=== PATIENT | female | born 2000 | race Caucasian/White ===

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

== ENCOUNTER 2020-01-04 12:55 | Emergency (ER) | payer MEDICAID, SELFPAY ==
[2020-01-04 13:29] VITALS: PULSE 127; RESP 18; TEMP 36.9; O2SAT 98; BMI 28.0
--- NOTE | 2020-01-04 14:54 | XR_ITS ---
WS: [id number] ABDOMEN KUB CLINICAL INFORMATION: Abdominal pain COMPARISON: December 23, 2019 FINDINGS: Moderate fecal retention throughout the colon. No evidence of high-grade obstruction. IUD projected o ankita the pelvis. Normal lumbar spine. XR/XR KUB portable [id number] Impression: Moderate pancolonic constipation
--- NOTE | 2020-01-04 15:06 | W.ED.ABDPA2 ---
HPI - Abdominal Pain General: Chief Complaint: General Medical Stated Complaint: constipation Time Seen by Provider: 01/04/20 13:38 History of Present Illness: HPI narrative: 19-year-old female comes in complaining of constipation for last few days tried various rewy-zwi-wcguoel remedies with no relief. They did try 1 enema at home. She also takes Colace and MiraLAX regularly she has chronic problems with constipation they have also tried Linzess. Associated Symptoms: Reports bloating, constipation and GI cramping; Denies chills, coffee ground emesis, diarrhea, dysuria, fever(s), hematochezia, hematemesis, melena, nausea and vomiting Related Data: Date of Last Menstrual Period: 12/23/19 Review of Systems Const: Denies: fever(s), chills, body aches, change in appetite, fatigue or malaise ENMT: Denies: throat pain, ear or mastoid pain, nasal discharge or nasal congestion Card: Denies: chest pain, edema, dyspnea on exertion or orthopnea Resp: Denies: dyspnea, productive cough or non-productive cough GI: Reports: constipation, bloating and GI cramping; Denies: abdominal pain, nausea, vomiting, hematemesis, coffee ground emesis, diarrhea, hematochezia or melena : Denies: flank pain, difficulty voiding, dysuria, urinary frequency or urinary urgency Skin/Breast: Denies: rash or pruritus [facility] ED PFSH: Medical History (Updated 01/04/20 @ 15:49 by Yuan Villatoro DO) Constipation, chronic Hyperlipidemia Seizures Surgical History (Updated 01/04/20 @ 15:49 by Yuan Villatoro DO) H/O eye surgery Social History Smoking and tobacco status: never smoked Female Reproductive History: Date of last menstrual period: 12/23/19 Physical Exam Const: COMMON NORMALS: no acute distress GENERAL APPEARANCE: cooperative and comfortable ORIENTATION/CONSCIOUSNESS: Yes awake, Yes oriented to person, Yes oriented to place and Yes oriented to time Eye: COMMON NORMALS: Equal, round and reactive pupils present, EOMs intact bilaterally, conjunctivae normal and no scleral icterus CONJUNCTIVA: Yes conjunctivae normal PUPIL: Yes Equal, round and reactive pupils present Neck/C-Spine: COMMON NORMALS: full ROM, no lymphadenopathy, supple and no JVD Lymph: LYMPHATIC: no lymphadenopathy noted and no lymphedema noted Resp: COMMON NORMALS: normal respiratory effort, No retractions, No use of accessory muscles and clear to auscultation bilaterally AUSCULTATION: clear to auscultation bilaterally Cardio: COMMON NORMALS: no JVD, regular rate, regular rhythm and No murmurs present (Cardio) RATE: regular rate RHYTHM: regular rhythm GI: COMMON NORMALS: Soft to palpation and No hepatosplenomegaly present AUSCULTATION: Yes normoactive bowel sounds PALPATION: Yes Soft to palpation, No Tenderness to palpation present (GI), No Guarding due to palpation present (GI) and Yes No hepatosplenomegaly present Extremity: COMMON NORMALS: normal to inspection, capillary refill normal, no clubbing, cyanosis or edema, no calf tenderness and no pedal edema Neuro: SENSORIUM/ORIENTATION: Yes oriented to person, Yes oriented to place and Yes oriented to time Skin: COMMON NORMALS: no rashes or lesions noted GENERAL SKIN EXAM: no rashes or lesions noted Course Vital Signs: Vital signs: Vital Signs Temperature 98.4 F 01/04/20 13:29 Pulse Rate 127 H 01/04/20 13:29 Respiratory Rate 18 01/04/20 13:29 Pulse Oximetry 98 01/04/20 13:29 MDM - Abdominal Pain MDM Narrative: Medical decision making narrative: Large amount of stool in the colon. The entire right colon is full of what appears to be solidified stool or even may be some fecalizartion of the terminal ileum. The results from the milk of molasses enema. He can use mag citrate as needed from this point Continue other strategies including increasing fiber in the diet activity Discharge Plan Discharge Patient Disposition: Home, Self-Care Clinical Impression: Constipation, chronic Condition: Stable Prescriptions: New magnesium citrate Solution 150 ml PO BID PRN (Reason: constipation) Qty: 296 RF: 0 No Action ibuprofen 200 mg capsule 400 mg PO TID PRN (Reason: fever or pain) RF: 0 acetaminophen [Tylenol] 325 mg capsule 650 mg PO QID PRN (Reason: fever or pain) RF: 0 lorazepam 2 mg tablet 2 mg PO DAILY PRN (Reason: seizures) RF: 0 calcium carbonate [Tums] 300 mg (750 mg) tablet,chewable 300 mg PO BID PRN (Reason: heartburn & nausea) RF: 0 Linzess 145 mcg capsule 145 mcg PO QAM PRN (Reason: Constipation) RF: 0 benztropine 1 mg tablet 1 mg PO BID Qty: 60 RF: 2 paliperidone 6 mg tablet extended release 24hr 6 mg PO DAILY Qty: 30 RF: 2 melatonin 3 mg tablet 3 mg PO DAILY Qty: 30 RF: 2 multivitamin [Tab-A-Diana] Tablet 1 tab PO DAILY RF: 0 hydroxyzine HCl 50 mg Tablet 50 mg PO BID PRN (Reason: Anxiety) RF: 0 zonisamide 100 mg Capsule 300 mg PO BID RF: 0 docusate sodium [Colace] 100 mg Capsule 100 mg PO BID RF: 0 omeprazole 20 mg Capsule,Delayed Release(Dr/Ec) 20 mg PO DAILY RF: 0 mineral oil [Tsdhc-Vt-Pst Enema (min oil)] Enema 118 ml [place] DAILY PRN (Reason: constipation) Qty: 135 RF: 1 fluticasone propionate 50 mcg/actuation [place],Suspension 1 spray INTRANASAL BID RF: 0 atorvastatin 40 mg Tablet 40 mg PO BEDTIME RF: 0 norgestimate-ethinyl estradiol 0.18/0.215/0.25 mg-35 mcg (28) Tablet 1 tab PO DAILY RF: 0 fluoride (sodium) [Sodium Fluoride 5000 Plus] 1.1 % Cream 1 applic DENTAL DAILY RF: 0 Briviact 50 mg Tablet 50 mg PO BID RF: 0 quetiapine 400 mg tablet 800 mg PO BID RF: 0 magnesium citrate Solution 45 ml PO BID PRN (Reason: constipation) Qty: 296 RF: 0 Miralax 17 gram/dose powder 17 gm PO DAILY Qty: 119 RF: 0 Discharge Orders: Discharge Order (Routine); Ordered 01/04/20 Ordered By: Yuan Villatoro Coding Level of Care Code ED Control Systems Specialist for Chg Fwd Exam Comprehensive
--- NOTE | 2020-01-04 15:53 | PC.NURSE ---
ENEMA ADMINISTERED, PATIENT TOLERATED WELL
[2020-01-04 16:48] VITALS: PULSE 100; RESP 20; O2SAT 99
== END 2020-01-04 16:49 | disposition home or self-care (01) ==
PROVIDERS: Emergency Provider Family Medicine
DX: K59.09 Other constipation (principal); E78.5 Hyperlipidemia, unspecified
CPT/HCPCS: 12345; 45915; 74018; 99282; 99283

== ENCOUNTER → 2020-01-25 11:18 | Outpatient (BNVA) | payer MEDICAID, SELFPAY | PROVIDERS: Visit Provider Psychiatry & Neurology Psychiatry | DX: F31.9 Bipolar disorder, unspecified (principal); F79 Unspecified intellectual disabilities; F33.41 Major depressive disorder, recurrent, in partial remission; F41.8 Other specified anxiety disorders | CPT/HCPCS: 99214 ==

== ENCOUNTER 2020-02-22 16:24 | Inpatient (IN) | payer OTHER, MEDICAID, SELFPAY ==
[2020-02-22 16:29] VITALS: BP 119/80; PULSE 110; RESP 16; TEMP 37.2; O2SAT 97; BMI 28.1
--- NOTE | 2020-02-22 16:39 | ECG_ITS ---
[facility] Test Date: 2020-02-22 Pat Name: Tyler Sinha Department: Room: Gender: Female Consumer Education Specialist: : 2000 Requested By: Padmini Jorge Order Number: [id number] Gale MD: Raghav Munoz M.D. Measurements Intervals [place] Rate: 101 P: 27 KS: 124 QRS: 16 QRSD: 84 T: 56 QT: 336 QTc: 436 Interpretive Statements SINUS TACHYCARDIA NONSPECIFIC T-WAVE ABNORMALITY ABNORMAL RHYTHM ECG No previous ECG available for comparison Electronically Signed On 02-23-2020 19:32:52 CDT by Raghav Munoz M.D. [id number]
--- NOTE | 2020-02-22 17:03 | ED_ITS ---
HPI - Psych General: Chief Complaint: Psychiatric Symptoms Stated Complaint: chapito, si Time Seen by Provider: 02/22/20 16:39 Source: patient Mode of arrival: ambulatory Limitations: no limitations History of Present Illness: HPI Narrative: Ms. Brewster is a 20-year-old female who comes in stating she is suicidal. She states that she feels like she wants to kill herself because of all the stress and problems in her life. She states she has multiple plans on how she is going to do this. She denies any ingestions or attempts up to this point. She does states she has had other a dmissions and attempts in the past. Review of Systems Const: Denies: fever(s), chills, body aches, fatigue, malaise or diaphoresis Eyes: Denies: change in vision, blurry vision, photophobia, eye discomfort, eye discharge or eye redness ENMT: Denies: throat pain, odynophagia, hoarseness, swelling of lips/tongue, ear or mastoid pain, ear discharge, change in hearing or nasal discharge Card: Denies: chest pain, palpitations, irregular heart rhythm, edema, lightheadedness, syncope, pre-syncope, dyspnea on exertion or orthopnea Resp: Denies: dyspnea, productive cough, non-productive cough, wheezing, hemoptysis or chest congestion GI: Denies: abdominal pain, nausea, vomiting, hematemesis, coffee ground emesis, heartburn, diarrhea, constipation, GI cramping, hematochezia or melena : Denies: flank pain, dysuria, urinary frequency, urinary urgency or hematuria Musc: Denies: neck pain, back pain, extremity pain, extremity swelling, joint pain, joint swelling, joint redness, joint warmth or joint stiffness Skin/Breast: Denies: rash, pruritus, erythema or skin tenderness Neuro: Denies: headache(s), numbness in extremities, weakness in extremities, sensory changes, lack of coordination, difficulty walking, dizziness, vertigo, confusion, Slurred speech present or seizure-like activity Priyank/Lymph: Denies: easy bruising, easy bleeding, petechiae, purpura or enlarged lymph nodes All/Imm: Denies: urticaria, throat swelling, tongue swelling, facial swelling or acute wheezing [facility] ED PFSH: Medical History (Updated 02/22/20 @ 17:53 by Padmini Gupta) Bipolar disorder Constipation, chronic Hyperlipidemia Intellectual disability Seizures Surgical History (Updated 01/04/20 @ 15:49 by Yuan Villatoro DO) H/O eye surgery Social History Smoking and tobacco status: never smoked Female Reproductive History: Date of last menstrual period: 12/23/19 Physical Exam Const: COMMON NORMALS: no acute distress, patient oriented x3, no limitations, healthy appearing and well nourished GENERAL APPEARANCE: cooperative, well kempt and well developed HENMT: COMMON NORMALS: normocephalic, atraumatic, external ears normal, EAC's normal and Normal external nose present HEAD & SCALP: normal to inspection, normocephalic and atraumatic FACE & SINUS: normal facial exam and face symmetric NOSE: Normal external nose present and Normal nares present EXTERNAL EAR: Yes external ears normal EXTERNAL AUDITORY CANAL: EAC's normal MOUTH: Normal oral and palatal mucosa present, lip normal and tongue normal Eye: COMMON NORMALS: Equal, round and reactive pupils present and conjunctivae normal GENERAL EYE: appearance normal, both eyes and all related structures ALIGNMENT: Yes alignment normal PERIORBITAL: periorbital findings normal EYELID: eyelids normal CONJUNCTIVA: Yes conjunctivae normal SCLERA: sclerae normal PUPIL: Yes Equal, round and reactive pupils present Neck/C-Spine: COMMON NORMALS: full ROM, no lymphadenopathy, supple, no meningeal signs and no JVD GENERAL: Yes normal visual inspection and Yes trachea midline Chest: COMMONS NORMALS: normal inspection of the chest and normal palpation of entire chest wall Resp: COMMON NORMALS: normal respiratory effort, No retractions, No use of accessory muscles and clear to auscultation bilaterally EFFORT & INSPECTION: Yes able to speak in complete sentences and Yes symmetric chest movement AUSCULTATION: clear to auscultation bilaterally, no crackles, no rales, no rhonchi and no wheezes Cardio: COMMON NORMALS: no JVD, regular rate, regular rhythm, S1 normal heart sound present and S2 normal heart sound present RATE: regular rate RHYTHM: regular rhythm HEART SOUNDS: S1 normal heart sound present, S2 normal heart sound present, no click, no gallops, no murmurs, no rubs and abnormal split S2 GI: COMMON NORMALS: Soft to palpation and No hepatosplenomegaly present PALPATION: Yes Soft to palpation, No Tenderness to palpation present (GI), No Guarding due to palpation present (GI), No Rigid due to palpation, Yes No hepatosplenomegaly present, No Hernia present, No Palpable mass present and No Pulsatile mass present : COMMON NORMALS: Yes no CVA tenderness BLADDER/KIDNEY EXAM: Yes no CVA tenderness EXTERNAL FEMALE EXAM: No Hernia present Back/Pelvis: COMMON NORMALS: no CVA tenderness, thoracic and lumbar spine normal to inspection, no thoracic nor lumbar tenderness and thoraco-lumbar ROM normal Extremity: COMMON NORMALS: normal to inspection, full ROM, capillary refill normal, no joint enlargement, no clubbing, cyanosis or edema and no calf tenderness Neuro: COMMON NORMALS: patient oriented x3, CN's II-XII intact bilaterally, moves all extremities, no focal motor deficits and no sensory deficits noted MENINGEAL SIGNS: Yes no meningeal signs SPEECH: speech normal Psych: COMMON NORMALS: mental status grossly normal, Normal thought process present, cooperative, normal affect, speech normal and activity/motor behavior normal APPEARANCE: Yes well kempt SPEECH: Yes normal speech THOUGHT PROCESS: Normal thought process present Skin: COMMON NORMALS: no rashes or lesions noted, turgor normal, no jaundice, no petechiae and no mottling GENERAL SKIN EXAM: no rashes or lesions noted and turgor normal MDM - Psych MDM Narrative: Medical decision making narrative: Case reviewed with Dr. Barrios, he agrees accept the patient to the neuropsychiatric unit. Lab Data: Labs: Lab Results 02/22/20 02/22/20 02/22/20 Range/Units 16:43 17:10 17:10 WBC 5.5 (4.5-13.0) 10^3/ uL RBC 4.36 (4.1-5.3) 10^6/u L Hgb 12.9 (11.5-15.3) g/dL Hct 38.9 (37.0-47.0) % MCV 89.2 (81-99) fL MCH 29.6 (28.0-34.0) pg MCHC 33.2 (30.0-36.0) g/dL RDW 12.0 L (12.1-15.1) % Plt Count 297 (130-400) 10^3/c mm MPV 10.4 (7.4-10.4) fL Neut % (Auto) 52.4 % Lymph % (Auto) 37.4 % [place] % (Auto) 8.0 % Eos % (Auto) 1.3 % Baso % (Auto) 0.5 % Neut # (Auto) 2.89 (1.8-8.0) 10^3/u L Lymph # (Auto) 2.1 (1.5-6.5) 10^3/u L [place] # (Auto) 0.4 (0.2-0.9) 10^3/u L Eos # (Auto) 0.1 (0.0-0.8) 10^3/u L Baso # (Auto) 0.0 (0.0-0.1) 10^3/u L Nucleated RBC % (a uto) 0 % Nucleated RBCs # 0.0 /100WBC Sodium 139 (136-145) mmol/L Potassium 3.8 (3.5-5.1) mmol/L Chloride 109 H (98-107) mmol/L Carbon Dioxide 20 L (22-29) mmol/L Anion Gap 13.8 (5-19) BUN 7 (6-20) mg/dL Creatinine 0.7 (0.5-0.9) mg/dL GFR Calculation 106.7 (90-130) mL/min Glucose 101 (65-115) mg/dL Calculated Osmolal ity 284 L (285-295) mOsm/k g Calcium 8.8 (8.5-10.5) mg/dL Total Bilirubin 0.2 (0.15-1.2) mg/dL AST 20 (0-32) U/L ALT 14 (0-33) U/L Alkaline Phosphata se 113 H (35-105) IU/L Total Protein 7.2 (6.6-8.7) g/dL Albumin 4.3 (3.5-5.2) g/dL Globulin 2.9 (1.3-4.6) g/dL TSH 1.85 (0.27-4.20) uIU/ mL HCG, Qual (Negative) Salicylates < 0.3 L (3-10) mg/dL Urine Opiates Scre en Negative (Negative) ng/mL Acetaminophen < 5.0 L (10-30) ug/mL Ur Barbiturates Sc reen Negative (Negative) ng/mL Ur Phencyclidine S crn Negative (Negative) ng/mL Ur Amphetamines Sc reen Negative (Negative) ng/mL U Benzodiazepines Scrn Positive H (Negative) ng/mL Urine Cocaine Scre en Negative (Negative) ng/mL U Marijuana (THC) Screen Negative (Negative) ng/mL Ethyl Alcohol < 10 (0-10) mg/dL 02/22/20 Range/Units 17:10 WBC (4.5-13.0) 10^3/ uL RBC (4.1-5.3) 10^6/u L Hgb (11.5-15.3) g/dL Hct (37.0-47.0) % MCV (81-99) fL MCH (28.0-34.0) pg MCHC (30.0-36.0) g/dL RDW (12.1-15.1) % Plt Count (130-400) 10^3/c mm MPV (7.4-10.4) fL Neut % (Auto) % Lymph % (Auto) % [place] % (Auto) % Eos % (Auto) % Baso % (Auto) % Neut # (Auto) (1.8-8.0) 10^3/u L Lymph # (Auto) (1.5-6.5) 10^3/u L [place] # (Auto) (0.2-0.9) 10^3/u L Eos # (Auto) (0.0-0.8) 10^3/u L Baso # (Auto) (0.0-0.1) 10^3/u L Nucleated RBC % (a uto) % Nucleated RBCs # /100WBC Sodium (136-145) mmol/L Potassium (3.5-5.1) mmol/L Chloride (98-107) mmol/L Carbon Dioxide (22-29) mmol/L Anion Gap (5-19) BUN (6-20) mg/dL Creatinine (0.5-0.9) mg/dL GFR Calculation (90-130) mL/min Glucose (65-115) mg/dL Calculated Osmolal ity (285-295) mOsm/k g Calcium (8.5-10.5) mg/dL Total Bilirubin (0.15-1.2) mg/dL AST (0-32) U/L ALT (0-33) U/L Alkaline Phosphata se (35-105) IU/L Total Protein (6.6-8.7) g/dL Albumin (3.5-5.2) g/dL Globulin (1.3-4.6) g/dL TSH (0.27-4.20) uIU/ mL HCG, Qual Negative (Negative) Salicylates (3-10) mg/dL Urine Opiates Scre en (Negative) ng/mL Acetaminophen (10-30) ug/mL Ur Barbiturates Sc reen (Negative) ng/mL Ur Phencyclidine S crn (Negative) ng/mL Ur Amphetamines Sc reen (Negative) ng/mL U Benzodiazepines Scrn (Negative) ng/mL Urine Cocaine Scre en (Negative) ng/mL U Marijuana (THC) Screen (Negative) ng/mL Ethyl Alcohol (0-10) mg/dL EKG Data^: EKG 1: Attestation: I personally reviewed and interpreted this EKG as follows: Interpretation: Sinus tachycardia 101 beats a minute, no QTC changes Discharge Plan Discharge Patient Disposition: Admitted As Inpatient Admit Provider: Gen Barrios Clinical Impression: Suicidal ideation Condition: Stable Discharge Date/Time: 02/22/20 18:17 Coding Level of Care Code ED Sharepoint Solutions Developer for Jacqueline Fwd Exam Comprehensive
[2020-02-22 17:17] LABS: Basophils % 0.5 %; Eosinophils # 0.1 10^3/uL (0.0-0.8); Eosinophils % 1.3 %; Hematocrit 38.9 % (37.0-47.0); Hemoglobin 12.9 g/dL (11.5-15.3); Lymphocytes # 2.1 10^3/uL (1.5-6.5); Lymphocytes % 37.4 %; Mean Corpuscular HGB Conc 33.2 g/dL (30.0-36.0); Mean Corpuscular Hemoglobin 29.6 pg (28.0-34.0); Mean Corpuscular Volume 89.2 fL (81-99); Mean Platelet Volume 10.4 fL (7.4-10.4); Monocytes # 0.4 10^3/uL (0.2-0.9); Neutrophils # 2.89 10^3/uL (1.8-8.0); Neutrophils % 52.4 %; Nucleated Red Blood Cells % 0 %; Platelet Count 297 10^3/cmm (130-400); Red Blood Count 4.36 10^6/uL (4.1-5.3); White Blood Count 5.5 10^3/uL (4.5-13.0)
[2020-02-22 17:24] LABS: Amphetamines Screen Urine Negative (Negative); Barbiturates Screen Urine Negative (Negative); Benzodiazepines Screen Urine Positive (Negative); Cocaine Screen Urine Negative (Negative); Opiate Screen Urine Negative (Negative); PCP Screen Urine Negative (Negative); THC Screen Urine Negative (Negative)
[2020-02-22 17:38] LABS: HCG, Serum Qual Negative (Negative)
--- NOTE | 2020-02-22 17:51 | PC.NURSE ---
spoke with pt's mother-and received permission to treat/admit pt. Pt's mother requests that she be contacted prior to any new medication administration or any medication changes.
[2020-02-22 17:54] LABS: Acetaminophen < 5.0 ug/mL (10-30); Alanine Aminotransferase 14 U/L (0-33); Albumin Level 4.3 g/dL (3.5-5.2); Alcohol Level < 10 mg/dL (0-10); Alkaline Phosphatase 113 IU/L (35-105); Anion Gap 13.8 (5-19); Aspartate Amino Transferase 20 U/L (0-32); Blood Urea Nitrogen 7 mg/dL (6-20); Calcium 8.8 mg/dL (8.5-10.5); Carbon Dioxide 20 mmol/L (22-29); Chloride 109 mmol/L (98-107); Globulin 2.9 g/dL (1.3-4.6); Glomerular Filtration Rate 106.7 mL/min (90-130); Glucose 101 mg/dL (65-115); Osmolality Calculated 284 mOsm/kg (285-295); Potassium 3.8 mmol/L (3.5-5.1); Salicylate < 0.3 mg/dL (3-10); Sodium 139 mmol/L (136-145); Thyroid Stimulating Hormone 1.85 uIU/mL (0.27-4.20); Total Bilirubin 0.2 mg/dL (0.15-1.2); Total Protein 7.2 g/dL (6.6-8.7)
[2020-02-22 18:09] VITALS: BP 117/82; PULSE 105; RESP 16; TEMP 36.8; O2SAT 98
[2020-02-22 18:24] VITALS: BP 112/78; PULSE 113; RESP 18; TEMP 36.7; O2SAT 98
[2020-02-22 21:58] VITALS: BP 122/76; PULSE 97; RESP 19; TEMP 36.9; O2SAT 98
[2020-02-22] MEDS: hyDROXYzine 25 mg Capsule 50 MG PO (22:32)
[2020-02-22] MEDS: acetaminophen 325 mg Tablet 650 MG PO (22:32)
--- NOTE | 2020-02-22 22:40 | PC.NURSE ---
PRN VISTARIL PT REQUESTING ANXIETY MED. ADMINISTERED VISTARIL 50MG PO. WILL MONITOR FOR MEDICATION EFFECTIVENESS.
[2020-02-23 06:00] VITALS: RESP 15
--- NOTE | 2020-02-23 10:01 | PM.NHP ---
Providers/Chief Complaint Admitting Physician: Gen Barrios MD Chief Complaint: mhe, si HPI NPU History of Present Illness Tyler Sinha is a 20 year old female who presented to the emergency room yesterday reporting that she was suicidal, feeling like she wanted to kill herself because of all the stress and problems in her life. She reported multiple plans. She denies doing anything prior to presentation to forward those thoughts and stating that she had previous admissions and attempts in the past. She was admitted to the neuropsychiatric unit for definitive treatment of those issues. She presented to the unit acclimating to the individual, group, and milieu therapies provided. It was noteworthy that earlier this year on October 02, 2019 she did have an outpatient psychiatric evaluation which she and I reviewed, as she reported that she had been seen at [facility] recently and that a lot of the questions that I was asking her would likely be answered there. We reviewed that and she denied any substantive changes. She endorsed a need to get something for her depression and to help her feel better. She endorsed a history of bipolar disorder and what she called CP-450, which she reported was to her knowledge meaning to her 450 system processes, medications much more quickly and causes her to need higher doses of medication sometimes. On her presentation to the unit, she was somewhat nonchalant as she talked about her issues being suicidal and really struggling, and reporting that last night she did not sleep. She reports that she had been blocked from social media and somehow, she got on the social media and was really upset because her boyfriend had moved to [place]. She reports it was probably bad that she got on the social media because she really struggles with it, and it was against the rules that she was on there, but she reports she was off her medication but then when pressed she meant that she just had not had them at that point in the day when she and I spoke. She reports she has had twelve plus hospitalizations and currently is living at a residential facility. She reports that she is supposed to have a vagal nerve stimulator put in in a week or so, so she is really anxious about making sure she can still get out of the hospital because she has been waiting for that for some time. She endorses having suicidal thoughts and feels like her medications do not help her depression. We discussed the risks, benefits, and alternatives of initiating Paxil and likely talking to her guardian about having that, but she endorsed understanding and agreed to proceed as is documented in this note. Per recent 10/02/2019 [facility] outpatient psychiatric eval: [facility] History and Physical Time In: 09:15 Time Out: 09:58 Chief Complaint: I need to establish care History of Present Illness: This was a tele-visit for safety precautions related to coronavirus recommendations. This is a 19-year-old female with a past psychiatric history of various diagnoses including oppositional defiant disorder, bipolar disorder, ADHD, and OCD. Today she describes a history of approximately 11 residential inpatient admissions for months or years at a time starting at a young age for behavioral issues. She describes a history of being very emotionally labile including hitting her head when frustrated, threatening suicide or self-harm when she is emotionally [id number], in addition to feeling like her moods are roller coaster saying that she happy 1 minute sad the next and angry the next minute. She says that her biological father when she was 11 years old and this caused a great disruption in her emotional life. In addition to hitting her self and threatening self-harm she also throws things at times. She says she has a seizure disorder and it may be due to a spot on my brain that they found but she says may be due to her hitting her head but that is unclear. She is been staying at a place called [facility] which is a 24-hour assisted care place since June 2019. I talked to a staff member in addition to the patient both the patient staff says the patient is doing very well and has not needed any as needed medication since June. Overall the patient is sleeping well at 8 hours a night, she says her mood is stable, much more stable than it has been in many years, and she feels like things are going very well. She does describe generalized anxiety symptoms including anxious racing thoughts and frequent catastrophic thinking but this under reasonable control at this time. From a diagnosis perspective I see no clear evidence of bipolar disorder but her symptoms and history fit more with oppositional defiance which may be resolved as the patient is getting older. She also has generalized anxiety disorder. At this point given her age the oppositional defiance and unspecified personality disorder would be the most consistent diagnoses that I would apply to her at this moment. She denies any suicidal thoughts denies any actual past suicide attempts but has threatened many times. She denies any side effects or medications at this time. History Past Psychiatric History: She has had at least 11 admissions to psychiatric inpatient units and residential facilities ranging from weeks to months to at sometimes years for residential places. She denies actual suicide attempts or actual self-harm but she is threatened both many times. Family History: Family history is unclear Past Medical History: She has seizure disorder and hyperlipidemia Substance Use History: She denies any current or past substance use including nicotine. Social History: She is never been and has no children. She currently lives in a residential facility. She grew up in [facility]. She did graduate high school says she was never diagnosed with any learning disabilities but is in and out of school special classes due to behavior issues. Review of Systems General: Reports: 10 or more systems reviewed and unremarkable except in HPI and below Mental Status Exam Mental Status Exam She is alert and oriented to person, place, time, and situation. Her hygiene is unobserved due to being a tele-visit. Sensorium is clear. Speech is of a regular rate, rhythm, volume, tone, and prosody. Eye contact was not observed during the examination due to it being a tele-visit. There are no psychomotor changes reported. Mood is fine . Affect is mood congruent and non-labile. Thought process is linear, logical, and goal directed. She denies auditory or visual hallucinations and does not endorse any delusional thinking. He denies suicidal or homicidal thoughts. There is no passive wish of . Memory is intact for recent and remote events. She is cooperative and relates well to me by phone. Insight and judgment were deemed to be good given the recognition of problems and desire for treatment. Assessment/Formulation Assessment and Plan (1) Unspecified personality disorder: Status: Acute Code(s): F60.9 - Personality disorder, unspecified (2) Oppositional defiant behavior: Status: Acute Code(s): F91.3 - Oppositional defiant disorder (3) Generalized anxiety disorder: Status: Acute Code(s): F41.1 - Generalized anxiety disorder Plan: Assessment: 19-year-old female with a history consistent with oppositional defiant disorder and generalized anxiety disorder who is currently staying in a residential facility with 24-hour assistance with the freedom to come and go as she pleases. There is no substance use history reported. I feel that her history and symptoms are most consistent with oppositional defiance and she has no trauma history reported. I did not see evidence of clear Manic episodes I would support a bipolar diagnosis today and I did not see any evidence of obsessive-compulsive disorder either. She does have generalized anxiety symptoms. Given her age I will continue the oppositional defiant disorder diagnosis which is likely transitioning into an unspecified personality disorder. However, will be interesting to see how she does over the next year or so given her current stability at this time. Her symptoms could be very well resolved at this point. We will continue current medication regimen but I question the need for the 2 antipsychotics especially given the high dose of Seroquel. Given her stability and the fact that we are doing phone sessions at this time due to a virus restrictions I will continue the medications but at some point it may be worth tapering her off the Invega. Overall she is very stable now no problems reported from the facility and no use of PRN medications since she arrived in June. I will renew the Invega, Seroquel, Cogentin, and melatonin today for 3 months. The lorazepam is on as a as needed medication and she has not used it so I will not renew that today. Plan: Continue Invega ER 6 mg daily Continue Seroquel 400 mg twice daily Continue melatonin 3 mg at night Continue Cogentin 1 mg twice daily Prescription written for 1 month with 2 refills and sent to [facility] in [facility] Return to clinic in 3 months, sooner if needed. Medications: New: benztropine 1 mg PO BID 60 tabs 2RF quetiapine 400 mg PO BID 60 tabs 2RF paliperidone ER 6 mg PO DAILY 30 tabs 2RF melatonin 3 mg PO DAILY 30 tabs 2RF Intake [facility] Intake Intake Allergies clozapine Allergy (Verified 09/15/19 21:01) Unknown divalproex sodium [From Depakote] Allergy (Verified 09/15/19 21:01) Unresponsive lamotrigine [From Lamictal] Allergy (Verified 09/15/19 21:01) Unknown lithium Allergy (Verified 09/15/19 21:01) Unknown Penicillins Allergy (Verified 09/15/19 21:01) Unknown topiramate [From Topamax] Allergy (Verified 09/15/19 21:01) Unknown Home Medications - Last Reconciled 10/01/19 by Aly Caicedo LPN acetaminophen (Tylenol) 650 mg PO QID PRN atorvastatin 40 mg PO DAILY benztropine 1 mg PO BID brivaracetam (Briviact) 50 mg PO BID calcium carbonate (Tums) 300 mg PO BID PRN docusate sodium (Colace) 100 mg PO BID fluoride (sodium) 1.1% (Sodium Fluoride 5000 Plus) 1 applic dental DAILY fluticasone propionate 50 mcg/actuation 1 spray intranasal BID hydroxyzine HCl 50 mg PO BID ibuprofen 400 mg PO TID PRN linaclotide (Linzess) 145 mcg PO QAM lorazepam 2 mg PO DAILY PRN magnesium citrate 120 mL PO BID PRN melatonin 3 mg PO DAILY mineral oil (Rhuek-Wp-Vir Enema (min oil)) 118 mL GA DAILY PRN multivitamin (Tab-A-Diana) 1 tab PO DAILY norgestimate-ethinyl estradiol 1 tab PO DAILY omeprazole 20 mg PO DAILY paliperidone ER 6 mg PO DAILY quetiapine 400 mg PO BID zonisamide 300 mg PO BID Meds NPU Home Medications Medication Instructions Recorded Confirmed Last Taken Type Briviact 100 mg PO BID 09/15/19 02/23/20 02/22/20 20:00 History 100 mg atorvastatin 40 mg PO BEDTIME 09/15/19 02/23/20 02/22/20 21:00 History docusate sodium [Colace] 100 mg PO BID 09/15/19 01/04/20 01/04/20 History fluoride (sodium) [Sodium Fluoride 1 applic DENTAL DAILY 09/15/19 01/04/20 01/04/20 History 5000 Plus] fluticasone propionate 1 spray INTRANASAL BID 09/15/19 02/23/20 02/22/20 20:00 History 1 spray mineral oil [Ktkmp-Uy-War Enema 118 ml GA DAILY PRN #135 ml 09/15/19 01/04/20 01/04/20 Rx (min oil)] multivitamin [Tab-A-Diana] 1 tab PO DAILY 09/15/19 02/23/20 02/22/20 08:00 History 1 tab norgestimate-ethinyl estradiol 1 tab PO DAILY 09/15/19 02/23/20 02/22/20 20:00 History omeprazole 20 mg PO DAILY 09/15/19 02/23/20 02/22/20 08:00 History 20 mg zonisamide 300 mg PO BID 09/15/19 02/23/20 02/22/20 20:00 History 300 mg acetaminophen 325 mg capsule 650 mg PO QID PRN cap 10/01/19 02/23/20 02/17/20 History 650 mg calcium carbonate 300 mg (750 mg) 300 mg PO BID PRN 10/01/19 01/04/20 01/04/20 History chewable tablet ibuprofen 200 mg capsule 400 mg PO TID PRN cap 10/01/19 02/23/20 02/10/20 08:00 History linaclotide 145 mcg capsule 290 mcg PO QAM PRN 10/01/19 01/04/20 01/04/20 History melatonin 3 mg tablet 3 mg PO DAILY #30 tab 10/02/19 01/04/20 01/03/20 Rx polyethylene glycol 3350 [Miralax] 17 gm PO DAILY #119 gm 12/24/19 02/23/20 02/22/20 20:00 Rx 17 gm benztropine 1 mg tablet 1 mg PO BID #60 tab 01/25/20 02/23/20 02/22/20 20:00 Rx quetiapine 400 mg tablet 800 mg PO BID 30 Days #120 tab 01/25/20 02/23/20 02/22/20 20:00 Rx 800 mg hydroxyzine HCl 25 mg tablet 50 mg PO BID PRN 30 Days #120 tab 01/28/20 01/28/20 Unknown Rx hydroxyzine HCl 50 mg tablet 50 mg PO BID 30 Days #60 tab 01/28/20 02/23/20 02/22/20 16:00 Rx 50 mg paliperidone 6 mg tablet,extended 12 mg PO DAILY 30 Days #60 tab 01/28/20 02/23/20 02/22/20 08:00 Rx release 24 hr 12 mg Linzess 290 mcg PO DAILY 02/23/20 02/23/20 02/22/20 08:00 History 290 mcg lorazepam 1 mg PO BEDTIME 02/23/20 02/23/20 02/21/20 20:00 History 1 mg Allergies Allergy/AdvReac Type Severity Reaction Status Date / Time clozapine Allergy Unknown Verified 02/22/20 16:32 divalproex sodium Allergy Unresponsiv Verified 02/22/20 16:32 [From Depakote] e lamotrigine [From Lamictal] Allergy Unknown Verified 02/22/20 16:32 lithium Allergy Unknown Verified 02/22/20 16:32 Penicillins Allergy Unknown Verified 02/22/20 16:32 topiramate [From Topamax] Allergy Unknown Verified 02/22/20 16:32 PFSH NPU PFSH: Medical History (Updated 02/22/20 @ 17:53 by Padmini Gupta) Bipolar disorder Constipation, chronic Hyperlipidemia Intellectual disability Seizures Surgical History (Updated 01/04/20 @ 15:49 by Yuan Villatoro DO) H/O eye surgery Social History Smoking and tobacco status: never smoked Mental Status Exam MSE Comments: This is an overweight, white female, with adequate dress, grooming, and eye contact. She is somewhat disheveled but cooperative with exam in no acute distress. Speech was slightly decreased prosody and rate and volume. Mood described as great initially; but then when I questioned that she said that she still needs something for her depression, but she is feeling really good right now. Thought process, organized. Thought content: patient denied any suicidal or homicidal ideation, there were no delusions reported or noted, patient denied any auditory or visual hallucinations. Attention, concentration, and memory appear intact but were not formally tested. She is alert and oriented times three. Insight and judgment are impaired. Impulse control is limited, and intellectual ability appears impaired. Vitals/I&O/Wt Last Vital Signs Temp 98.5 F 02/22/20 21:58 Pulse 97 02/22/20 21:58 Resp 15 02/23/20 06:00 BP 122/76 02/22/20 21:58 Pulse Ox 98 02/22/20 21:58 Weight last 48 hrs Weight 72.121 kg Data NPU : 02/22/20 17:10 02/22/20 17:10 A&P Assessment and plan (1) Suicidal ideation: Status: Acute (2) Intellectual disability: Status: Acute (3) Bipolar disorder: Status: Acute (4) Seizures: Status: Acute (5) Hyperlipidemia: Status: Acute (6) Constipation, chronic: Status: Acute (7) Unspecified personality disorder: Status: Acute (8) Oppositional defiant behavior: Status: Acute (9) Generalized anxiety disorder: Status: Acute Additional A&P Information This is a 20 year old, white female, with a history of personality disorder, obsessive compulsive disorder, generalized anxiety disorder, mood dysregulation which has been questioned about whether that is in the bipolar spectrum or in the Cluster B spectrum, and likely intellectual disability, mild, versus borderline intellectual functioning, who presents after some episode where she felt she needed to hurt herself after discovering that her boyfriend had moved, who presents open to continuing her medication with something to help her depression. Continue current medication except: Start Paxil 20 mg po qam. Encourage individual, group, and milieu therapy. Continue q-15 minute checks for safety. Involuntary Hold Information 96 Hour Hold: 96 Hour Involuntary Admission: No Attestations NPU Medical Necessity Statement*: Inpatient hospitalization is medically necessary, and the clinically appropriate intervention at this time. We will monitor medications and make adjustment, as indicated. She will be in the hospital for over two midnights; however, as she displays significant Cluster B pathology, we will work with guardian for a quick discharge given the limited efficacy of long inpatient stays for Cluster B patients. Likely length of stay two to four days. 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
[2020-02-23 13:41] VITALS: BP 93/68; PULSE 96; RESP 18; TEMP 36.8; O2SAT 100
[2020-02-23] MEDS: fluticasone nasal spray 16gm Btl 1 SPRAY INTRANASAL (17:20)
[2020-02-23] MEDS: benztropine 1 mg Tablet PO (17:21)
[2020-02-23] MEDS: quetiapine 300 mg Tablet 600 MG PO (17:21)
[2020-02-23] MEDS: hyDROXYzine 25 mg Capsule 50 MG PO (17:21)
[2020-02-23] MEDS: quetiapine 100 mg Tablet 200 MG PO (17:21)
[2020-02-23] MEDS: zonisamide 100 MG Capsule 300 MG PO (17:22)
--- NOTE | 2020-02-23 19:31 | PC.NURSE ---
BRIVIACT THIS NURSE CALLED SHAILESH QUEZADA [phone] [facility]. [facility] DOES NOT [facility] BRIVIACT AND SHAILESH IS GOING TO BRING IN THE MEDICATION.
--- NOTE | 2020-02-23 19:44 | PC.NURSE ---
Received phone call from a staff member at [facility]. The patient had called her mother to say she had been started on Paxil. The mother does not want the med started. The staff member said no meds can be started without consent of guardian.
--- NOTE | 2020-02-23 20:01 | PC.NURSE ---
Received a phone call from Leanna Acevedo, who identified herself as guardian. Also on the line was the the patient's mother, Misti Carranza, . We had a discussion about the patient's medications. Leanna said no new medications can be given without consent from guardian or the patient's mother. They was concern about the Paxil that was ordered. I told them the patient had not received a dose and the med had been placed on hold. They were concerned the patient had not received one of her seizure medications. I told them the patient's seizure medication is being delivered from the patient's care givers from [facility]. Initially Leanna said she wanted to be contacted by a member of Risk Management or Administration. I told Leanna I would document the call and her concerns. I notified Direct Selling Counselor, Malena. Malena said she would make notifications to the departments.
[2020-02-23] MEDS: LORazepam 1 mg Tablet PO (21:08)
[2020-02-23] MEDS: atorvastatin 40 mg Tablet PO (21:08)
[2020-02-23 22:00] VITALS: BP 120/85; PULSE 86; RESP 18; TEMP 36.9; O2SAT 99
[2020-02-24 06:00] VITALS: BP 133/76; PULSE 92; RESP 15; TEMP 36.4; O2SAT 97
--- NOTE | 2020-02-24 09:25 | P.PN_ITS ---
Subjective NPU Subjective: Interval history: Tyler presented today reporting that she is feeling better and feeling less irritable and denying any desire for self-harm, not having obsessive thoughts about the aden she was getting on social media with and trying to find, not expressing any sadness, fear or any other negative symptoms related to him being in [place]. I had an opportunity to speak to the head of her [facility] facility as well as her mother and essentially co- guardian about her medications and we were able to verify she is on the 800 mg bid of the Seroquel XR. This is in part due to the fact that she is noted to be a rapid metabolizer in the P-450 system and so this probably represents how she is able to deal with doses that high without significant weight gain or le thargy. Additionally, we noted that she appears to have MTHFR deficiency. It is unclear whether it is heterozygous or homozygous, but also creates a problem that she is unable to methylate substances in her system. Likely those things combined to why she has some difficulty. We had a long conversation about her intellectual functioning as well as how to manage this dating and romance against the backdrop of mild intellectual disability. We all agreed that with staffing in place tomorrow, that discharge will be appropriate. Mental Status Exam MSE Comments: This is an overweight, white female, with adequate dress, grooming, and eye contact. She is somewhat disheveled but cooperative with exam in no acute distress. Speech was slightly decreased prosody and normal rate and volume. Mood described as really good; affect congruent. Thought process, organized. Thought content: patient denied any suicidal or homicidal ideation, there were no delusions reported or noted, patient denied any auditory or visual hallucinations. Attention, concentration, and memory appear intact but were not formally tested. She is alert and oriented times three. Insight and judgment are limited. Impulse control is limited, and intellectual ability appears impaired. Vitals/I&O/Wt Last Vital Signs Temp 97.6 F 02/24/20 06:00 Pulse 92 02/24/20 06:00 Resp 15 02/24/20 06:00 BP 133/76 02/24/20 06:00 Pulse Ox 97 02/24/20 06:00 Weight last 48 hrs Weight 74.843 kg Weight 72.121 kg Data NPU : 02/22/20 17:10 02/22/20 17:10 A&P Additional A&P Information (1) Suicidal ideation: (2) Intellectual disability: (3) Bipolar disorder: (4) Seizures: (5) Hyperlipidemia: (6) Constipation, chronic: (7) Unspecified personality disorder: (8) Oppositional defiant behavior: (9) Generalized anxiety disorder: This is a 20 year old, white female, with a history of personality disorder, obsessive compulsive disorder, generalized anxiety disorder, mood dysregulation which has been questioned about whether that is in the bipolar spectrum or in the Cluster B spectrum, and likely intellectual disability, mild, versus borderline intellectual functioning, who presents after some episode where she felt she needed to hurt herself after discovering that her boyfriend had moved, who presents open to continuing her medication with something to help her depression. Continue current medication except: Did not start the Paxil after conversation with family/guardian. Encourage individual, group, and milieu therapy. Continue q-15 minute checks for safety. Involuntary Hold Information 96 Hour Hold: 96 Hour Involuntary Admission: No Attestations NPU Medical Necessity Statement*: Inpatient hospitalization is medically necessary, and the clinically appropriate intervention at this time. We will monitor medications and make adjustment, as indicated. Likely length of stay 1-3 days. Plan for discharge tomorrow. Coding Level of Care Code Acute Weight Yardage Checker for Jacqueline Meyer
[2020-02-24] MEDS: quetiapine XR (24HR) 300 mg Tablet 600 MG PO ×2 (10:21→17:08)
[2020-02-24] MEDS: pantoprazole DR 40 mg Tablet PO (10:22)
[2020-02-24] MEDS: zonisamide 100 MG Capsule 300 MG PO ×2 (10:22→17:08)
[2020-02-24] MEDS: quetiapine XR (24HR) 50 mg Tablet 200 MG PO ×2 (10:22→17:08)
[2020-02-24] MEDS: hyDROXYzine 25 mg Capsule 50 MG PO ×2 (10:23→17:08)
[2020-02-24] MEDS: paliperidone ER 6 mg Tablet 12 MG PO (10:23)
[2020-02-24] MEDS: benztropine 1 mg Tablet PO ×2 (10:23→17:08)
[2020-02-24] MEDS: fluticasone nasal spray 16gm Btl 1 SPRAY INTRANASAL ×2 (10:24→17:05)
[2020-02-24] MEDS: polyethylene glycol 3350 Pkt 17 gm PO ×2 (10:25→17:06)
[2020-02-24 14:00] VITALS: BP 101/5; PULSE 87; RESP 18; TEMP 36.9; O2SAT 99
[2020-02-24] MEDS: blistex lip oint 7 gm Tube 1 APPLIC TOPICAL (15:43)
[2020-02-24 20:13] VITALS: BP 107/83; PULSE 111; RESP 17; TEMP 36.3; O2SAT 98
[2020-02-24] MEDS: atorvastatin 40 mg Tablet PO (20:28)
[2020-02-24] MEDS: LORazepam 1 mg Tablet PO (20:28)
[2020-02-24] MEDS: sennosides-docusate Tablet 2 TAB PO (20:28)
--- NOTE | 2020-02-24 20:28 | PC.NURSE ---
pt given scheduled HS lipitor, ativan and dilan-s, pt refused scheduled metamucil. pt stated she has had a bowel movement this day and did not need the medication at this time.
[2020-02-25 06:00] VITALS: BP 92/64; PULSE 93; RESP 12; TEMP 36.4; O2SAT 96
[2020-02-25] MEDS: polyethylene glycol 3350 Pkt 17 gm PO (09:01)
[2020-02-25] MEDS: paliperidone ER 6 mg Tablet 12 MG PO (09:02)
[2020-02-25] MEDS: zonisamide 100 MG Capsule 300 MG PO (09:02)
[2020-02-25] MEDS: quetiapine XR (24HR) 300 mg Tablet 600 MG PO (09:02)
[2020-02-25] MEDS: hyDROXYzine 25 mg Capsule 50 MG PO (09:02)
[2020-02-25] MEDS: benztropine 1 mg Tablet PO (09:02)
[2020-02-25] MEDS: pantoprazole DR 40 mg Tablet PO (09:02)
[2020-02-25] MEDS: quetiapine XR (24HR) 50 mg Tablet 200 MG PO (09:02)
[2020-02-25] MEDS: fluticasone nasal spray 16gm Btl 1 SPRAY INTRANASAL (09:03)
--- NOTE | 2020-02-25 11:20 | PM.NDC ---
Diagnoses at Discharge Discharge Diagnosis (1) Suicidal ideation: Status: Acute (2) Intellectual disability: Status: Acute (3) Bipolar disorder: Status: Acute (4) Seizures: Status: Acute (5) Hyperlipidemia: Status: Acute (6) Constipation, chronic: Status: Acute (7) Unspecified personality disorder: Status: Acute (8) Oppositional defiant behavior: Status: Acute (9) Generalized anxiety disorder: Status: Acute Reason for Visit Reason for Visit: mhe, maria r Brief History: History of Present Illness Tyler Sinha is a 20 year old female who presented to the emergency room yesterday reporting that she was suicidal, feeling like she wanted to kill herself because of all the stress and problems in her life. She reported multiple plans. She denies doing anything prior to presentation to forward those thoughts and stating that she had previous admissions and attempts in the past. She was admitted to the neuropsychiatric unit for definitive treatment of those issues. She presented to the unit acclimating to the individual, group, and milieu therapies provided. It was noteworthy that earlier this year on October 02, 2019 she did have an outpatient psychiatric evaluation which she and I reviewed, as she reported that she had been seen at [facility] recently and that a lot of the questions that I was asking her would likely be answered there. We reviewed that and she denied any substantive changes. She endorsed a need to get something for her depression and to help her feel better. She endorsed a history of bipolar disorder and what she called CP-450, which she reported was to her knowledge meaning to her 450 system processes, medications much more quickly and causes her to need higher doses of medication sometimes. On her presentation to the unit, she was somewhat nonchalant as she talked about her issues being suicidal and really struggling, and reporting that last night she did not sleep. She reports that she had been blocked from social media and somehow, she got on the social media and was really upset because her boyfriend had moved to [place]. She reports it was probably bad that she got on the social media because she really struggles with it, and it was against the rules that she was on there, but she reports she was off her medication but then when pressed she meant that she just had not had them at that point in the day when she and I spoke. She reports she has had twelve plus hospitalizations and currently is living at a residential facility. She reports that she is supposed to have a vagal nerve stimulator put in in a week or so, so she is really anxious about making sure she can still get out of the hospital because she has been waiting for that for some time. She endorses having suicidal thoughts and feels like her medications do not help her depression. We discussed the risks, benefits, and alternatives of initiating Paxil and likely talking to her guardian about having that, but she endorsed understanding and agreed to proceed as is documented in this note. Per recent 10/02/2019 [facility] outpatient psychiatric eval: [facility] History and Physical Time In: 09:15 Time Out: 09:58 Chief Complaint: I need to establish care History of Present Illness: This was a tele-visit for safety precautions related to coronavirus recommendations. This is a 19-year-old female with a past psychiatric history of various diagnoses including oppositional defiant disorder, bipolar disorder, ADHD, and OCD. Today she describes a history of approximately 11 residential inpatient admissions for months or years at a time starting at a young age for behavioral issues. She describes a history of being very emotionally labile including hitting her head when frustrated, threatening suicide or self-harm when she is emotionally [id number], in addition to feeling like her moods are roller coaster saying that she happy 1 minute sad the next and angry the next minute. She says that her biological father when she was 11 years old and this caused a great disruption in her emotional life. In addition to hitting her self and threatening self-harm she also throws things at times. She says she has a seizure disorder and it may be due to a spot on my brain that they found but she says may be due to her hitting her head but that is unclear. She is been staying at a place called [facility] which is a 24-hour assisted care place since June 2019. I talked to a staff member in addition to the patient both the patient staff says the patient is doing very well and has not needed any as needed medication since June. Overall the patient is sleeping well at 8 hours a night, she says her mood is stable, much more stable than it has been in many years, and she feels like things are going very well. She does describe generalized anxiety symptoms including anxious racing thoughts and frequent catastrophic thinking but this under reasonable control at this time. From a diagnosis perspective I see no clear evidence of bipolar disorder but her symptoms and history fit more with oppositional defiance which may be resolved as the patient is getting older. She also has generalized anxiety disorder. At this point given her age the oppositional defiance and unspecified personality disorder would be the most consistent diagnoses that I would apply to her at this moment. She denies any suicidal thoughts denies any actual past suicide attempts but has threatened many times. She denies any side effects or medications at this time. History Past Psychiatric History: She has had at least 11 admissions to psychiatric inpatient units and residential facilities ranging from weeks to months to at sometimes years for residential places. She denies actual suicide attempts or actual self-harm but she is threatened both many times. Family History: Family history is unclear Past Medical History: She has seizure disorder and hyperlipidemia Substance Use History: She denies any current or past substance use including nicotine. Social History: She is never been and has no children. She currently lives in a residential facility. She grew up in [facility]. She did graduate high school says she was never diagnosed with any learning disabilities but is in and out of school special classes due to behavior issues. Review of Systems General: Reports: 10 or more systems reviewed and unremarkable except in HPI and below Mental Status Exam Mental Status Exam She is alert and oriented to person, place, time, and situation. Her hygiene is unobserved due to being a tele-visit. Sensorium is clear. Speech is of a regular rate, rhythm, volume, tone, and prosody. Eye contact was not observed during the examination due to it being a tele-visit. There are no psychomotor changes reported. Mood is fine . Affect is mood congruent and non-labile. Thought process is linear, logical, and goal directed. She denies auditory or visual hallucinations and does not endorse any delusional thinking. He denies suicidal or homicidal thoughts. There is no passive wish of . Memory is intact for recent and remote events. She is cooperative and relates well to me by phone. Insight and judgment were deemed to be good given the recognition of problems and desire for treatment. Assessment/Formulation Assessment and Plan (1) Unspecified personality disorder: Status: Acute Code(s): F60.9 - Personality disorder, unspecified (2) Oppositional defiant behavior: Status: Acute Code(s): F91.3 - Oppositional defiant disorder (3) Generalized anxiety disorder: Status: Acute Code(s): F41.1 - Generalized anxiety disorder Plan: Assessment: 19-year-old female with a history consistent with oppositional defiant disorder and generalized anxiety disorder who is currently staying in a residential facility with 24-hour assistance with the freedom to come and go as she pleases. There is no substance use history reported. I feel that her history and symptoms are most consistent with oppositional defiance and she has no trauma history reported. I did not see evidence of clear Manic episodes I would support a bipolar diagnosis today and I did not see any evidence of obsessive-compulsive disorder either. She does have generalized anxiety symptoms. Given her age I will continue the oppositional defiant disorder diagnosis which is likely transitioning into an unspecified personality disorder. However, will be interesting to see how she does over the next year or so given her current stability at this time. Her symptoms could be very well resolved at this point. We will continue current medication regimen but I question the need for the 2 antipsychotics especially given the high dose of Seroquel. Given her stability and the fact that we are doing phone sessions at this time due to a virus restrictions I will continue the medications but at some point it may be worth tapering her off the Invega. Overall she is very stable now no problems reported from the facility and no use of PRN medications since she arrived in June. I will renew the Invega, Seroquel, Cogentin, and melatonin today for 3 months. The lorazepam is on as a as needed medication and she has not used it so I will not renew that today. Plan: Continue Invega ER 6 mg daily Continue Seroquel 400 mg twice daily Continue melatonin 3 mg at night Continue Cogentin 1 mg twice daily Prescription written for 1 month with 2 refills and sent to [facility] pharmacy in [facility] Return to clinic in 3 months, sooner if needed. Medications: New: benztropine 1 mg PO BID 60 tabs 2RF quetiapine 400 mg PO BID 60 tabs 2RF paliperidone ER 6 mg PO DAILY 30 tabs 2RF melatonin 3 mg PO DAILY 30 tabs 2RF Intake [facility] Intake Intake Allergies clozapine Allergy (Verified 09/15/19 21:01) Unknown divalproex sodium [From Depakote] Allergy (Verified 09/15/19 21:01) Unresponsive lamotrigine [From Lamictal] Allergy (Verified 09/15/19 21:01) Unknown lithium Allergy (Verified 09/15/19 21:01) Unknown Penicillins Allergy (Verified 09/15/19 21:01) Unknown topiramate [From Topamax] Allergy (Verified 09/15/19 21:01) Unknown Home Medications - Last Reconciled 10/01/19 by Aly Caicedo LPN acetaminophen (Tylenol) 650 mg PO QID PRN atorvastatin 40 mg PO DAILY benztropine 1 mg PO BID brivaracetam (Briviact) 50 mg PO BID calcium carbonate (Tums) 300 mg PO BID PRN docusate sodium (Colace) 100 mg PO BID fluoride (sodium) 1.1% (Sodium Fluoride 5000 Plus) 1 applic dental DAILY fluticasone propionate 50 mcg/actuation 1 spray intranasal BID hydroxyzine HCl 50 mg PO BID ibuprofen 400 mg PO TID PRN linaclotide (Linzess) 145 mcg PO QAM lorazepam 2 mg PO DAILY PRN magnesium citrate 120 mL PO BID PRN melatonin 3 mg PO DAILY mineral oil (Fdthk-Lc-Xtz Enema (min oil)) 118 mL [place] DAILY PRN multivitamin (Tab-A-Diana) 1 tab PO DAILY norgestimate-ethinyl estradiol 1 tab PO DAILY omeprazole 20 mg PO DAILY paliperidone ER 6 mg PO DAILY quetiapine 400 mg PO BID zonisamide 300 mg PO BID Hospital Course Hospital Course The patient presented to the emergency room after endorsing suicidal thoughts after she found out a boy she has a crush on may have moved to [place]. She endorsed depression and a desire to be admitted for psychiatric treatment. She has a guardian and was living at [facility]. She was admitted for definitive treatment of those issues. On the unit she quickly acclimated to the individual, group and milieu therapy provided. Contact with her residence and guardian identified that she had been triggered but had not been doing that badly recently. It was agreed that her intellectual limitations and personality disorders were at play and no need for med changes existed and a rapid discharge would be most therapeutic. She had modest improvement. During the hospitalization, the patient had routine laboratory studies which were within normal limits, except for a few outliers. Additionally, the patient had a general medical evaluation which was within normal limits and revealed no new acute processes. Discharge Summary At the time of discharge the patient denied all lethality, was absent psychosis, and mood and anxiety were well managed. The patient endorsed a plan to follow-up with outpatient services, as recommended. The patient was evaluated and deemed to be absent credible lethality, and had achieved the maximum benefit from an inpatient hospitalization, and so she was discharged. Involuntary Hold Information 96 Hour Hold: 96 Hour Involuntary Admission: No Mental Status Exam MSE Comments: This is an overweight, white female, with adequate dress, grooming, and eye contact. She is somewhat disheveled but cooperative with exam in no acute distress. Speech was slightly decreased prosody and normal rate and volume. Mood described as happy; affect congruent. Thought process, organized. Thought content: patient denied any suicidal or homicidal ideation, there were no delusions reported or noted, patient denied any auditory or visual hallucinations. Attention, concentration, and memory appear intact but were not formally tested. She is alert and oriented times three. Insight and judgment are limited. Impulse control is limited, and intellectual ability appears impaired. Discharge Data Vitals: Last Vital Signs Temp 97.6 F 02/25/20 06:00 Pulse 93 02/25/20 06:00 Resp 12 02/25/20 06:00 BP 92/64 02/25/20 06:00 Pulse Ox 96 02/25/20 06:00 Discharge Plan Discharge Patient Disposition: Home Condition: Stable Prescriptions: Continued ibuprofen 200 mg capsule 400 mg PO TID PRN (Reason: fever or pain) RF: 0 acetaminophen [Tylenol] 325 mg capsule 650 mg PO QID PRN (Reason: fever or pain) RF: 0 calcium carbonate [Tums] 300 mg (750 mg) tablet,chewable 300 mg PO BID PRN (Reason: heartburn & nausea) RF: 0 Linzess 145 mcg capsule 290 mcg PO QAM PRN (Reason: Constipation) RF: 0 melatonin 3 mg tablet 3 mg PO DAILY Qty: 30 RF: 2 benztropine 1 mg tablet 1 mg PO BID Qty: 60 RF: 3 hydroxyzine HCl 50 mg tablet 50 mg PO BID 30 Days Qty: 60 RF: 3 hydroxyzine HCl 25 mg tablet 50 mg PO BID PRN (Reason: anxiety) 30 Days Qty: 120 RF: 4 paliperidone 6 mg tablet extended release 24hr 12 mg PO DAILY 30 Days Qty: 60 RF: 3 multivitamin [Tab-A-Diana] Tablet 1 tab PO DAILY RF: 0 zonisamide 100 mg Capsule 300 mg PO BID RF: 0 docusate sodium [Colace] 100 mg Capsule 100 mg PO BID RF: 0 omeprazole 20 mg Capsule,Delayed Release(Dr/Ec) 20 mg PO DAILY RF: 0 mineral oil [Bcmwu-Ub-Znk Enema (min oil)] Enema 118 ml [place] DAILY PRN (Reason: constipation) Qty: 135 RF: 1 fluticasone propionate 50 mcg/actuation [place],Suspension 1 spray INTRANASAL BID RF: 0 atorvastatin 40 mg Tablet 40 mg PO BEDTIME RF: 0 norgestimate-ethinyl estradiol 0.18/0.215/0.25 mg-35 mcg (28) Tablet 1 tab PO DAILY RF: 0 fluoride (sodium) [Sodium Fluoride 5000 Plus] 1.1 % Cream 1 applic DENTAL DAILY RF: 0 Briviact 50 mg Tablet 100 mg PO BID RF: 0 Linzess 290 mcg 290 mcg PO DAILY RF: 0 lorazepam 1 mg tablet 1 mg PO BEDTIME RF: 0 Seroquel XR 400 mg Tablet Extended Release 24 Hr 800 mg PO BID 30 Days Qty: 120 RF: 1 polyethylene glycol 3350 [Miralax] 17 gram/dose powder 17 gm PO DAILY Qty: 119 RF: 0 Discharge Orders: Discharge Order (Routine); Ordered 02/25/20 Ordered By: Gen Barrios Referrals: [facility] [Other] (Return to [facility] home at discharge.) Patricia Reynoso MD [[place]] - 03/06/20 2:15 pm (Medication management appointment) Discharge Diet: Regular Discharge Activity: Resume usual activity Discharge Date/Time: 02/25/20 11:59 Discharge Attestations NPU Time Spent in Discharge Care*: less than 30 min Specific Discharge Activities: Specific discharge activities: educating patient, discussing with pcp/other providers, documenting/other paperwork and evaluating patient/reviewing data Coding Level of Care Code Acute Entry Level Recruiter for g Fwd Diagnoses Suicidal ideation R45.851 Intellectual disability F79 Bipolar disorder F31.9 Seizures R56.9 Hyperlipidemia E78.5 Constipation, chronic K59.09 Unspecified personality disorder F60.9 Oppositional defiant behavior F91.3 Generalized anxiety disorder F41.1
[2020-02-25 11:27] VITALS: BP 92/64; PULSE 93; RESP 12; TEMP 36.4; O2SAT 96
== END 2020-02-25 11:59 | disposition home or self-care (01) | DRG 886 ==
LOC: ER 17:53 → NP 17:56
PROVIDERS: Emergency Medicine; Admitting Provider Psychiatry & Neurology Psychiatry; Visit Provider Psychiatry & Neurology Psychiatry
DX: F91.3 Oppositional defiant disorder (principal); R45.851 Suicidal ideations; R56.9 Unspecified convulsions; E78.5 Hyperlipidemia, unspecified; F60.9 Personality disorder, unspecified; F41.1 Generalized anxiety disorder; K59.09 Other constipation; F31.9 Bipolar disorder, unspecified; F79 Unspecified intellectual disabilities
CPT/HCPCS: 12345; 36415; 80053; 80306; 80307; 84443; 84703; 85025; 93005; 99284

== ENCOUNTER → 2020-03-06 14:27 | Outpatient (BNVA) | payer OTHER, MEDICAID, SELFPAY | PROVIDERS: Visit Provider Psychiatry & Neurology Psychiatry | DX: F31.9 Bipolar disorder, unspecified (principal); F79 Unspecified intellectual disabilities | CPT/HCPCS: 99214 ==

== ENCOUNTER 2020-05-10 17:36 | Emergency (ER) | payer MEDICARE, MEDICAID, SELFPAY ==
[2020-05-10 17:38] VITALS: BP 159/100; PULSE 129; RESP 18; TEMP 36.4; O2SAT 98; BMI 28.3
--- NOTE | 2020-05-10 18:16 | W.ED.GENADLT ---
HPI - General Adult General: Chief complaint: General Medical Stated complaint: vns in neck/ pain/ wires messed up Time Seen by Provider: 05/10/20 18:16 Source: patient Mode of arrival: ambulatory Limitations: no limitations History of Present Illness: HPI narrative: Tyler is a nice 20-year-old female who comes in with her community outreach specialist with a concern of her vagal nerve stimulator not working appropriately. She had this placed at the end of March at [facility] and has not had a problem until today. Today she feels like her wire is displaced and that occasionally she can feel the device shocked her. It does not cause syncope but gives her an unpleasant buzzing sensation and she feels as though her voice is affected at times. She denies any headache, fevers or chills, chest pain, shortness of breath, back pain or any other complaint. All of the symptoms began today. Associated symptoms: Deny chest pain, dyspnea, headache(s), nausea, rash, palpitations, syncope or vomiting Review of Systems Const: Denies: fever(s) Eyes: Denies: change in vision or blurry vision ENMT: Denies: throat pain, hoarseness or swelling of lips/tongue Card: Denies: chest pain, palpitations, syncope, pre-syncope or dyspnea on exertion Resp: Denies: dyspnea, productive cough, non-productive cough, wheezing, change in phlegm color or hemoptysis GI: Denies: abdominal pain, nausea, vomiting or diarrhea : Denies: flank pain, dysuria, urinary frequency or urinary urgency Musc: Denies: neck pain, back pain or extremity pain Skin/Breast: Denies: rash or pruritus Neuro: Denies: headache(s), numbness in extremities, weakness in extremities or dizziness Priyank/Lymph: Denies: easy bruising, easy bleeding, petechiae or purpura All/Imm: Denies: urticaria or throat swelling PFSH ED PFSH: Medical History Bipolar disorder Constipation, chronic Hyperlipidemia Intellectual disability Seizures Surgical History H/O eye surgery Social History Smoking and tobacco status: never smoked Quit status (tobacco): has quit using tobacco Second hand smoke exposure: Yes Female Reproductive History: Date of last menstrual period: 12/23/19 Physical Exam Const: COMMON NORMALS: no acute distress, patient oriented x3, no limitations and alert GENERAL APPEARANCE: cooperative HENMT: COMMON NORMALS: normocephalic, atraumatic, external ears normal, EAC's normal and Normal external nose present HEAD & SCALP: normal to inspection, normocephalic and atraumatic FACE & SINUS: normal facial exam and face symmetric NOSE: Normal external nose present and Normal nares present EXTERNAL EAR: Yes external ears normal EXTERNAL AUDITORY CANAL: EAC's normal MOUTH: Normal oral and palatal mucosa present, lip normal and tongue normal Eye: COMMON NORMALS: Equal, round and reactive pupils present and conjunctivae normal GENERAL EYE: appearance normal, both eyes and all related structures ALIGNMENT: Yes alignment normal PERIORBITAL: periorbital findings normal EYELID: eyelids normal CONJUNCTIVA: Yes conjunctivae normal SCLERA: sclerae normal PUPIL: Yes Equal, round and reactive pupils present Neck/C-Spine: COMMON NORMALS: full ROM, no lymphadenopathy, supple, no meningeal signs and no JVD GENERAL: Yes normal visual inspection and Yes trachea midline OTHER: Incision sites of vagal nerve stimulator appear normal. No signs of infection. Areas are slightly tender to the touch but not significantly so. Chest: COMMONS NORMALS: normal inspection of the chest and normal palpation of entire chest wall Resp: COMMON NORMALS: normal respiratory effort, No retractions, No use of accessory muscles and clear to auscultation bilaterally EFFORT & INSPECTION: Yes able to speak in complete sentences and Yes symmetric chest movement AUSCULTATION: clear to auscultation bilaterally, no crackles, no rales, no rhonchi and no wheezes Cardio: COMMON NORMALS: no JVD, regular rate, regular rhythm, S1 normal heart sound present and S2 normal heart sound present RATE: regular rate RHYTHM: regular rhythm HEART SOUNDS: S1 normal heart sound present, S2 normal heart sound present, no click, no gallops, no murmurs and no rubs GI: COMMON NORMALS: Soft to palpation and No hepatosplenomegaly present PALPATION: Yes Soft to palpation, No Tenderness to palpation present (GI), No Guarding due to palpation present (GI), No Rigid due to palpation, Yes No hepatosplenomegaly present, No Hernia present, No Palpable mass present and No Pulsatile mass present : COMMON NORMALS: Yes no CVA tenderness BLADDER/KIDNEY EXAM: Yes no CVA tenderness EXTERNAL FEMALE EXAM: No Hernia present Back/Pelvis: COMMON NORMALS: no CVA tenderness, thoracic and lumbar spine normal to inspection, no thoracic nor lumbar tenderness and thoraco-lumbar ROM normal Extremity: COMMON NORMALS: normal to inspection, full ROM, capillary refill normal, no joint enlargement, no clubbing, cyanosis or edema and no calf tenderness Neuro: COMMON NORMALS: patient oriented x3, CN's II-XII intact bilaterally, moves all extremities, no focal motor deficits and no sensory deficits noted SENSORIUM/ORIENTATION: Yes alert MENINGEAL SIGNS: Yes no meningeal signs SPEECH: speech normal Psych: COMMON NORMALS: mental status grossly normal, Normal thought process present, cooperative, normal affect, speech normal and activity/motor behavior normal SPEECH: Yes normal speech THOUGHT PROCESS: Normal thought process present Skin: COMMON NORMALS: no rashes or lesions noted, turgor normal, no jaundice, no petechiae and no mottling GENERAL SKIN EXAM: no rashes or lesions noted and turgor normal Course Vital Signs: Vital signs: Vital Signs Temperature 97.5 F L 05/10/20 17:38 Pulse Rate 105 H 05/10/20 20:15 Respiratory Rate 18 05/10/20 20:15 Blood Pressure 117/77 05/10/20 20:15 Pulse Oximetry 95 05/10/20 20:15 MDM - General Adult MDM Narrative: Medical decision making narrative: Rick is a nice 20-year-old female who comes in complaining of discomfort around her vagal nerve stimulator and occasional electrical type sensation locally at the site. She also states that her voice sounds funny. Lab work-up and x-ray evaluation here are unremarkable to me. I reviewed the case in full with Dr. 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 She states voice changes are normal with vagal nerve stimulators. She also states that the patient is in no danger any on Tuesday her stimulator can be adjusted or evaluated by her primary neurologist. I asked her specifically if there was any harm that could come through the weekend from this and she states no. I discussed all this with the patient and she understands and agrees to that follow-up plan. I asked her if she felt like she was having enough discomfort that she needed something for pain and she says no. She not had any discomfort since she is been here. Pains are only sporadic and short-lived. I did review the signs and symptoms for which to return here and she stated she understood as did her community outreach specialist. Lab Data: Attestation: I reviewed the patient's lab results. Labs: Lab Results 05/10/20 05/10/20 05/10/20 Range/Units 18:47 18:47 18:47 WBC 6.9 (4.5-13.0) 10^3/ uL RBC 4.08 L (4.1-5.3) 10^6/u L Hgb 11.7 (11.5-15.3) g/dL Hct 35.8 L (37.0-47.0) % MCV 87.7 (81-99) fL MCH 28.7 (28.0-34.0) pg MCHC 32.7 (30.0-36.0) g/dL RDW 12.4 (12.1-15.1) % Plt Count 283 (130-400) 10^3/c mm MPV 11.2 H (7.4-10.4) fL Neut % (Auto) 49.3 % Lymph % (Auto) 36.3 % Harrison % (Auto) 11.2 % Eos % (Auto) 2.2 % Baso % (Auto) 0.7 % Neut # (Auto) 3.42 (1.8-8.0) 10^3/u L Lymph # (Auto) 2.5 (1.5-6.5) 10^3/u L Harrison # (Auto) 0.8 (0.2-0.9) 10^3/u L Eos # (Auto) 0.2 (0.0-0.8) 10^3/u L Baso # (Auto) 0.1 (0.0-0.1) 10^3/u L Nucleated RBC % (a uto) 0 % Nucleated RBCs # 0.0 /100WBC Sodium 141 (136-145) mmol/L Potassium 3.5 (3.5-5.1) mmol/L Chloride 109 H (98-107) mmol/L Carbon Dioxide 22 (22-29) mmol/L Anion Gap 13.5 (5-19) BUN 6 (6-20) mg/dL Creatinine 0.7 (0.5-0.9) mg/dL GFR Calculation 106.7 (90-130) mL/min Glucose 87 (65-115) mg/dL Calculated Osmolal ity 289 (285-295) mOsm/k g Calcium 9.0 (8.5-10.5) mg/dL Magnesium 1.7 (1.7-2.3) mg/dL Total Bilirubin 0.2 (0.15-1.2) mg/dL AST 18 (0-32) U/L ALT 13 (0-33) U/L Alkaline Phosphata se 116 H (35-105) IU/L Total Protein 6.1 L (6.6-8.7) g/dL Albumin 3.7 (3.5-5.2) g/dL Globulin 2.4 (1.3-4.6) g/dL HCG, Qual Negative (Negative) Urine Color (Yellow) Urine Appearance (CLEAR) Urine pH (5-7) Ur Specific Gravit y (1.005-1.030) Urine Protein (Negative) Urine Glucose (UA) (Normal) Urine Ketones (Negative) Urine Blood (Negative) Urine Nitrate (Negative) Urine Bilirubin (Negative) Urine Urobilinogen (Negative) mg/dL Ur Leukocyte Teresa ase (Negative) Urine RBC (0-2) /hpf Urine WBC (0-5) /hpf Ur Squamous Epith Cells (0-5) /hpf Amorphous Sediment Urine Bacteria (NONE) /hpf 05/10/20 Range/Units 19:40 WBC (4.5-13.0) 10^3/ uL RBC (4.1-5.3) 10^6/u L Hgb (11.5-15.3) g/dL Hct (37.0-47.0) % MCV (81-99) fL MCH (28.0-34.0) pg MCHC (30.0-36.0) g/dL RDW (12.1-15.1) % Plt Count (130-400) 10^3/c mm MPV (7.4-10.4) fL Neut % (Auto) % Lymph % (Auto) % Harrison % (Auto) % Eos % (Auto) % Baso % (Auto) % Neut # (Auto) (1.8-8.0) 10^3/u L Lymph # (Auto) (1.5-6.5) 10^3/u L Harrison # (Auto) (0.2-0.9) 10^3/u L Eos # (Auto) (0.0-0.8) 10^3/u L Baso # (Auto) (0.0-0.1) 10^3/u L Nucleated RBC % (a uto) % Nucleated RBCs # /100WBC Sodium (136-145) mmol/L Potassium (3.5-5.1) mmol/L Chloride (98-107) mmol/L Carbon Dioxide (22-29) mmol/L Anion Gap (5-19) BUN (6-20) mg/dL Creatinine (0.5-0.9) mg/dL GFR Calculation (90-130) mL/min Glucose (65-115) mg/dL Calculated Osmolal ity (285-295) mOsm/k g Calcium (8.5-10.5) mg/dL Magnesium (1.7-2.3) mg/dL Total Bilirubin (0.15-1.2) mg/dL AST (0-32) U/L ALT (0-33) U/L Alkaline Phosphata se (35-105) IU/L Total Protein (6.6-8.7) g/dL Albumin (3.5-5.2) g/dL Globulin (1.3-4.6) g/dL HCG, Qual (Negative) Urine Color Yellow (Yellow) Urine Appearance Clear (CLEAR) Urine pH 7 (5-7) Ur Specific Gravit y 1.005 (1.005-1.030) Urine Protein Neg (Negative) Urine Glucose (UA) Norm (Normal) Urine Ketones Negative (Negative) Urine Blood 3+ H (Negative) Urine Nitrate Negative (Negative) Urine Bilirubin Neg (Negative) Urine Urobilinogen Norm (Negative) mg/dL Ur Leukocyte Teresa ase Negative (Negative) Urine RBC 0-4 H (0-2) /hpf Urine WBC 0-4 H (0-5) /hpf Ur Squamous Epith Cells 25-40 H (0-5) /hpf Amorphous Sediment Not Reportable Urine Bacteria Trace (NONE) /hpf Imaging Data^: CXR: Attestation: I personally reviewed and interpreted this imaging study as follows: My impression: No acute cardiopulmonary findings. Soft Tissue Neck: Attestation: I personally reviewed and interpreted this imaging study as follows: My impression: No obvious displacement of the ulnar stimulator or wires. Soft tissues appear unremarkable. Discharge Plan Discharge Patient Disposition: Home Clinical Impression: Status post VNS (vagus nerve stimulator) placement Condition: Stable Prescriptions: No Action ibuprofen 200 mg capsule 400 mg PO TID PRN (Reason: fever or pain) RF: 0 acetaminophen [Tylenol] 325 mg capsule 650 mg PO QID PRN (Reason: fever or pain) RF: 0 calcium carbonate [Tums] 300 mg (750 mg) tablet,chewable 300 mg PO BID PRN (Reason: heartburn & nausea) RF: 0 melatonin 3 mg tablet 3 mg PO DAILY Qty: 30 RF: 2 Metamucil [facility] Fiber 3.4 gram/5.8 gram powder 1.65 gm PO DAILY RF: 0 bisacodyl [Dulcolax (bisacodyl)] 10 mg suppository 10 mg TN DAILY PRNRF: 0 benztropine 1 mg tablet 1 mg PO BID Qty: 60 RF: 3 hydroxyzine HCl 50 mg tablet 50 mg PO BID 30 Days Qty: 60 RF: 3 hydroxyzine HCl 25 mg tablet 50 mg PO BID PRN (Reason: anxiety) 30 Days Qty: 120 RF: 4 paliperidone 6 mg tablet extended release 24hr 12 mg PO DAILY 30 Days Qty: 60 RF: 3 lorazepam 1 mg tablet 1 mg PO BEDTIME 30 Days Qty: 30 RF: 3 multivitamin [Tab-A-Diana] Tablet 1 tab PO DAILY RF: 0 zonisamide 100 mg Capsule 300 mg PO BID RF: 0 docusate sodium [Colace] 100 mg Capsule 100 mg PO BID RF: 0 omeprazole 20 mg Capsule,Delayed Release(Dr/Ec) 20 mg PO DAILY RF: 0 mineral oil [Dyrav-Nh-Qtc Enema (min oil)] Enema 118 ml TN DAILY PRN (Reason: constipation) Qty: 135 RF: 1 fluticasone propionate 50 mcg/actuation Reeders,Suspension 1 spray INTRANASAL BID RF: 0 atorvastatin 40 mg Tablet 40 mg PO BEDTIME RF: 0 norgestimate-ethinyl estradiol 0.18/0.215/0.25 mg-35 mcg (28) Tablet 1 tab PO DAILY RF: 0 Briviact 50 mg Tablet 100 mg PO BID RF: 0 fluoride (sodium) [Sodium Fluoride 5000 Plus] 1.1 % cream 1 applic DENTAL BID RF: 0 Linzess 290 mcg 290 mcg PO DAILY RF: 0 Seroquel XR 400 mg Tablet Extended Release 24 Hr 800 mg PO BID 30 Days Qty: 120 RF: 1 polyethylene glycol 3350 [Miralax] 17 gram/dose powder 17 gm PO DAILY Qty: 119 RF: 0 Discharge Orders: Discharge Order (Routine); Ordered 05/10/20 Ordered By: Padmini Gupta Referrals: Nevin Huizar MD [Physician] - 1-3 days Discharge Diet: Usual diet Discharge Activity: Limit activity as instructed Activity Restrictions/Additional Instructions: Please return to the ER immediately for any of the signs or symptoms listed on your discharge instruction sheets, worsening/changing of your symptoms, you are not getting better as quickly as expected, or for ANY other cause or concerns. Rest and stay comfortable for the rest of this weekend and be certain to call your neurologist or Dr. Carrington for an appointment to be seen as soon as possible to evaluate your vagal nerve stimulator. Return to the ER for worsening of your symptoms, pain, fever, swelling at the site, or for any other cause for concern. Discharge Date/Time: 05/10/20 20:15 Coding Level of Care Code ED Wireless Sales Representative for Jacqueline Fwd Exam Comprehensive
[2020-05-10 18:17] VITALS: BP 118/100; PULSE 124; RESP 20; O2SAT 99
--- NOTE | 2020-05-10 18:34 | XRR_ITS ---
PROCEDURE INFORMATION: Exam: XR Chest, 1 View Exam date and time: 05/10/2020 7:01 PM Age: 20 years old Clinical indication: Chest pain TECHNIQUE: Imaging protocol: XR of the chest Views: 1 view. COMPARISON: No relevant prior studies available. FINDINGS: Tubes, catheters and devices: Stimulator device overlying the left upper thorax. Lungs: No consolidation. Pleural space: No pleural effusion. No pneumothorax. Heart/Mediastinum: No cardiomegaly. Bones/joints: Unremarkable. Gastrointestinal tract: Stomach is distended with gas. There is gas seen in the transverse colon. XR/XR chest 1V portable [id number] IMPRESSION: No acute cardiopulmonary disease demonstrated.
--- NOTE | 2020-05-10 18:34 | XRR_ITS ---
PROCEDURE INFORMATION: Exam: XR Soft Tissue Neck Exam date and time: 05/10/2020 7:05 PM Age: 20 years old Clinical indication: Neck pain; Prior surgery; Surgery date: 6+ months TECHNIQUE: Imaging protocol: XR of the soft tissues of the neck. COMPARISON: No relevant prior studies available. FINDINGS: Tubes, catheters and devices: Stimulator device overlying the upper left thorax. Airway: Normal. No abnormal narrowing. Soft tissues: The soft tissues appear unremarkable. No radiopaque foreign body demonstrated in the soft tissues. Bones/joints: No fracture or other acute osseous abnormality. XR/XR soft tissue neck [id number] IMPRESSION: No acute abnormality demonstrated.
[2020-05-10] MEDS: ondansetron 2 mg/ML SDV 2 mL 4 MG IVP (18:56)
[2020-05-10] MEDS: LORazepam 2 mg/mL INJ 1 mL 1 MG IVP (18:57)
[2020-05-10] MEDS: sodium chloride 0.9% 1,000 ML 100 ML IV (18:57)
[2020-05-10 19:05] LABS: Basophils # 0.1 10^3/uL (0.0-0.1); Basophils % 0.7 %; Eosinophils # 0.2 10^3/uL (0.0-0.8); Eosinophils % 2.2 %; Hematocrit 35.8 % (37.0-47.0); Hemoglobin 11.7 g/dL (11.5-15.3); Lymphocytes # 2.5 10^3/uL (1.5-6.5); Lymphocytes % 36.3 %; Mean Corpuscular HGB Conc 32.7 g/dL (30.0-36.0); Mean Corpuscular Hemoglobin 28.7 pg (28.0-34.0); Mean Corpuscular Volume 87.7 fL (81-99); Mean Platelet Volume 11.2 fL (7.4-10.4); Monocytes # 0.8 10^3/uL (0.2-0.9); Monocytes % 11.2 %; Neutrophils # 3.42 10^3/uL (1.8-8.0); Neutrophils % 49.3 %; Nucleated Red Blood Cells % 0 %; Platelet Count 283 10^3/cmm (130-400); Red Blood Count 4.08 10^6/uL (4.1-5.3); Red Cell Distribution Width 12.4 % (12.1-15.1); White Blood Count 6.9 10^3/uL (4.5-13.0)
[2020-05-10 19:23] LABS: HCG, Serum Qual Negative (Negative)
[2020-05-10 19:28] LABS: Alanine Aminotransferase 13 U/L (0-33); Albumin Level 3.7 g/dL (3.5-5.2); Alkaline Phosphatase 116 IU/L (35-105); Anion Gap 13.5 (5-19); Aspartate Amino Transferase 18 U/L (0-32); Blood Urea Nitrogen 6 mg/dL (6-20); Carbon Dioxide 22 mmol/L (22-29); Chloride 109 mmol/L (98-107); Globulin 2.4 g/dL (1.3-4.6); Glomerular Filtration Rate 106.7 mL/min (90-130); Glucose 87 mg/dL (65-115); Magnesium 1.7 mg/dL (1.7-2.3); Osmolality Calculated 289 mOsm/kg (285-295); Potassium 3.5 mmol/L (3.5-5.1); Sodium 141 mmol/L (136-145); Total Bilirubin 0.2 mg/dL (0.15-1.2); Total Protein 6.1 g/dL (6.6-8.7)
[2020-05-10 19:50] LABS: Add Urine Microscopic? YES; Bilirubin Urine Neg (Negative); Blood Urine 3+ (Negative); Glucose Urine UA Norm (Normal); Ketones Urine Negative (Negative); Leukocyte Esterase Urine Negative (Negative); Nitrate Urine Negative (Negative); Protein Urine Neg (Negative); Specific Gravity, Urine 1.005 (1.005-1.030); Urine Appearance Clear (CLEAR); Urine Color Yellow (Yellow); Urobilinogen Urine Norm (Negative); pH Urine 7 (5-7)
[2020-05-10 20:15] VITALS: BP 117/77; PULSE 105; RESP 18; O2SAT 95
[2020-05-10 20:15] LABS: Add Urine Culture? No; Bacteria Urine TRACE /hpf; RBC Urine 0-4 /hpf (0-2); Squamous Epithelial Cell Urine 25-40 /hpf (0-5); WBC Urine 0-4 /hpf (0-5)
== END 2020-05-10 20:15 | disposition home or self-care (01) ==
PROVIDERS: Emergency Provider Emergency Medicine
DX: Z96.82 Presence of neurostimulator (principal)
CPT/HCPCS: 12345; 70360; 71045; 80053; 81001; 83735; 84703; 85025; 96361; 96374; 96375; 99283; J2060; J2405; J7030

== ENCOUNTER 2020-05-15 09:52 | Outpatient (CLI) | payer MEDICARE, OTHER, MEDICAID, SELFPAY ==
--- NOTE | 2020-05-15 11:11 | ECG_ITS ---
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 Measurements Intervals [place] Rate: 114 P: 38 NE: 132 QRS: 20 QRSD: 80 T: 72 QT: 316 QTc: 435 Interpretive Statements SINUS TACHYCARDIA NONSPECIFIC T-WAVE ABNORMALITY ABNORMAL RHYTHM ECG Compared to ECG 02/22/2020 17:34:32 No significant changes Electronically Signed On 05-16-2020 20:06:03 CRAB BUTCHER by Raghav Munoz M.D. [email or web address] – the [email or web address] [id number] f
== END 2020-05-15 09:53 | disposition home or self-care (01) ==
PROVIDERS: PCP Nurse Practitioner Family; Visit Provider Psychiatry & Neurology Psychiatry
DX: Z03.89 Encounter for observation for other suspected diseases and conditions ruled out (principal)
CPT/HCPCS: 93005

== ENCOUNTER → 2020-05-19 14:18 | Outpatient (BNVA) | payer MEDICARE, OTHER, MEDICAID, SELFPAY | PROVIDERS: PCP Nurse Practitioner Family; Visit Provider Psychiatry & Neurology Psychiatry | DX: F31.9 Bipolar disorder, unspecified (principal); F79 Unspecified intellectual disabilities; R00.0 Tachycardia, unspecified; F41.1 Generalized anxiety disorder | CPT/HCPCS: 99213 ==

== ENCOUNTER 2020-07-02 15:27 | Outpatient (CLI) | payer MEDICARE, OTHER, MEDICAID, SELFPAY ==
--- NOTE | 2020-07-02 15:45 | USCV_ITS ---
Tyler Sinha Age: 20 Gender: F : 2000 Exam Date: 07/02/2020 15:49 Ordering Phys: oLra Xie MD ([email or web address]) Technologist: Kenzie Thompson [place] [facility] [place]: TACHYCARDIA BP: 117 / 86 HR: 107 Rhythm: Sinus Technical Quality: Adequate MEASUREMENTS (Male / Female) Normal Values 2D ECHO LV Diastolic Diameter PLAX 3.9 cm 4.2 - 5.9 / 3.9 - 5.3 cm LV Systolic Diameter PLAX 2.5 cm LV Chamber Size 3.0 cm IVS Diastolic Thickness 1.1 cm 0.6 - 1.0 / 0.6 - 0.9 cm IVS Systolic Thickness 1.4 cm LVPW Diastolic Thickness 1.1 cm 0.6 - 1.0 / 0.6 - 0.9 cm LVPW Systolic Thickness 1.1 cm RV Chamber Size 2.5 cm LVOT Diameter 2.0 cm LV Ejection Fraction 2D Teich 67.4 % LV Ejection Fraction MOD 2C 74.1 % LV Ejection Fraction 2C AL 74.4 % LA Diameter 2.3 cm LA Width 2.5 cm LA Height 3.6 cm RA Width 2.7 cm RA Height 3.1 cm Aorta at Sinotubular Diameter 2.6 cm M-MODE LV Diastolic Diameter MM 4.2 cm 4.2 - 5.9 / 3.9 - 5.3 cm LV Systolic Diameter MM 2.6 cm LV Ejection Fraction MM Teich 69.0 % IVS Diastolic Thickness MM 0.8 cm 0.6 - 1.0 / 0.6 - 0.9 cm IVS Systolic Thickness MM 1.3 cm LVPW Diastolic Thickness MM 0.8 cm 0.6 - 1.0 / 0.6 - 0.9 cm LVPW Systolic Thickness MM 1.4 cm RV Diastolic Diameter MM 1.0 cm Aortic Annulus Diameter 2.7 cm LA Ao Ratio MM 1.0 MV E Point Septal Separation 0.6 cm DOPPLER AV Peak Velocity 120.0 cm/s LVOT Peak Velocity 111.0 cm/s AV Area Cont Eq vti 2.8 cm squared AV Area Cont Eq pk 3.0 cm squared MV Area PHT 5.9 cm squared Mitral E to A Ratio 1.1 MV E' Velocity 56.0 cm/s Mitral E to MV E' Ratio 9.6 Mitral E to LV E' Lateral Ratio 9.5 Mitral E to LV E' Septal Ratio 9.7 TR Peak Velocity 170.4 cm/s TR Peak Gradient 11.6 mmHg TR Mean Velocity 112.1 cm/s TR Mean Gradient 5.9 mmHg TR Velocity Time Integral 36.4 cm TV Peak E Velocity 92.0 cm/s Right Atrial Pressure 3.0 mmHg Pulmonary Artery Systolic Pressu 14.6 mmHg PV Peak Velocity 89.7 cm/s RV Acceleration Time 0.1 s RV Ejection Time 0.3 s RV AcT/ET 0.3 FINDINGS Left Ventricle Normal left ventricular size, systolic function and wall thickness, with no regional wall motion abnormalities. Left ventricular ejection fraction is estimated at 70 %. Normal diastolic function. Right Ventricle Normal right ventricular size and systolic function. Right ventricular systolic pressure 14.6 mmHg. Right Atrium Normal right atrial size. Right atrial pressure estimated at 3 mm Hg. Left Atrium Normal left atrial size. Mitral Valve Structurally normal mitral valve. No mitral valve stenosis. Trace mitral valve regurgitation. Aortic Valve Structurally normal trileaflet aortic valve. No aortic valve stenosis. No aortic valve regurgitation. Tricuspid Valve Structurally normal tricuspid valve. No tricuspid valve stenosis. Trace tricuspid valve regurgitation. Pulmonic Valve Structurally normal pulmonic valve. No pulmonary valve stenosis. Trace pulmonary valve regurgitation. Pericardium No pericardial effusion. Aorta Normal sized aortic root. Normal sized inferior vena cava. CONCLUSIONS 1. Normal left ventricular size, systolic function and wall thickness, with no regional wall motion abnormalities. Left ventricular ejection fraction is estimated at 70 %. Normal diastolic function. 2. Normal pulmonary artery pressure. 3. No significant valvular abnormality. 4. No pericardial effusion. 5. No prior similar studies to compare. Lora Xie MD (Electronically Signed) Final Date: 05 July 2020 16:53 S
== END 2020-07-02 15:28 | disposition home or self-care (01) ==
LOC: RAD 15:36
PROVIDERS: PCP Nurse Practitioner Family; Visit Provider Internal Medicine Cardiovascular Disease
DX: R00.0 Tachycardia, unspecified (principal)
CPT/HCPCS: 93306

== ENCOUNTER → 2020-07-22 14:12 | Outpatient (BNVA) | payer MEDICARE, OTHER, MEDICAID, SELFPAY | PROVIDERS: PCP Nurse Practitioner Family; Visit Provider Psychiatry & Neurology Psychiatry | DX: F31.9 Bipolar disorder, unspecified (principal); F79 Unspecified intellectual disabilities | CPT/HCPCS: 99214 ==

== ENCOUNTER 2020-10-12 19:17 | Emergency (ER) | payer MEDICARE, OTHER, MEDICAID, SELFPAY ==
[2020-10-12 19:34] VITALS: BP 128/76; PULSE 113; RESP 16; TEMP 36.2; O2SAT 99; BMI 31.1
[2020-10-12 22:36] VITALS: BP 117/74; PULSE 107; RESP 18; O2SAT 100
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
[2020-10-13 00:41] VITALS: BP 117/75; PULSE 101; RESP 15; TEMP 36.6; O2SAT 100
== END 2020-10-13 00:42 | disposition home or self-care (01) ==
PROVIDERS: Emergency Provider Physician Assistant; PCP Nurse Practitioner Family
DX: Z71.1 Person with feared health complaint in whom no diagnosis is made (principal); Z96.82 Presence of neurostimulator; E78.5 Hyperlipidemia, unspecified; Z87.891 Personal history of nicotine dependence
CPT/HCPCS: 71045; 99282

== ENCOUNTER → 2020-10-14 13:49 | Outpatient (BNVA) | payer MEDICARE, MEDICAID, SELFPAY | PROVIDERS: PCP Nurse Practitioner Family; Visit Provider Psychiatry & Neurology Psychiatry | DX: F31.9 Bipolar disorder, unspecified (principal); F79 Unspecified intellectual disabilities | CPT/HCPCS: 99214 ==

== ENCOUNTER → 2021-03-04 13:21 | Outpatient (BNVA) | payer MEDICARE, MEDICAID, SELFPAY | PROVIDERS: PCP Nurse Practitioner Family; Referring Provider Nurse Practitioner Family; Visit Provider Specialist | DX: G40.209 Localization-related (focal) (partial) symptomatic epilepsy and epileptic syndromes with complex partial seizures, not intractable, without status epilepticus (principal); G40.309 Generalized idiopathic epilepsy and epileptic syndromes, not intractable, without status epilepticus; F31.9 Bipolar disorder, unspecified; F79 Unspecified intellectual disabilities | CPT/HCPCS: 95972; 99205 ==

== ENCOUNTER 2021-03-07 17:16 | Emergency (ER) | payer MEDICARE, MEDICAID, SELFPAY ==
[2021-03-07 17:27] VITALS: BP 111/74; PULSE 110; RESP 16; TEMP 36.2; O2SAT 97; BMI 28.3
--- NOTE | 2021-03-07 17:38 | ED_ITS ---
Documented by User: Yuan Villatoro DO 03/13/21 15:08 HPI - Dizziness General: Chief Complaint: Dizziness Stated Complaint: N/V; Dizzy; change of meds Time Seen by Provider: 03/07/21 17:38 History of Present Illness: HPI Narrative: 21-year-old female presents emergency room with complaints of double vision. Patient has a history of seizures she just recently seen Dr. Huizar earlier this week. Now is to establish. She has a vagal nerve stimulator.Vagal nerve stimulator was placed approximately 1 [address] [place]. Huizar adjusted a couple of days ago in her clinic according to her note with the patient's son. Stent the vision changes began the following day. Patient also has some dizziness with it as well. Patient recent ports she will have many seizures at times where they are not even noticeable. She has had tonic clonic seizures in the past according to Dr. Huizar's notes. Its been over a year since she has had one of those. Complaining some dizziness as well as he double vision. MD elicited complaint: dizziness Onset (ago): day(s) Timing: sudden onset Severity: moderate Description: lightheadedness Context: other (VNS stimulator adjustment) Exacerbating factors: nothing Relieving factors: nothing Associated symptoms: Denies change in hearing, chest pain, chills, cough, diaphoresis, ear discharge, ear pressure, fevers/chills, headache(s), malaise, nausea, nasal congestion, palpitations, rash, short of breath, syncope, tinnitus, vomiting or weakness Associated neuro symptoms: Reports diplopia and visual changes; Deny confusion, difficulty speaking, dysphagia, extremity weakness, facial numbness, facial weakness, gait changes or numbness in extremities Review of Systems Const: Denies: chills, malaise or diaphoresis ENMT: Denies: ear discharge, change in hearing, tinnitus or nasal congestion Card: Denies: chest pain, palpitations or syncope Resp: Denies: dyspnea, productive cough or non-productive cough GI: Denies: nausea, vomiting or dysphagia : Denies: flank pain, difficulty voiding, dysuria, urinary frequency or urinary urgency Skin/Breast: Denies: rash or pruritus Neuro: Denies: headache(s), numbness in extremities or confusion PFS ED PFSH: Medical History Bipolar disorder Constipation, chronic Hyperlipidemia Intellectual disability Seizures Tachycardia Surgical History H/O eye surgery Social History Smoking and tobacco status: never smoked Quit status (tobacco): has quit using tobacco Second hand smoke exposure: Yes Female Reproductive History: Date of last menstrual period: 10/04/20 Physical Exam Const: COMMON NORMALS: no acute distress GENERAL APPEARANCE: cooperative and comfortable ORIENTATION/CONSCIOUSNESS: Yes awake, Yes oriented to person, Yes oriented to place and Yes oriented to time HENMT: COMMON NORMALS: normocephalic, atraumatic and hearing grossly normal bilaterally HEAD & SCALP: normocephalic and atraumatic Neck/C-Spine: COMMON NORMALS: no JVD Resp: COMMON NORMALS: normal respiratory effort, No retractions, No use of accessory muscles and clear to auscultation bilaterally AUSCULTATION: clear to auscultation bilaterally Cardio: COMMON NORMALS: no JVD, regular rate, regular rhythm and No murmurs present (Cardio) RATE: regular rate RHYTHM: regular rhythm GI: COMMON NORMALS: Soft to palpation and No hepatosplenomegaly present AUSCULTATION: Yes normoactive bowel sounds PALPATION: Yes Soft to palpation, No Tenderness to palpation present (GI), No Guarding due to palpation present (GI) and Yes No hepatosplenomegaly present Extremity: COMMON NORMALS: normal to inspection, capillary refill normal, no clubbing, cyanosis or edema, no calf tenderness and no pedal edema Neuro: SENSORIUM/ORIENTATION: Yes oriented to person, Yes oriented to place and Yes oriented to time Skin: COMMON NORMALS: no rashes or lesions noted GENERAL SKIN EXAM: no rashes or lesions noted Course Vital Signs: Vital signs: Vital Signs Temperature 9830 F H 03/07/21 20:37 Pulse Rate 85 03/07/21 20:37 Respiratory Rate 18 03/07/21 21:10 Blood Pressure 111/74 03/07/21 17:27 Pulse Oximetry 98 03/07/21 21:10 MDM - Dizziness MDM Narrative: Medical decision making narrative: Care turned over to Dr. Gomez at change of shift see his note for final diagnosis and disposition. Lab Data: Labs: Lab Results 03/07/21 03/07/21 03/07/21 Range/Units 18:28 18:28 18:28 WBC 5.1 (4.0-10.0) 10^3/ uL RBC 3.95 L (4.1-5.3) 10^6/u L Hgb 10.9 L (11.5-15.3) g/dL Hct 35.6 L (37.0-47.0) % MCV 90.1 (81-99) fl MCH 27.6 L (28.0-34.0) pg MCHC 30.6 (30.0-36.0) g/dL RDW 14.6 (12.1-15.1) % Plt Count 255 (130-400) 10^3/c mm MPV 11.4 H (7.4-10.4) fL Neut % (Auto) 45.1 % Lymph % (Auto) 41.0 % [place] % (Auto) 10.9 % Eos % (Auto) 2.0 % Baso % (Auto) 0.8 % Neut # (Auto) 2.31 (1.8-7.7) 10^3/u L Lymph # (Auto) 2.1 (0.8-4.8) 10^3/u L [place] # (Auto) 0.6 (0.2-0.9) 10^3/u L Eos # (Auto) 0.1 (0.0-0.8) 10^3/u L Baso # (Auto) 0.0 (0.0-0.1) 10^3/u L Nucleated RBC % (a uto) 0 % Nucleated RBCs # 0.0 /100WBC Sodium 140 (136-145) mmol/L Potassium 3.8 (3.5-5.1) mmol/L Chloride 110 H (98-107) mmol/L Carbon Dioxide 19 L (22-29) mmol/L Anion Gap 14.8 (5-19) BUN 6 (6-20) mg/dL Creatinine 0.7 (0.5-0.9) mg/dL GFR Calculation 105.6 (90-130) mL/min Glucose 92 (65-115) mg/dL Calculated Osmolal ity 287 (285-295) mOsm/k g Calcium 8.3 L (8.5-10.5) mg/dL Total Bilirubin 0.2 (0.15-1.2) mg/dL AST 25 (0-32) U/L ALT 15 (0-33) U/L Alkaline Phosphata se 85 (35-105) IU/L Total Protein 6.1 L (6.6-8.7) g/dL Albumin 3.7 (3.5-5.2) g/dL Globulin 2.4 (1.3-4.6) g/dL HCG, Qual (Negative) Urine Color Yellow (Yellow) Urine Appearance Clear (CLEAR) Urine pH 6.5 (5-7) Ur Specific Gravit y 1.005 (1.005-1.030) Urine Protein Neg (Negative) Urine Glucose (UA) Norm (Normal) Urine Ketones Negative (Negative) Urine Blood Neg (Negative) Urine Nitrate Negative (Negative) Urine Bilirubin Neg (Negative) Urine Urobilinogen Norm (Negative) mg/dL Ur Leukocyte Teresa ase Negative (Negative) 03/07/21 Range/Units 18:28 WBC (4.0-10.0) 10^3/ uL RBC (4.1-5.3) 10^6/u L Hgb (11.5-15.3) g/dL Hct (37.0-47.0) % MCV (81-99) fl MCH (28.0-34.0) pg MCHC (30.0-36.0) g/dL RDW (12.1-15.1) % Plt Count (130-400) 10^3/c mm MPV (7.4-10.4) fL Neut % (Auto) % Lymph % (Auto) % [place] % (Auto) % Eos % (Auto) % Baso % (Auto) % Neut # (Auto) (1.8-7.7) 10^3/u L Lymph # (Auto) (0.8-4.8) 10^3/u L [place] # (Auto) (0.2-0.9) 10^3/u L Eos # (Auto) (0.0-0.8) 10^3/u L Baso # (Auto) (0.0-0.1) 10^3/u L Nucleated RBC % (a uto) % Nucleated RBCs # /100WBC Sodium (136-145) mmol/L Potassium (3.5-5.1) mmol/L Chloride (98-107) mmol/L Carbon Dioxide (22-29) mmol/L Anion Gap (5-19) BUN (6-20) mg/dL Creatinine (0.5-0.9) mg/dL GFR Calculation (90-130) mL/min Glucose (65-115) mg/dL Calculated Osmolal ity (285-295) mOsm/k g Calcium (8.5-10.5) mg/dL Total Bilirubin (0.15-1.2) mg/dL AST (0-32) U/L ALT (0-33) U/L Alkaline Phosphata se (35-105) IU/L Total Protein (6.6-8.7) g/dL Albumin (3.5-5.2) g/dL Globulin (1.3-4.6) g/dL HCG, Qual Negative (Negative) Urine Color (Yellow) Urine Appearance (CLEAR) Urine pH (5-7) Ur Specific Gravit y (1.005-1.030) Urine Protein (Negative) Urine Glucose (UA) (Normal) Urine Ketones (Negative) Urine Blood (Negative) Urine Nitrate (Negative) Urine Bilirubin (Negative) Urine Urobilinogen (Negative) mg/dL Ur Leukocyte Teresa ase (Negative) Discharge Plan Discharge Patient Disposition: Home Clinical Impression: Dizziness, Acute dehydration Condition: Stable Prescriptions: No Action ibuprofen 200 mg capsule 400 mg PO TID PRN (Reason: fever or pain) RF: 0 acetaminophen [Tylenol] 325 mg capsule 650 mg PO QID PRN (Reason: fever or pain) RF: 0 calcium carbonate [Tums] 300 mg (750 mg) tablet,chewable 300 mg PO BID PRN (Reason: heartburn & nausea) RF: 0 Metamucil [facility] Fiber 3.4 gram/5.8 gram powder 1.65 gm PO DAILY RF: 0 bisacodyl [Dulcolax (bisacodyl)] 10 mg suppository 10 mg [place] DAILY PRN (Reason: Constipation) RF: 0 benztropine 1 mg tablet 1 mg PO BID Qty: 60 RF: 3 hydroxyzine HCl 50 mg tablet 50 mg PO BID 30 Days Qty: 60 RF: 3 hydroxyzine HCl 25 mg tablet 50 mg PO BID PRN (Reason: anxiety) 30 Days Qty: 120 RF: 4 lorazepam 1 mg tablet 1.5 mg PO .COMPLEX 30 Days Qty: 45 RF: 3 lorazepam 2 mg/mL concentrate See Rx Instructions .ROUTE .COMPLEX Qty: 30 RF: 3 paliperidone 6 mg tablet extended release 24hr 12 mg PO DAILY 30 Days Qty: 60 RF: 3 quetiapine [Seroquel XR] 400 mg tablet extended release 24 hr 800 mg PO BID 30 Days Qty: 120 RF: 3 pantoprazole [Protonix] [address] for susp in packet 40 mg PO BID RF: 0 bismuth subsalicylate [Pepto-Bismol] 262 mg tablet,chewable 1 tab PO DAILY RF: 0 diphenhydramine HCl [Benadryl] 25 mg capsule 25 mg PO ONCE PRNRF: 0 metoprolol succinate 25 mg tablet extended release 24 hr 25 mg PO DAILY Qty: 90 RF: 2 multivitamin [Tab-A-Diana] Tablet 1 tab PO DAILY RF: 0 zonisamide 100 mg Capsule 300 mg PO BID RF: 0 docusate sodium [Colace] 100 mg Capsule 100 mg PO BID RF: 0 fluticasone propionate 50 mcg/actuation [place],Suspension 1 spray INTRANASAL BID RF: 0 atorvastatin 40 mg Tablet 40 mg PO BEDTIME RF: 0 norgestimate-ethinyl estradiol 0.18/0.215/0.25 mg-35 mcg (28) Tablet 1 tab PO DAILY RF: 0 Briviact 50 mg Tablet 100 mg PO BID RF: 0 fluoride (sodium) [Sodium Fluoride 5000 Plus] 1.1 % cream 1 applic DENTAL BID RF: 0 polyethylene glycol 3350 [Miralax] 17 gram/dose powder 17 gm PO DAILY Qty: 119 RF: 0 melatonin 3 mg tablet 3 mg PO DAILY PRN (Reason: Sleep) RF: 0 Discharge Orders: Discharge ED (Routine); Ordered 03/07/21 Ordered By: Irvin Gomez Referrals: Judith Bermudez FNP [Primary Care Provider] - 1-3 days Discharge Diet: Advance as tolerated Discharge Activity: Increase activity as tolerated Patient Instructions: Dehydration (ED), Dizziness (ED) Activity Restrictions/Additional Instructions: Drink plenty of fluids for the next 48 hours. Stay in a cool environment. Return for any concerning symptoms. Coding Level of Care Code ED Printing Sales Representative for Chg Fwd Exam Comprehensive Documented by User: Irvin Gomez DO 03/08/21 01:07 HPI - Dizziness General: Chief Complaint: Dizziness Stated Complaint: N/V; Dizzy; change of meds Time Seen by Provider: 03/07/21 17:38 PFSH ED PFSH: Medical History Bipolar disorder Constipation, chronic Hyperlipidemia Intellectual disability Seizures Tachycardia Surgical History H/O eye surgery Social History Smoking and tobacco status: never smoked Quit status (tobacco): has quit using tobacco Second hand smoke exposure: Yes Course Vital Signs: Vital signs: Vital Signs Temperature 9830 F H 03/07/21 20:37 Pulse Rate 85 03/07/21 20:37 Respiratory Rate 18 03/07/21 21:10 Blood Pressure 111/74 03/07/21 17:27 Pulse Oximetry 98 03/07/21 21:10 MDM - Dizziness MDM Narrative: Medical decision making narrative: 21-year-old female checked out to me by Dr. Villatoro at shift change. This young lady has been dizzy, with some nausea. White blood cell count is 5. Hemoglobin is 11. Her bicarbonate level is 19. This is likely the result of dehydration. She has been given a liter here. other labs are benign. She will be allowed home. Lab Data: Labs: Lab Results 03/07/21 03/07/21 03/07/21 Range/Units 18:28 18:28 18:28 WBC 5.1 (4.0-10.0) 10^3/ uL RBC 3.95 L (4.1-5.3) 10^6/u L Hgb 10.9 L (11.5-15.3) g/dL Hct 35.6 L (37.0-47.0) % MCV 90.1 (81-99) fl MCH 27.6 L (28.0-34.0) pg MCHC 30.6 (30.0-36.0) g/dL RDW 14.6 (12.1-15.1) % Plt Count 255 (130-400) 10^3/c mm MPV 11.4 H (7.4-10.4) fL Neut % (Auto) 45.1 % Lymph % (Auto) 41.0 % [place] % (Auto) 10.9 % Eos % (Auto) 2.0 % Baso % (Auto) 0.8 % Neut # (Auto) 2.31 (1.8-7.7) 10^3/u L Lymph # (Auto) 2.1 (0.8-4.8) 10^3/u L [place] # (Auto) 0.6 (0.2-0.9) 10^3/u L Eos # (Auto) 0.1 (0.0-0.8) 10^3/u L Baso # (Auto) 0.0 (0.0-0.1) 10^3/u L Nucleated RBC % (a uto) 0 % Nucleated RBCs # 0.0 /100WBC Sodium 140 (136-145) mmol/L Potassium 3.8 (3.5-5.1) mmol/L Chloride 110 H (98-107) mmol/L Carbon Dioxide 19 L (22-29) mmol/L Anion Gap 14.8 (5-19) BUN 6 (6-20) mg/dL Creatinine 0.7 (0.5-0.9) mg/dL GFR Calculation 105.6 (90-130) mL/min Glucose 92 (65-115) mg/dL Calculated Osmolal ity 287 (285-295) mOsm/k g Calcium 8.3 L (8.5-10.5) mg/dL Total Bilirubin 0.2 (0.15-1.2) mg/dL AST 25 (0-32) U/L ALT 15 (0-33) U/L Alkaline Phosphata se 85 (35-105) IU/L Total Protein 6.1 L (6.6-8.7) g/dL Albumin 3.7 (3.5-5.2) g/dL Globulin 2.4 (1.3-4.6) g/dL HCG, Qual (Negative) Urine Color Yellow (Yellow) Urine Appearance Clear (CLEAR) Urine pH 6.5 (5-7) Ur Specific Gravit y 1.005 (1.005-1.030) Urine Protein Neg (Negative) Urine Glucose (UA) Norm (Normal) Urine Ketones Negative (Negative) Urine Blood Neg (Negative) Urine Nitrate Negative (Negative) Urine Bilirubin Neg (Negative) Urine Urobilinogen Norm (Negative) mg/dL Ur Leukocyte Teresa ase Negative (Negative) 03/07/21 Range/Units 18:28 WBC (4.0-10.0) 10^3/ uL RBC (4.1-5.3) 10^6/u L Hgb (11.5-15.3) g/dL Hct (37.0-47.0) % MCV (81-99) fl MCH (28.0-34.0) pg MCHC (30.0-36.0) g/dL RDW (12.1-15.1) % Plt Count (130-400) 10^3/c mm MPV (7.4-10.4) fL Neut % (Auto) % Lymph % (Auto) % Bea[place] % (Auto) % Eos % (Auto) % Baso % (Auto) % Neut # (Auto) (1.8-7.7) 10^3/u L Lymph # (Auto) (0.8-4.8) 10^3/u L [place]gard # (Auto) (0.2-0.9) 10^3/u L Eos # (Auto) (0.0-0.8) 10^3/u L Baso # (Auto) (0.0-0.1) 10^3/u L Nucleated RBC % (a uto) % Nucleated RBCs # /100WBC Sodium (136-145) mmol/L Potassium (3.5-5.1) mmol/L Chloride (98-107) mmol/L Carbon Dioxide (22-29) mmol/L Anion Gap (5-19) BUN (6-20) mg/dL Creatinine (0.5-0.9) mg/dL GFR Calculation (90-130) mL/min Glucose (65-115) mg/dL Calculated Osmolal ity (285-295) mOsm/k g Calcium (8.5-10.5) mg/dL Total Bilirubin (0.15-1.2) mg/dL AST (0-32) U/L ALT (0-33) U/L Alkaline Phosphata se (35-105) IU/L Total Protein (6.6-8.7) g/dL Albumin (3.5-5.2) g/dL Globulin (1.3-4.6) g/dL HCG, Qual Negative (Negative) Urine Color (Yellow) Urine Appearance (CLEAR) Urine pH (5-7) Ur Specific Gravit y (1.005-1.030) Urine Protein (Negative) Urine Glucose (UA) (Normal) Urine Ketones (Negative) Urine Blood (Negative) Urine Nitrate (Negative) Urine Bilirubin (Negative) Urine Urobilinogen (Negative) mg/dL Ur Leukocyte Teresa ase (Negative) Discharge Plan Discharge Patient Disposition: Home Clinical Impression: Dizziness, Acute dehydration Condition: Stable Prescriptions: No Action ibuprofen 200 mg capsule 400 mg PO TID PRN (Reason: fever or pain) RF: 0 acetaminophen [Tylenol] 325 mg capsule 650 mg PO QID PRN (Reason: fever or pain) RF: 0 calcium carbonate [Tums] 300 mg (750 mg) tablet,chewable 300 mg PO BID PRN (Reason: heartburn & nausea) RF: 0 Metamucil [facility] Fiber 3.4 gram/5.8 gram powder 1.65 gm PO DAILY RF: 0 bisacodyl [Dulcolax (bisacodyl)] 10 mg suppository 10 mg PA DAILY PRN (Reason: Constipation) RF: 0 benztropine 1 mg tablet 1 mg PO BID Qty: 60 RF: 3 hydroxyzine HCl 50 mg tablet 50 mg PO BID 30 Days Qty: 60 RF: 3 hydroxyzine HCl 25 mg tablet 50 mg PO BID PRN (Reason: anxiety) 30 Days Qty: 120 RF: 4 lorazepam 1 mg tablet 1.5 mg PO .COMPLEX 30 Days Qty: 45 RF: 3 lorazepam 2 mg/mL concentrate See Rx Instructions .ROUTE .COMPLEX Qty: 30 RF: 3 paliperidone 6 mg tablet extended release 24hr 12 mg PO DAILY 30 Days Qty: 60 RF: 3 quetiapine [Seroquel XR] 400 mg tablet extended release 24 hr 800 mg PO BID 30 Days Qty: 120 RF: 3 pantoprazole [Protonix] [address] for susp in packet 40 mg PO BID RF: 0 bismuth subsalicylate [Pepto-Bismol] 262 mg tablet,chewable 1 tab PO DAILY RF: 0 diphenhydramine HCl [Benadryl] 25 mg capsule 25 mg PO ONCE PRNRF: 0 metoprolol succinate 25 mg tablet extended release 24 hr 25 mg PO DAILY Qty: 90 RF: 2 multivitamin [Tab-A-Diana] Tablet 1 tab PO DAILY RF: 0 zonisamide 100 mg Capsule 300 mg PO BID RF: 0 docusate sodium [Colace] 100 mg Capsule 100 mg PO BID RF: 0 fluticasone propionate 50 mcg/actuation [place],Suspension 1 spray INTRANASAL BID RF: 0 atorvastatin 40 mg Tablet 40 mg PO BEDTIME RF: 0 norgestimate-ethinyl estradiol 0.18/0.215/0.25 mg-35 mcg (28) Tablet 1 tab PO DAILY RF: 0 Briviact 50 mg Tablet 100 mg PO BID RF: 0 fluoride (sodium) [Sodium Fluoride 5000 Plus] 1.1 % cream 1 applic DENTAL BID RF: 0 polyethylene glycol 3350 [Miralax] 17 gram/dose powder 17 gm PO DAILY Qty: 119 RF: 0 melatonin 3 mg tablet 3 mg PO DAILY PRN (Reason: Sleep) RF: 0 Discharge Orders: Discharge ED (Routine); Ordered 03/07/21 Ordered By: Irvin Gomez Referrals: Judith Bermudez FNP [Primary Care Provider] - 1-3 days Discharge Diet: Advance as tolerated Discharge Activity: Increase activity as tolerated Patient Instructions: Dehydration (ED), Dizziness (ED) Activity Restrictions/Additional Instructions: Drink plenty of fluids for the next 48 hours. Stay in a cool environment. Return for any concerning symptoms. Coding Level of Care Code ED Printing Sales Representative for Premag Fwd Exam Comprehensive
--- NOTE | 2021-03-07 17:47 | CTR_ITS ---
PROCEDURE INFORMATION: Exam: CT Head Without Contrast Exam date and time: 03/07/2021 5:47 PM Age: 21 years old Clinical indication: Visual disturbance; Prior surgery; Surgery date: 6+ months; Surgery type: Vns; Patient HX: C/O visual hallucinations; Additional info: Vision changes TECHNIQUE: Imaging protocol: Computed tomography of the head without contrast. Radiation optimization: All CT scans at this facility use at least one of these dose optimization techniques: automated exposure control; mA and/or kV adjustment per patient size (includes targeted exams where dose is matched to clinical indication); or iterative reconstruction. COMPARISON: CR XR soft tissue neck [id number] 05/10/2020 7:01 PM RADIATION DOSE METRICS: Total DLP (mGy-cm): 787.34 FINDINGS: Brain: Normal. No hemorrhage. Unremarkable white matter. No mass effect. Cerebral ventricles: No ventriculomegaly. Paranasal sinuses: Visualized sinuses are unremarkable. No fluid levels. Mastoid air cells: Visualized mastoid air cells are well aerated. Bones/joints: Unremarkable. No acute fracture. Soft tissues: Unremarkable. CT/CT head wo con* [id number] IMPRESSION: Negative for intracranial hemorrhage or mass effect Radiation Dose CTDIVOL = (mGy): DLP = 787.34 (mGy-cm)
[2021-03-07 18:40] LABS: Basophils % 0.8 %; Eosinophils # 0.1 10^3/uL (0.0-0.8); Hematocrit 35.6 % (37.0-47.0); Hemoglobin 10.9 g/dL (11.5-15.3); Lymphocytes # 2.1 10^3/uL (0.8-4.8); Mean Corpuscular HGB Conc 30.6 g/dL (30.0-36.0); Mean Corpuscular Hemoglobin 27.6 pg (28.0-34.0); Mean Corpuscular Volume 90.1 fl (81-99); Mean Platelet Volume 11.4 fL (7.4-10.4); Monocytes # 0.6 10^3/uL (0.2-0.9); Monocytes % 10.9 %; Neutrophils # 2.31 10^3/uL (1.8-7.7); Neutrophils % 45.1 %; Nucleated Red Blood Cells % 0 %; Platelet Count 255 10^3/cmm (130-400); Red Blood Count 3.95 10^6/uL (4.1-5.3); Red Cell Distribution Width 14.6 % (12.1-15.1); White Blood Count 5.1 10^3/uL (4.0-10.0)
[2021-03-07 18:58] LABS: Alanine Aminotransferase 15 U/L (0-33); Albumin Level 3.7 g/dL (3.5-5.2); Alkaline Phosphatase 85 IU/L (35-105); Aspartate Amino Transferase 25 U/L (0-32); Blood Urea Nitrogen 6 mg/dL (6-20); Calcium 8.3 mg/dL (8.5-10.5); Carbon Dioxide 19 mmol/L (22-29); Chloride 110 mmol/L (98-107); Creatinine Clr Calc Pharmacy 121.3599; Globulin 2.4 g/dL (1.3-4.6); Glomerular Filtration Rate 105.6 mL/min (90-130); Glucose 92 mg/dL (65-115); Osmolality Calculated 287 mOsm/kg (285-295); Sodium 140 mmol/L (136-145); Total Bilirubin 0.2 mg/dL (0.15-1.2); Total Protein 6.1 g/dL (6.6-8.7)
[2021-03-07] MEDS: ondansetron 2 mg/ML SDV 2 mL 4 MG IVP (19:03)
[2021-03-07] MEDS: sodium chloride 0.9% 1,000 ML 999 ML IV (19:03)
[2021-03-07 19:12] LABS: Anion Gap 14.8 (5-19); Potassium 3.8 mmol/L (3.5-5.1)
[2021-03-07 19:52] LABS: Add Urine Microscopic? NO; Charge for UA Resulting for Rev
[2021-03-07 19:58] LABS: Bilirubin Urine Neg (Negative); Blood Urine Neg (Negative); Glucose Urine UA Norm (Normal); Ketones Urine Negative (Negative); Leukocyte Esterase Urine Negative (Negative); Nitrate Urine Negative (Negative); Protein Urine Neg (Negative); Specific Gravity, Urine 1.005 (1.005-1.030); Urine Appearance Clear (CLEAR); Urine Color Yellow (Yellow); Urobilinogen Urine Norm (Negative); pH Urine 6.5 (5-7)
[2021-03-07 20:04] LABS: HCG Qualitative Urine. Negative (Negative)
[2021-03-07 20:37] VITALS: PULSE 85; RESP 16; TEMP 5443.3; TEMP 9830; O2SAT 98
[2021-03-07 21:10] VITALS: RESP 18; O2SAT 98
== END 2021-03-07 21:11 | disposition home or self-care (01) ==
PROVIDERS: Family Medicine; Emergency Provider Emergency Medicine; PCP Nurse Practitioner Family
DX: R42 Dizziness and giddiness (principal); E86.0 Dehydration; E78.5 Hyperlipidemia, unspecified
CPT/HCPCS: 70450; 80053; 81003; 81025; 85025; 96361; 96374; 99284; J2405; J7030

== ENCOUNTER → 2021-03-27 08:54 | Outpatient (BNVA) | payer MEDICARE, MEDICAID, SELFPAY | PROVIDERS: PCP Nurse Practitioner Family; Visit Provider Psychiatry & Neurology Psychiatry | DX: F31.9 Bipolar disorder, unspecified (principal); F79 Unspecified intellectual disabilities | CPT/HCPCS: 99214 ==

== ENCOUNTER 2021-04-05 11:14 | Emergency (ER) | payer MEDICARE, MEDICAID, SELFPAY ==
[2021-04-05 11:33] VITALS: BP 110/78; PULSE 105; RESP 19; TEMP 36.8; O2SAT 98; BMI 26.5
[2021-04-05 13:09] VITALS: BP 101/73; PULSE 107; RESP 18; O2SAT 99
[2021-04-05 14:06] LABS: HCG Qualitative Urine. Negative (Negative)
--- NOTE | 2021-04-05 14:21 | XRR_ITS ---
PROCEDURE INFORMATION: Exam: XR Chest Exam date and time: 04/05/2021 2:21 PM Age: 21 years old Clinical indication: Radiating and right-sided; Patient HX: C/O chest pain right side and radiating to left. Nausea, vomiting some TECHNIQUE: Imaging protocol: XR of the chest. Views: 1 view. Total images: 1 COMPARISON: CR XR chest 1V portable [id number] 10/12/2020 11:31 PM FINDINGS: Tubes, catheters and devices: Vagal nerve stimulator noted unchanged. Lungs: Unremarkable. No consolidation. Pleural spaces: Unremarkable. No pleural effusion. No pneumothorax. Heart/Mediastinum: Unremarkable. No cardiomegaly. Bones/joints: Osseous structures are unchanged from the prior exam. Gastrointestinal tract: Mildly distended colonic loops are seen projecting in the right upper quadrant. This finding is typically incidental but can be seen with Chilaiditi's syndrome. XR/XR chest 1V portable [id number] IMPRESSION: 1. No acute cardiopulmonary process. 2. Mildly distended colonic loops are seen projecting in the right upper quadrant. This finding is typically incidental but can be seen with Chilaiditi's syndrome. Radiation Dose CTDIVOL = (mGy): DLP = (mGy-cm)
--- NOTE | 2021-04-05 14:21 | ECG_ITS ---
[facility] Test Date: 2021-04-05 Pat Name: Tyler Sinha Department: Room: Gender: Female Photographer Assistant: : 2000 Requested By: Triston Porter Order Number: [id number] Reading MD: TRICIA CALDERON Measurements Intervals [place] Rate: 99 P: 52 IA: 130 QRS: 79 QRSD: 70 T: 73 QT: 339 QTc: 436 Interpretive Statements SINUS RHYTHM INTERPRETATION BASED ON A DEFAULT AGE OF 40 YEARS Compared to ECG 05/15/2020 10:35:39 Sinus tachycardia no longer present T-wave abnormality no longer present Electronically Signed On 04-06-2021 20:23:58 CDT by TRICIA CALDERON [id number]
[2021-04-05 15:00] VITALS: BP 112/76; PULSE 112; RESP 18; O2SAT 99
[2021-04-05 15:41] LABS: Basophils % 0.7 %; Eosinophils % 0.5 %; Hematocrit 38.2 % (37.0-47.0); Hemoglobin 11.8 g/dL (11.5-15.3); Lymphocytes # 1.6 10^3/uL (0.8-4.8); Lymphocytes % 26.4 %; Mean Corpuscular HGB Conc 30.9 g/dL (30.0-36.0); Mean Corpuscular Hemoglobin 27.4 pg (28.0-34.0); Mean Corpuscular Volume 88.6 fl (81-99); Mean Platelet Volume 11.5 fL (7.4-10.4); Monocytes # 0.5 10^3/uL (0.2-0.9); Monocytes % 7.8 %; Neutrophils # 3.95 10^3/uL (1.8-7.7); Neutrophils % 64.4 %; Nucleated Red Blood Cells % 0 %; Platelet Count 307 10^3/cmm (130-400); Red Blood Count 4.31 10^6/uL (4.1-5.3); Red Cell Distribution Width 13.9 % (12.1-15.1); White Blood Count 6.1 10^3/uL (4.0-10.0)
--- NOTE | 2021-04-05 15:41 | W.ED.CHESTPA ---
HPI - Chest Pain General: Chief Complaint: Chest Pain Stated Complaint: CHEST PAIN/TROUBLE BREATHING/ABD PAIN Time Seen by Provider: 04/05/21 14:54 PFSH ED PFSH: Medical History Bipolar disorder Constipation, chronic Hyperlipidemia Intellectual disability Seizures Tachycardia Surgical History H/O eye surgery Social History Smoking and tobacco status: never smoked Quit status (tobacco): has quit using tobacco Second hand smoke exposure: Yes Female Reproductive History: Date of last menstrual period: 03/30/21 Course Vital Signs: Vital signs: Vital Signs Temperature 98.2 F 04/05/21 11:33 Pulse Rate 112 H 04/05/21 15:00 Respiratory Rate 18 04/05/21 15:00 Blood Pressure 112/76 04/05/21 15:00 Pulse Oximetry 99 04/05/21 15:00 MDM - Chest Pain Lab Data: Labs: Lab Results 04/05/21 13:35 HCG, Qual Negative (Negative) Discharge Plan Discharge Prescriptions: No Action ibuprofen 200 mg capsule 400 mg PO TID PRN (Reason: fever or pain) RF: 0 acetaminophen [Tylenol] 325 mg capsule 650 mg PO QID PRN (Reason: fever or pain) RF: 0 calcium carbonate [Tums] 300 mg (750 mg) tablet,chewable 300 mg PO BID PRN (Reason: heartburn & nausea) RF: 0 Metamucil [facility] Fiber 3.4 gram/5.8 gram powder 1.65 gm PO DAILY RF: 0 bisacodyl [Dulcolax (bisacodyl)] 10 mg suppository 10 mg [place] DAILY PRN (Reason: Constipation) RF: 0 pantoprazole [Protonix] [address] for susp in packet 40 mg PO BID RF: 0 bismuth subsalicylate [Pepto-Bismol] 262 mg tablet,chewable 1 tab PO DAILY RF: 0 diphenhydramine HCl [Benadryl] 25 mg capsule 25 mg PO ONCE PRNRF: 0 metoprolol succinate 25 mg tablet extended release 24 hr 25 mg PO DAILY Qty: 90 RF: 2 benztropine 1 mg tablet 1 mg PO BID Qty: 60 RF: 3 hydroxyzine HCl 50 mg tablet 50 mg PO BID 30 Days Qty: 60 RF: 3 hydroxyzine HCl 25 mg tablet 50 mg PO BID PRN (Reason: anxiety) 30 Days Qty: 120 RF: 4 lorazepam 2 mg/mL concentrate See Rx Instructions .ROUTE .COMPLEX Qty: 30 RF: 3 paliperidone 6 mg tablet extended release 24hr 12 mg PO DAILY 30 Days Qty: 60 RF: 3 quetiapine [Seroquel XR] 400 mg tablet extended release 24 hr 800 mg PO BID 30 Days Qty: 120 RF: 3 lorazepam 1 mg tablet See Rx Instructions PO .COMPLEX 30 Days Qty: 45 RF: 3 multivitamin [Tab-A-Diana] Tablet 1 tab PO DAILY RF: 0 zonisamide 100 mg Capsule 300 mg PO BID RF: 0 docusate sodium [Colace] 100 mg Capsule 100 mg PO BID RF: 0 fluticasone propionate 50 mcg/actuation [place],Suspension 1 spray INTRANASAL BID RF: 0 atorvastatin 40 mg Tablet 40 mg PO BEDTIME RF: 0 norgestimate-ethinyl estradiol 0.18/0.215/0.25 mg-35 mcg (28) Tablet 1 tab PO DAILY RF: 0 Briviact 50 mg Tablet 100 mg PO BID RF: 0 fluoride (sodium) [Sodium Fluoride 5000 Plus] 1.1 % cream 1 applic DENTAL BID RF: 0 polyethylene glycol 3350 [Miralax] 17 gram/dose powder 17 gm PO DAILY Qty: 119 RF: 0 melatonin 3 mg tablet 3 mg PO DAILY PRN (Reason: Sleep) RF: 0 Coding Level of Care Code ED Vp [employer] Development for Chg Fwd
[2021-04-05] MEDS: acetaminophen 500 mg Tablet 1000 MG PO (15:50)
[2021-04-05] MEDS: lidocaine 2% viscous 15 ML, aluminum-mag hydrox-simethicon 30 ML, sucralfate oral liq 1 GM PO (15:51)
[2021-04-05] MEDS: sodium chloride 0.9% 1,000 ML 999 ML IV (15:52)
[2021-04-05 15:57] VITALS: BP 116/82; PULSE 102; RESP 18; O2SAT 99
[2021-04-05 16:06] LABS: Troponin T (5th) Once 6 ng/L (0-10)
[2021-04-05 16:09] LABS: Alanine Aminotransferase 21 U/L (0-33); Albumin Level 3.9 g/dL (3.5-5.2); Alkaline Phosphatase 98 IU/L (35-105); Anion Gap 18.7 (5-19); Aspartate Amino Transferase 20 U/L (0-32); Blood Urea Nitrogen 10 mg/dL (6-20); Carbon Dioxide 19 mmol/L (22-29); Chloride 104 mmol/L (98-107); Creatinine Clr Calc Pharmacy 103.0037; Globulin 2.4 g/dL (1.3-4.6); Glomerular Filtration Rate 90.5 mL/min (90-130); Glucose 91 mg/dL (65-115); Osmolality Calculated 285 mOsm/kg (285-295); Potassium 3.7 mmol/L (3.5-5.1); Sodium 138 mmol/L (136-145); Total Bilirubin 0.2 mg/dL (0.15-1.2); Total Protein 6.3 g/dL (6.6-8.7)
[2021-04-05] MEDS: ketorolac 30 mg/mL INJ IVP (16:28)
--- NOTE | 2021-04-05 16:28 | W.ED.GENADLT ---
HPI - General Adult General: Chief complaint: Chest Pain Stated complaint: CHEST PAIN/TROUBLE BREATHING/ABD PAIN Time Seen by Provider: 04/05/21 14:54 History of Present Illness: HPI narrative: CC: Chest Pain HPI: This is a [21]yo patient presenting to the ED complaining of acute sudden onset intermittent sharp chest pain x 2 days radiating from right side of her chest to the left . No associated with shortness of breath, chest pain or dyspnea on exertion. Pain is not tearing in nature and does not radiate to the back. In addition, patient reports abdominal pain with PO intake with nausea and some emesis. No dirreah. Denies any recent sympathomimetic drug use. Patient denies any cough. Denies palpitations, dysphagia, diaphoresis, radiation of pain to bilateral arms, jaw. Patient denies any recent immobility, surgery, unilateral leg swelling, or prior PE. Patient denies any orthopnea. Onset: 2 days ago Duration: ongoing for the last 2 days Location: home Severity: mild/moderate Review of Systems Narrative: Constitutional: No fever, no chills. HEENT: No vision changes, no sore throat. CV: +chest pain, no palpitations. PULM: No cough, No dyspnea. GI: +abdominal pain, +N/+V/-D. : No dysuria, no frequency, no hematuria. MSKEL: No arthralgias, no edema. SKIN: No new rashes, no lesions. NEURO: No headache, no focal weakness. HEME: No easy bleeding or bruising. PSYCH: No change in mood or affect. [facility] ED PFSH: Medical History (Updated 04/06/21 @ 16:42 by Miriam Montana) Bipolar disorder Constipation, chronic Hyperlipidemia Intellectual disability Psychiatric care Seizures Tachycardia Surgical History H/O eye surgery Social History Smoking and tobacco status: never smoked Quit status (tobacco): has quit using tobacco Second hand smoke exposure: Yes Female Reproductive History: Date of last menstrual period: 03/30/21 Physical Exam Narrative: EXAM NARRATIVE: Head: Atraumatic, normocephalic Eyes: PERRL, EOMI, conjunctiva without injection ENT: Throat without erythema, lesions or exudate, MMM NECK: Supple, trachea midline, no JVD LUNGS: LCTA CV: RRR, S1,S2, no murmurs, rubs, gallops. 2+ peripheral pulses in UEs ABDOMEN: Soft, nontender, nondistended, BS x4, no rigidity, no guarding, no rebound EXTREMITY: Normal ROM, no pitting edema, no calf tenderness to palpation SKIN: No rash or erythema NEURO: Awake and alert. No focal motor deficits. PSYCH: Normal mood and affect. Course Vital Signs: Vital signs: Vital Signs Temperature 98.2 F 04/05/21 11:33 Pulse Rate 99 04/05/21 16:50 Respiratory Rate 18 04/05/21 16:50 Blood Pressure 132/74 04/05/21 16:50 Pulse Oximetry 98 04/05/21 16:50 MDM - General Adult MDM Narrative: Medical decision making narrative: [21]yo patient w/ no PMH presenting to the ED with evaluation of new onset sharp chest pain lasting 2 days with diffuse abdominal pain, N/V. HDS, pulse 2+ radially bilaterally, no signs of fluid overload, AAOx3, neuro exam intact. Given History and Exam today I have no suspicion for ACS, Pneumothorax, Pneumonia, Pulmonary Embolus, Tamponade, Aortic Dissection or other emergent problems as a cause for this presentation. Workup: ECG, CXR, CBC, BMP, Troponin Interventions: Tylenol Findings: ECG: No overt evidence of STEMI, hyperacute T waves, localizable STD or T wave inversions. No evidence of Brugada?s sign, delta wave, epsilon wave, significantly prolonged QTc, or malignant arrhythmia. No Q waves. Other Labs unremarkable for emergent problems. CXR: Without PTX, PNA, or widened mediastinum Last Stress Test: never Last Heart Catheterization: never HEART Score: 0 PERC: Negative [4:30] On reassessment, the patient is HDS, no complaints of persistent chest pain in the ED after evaluation. EKG is nonischemic, troponin x 1 negative, CMP negative for any lab abnormality. Not . Doubt ACS/PE or other emergent causes of chest pain. No suspicion for aortic dissection given no widened mediastinum, 2+ upper extremity pulses, or tearing pain. No suspicion for PE given no pleuritic chest pain, recent immobilization or surgery hemoptysis, or other VTE risk factors. EKG is non-ischemic. XR normal. No suspicion for any acute intraabdominal pathologies. Rx: zofran, pepcid, and tylenol PRN pain. Disposition: Discharge. Strict return precautions discussed with the patient with full understanding. Advised patient to follow up promptly with a primary care provider in 24-48 hrs if the patient has persistent symptoms. Given return instructions for any crushing/tearing chest pain, focal weakness, syncope or any new or concerning issues. Lab Data: Labs: Lab Results 04/05/21 04/05/21 04/05/21 13:35 15:26 15:26 WBC 6.1 10^3/uL 10^3/ uL (4.0-10.0) RBC 4.31 10^6/uL 10^6 /uL (4.1-5.3) Hgb 11.8 g/dL g/dL (11.5-15.3) Hct 38.2 % % (37.0-47.0) MCV 88.6 fl fl (81-99) MCH 27.4 pg L pg (28.0-34.0) MCHC 30.9 g/dL g/dL (30.0-36.0) RDW 13.9 % % (12.1-15.1) Plt Count 307 10^3/cmm 10^3 /cmm (130-400) MPV 11.5 fL H fL (7.4-10.4) Neut % (Auto) 64.4 % % Lymph % (Auto) 26.4 % % Stephenson % (Auto) 7.8 % % Eos % (Auto) 0.5 % % Baso % (Auto) 0.7 % % Neut # (Auto) 3.95 10^3/uL 10^3 /uL (1.8-7.7) Lymph # (Auto) 1.6 10^3/uL 10^3/ uL (0.8-4.8) Stephenson # (Auto) 0.5 10^3/uL 10^3/ uL (0.2-0.9) Eos # (Auto) 0.0 10^3/uL 10^3/ uL (0.0-0.8) Baso # (Auto) 0.0 10^3/uL 10^3/ uL (0.0-0.1) Nucleated RBC % (a uto) 0 % % Nucleated RBCs # 0.0 /100WBC /100W BC Sodium 138 mmol/L mmol/L (136-145) Potassium 3.7 mmol/L mmol/L (3.5-5.1) Chloride 104 mmol/L mmol/L (98-107) Carbon Dioxide 19 mmol/L L mmol/ L (22-29) Anion Gap 18.7 (5-19) BUN 10 mg/dL mg/dL (6-20) Creatinine 0.8 mg/dL mg/dL (0.5-0.9) GFR Calculation 90.5 mL/min mL/mi n (90-130) Glucose 91 mg/dL mg/dL (65-115) Calculated Osmolal ity 285 mOsm/kg mOsm/ kg (285-295) Calcium 9.0 mg/dL mg/dL (8.5-10.5) Total Bilirubin 0.2 mg/dL mg/dL (0.15-1.2) AST 20 U/L U/L (0-32) ALT 21 U/L U/L (0-33) Alkaline Phosphata se 98 IU/L IU/L (35-105) Troponin T Gen 5 n g/L Total Protein 6.3 g/dL L g/dL (6.6-8.7) Albumin 3.9 g/dL g/dL (3.5-5.2) Globulin 2.4 g/dL g/dL (1.3-4.6) HCG, Qual Negative (Negative) Ser , Shea i-Qnt 04/05/21 04/05/21 15:26 15:26 WBC RBC Hgb Hct MCV MCH MCHC RDW Plt Count MPV Neut % (Auto) Lymph % (Auto) Stephenson % (Auto) Eos % (Auto) Baso % (Auto) Neut # (Auto) Lymph # (Auto) Stephenson # (Auto) Eos # (Auto) Baso # (Auto) Nucleated RBC % (a uto) Nucleated RBCs # Sodium Potassium Chloride Carbon Dioxide Anion Gap BUN Creatinine GFR Calculation Glucose Calculated Osmolal ity Calcium Total Bilirubin AST ALT Alkaline Phosphata se Troponin T Gen 5 n g/L 6 ng/L ng/L (0-10) Total Protein Albumin Globulin HCG, Qual Ser , Shea i-Qnt Cancelled Discharge Plan Discharge Patient Disposition: Home Clinical Impression: Chest pain, Abdominal pain Condition: Stable Prescriptions: New Zofran 4 mg tablet 4 mg PO TID PRN (Reason: nausea and vomiting) 4 Days Qty: 12 RF: 0 acetaminophen 500 mg tablet 500 mg PO Q6H PRN (Reason: pain) 5 Days Qty: 20 RF: 0 Pepcid 20 mg tablet 20 mg PO BID PRN (Reason: abdominal discomfort) 20 Days Qty: 40 RF: 0 No Action ibuprofen 200 mg capsule 400 mg PO TID PRN (Reason: fever or pain) RF: 0 acetaminophen [Tylenol] 325 mg capsule 650 mg PO QID PRN (Reason: fever or pain) RF: 0 calcium carbonate [Tums] 300 mg (750 mg) tablet,chewable 300 mg PO BID PRN (Reason: heartburn & nausea) RF: 0 Metamucil [facility] Fiber 3.4 gram/5.8 gram powder 1.65 gm PO DAILY RF: 0 bisacodyl [Dulcolax (bisacodyl)] 10 mg suppository 10 mg [place] DAILY PRN (Reason: Constipation) RF: 0 pantoprazole [Protonix] [address] for susp in packet 40 mg PO BID RF: 0 bismuth subsalicylate [Pepto-Bismol] 262 mg tablet,chewable 1 tab PO DAILY RF: 0 diphenhydramine HCl [Benadryl] 25 mg capsule 25 mg PO ONCE PRNRF: 0 metoprolol succinate 25 mg tablet extended release 24 hr 25 mg PO DAILY Qty: 90 RF: 2 benztropine 1 mg tablet 1 mg PO BID Qty: 60 RF: 3 hydroxyzine HCl 50 mg tablet 50 mg PO BID 30 Days Qty: 60 RF: 3 hydroxyzine HCl 25 mg tablet 50 mg PO BID PRN (Reason: anxiety) 30 Days Qty: 120 RF: 4 lorazepam 2 mg/mL concentrate See Rx Instructions .ROUTE .COMPLEX Qty: 30 RF: 3 paliperidone 6 mg tablet extended release 24hr 12 mg PO DAILY 30 Days Qty: 60 RF: 3 quetiapine [Seroquel XR] 400 mg tablet extended release 24 hr 800 mg PO BID 30 Days Qty: 120 RF: 3 lorazepam 1 mg tablet See Rx Instructions PO .COMPLEX 30 Days Qty: 45 RF: 3 multivitamin [Tab-A-Diana] Tablet 1 tab PO DAILY RF: 0 zonisamide 100 mg Capsule 300 mg PO BID RF: 0 docusate sodium [Colace] 100 mg Capsule 100 mg PO BID RF: 0 fluticasone propionate 50 mcg/actuation [place],Suspension 1 spray INTRANASAL BID RF: 0 atorvastatin 40 mg Tablet 40 mg PO BEDTIME RF: 0 norgestimate-ethinyl estradiol 0.18/0.215/0.25 mg-35 mcg (28) Tablet 1 tab PO DAILY RF: 0 Briviact 50 mg Tablet 100 mg PO BID RF: 0 fluoride (sodium) [Sodium Fluoride 5000 Plus] 1.1 % cream 1 applic DENTAL BID RF: 0 polyethylene glycol 3350 [Miralax] 17 gram/dose powder 17 gm PO DAILY Qty: 119 RF: 0 melatonin 3 mg tablet 3 mg PO DAILY PRN (Reason: Sleep) RF: 0 Discharge Orders: Discharge ED (Routine); Ordered 04/05/21 Ordered By: Triston Porter Referrals: Judith Bermudez FNP [Primary Care Provider] - Discharge Diet: Advance as tolerated Discharge Activity: Resume usual activity Patient Instructions: Abdominal Pain (ED) Coding Level of Care Code ED [employer] Professional for Jacqueline Meyer
[2021-04-05 16:50] VITALS: BP 132/74; PULSE 99; RESP 18; O2SAT 98
== END 2021-04-05 16:46 | disposition home or self-care (01) ==
PROVIDERS: Emergency Medicine; Emergency Provider Emergency Medicine; PCP Nurse Practitioner Family
DX: R07.9 Chest pain, unspecified (principal); R10.9 Unspecified abdominal pain; E78.5 Hyperlipidemia, unspecified; Z87.891 Personal history of nicotine dependence
CPT/HCPCS: 71045; 80053; 81025; 84484; 85025; 93005; 96361; 96374; 99284; J1885; J7030

== ENCOUNTER 2021-05-22 13:26 | Outpatient (CLI) | payer MEDICARE, MEDICAID, SELFPAY ==
--- NOTE | 2021-05-22 13:45 | MR_ITS ---
WS: [id number] MRI BRAIN WITHOUT CONTRAST HISTORY: G40.909 - Epilepsy, unspecified, not intractable COMPARISON: CT head 03/07/2021 TECHNIQUE: Diffusion imaging, multiplanar T1, T2 and FLAIR imaging obtained. No evidence for acute infarct or hemorrhage. Starks-white matter differentiation is normal. Symmetric a ppearance of the hippocampal formations. No mesial sclerosis. No remote or acute infarcts are volume loss. Ventricles and extra-axial spaces are normal. No inferior displacement of cerebellar tonsils. The sella turcica and pituitary gland are unremarkabl e. Dural venous sinuses and [place] of [place] demonstrate no abnormality on this unenhanced studies. Paranasal sinuses: Clear. Mastoid air cells: Normal. Calvarium and scalp: Intact. MR/MR head wo con* [id number] IMPRESSION: 1. Unremarkable noncontrast MRI brain. 2. No atrophy or signal abnormalities.
== END 2021-05-22 13:27 | disposition home or self-care (01) ==
PROVIDERS: PCP Nurse Practitioner Family; Visit Provider Specialist
DX: G40.909 Epilepsy, unspecified, not intractable, without status epilepticus (principal); G40.309 Generalized idiopathic epilepsy and epileptic syndromes, not intractable, without status epilepticus; Z96.82 Presence of neurostimulator
CPT/HCPCS: 70551; 95971

== ENCOUNTER 2021-06-01 07:49 | Outpatient (CLI) | payer MEDICARE, MEDICAID, SELFPAY ==
--- NOTE | 2021-06-01 07:55 | NM_ITS ---
WS: [id number] NUCLEAR MEDICINE HIDA SCAN CLINICAL INFORMATION: RUQ PAIN TECHNIQUE: Following intravenous administration of 8.4 mCi of technetium 99m mebrofenin, images of th e abdomen were obtained over the course of 60 minutes.Preprandial and one-hour postprandial images of the gallbladder COMPARISON: Ultrasound April 22, 2021 FINDINGS: Normal hepatic uptake at 5 minutes. Normal hepatic excretion. Normal common bile duct and small bowel activity. Gallbladder is not visualized at 60 minutes. Faint visualization of the gallbladder at 120 minutes. Gallbladder ejection fraction not calculated due to only faint filling of the gallbladder a nd small gallbladder size. Right hepatic lesion with decreased radiotracer activity is nonspecific. Recommend further evaluation with contrast-enhanced CT abdomen pelvis with liver protocol. NM/NM hepatobiliary w phar* [id number] IMPRESSION: 1. Delayed only faint filling of the gallbladder compatible with gallbladder d ysfunction. Findings suspicious for chronic cholecystitis. 2. Right hepatic lesion with decreased radiotracer activity is nonspecific. Re commend further evaluation with contrast-enhanced CT abdomen pelvis with liver protocol.
== END 2021-06-01 07:50 | disposition home or self-care (01) ==
LOC: RAD 07:52
PROVIDERS: PCP Nurse Practitioner Family; Visit Provider Physician Assistant
DX: R10.11 Right upper quadrant pain (principal); K76.9 Liver disease, unspecified
CPT/HCPCS: 78227; A9537

== ENCOUNTER → 2021-06-16 14:47 | Outpatient (BNVA) | payer MEDICARE, MEDICAID, SELFPAY | PROVIDERS: PCP Nurse Practitioner Family; Visit Provider Specialist | DX: G40.209 Localization-related (focal) (partial) symptomatic epilepsy and epileptic syndromes with complex partial seizures, not intractable, without status epilepticus (principal); F79 Unspecified intellectual disabilities; Z96.82 Presence of neurostimulator | CPT/HCPCS: 95970; 99214 ==

== ENCOUNTER 2021-07-06 10:01 | Outpatient (CLI) | payer MEDICARE, MEDICAID, SELFPAY ==
--- NOTE | 2021-07-06 | CT_ITS ---
WS: [id number] CT ABDOMEN PELVIS TECHNIQUE: Contrast-enhanced CT of the abdomen and pelvis with coronal and sagittal reformatted image s. CLINICAL INFORMATION: LESION OF LIVER COMPARISON: Ultrasound April 22, 2021 DLP: 1154.[address] scans at [facility] use at least one of these dose optimization techniques: automated e xposure control; mA and/or kV adjustment per patient size (includes targeted exams where dose is matc hed to clinical indication); or iterative reconstruction. FINDINGS: Mild hepatomegaly. Diffuse fatty infiltration of the liver. Normal portal vein and splenic vein. Norm al gallbladder. Lung bases are well aerated. No visualized hepatic lesions. IUD in good position. Urine distended bladder. Diffuse pancolonic constipation with fecal retention. Adrenal glands are normal. Normal renal parenchymal enhancement. No hydronephrosis. Lung bases are we ll aerated. No free fluid in the abdomen or pelvis. CT/CT abdomen pelvis w con* [id number] IMPRESSION: 1. Intrauterine IUD appears in good position. 2. Urine distended bladder. 3. Diffuse pancolonic constipation with fecal retention. 4. Mild hepatomegaly with diffuse fatty infiltration of the liver. No visualiz ed hepatic lesions. 5. No hydronephrosis in either kidney. 6. No other significant findings.
== END 2021-07-06 10:02 | disposition home or self-care (01) ==
PROVIDERS: PCP Nurse Practitioner Family; Visit Provider Physician Assistant
DX: K76.9 Liver disease, unspecified (principal); Z97.5 Presence of (intrauterine) contraceptive device; R16.0 Hepatomegaly, not elsewhere classified; K76.0 Fatty (change of) liver, not elsewhere classified; K59.00 Constipation, unspecified
CPT/HCPCS: 74177; Q9967

== ENCOUNTER → 2021-07-12 19:44 | Outpatient (BNVA) | payer MEDICARE, MEDICAID, SELFPAY | PROVIDERS: PCP Nurse Practitioner Family; Visit Provider Family Medicine | DX: R05.9 Cough, unspecified (principal); J01.90 Acute sinusitis, unspecified | CPT/HCPCS: 87400; 87635 ==

== ENCOUNTER 2021-07-21 18:29 | Emergency (ER) | payer MEDICARE, MEDICAID, SELFPAY ==
--- NOTE | 2021-07-21 19:59 | XRR_ITS ---
PROCEDURE INFORMATION: Exam: XR Chest Exam date and time: 07/21/2021 7:59 PM Age: 21 years old Clinical indication: Sternal or substernal pain; Prior surgery; Surgery type: Vns; Additional info: Chest pain TECHNIQUE: Imaging protocol: XR of the chest. Views: 1 view. COMPARISON: CR XR chest 1V portable [id number] 04/05/2021 3:26 PM FINDINGS: Lungs: Unremarkable. No consolidation. Pleural spaces: Unremarkable. No pleural effusion. No pneumothorax. Heart/Mediastinum: Unremarkable. No cardiomegaly. Bones/joints: Unremarkable. XR/XR chest 1V portable [id number] IMPRESSION: No acute findings.
--- NOTE | 2021-07-21 19:59 | ECG_ITS ---
[facility] Test Date: 2021-07-21 Pat Name: Tyler Sinha Department: Room: Gender: Female [employer]: : 2000 Requested By: Lynda Perez Order Number: [id number] Gale MD: Lora Xie M.D. Measurements Intervals [place] Rate: 103 P: 21 OR: 141 QRS: 4 QRSD: 84 T: 64 QT: 311 QTc: 408 Interpretive Statements SINUS TACHYCARDIA NONSPECIFIC T-WAVE ABNORMALITY ABNORMAL RHYTHM ECG Compared to ECG 04/05/2021 13:37:46 T-wave abnormality now present Sinus rhythm no longer present Electronically Signed On 07-23-2021 19:27:33 [employer] WORKER by Lora Xie M.D. [id number]
--- NOTE | 2021-07-21 20:06 | W.ED.CHESTPA ---
HPI - Chest Pain General: Chief Complaint: Chest Pain Stated Complaint: CHEST PAIN X20 MINS Time Seen by Provider: 07/21/21 19:50 Source: patient and other (caregiver) Mode of arrival: ambulatory Limitations: no limitations History of Present Illness: HPI narrative: Patient is a 21-year-old female presents to ED today along with one of her caregivers for complaints of chest pain and tachycardia. Patient states symptoms began a few hours ago while at rest. Patient states she does have a history of tachycardia and normally takes metoprolol 25 mg at bedtime. She has not taken this medication this evening as it was not time. Patient states she checked her heart rate at home and it was anywhere from 120s-150s. She states she feels mildly short of breath. Denies lightheadedness, dizziness, syncopal episodes. Patient denies any recent URI symptoms. No recent changes in medications. Patient has seen Dr. Xie for her tachycardia and diagnosed with inappropriate sinus tachycardia. Results of most recent cardiac testing below: 07/05/20 ECHO CONCLUSIONS 1. Normal left ventricular size, systolic function and wall thickness, with no regional wall motion abnormalities. Left ventricular ejection fraction is estimated at 70 %. Normal diastolic function. 2. Normal pulmonary artery pressure. 3. No significant valvular abnormality. 4. No pericardial effusion. 5. No prior similar studies to compare. 06/21/20 HOLTER CONCLUSION: 1. The predominant rhythm was sinus rhythm to sinus tachycardia. Average heart rate of 109 bpm. Rate ranged from 81 to 153 bpm. 2. No significant pauses or bradycardias noted. 3. No significant tachyarrhythmia. 4. No symptoms noted. 5. Normal Holter monitor. MD complaint: chest pain and other (tachycardia) Pertinent past history: other (tachycardia) Onset (ago): hour(s) Timing of current episode: episodic Prior episodes: Yes Onset: during rest Pain radiation: none Associated symptoms: Reports dyspnea; Deny abdominal pain, fever(s), nausea, palpitations, syncope or vomiting Treatment prior to arrival: none Review of Systems Const: Denies: fever(s), chills, body aches, change in appetite, change in weight, fatigue, malaise or night sweats Eyes: Denies: change in vision Card: Reports: chest pain; Denies: palpitations, irregular heart rhythm, edema, swelling of feet/ankles, lightheadedness, syncope, pre-syncope, dyspnea on exertion, orthopnea, leg pain with exertion or acrocyanosis Resp: Reports: dyspnea; Denies: productive cough, non-productive cough, wheezing, stridor, hemoptysis or chest congestion GI: Denies: abdominal pain, nausea or vomiting Musc: Denies: neck pain or back pain Skin/Breast: Denies: rash Neuro: Denies: dizziness PFSH ED PFSH: Medical History (Updated 07/21/21 @ 21:33 by RITESH Pike) Bipolar disorder Constipation, chronic Hyperlipidemia Intellectual disability Seizures Tachycardia Surgical History (Updated 07/14/21 @ 16:07 by Jd Mendez MD) H/O eye surgery History of colonoscopy Status post placement of VNS (vagus nerve stimulation) device Social History Smoking and tobacco status: current every day smoker (vape) Quit status (tobacco): has quit using tobacco Second hand smoke exposure: Yes Female Reproductive History: Date of last menstrual period: 10/04/20 Physical Exam Const: COMMON NORMALS: no acute distress, average body habitus, patient oriented x3, no limitations, healthy appearing, alert and well nourished GENERAL APPEARANCE: cooperative ORIENTATION/CONSCIOUSNESS: Yes awake, Yes oriented to person, Yes oriented to place and Yes oriented to time HENMT: COMMON NORMALS: normocephalic and atraumatic HEAD & SCALP: normocephalic and atraumatic Resp: COMMON NORMALS: normal respiratory effort and clear to auscultation bilaterally AUSCULTATION: clear to auscultation bilaterally Cardio: COMMON NORMALS: regular rhythm RATE: tachycardic RHYTHM: regular rhythm GI: COMMON NORMALS: Soft to palpation, non-tender and no masses INSPECTION: Yes normal to inspection PALPATION: Yes Soft to palpation Extremity: COMMON NORMALS: capillary refill normal, no clubbing, cyanosis or edema, no calf tenderness and no pedal edema Neuro: COMMON NORMALS: patient oriented x3 SENSORIUM/ORIENTATION: Yes alert, Yes oriented to person, Yes oriented to place and Yes oriented to time Skin: COMMON NORMALS: no rashes or lesions noted GENERAL SKIN EXAM: no rashes or lesions noted Course Vital Signs: Vital signs: Vital Signs Temperature 98.5 F 07/21/21 20:31 Pulse Rate 108 H 07/21/21 20:31 Respiratory Rate 16 07/21/21 20:31 Blood Pressure 100/69 07/21/21 20:31 Pulse Oximetry 98 07/21/21 20:31 MDM - Chest Pain MDM Narrative: Medical decision making narrative: EKG showing sinus tachycardia 103. Her CXR is normal. Patient has a history of identical symptoms. She has seen Dr. Crane previously. She has recent Holter monitor and echocardiogram findings (attached to [facility]). Her Holter monitor showed varying HRs from 80s-150s. She takes metoprolol daily. She was given this here as she had not taken it this evening. At this time I do not think there is any further indication for emergent work-up. Recommend she follow-up with her hammer fitter if symptoms persist. Imaging Data^: CXR: Radiologist's impression: [place] [address] [address]BTow ReportSigned Patient: Tyler Sinha #: [id number]: 2000Acct#:[id number]/Sex: 21 / FADM Date: 07/21/21Loc: ERRoom/Bed:Attending Dr: Ordering Provider/Ordering MD: Lynda Perez Date of Service: 07/21/21 Procedure(s): XR chest 1V portable [id number] Accession Number(s): [id number] Report Number: [id number] PROCEDURE INFORMATION: Exam: XR Chest Exam date and time: 07/21/2021 7:59 PM Age: 21 years old Clinical indication: Sternal or substernal pain; Prior surgery; Surgery type: Vns; Additional info: Chest pain TECHNIQUE: Imaging protocol: XR of the chest. Views: 1 view. COMPARISON: CR XR chest 1V portable [id number] 04/05/2021 3:26 PM FINDINGS: Lungs: Unremarkable. No consolidation. Pleural spaces: Unremarkable. No pleural effusion. No pneumothorax. Heart/Mediastinum: Unremarkable. No cardiomegaly. Bones/joints: Unremarkable. XR/XR chest 1V portable [id number] IMPRESSION: No acute findings. Dictated By:Darren Shahid MDSigned By:Darren Shahid MDSigned Date/Time:07/21/212024DD/ 58 EKG Data^: EKG 1: EKG interpretation date: 07/21/21 EKG interpretation time: 21:26 Interpretation: Sinus tachycardia Rate [address] elevation or depression changes noted Discharge Plan Discharge Patient Disposition: Home Clinical Impression: Tachycardia Condition: Stable Prescriptions: No Action ibuprofen 200 mg capsule 400 mg PO TID PRN (Reason: fever or pain) RF: 0 acetaminophen [Tylenol] 325 mg capsule 650 mg PO QID PRN (Reason: fever or pain) RF: 0 calcium carbonate [Tums] 300 mg (750 mg) tablet,chewable 300 mg PO BID PRN (Reason: heartburn & nausea) RF: 0 Metamucil [facility] Fiber 3.4 gram/5.8 gram powder 1.65 gm PO DAILY RF: 0 bisacodyl [Dulcolax (bisacodyl)] 10 mg suppository 10 mg [place] DAILY PRN (Reason: Constipation) RF: 0 pantoprazole [Protonix] [address] for susp in packet 40 mg PO BID RF: 0 bismuth subsalicylate [Pepto-Bismol] 262 mg tablet,chewable 1 tab PO DAILY RF: 0 diphenhydramine HCl [Benadryl] 25 mg capsule 25 mg PO ONCE PRNRF: 0 prednisone 20 mg tablet 20 mg PO DAILY 5 Days Qty: 5 RF: 0 doxycycline hyclate 100 mg tablet 100 mg PO BID 5 Days Qty: 10 RF: 0 benztropine 1 mg tablet 1 mg PO BID Qty: 60 RF: 3 hydroxyzine HCl 50 mg tablet 50 mg PO BID 30 Days Qty: 60 RF: 3 hydroxyzine HCl 25 mg tablet 50 mg PO BID PRN (Reason: anxiety) 30 Days Qty: 120 RF: 4 lorazepam 2 mg/mL concentrate See Rx Instructions .ROUTE .COMPLEX Qty: 30 RF: 3 paliperidone 6 mg tablet extended release 24hr 12 mg PO DAILY 30 Days Qty: 60 RF: 3 quetiapine [Seroquel XR] 400 mg tablet extended release 24 hr 800 mg PO BID 30 Days Qty: 120 RF: 3 lorazepam 1 mg tablet See Rx Instructions PO .COMPLEX 30 Days Qty: 45 RF: 3 metoprolol succinate 25 mg tablet extended release 24 hr 25 mg PO DAILY Qty: 90 RF: 2 multivitamin [Tab-A-Diana] Tablet 1 tab PO DAILY RF: 0 zonisamide 100 mg Capsule 300 mg PO BID RF: 0 docusate sodium [Colace] 100 mg Capsule 100 mg PO BID RF: 0 fluticasone propionate 50 mcg/actuation [place],Suspension 1 spray INTRANASAL BID RF: 0 atorvastatin 40 mg Tablet 40 mg PO BEDTIME RF: 0 Briviact 50 mg Tablet 100 mg PO BID RF: 0 fluoride (sodium) [Sodium Fluoride 5000 Plus] 1.1 % cream 1 applic DENTAL BID RF: 0 polyethylene glycol 3350 [Miralax] 17 gram/dose powder 17 gm PO DAILY Qty: 119 RF: 0 melatonin 3 mg tablet 3 mg PO DAILY PRN (Reason: Sleep) RF: 0 Discharge Orders: Discharge ED (Routine); Ordered 07/21/21 Ordered By: Lynda Perez Referrals: Judith Bermudez FNP [Primary Care Provider] - Coding Level of Care Code ED Nursing Care Attendant for Chg Fwd Exam Detailed
[2021-07-21 20:31] VITALS: BP 100/69; PULSE 108; RESP 16; TEMP 36.9; O2SAT 98
[2021-07-21] MEDS: metoprolol succinate ER (24 HR) 25 mg Tablet PO (21:22)
== END 2021-07-21 21:46 | disposition home or self-care (01) ==
PROVIDERS: Emergency Provider Physician Assistant; PCP Nurse Practitioner Family
DX: R00.0 Tachycardia, unspecified (principal); E78.5 Hyperlipidemia, unspecified; F17.290 Nicotine dependence, other tobacco product, uncomplicated
CPT/HCPCS: 71045; 93005; 99283

== ENCOUNTER → 2021-07-22 13:29 | Outpatient (BNVA) | payer MEDICARE, MEDICAID, SELFPAY | PROVIDERS: PCP Nurse Practitioner Family; Visit Provider Specialist | DX: G40.309 Generalized idiopathic epilepsy and epileptic syndromes, not intractable, without status epilepticus (principal); F41.9 Anxiety disorder, unspecified; R00.0 Tachycardia, unspecified | CPT/HCPCS: 95971; 99214 ==

== ENCOUNTER → 2021-07-24 13:17 | Outpatient (BNVA) | payer MEDICARE, MEDICAID, SELFPAY | PROVIDERS: PCP Nurse Practitioner Family; Visit Provider Surgery | DX: Z11.52 Encounter for screening for COVID-19 (principal) | CPT/HCPCS: 87635 ==

== ENCOUNTER 2021-08-02 12:41 | Emergency (ER) | payer MEDICARE, MEDICAID, SELFPAY ==
[2021-08-02 12:51] VITALS: BP 109/76; PULSE 104; RESP 16; TEMP 36.4; O2SAT 99; BMI 27.1
--- NOTE | 2021-08-02 13:03 | W.ED.GENADLT ---
HPI - General Adult General: Chief complaint: General Medical Stated complaint: Negative tests but showing signs however Time Seen by Provider: 08/02/21 12:51 History of Present Illness: Patient needs and whether she is or not. She is in a halfway and she takes several psychiatric medicines. Has been sexually active a while ago. Patient said she had had a period possibly for couple months. She said she is gaining more weight in her abdomen. At times her breasts will leak. She denies any vaginal discharge, dysuria, abdominal pain, nausea or vomiting or diarrhea. Onset (ago): week(s) Associated symptoms: Reports nausea and vomiting; Deny chest pain, dyspnea, headache(s) or rash Review of Systems Narrative: Patient states at times her breasts will leak, she feels like her stomach is possibly getting bigger. She said that she is done a bunch urine test were negative for and had one that came back positive and this was about 3 weeks ago. Const: Denies: fever(s), chills or body aches Eyes: Denies: eye discomfort ENMT: Denies: throat pain Card: Reports: dyspnea on exertion; Denies: chest pain Resp: Denies: dyspnea GI: Reports: nausea and vomiting; Denies: abdominal pain Skin/Breast: Denies: rash Neuro: Denies: headache(s) Psych: Denies: depression or suicidal ideation [facility] ED PFSH: Medical History Bipolar disorder Constipation, chronic Hyperlipidemia Intellectual disability Seizures Tachycardia Surgical History H/O eye surgery History of colonoscopy Status post placement of VNS (vagus nerve stimulation) device Social History Quit status (tobacco): has quit using tobacco Second hand smoke exposure: Yes Female Reproductive History: Date of last menstrual period: 10/04/20 Physical Exam Const: COMMON NORMALS: no acute distress, patient oriented x3 and alert HENMT: COMMON NORMALS: normocephalic HEAD & SCALP: normocephalic Eye: COMMON NORMALS: EOMs intact bilaterally Neck/C-Spine: COMMON NORMALS: no JVD Resp: COMMON NORMALS: normal respiratory effort and No use of accessory muscles Cardio: COMMON NORMALS: no JVD GI: INSPECTION: Yes normal to inspection Extremity: COMMON NORMALS: normal to inspection and full ROM Neuro: COMMON NORMALS: patient oriented x3 SENSORIUM/ORIENTATION: Yes alert Psych: COMMON NORMALS: mental status grossly normal Skin: COMMON NORMALS: no rashes or lesions noted GENERAL SKIN EXAM: no rashes or lesions noted Course Vital Signs: Vital signs: Vital Signs Temperature 97.5 F L 08/02/21 12:51 Pulse Rate 104 H 08/02/21 12:51 Respiratory Rate 16 08/02/21 12:51 Blood Pressure 109/76 08/02/21 12:51 Pulse Oximetry 99 08/02/21 12:51 [facility] - General Adult Medical Decision Making test was negative. I encouraged caregiver to have follow-up primary care provider symptoms continue. Lab Data Laboratory Results HCG, Qual Negative (Negative) 08/02/21 13:10 Discharge Plan Discharge Patient Disposition: Home Clinical Impression: Amenorrhea Condition: Stable Prescriptions: Discontinued prednisone 20 mg tablet 20 mg PO DAILY 5 Days Qty: 5 0RF doxycycline hyclate 100 mg tablet 100 mg PO BID 5 Days Qty: 10 0RF hydroxyzine HCl 25 mg tablet 50 mg PO BID PRN (Reason: anxiety) 30 Days Qty: 120 4RF No Action ibuprofen 200 mg capsule 400 mg PO TID PRN (Reason: fever or pain) 0RF acetaminophen [Tylenol] 325 mg capsule 650 mg PO QID PRN (Reason: fever or pain) 0RF calcium carbonate [Tums] 300 mg (750 mg) tablet,chewable 300 mg PO BID PRN (Reason: heartburn & nausea) 0RF Metamucil [facility] Fiber 3.4 gram/5.8 gram powder 1.65 gm PO DAILY 0RF bisacodyl [Dulcolax (bisacodyl)] 10 mg suppository 10 mg [place] DAILY PRN (Reason: Constipation) 0RF pantoprazole [Protonix] [address] for susp in packet 40 mg PO BID 0RF bismuth subsalicylate [Pepto-Bismol] 262 mg tablet,chewable 1 tab PO DAILY 0RF Rx Instructions: do not exceed 16 tabs per 24 hrs diphenhydramine HCl [Benadryl] 25 mg capsule 25 mg PO ONCE PRN0RF propranolol 10 mg tablet 10 mg PO BID Qty: 60 3RF zonisamide 100 mg capsule See Rx Instructions PO .COMPLEX Qty: 150 3RF Rx Instructions: PO; 200mg in the AM and 300mg in the PM hydroxyzine HCl 50 mg tablet 50 mg PO BID 30 Days Qty: 60 3RF paliperidone 6 mg tablet extended release 24hr 12 mg PO DAILY 30 Days Qty: 60 3RF Rx Instructions: rx rewritten with correct instructions thanks quetiapine [Seroquel XR] 400 mg tablet extended release 24 hr 800 mg PO BID 30 Days Qty: 120 3RF metoprolol succinate 25 mg tablet extended release 24 hr 25 mg PO DAILY Qty: 90 2RF benztropine 1 mg tablet 1 mg PO BID Qty: 60 3RF lorazepam 2 mg/mL concentrate See Rx Instructions .ROUTE .COMPLEX Qty: 30 3RF Rx Instructions: 0.5 ML PO PRN daily for seizure activity lorazepam 1 mg tablet See Rx Instructions PO .COMPLEX 30 Days Qty: 45 3RF Rx Instructions: Take one tablet po HS, may take an additional half-tab po q afternoon prn agitation multivitamin [Tab-A-Diana] Tablet 1 tab PO DAILY 0RF docusate sodium [Colace] 100 mg Capsule 100 mg PO BID 0RF fluticasone propionate 50 mcg/actuation [place],Suspension 1 spray INTRANASAL BID 0RF Rx Instructions: INTSILL 1 SPRAY INTO EACH NOSTRIL BID atorvastatin 40 mg Tablet 40 mg PO BEDTIME 0RF Briviact 50 mg Tablet 100 mg PO BID 0RF fluoride (sodium) [Sodium Fluoride 5000 Plus] 1.1 % cream 1 applic DENTAL BID 0RF polyethylene glycol 3350 [Miralax] 17 gram/dose powder 17 gm PO DAILY Qty: 119 0RF melatonin 3 mg tablet 3 mg PO DAILY PRN (Reason: Sleep) 0RF Discharge Orders: Discharge ED (Routine); Ordered 08/02/21 Ordered By: Wilber Chance Referrals: Judith Bermudez FNP [Primary Care Provider] - Discharge Diet: Usual diet Discharge Activity: Resume usual activity Activity Restrictions/Additional Instructions: Follow-up with your primary care as needed. Coding Level of Care Code ED Burglary Investigator for Chg Fwd Exam Comprehensive
[2021-08-02 13:57] LABS: HCG Qualitative Urine. Negative (Negative)
[2021-08-02 14:28] VITALS: PULSE 105; RESP 16; O2SAT 99
== END 2021-08-02 14:29 | disposition home or self-care (01) ==
PROVIDERS: Emergency Provider Nurse Practitioner Family; PCP Nurse Practitioner Family
DX: N91.2 Amenorrhea, unspecified (principal); E78.5 Hyperlipidemia, unspecified; Z87.891 Personal history of nicotine dependence
CPT/HCPCS: 81025; 99282

== ENCOUNTER 2021-08-09 16:32 | Emergency (ER) | payer MEDICARE, MEDICAID, SELFPAY ==
[2021-08-09 16:55] VITALS: BP 102/73; PULSE 101; RESP 18; TEMP 36.6; O2SAT 98; BMI 27.1
--- NOTE | 2021-08-09 17:02 | W.ED.HEATRA ---
Documented by User: MANUEL Veloz 08/09/21 18:16 HPI - Head Injury General: Chief complaint: Head Injury Stated complaint: head pain, n/v, dizzy Time Seen by Provider: 08/09/21 17:02 History of Present Illness: 21-year-old female comes in today for complaints of headache and nausea. Patient was bent over and was raising up and hit the back of her head against a doorknob. Since then patient has had persistent headache with nausea. Patient does have a history of epilepsy with a nerve stimulator in place. No loss of consciousness was reported. Complaint: head injury Onset (ago): hour(s) Mechanism of Injury: other (Blow of head against a door) Place: home Loss of Consciousness: no Location of injury: occipital Severity: mild Other Injuries: none Associated symptoms: Reports nausea Review of Systems General: Reports: 10 or more systems reviewed and unremarkable except in HPI and below GI: Reports: nausea Musc: Reports: other (Left side occipital scalp tenderness) Neuro: Reports: headache(s) PFSH ED PFSH: Medical History Bipolar disorder Constipation, chronic Hyperlipidemia Intellectual disability Seizures Tachycardia Surgical History H/O eye surgery History of colonoscopy Status post placement of VNS (vagus nerve stimulation) device Social History Quit status (tobacco): has quit using tobacco Second hand smoke exposure: Yes Female Reproductive History: Date of last menstrual period: 10/04/20 Physical Exam Const: COMMON NORMALS: alert HENMT: COMMON NORMALS: atraumatic, TM's normal bilaterally and Normal external nose present HEAD & SCALP: atraumatic and scalp tenderness NOSE: Normal external nose present TYMPANIC MEMBRANE: TM's normal bilaterally MOUTH: Normal oral and palatal mucosa present Eye: COMMON NORMALS: Equal, round and reactive pupils present and EOMs intact bilaterally PUPIL: Yes Equal, round and reactive pupils present Neck/C-Spine: COMMON NORMALS: full ROM and no meningeal signs Resp: COMMON NORMALS: normal respiratory effort and clear to auscultation bilaterally AUSCULTATION: clear to auscultation bilaterally Cardio: COMMON NORMALS: regular rate and regular rhythm RATE: regular rate RHYTHM: regular rhythm GI: COMMON NORMALS: Soft to palpation PALPATION: Yes Soft to palpation Extremity: COMMON NORMALS: normal to inspection Neuro: SENSORIUM/ORIENTATION: Yes alert MENINGEAL SIGNS: Yes no meningeal signs GAIT: Yes Normal gait present Psych: COMMON NORMALS: cooperative Skin: COMMON NORMALS: no rashes or lesions noted GENERAL SKIN EXAM: no rashes or lesions noted Course Vital Signs: Vital signs: Vital Signs Temperature 97.9 F 08/09/21 16:55 Pulse Rate 101 H 08/09/21 17:11 Respiratory Rate 18 08/09/21 17:11 Blood Pressure 121/87 08/09/21 17:11 Pulse Oximetry 98 08/09/21 17:11 MDM - Head Injury Medcial Decision Making Patient comes in today for complaints of headache and nausea after hitting her head against a doorknob about 4 hours ago. On exam she has some scalp tenderness to the left occipital region of the scalp. No obvious injury is noted. No crepitus of the scalp is noted. Pupils are equal and reactive. Patient moves all extremities well. Gait is normal. Differential diagnosis includes but not limited to intracranial bleeding, concussion, malingering. CT of the head was negative. Patient was given some acetaminophen and Zofran to help with her headache and nausea. Reviewed exam with patient and caregiver with recommendations for follow-up or return to the ER. Lab Data Radiology Impressions Head CT 08/09/21 17:22 IMPRESSION: No acute intracranial abnormality. Laboratory Results HCG, Qual Negative (Negative) 08/09/21 17:35 Urine Color Yellow (Yellow) 08/09/21 17:35 Urine Appearance Clear (CLEAR) 08/09/21 17:35 Urine pH 7 (5-7) 08/09/21 17:35 Ur Specific [place] 1.015 (1.005-1.030) 08/09/21 17:35 Urine Protein Neg (Negative) 08/09/21 17:35 Urine Glucose (UA) Norm (Normal) 08/09/21 17:35 Urine Ketones Negative (Negative) 08/09/21 17:35 Urine Blood Neg (Negative) 08/09/21 17:35 Urine Nitrate Negative (Negative) 08/09/21 17:35 Urine Bilirubin Neg (Negative) 08/09/21 17:35 Urine Urobilinogen Norm mg/dL (Negative) 08/09/21 17:35 Ur Leukocyte Esterase Negative (Negative) 08/09/21 17:35 Discharge Plan Discharge Patient Disposition: Home Clinical Impression: Closed head injury Qualifiers: Encounter type: initial encounter Qualified Code(s): S09.90XA - Unspecified injury of head, initial encounter Condition: Stable Prescriptions: No Action ibuprofen 200 mg capsule 400 mg PO TID PRN (Reason: fever or pain) 0RF acetaminophen [Tylenol] 325 mg capsule 650 mg PO QID PRN (Reason: fever or pain) 0RF calcium carbonate [Tums] 300 mg (750 mg) tablet,chewable 300 mg PO BID PRN (Reason: heartburn & nausea) 0RF Metamucil [facility] Fiber 3.4 gram/5.8 gram powder 1.65 gm PO DAILY 0RF bisacodyl [Dulcolax (bisacodyl)] 10 mg suppository 10 mg [place] DAILY PRN (Reason: Constipation) 0RF pantoprazole [Protonix] [address] for susp in packet 40 mg PO BID 0RF bismuth subsalicylate [Pepto-Bismol] 262 mg tablet,chewable 1 tab PO DAILY 0RF Rx Instructions: do not exceed 16 tabs per 24 hrs diphenhydramine HCl [Benadryl] 25 mg capsule 25 mg PO ONCE PRN0RF propranolol 10 mg tablet 10 mg PO BID Qty: 60 3RF zonisamide 100 mg capsule See Rx Instructions PO .COMPLEX Qty: 150 3RF Rx Instructions: PO; 200mg in the AM and 300mg in the PM paliperidone 6 mg tablet extended release 24hr 12 mg PO DAILY 30 Days Qty: 60 3RF Rx Instructions: rx rewritten with correct instructions thanks quetiapine [Seroquel XR] 400 mg tablet extended release 24 hr 800 mg PO BID 30 Days Qty: 120 3RF metoprolol succinate 25 mg tablet extended release 24 hr 25 mg PO DAILY Qty: 90 2RF benztropine 1 mg tablet 1 mg PO BID Qty: 60 3RF lorazepam 2 mg/mL concentrate See Rx Instructions .ROUTE .COMPLEX Qty: 30 3RF Rx Instructions: 0.5 ML PO PRN daily for seizure activity lorazepam 1 mg tablet See Rx Instructions PO .COMPLEX 30 Days Qty: 45 3RF Rx Instructions: Take one tablet po HS, may take an additional half-tab po q afternoon prn agitation hydroxyzine HCl 50 mg tablet 50 mg PO BID 30 Days Qty: 60 3RF multivitamin [Tab-A-Diana] Tablet 1 tab PO DAILY 0RF docusate sodium [Colace] 100 mg Capsule 100 mg PO BID 0RF fluticasone propionate 50 mcg/actuation [place],Suspension 1 spray INTRANASAL BID 0RF Rx Instructions: INTSILL 1 SPRAY INTO EACH NOSTRIL BID atorvastatin 40 mg Tablet 40 mg PO BEDTIME 0RF Briviact 50 mg Tablet 100 mg PO BID 0RF fluoride (sodium) [Sodium Fluoride 5000 Plus] 1.1 % cream 1 applic DENTAL BID 0RF polyethylene glycol 3350 [Miralax] 17 gram/dose powder 17 gm PO DAILY Qty: 119 0RF melatonin 3 mg tablet 3 mg PO DAILY PRN (Reason: Sleep) 0RF Discharge Orders: Discharge ED (Routine); Ordered 08/09/21 Ordered By: Sky Maier Referrals: Judith Bermudez FNP [Primary Care Provider] - Discharge Diet: Usual diet Discharge Activity: Increase activity as tolerated Patient Instructions: Concussion (ED) Activity Restrictions/Additional Instructions: Home and rest. Activity as tolerated. At this time is recommended to limit screen time for 48 hours. Slowly increase activity over the next 5 days. You can return to full contact sporting activities in 5 to 7 days as long as headache and symptoms resolved. Use acetaminophen or ibuprofen for pain. Use Zofran as needed for nausea. Return to the ER for worsening symptoms such as persistent nausea and vomiting, unresponsiveness, or uncontrolled headache. Coding Level of Care Code ED College Sports Assistant for Chg Fwd Exam Comprehensive Medical Decision Making Low Complexity Time Spent (min) 30 Documented by User: Irvin Gomez DO 08/09/21 20:17 HPI - Head Injury General: Chief complaint: Head Injury Stated complaint: head pain, n/v, dizzy Time Seen by Provider: 08/09/21 17:02 PFS ED PFSH: Medical History Bipolar disorder Constipation, chronic Hyperlipidemia Intellectual disability Seizures Tachycardia Surgical History H/O eye surgery History of colonoscopy Status post placement of VNS (vagus nerve stimulation) device Social History Quit status (tobacco): has quit using tobacco Second hand smoke exposure: Yes Course Vital Signs: Vital signs: Vital Signs Temperature 97.9 F 08/09/21 16:55 Pulse Rate 101 H 08/09/21 17:11 Respiratory Rate 18 08/09/21 17:11 Blood Pressure 121/87 08/09/21 17:11 Pulse Oximetry 98 08/09/21 17:11 MDM - Head Injury Medcial Decision Making Patient comes in today for complaints of headache and nausea after hitting her head against a doorknob about 4 hours ago. On exam she has some scalp tenderness to the left occipital region of the scalp. No obvious injury is noted. No crepitus of the scalp is noted. Pupils are equal and reactive. Patient moves all extremities well. Gait is normal. Differential diagnosis includes but not limited to intracranial bleeding, concussion, malingering. CT of the head was negative. Patient was given some acetaminophen and Zofran to help with her headache and nausea. Reviewed exam with patient and caregiver with recommendations for follow-up or return to the ER. This patient was originally seen by MANUEL Boudreaux.? I agree with his history, evaluation, and treatment. Lab Data Radiology Impressions Head CT 08/09/21 17:22 IMPRESSION: No acute intracranial abnormality. Laboratory Results HCG, Qual Negative (Negative) 08/09/21 17:35 Urine Color Yellow (Yellow) 08/09/21 17:35 Urine Appearance Clear (CLEAR) 08/09/21 17:35 Urine pH 7 (5-7) 08/09/21 17:35 Ur Specific [place] 1.015 (1.005-1.030) 08/09/21 17:35 Urine Protein Neg (Negative) 08/09/21 17:35 Urine Glucose (UA) Norm (Normal) 08/09/21 17:35 Urine Ketones Negative (Negative) 08/09/21 17:35 Urine Blood Neg (Negative) 08/09/21 17:35 Urine Nitrate Negative (Negative) 08/09/21 17:35 Urine Bilirubin Neg (Negative) 08/09/21 17:35 Urine Urobilinogen Norm mg/dL (Negative) 08/09/21 17:35 Ur Leukocyte Esterase Negative (Negative) 08/09/21 17:35 Discharge Plan Discharge Patient Disposition: Home Clinical Impression: Closed head injury Qualifiers: Encounter type: initial encounter Qualified Code(s): S09.90XA - Unspecified injury of head, initial encounter Condition: Stable Prescriptions: No Action ibuprofen 200 mg capsule 400 mg PO TID PRN (Reason: fever or pain) 0RF acetaminophen [Tylenol] 325 mg capsule 650 mg PO QID PRN (Reason: fever or pain) 0RF calcium carbonate [Tums] 300 mg (750 mg) tablet,chewable 300 mg PO BID PRN (Reason: heartburn & nausea) 0RF Metamucil [facility] Fiber 3.4 gram/5.8 gram powder 1.65 gm PO DAILY 0RF bisacodyl [Dulcolax (bisacodyl)] 10 mg suppository 10 mg [place] DAILY PRN (Reason: Constipation) 0RF pantoprazole [Protonix] [address] for susp in packet 40 mg PO BID 0RF bismuth subsalicylate [Pepto-Bismol] 262 mg tablet,chewable 1 tab PO DAILY 0RF Rx Instructions: do not exceed 16 tabs per 24 hrs diphenhydramine HCl [Benadryl] 25 mg capsule 25 mg PO ONCE PRN0RF propranolol 10 mg tablet 10 mg PO BID Qty: 60 3RF zonisamide 100 mg capsule See Rx Instructions PO .COMPLEX Qty: 150 3RF Rx Instructions: PO; 200mg in the AM and 300mg in the PM paliperidone 6 mg tablet extended release 24hr 12 mg PO DAILY 30 Days Qty: 60 3RF Rx Instructions: rx rewritten with correct instructions thanks quetiapine [Seroquel XR] 400 mg tablet extended release 24 hr 800 mg PO BID 30 Days Qty: 120 3RF metoprolol succinate 25 mg tablet extended release 24 hr 25 mg PO DAILY Qty: 90 2RF benztropine 1 mg tablet 1 mg PO BID Qty: 60 3RF lorazepam 2 mg/mL concentrate See Rx Instructions .ROUTE .COMPLEX Qty: 30 3RF Rx Instructions: 0.5 ML PO PRN daily for seizure activity lorazepam 1 mg tablet See Rx Instructions PO .COMPLEX 30 Days Qty: 45 3RF Rx Instructions: Take one tablet po HS, may take an additional half-tab po q afternoon prn agitation hydroxyzine HCl 50 mg tablet 50 mg PO BID 30 Days Qty: 60 3RF multivitamin [Tab-A-Diana] Tablet 1 tab PO DAILY 0RF docusate sodium [Colace] 100 mg Capsule 100 mg PO BID 0RF fluticasone propionate 50 mcg/actuation [place],Suspension 1 spray INTRANASAL BID 0RF Rx Instructions: INTSILL 1 SPRAY INTO EACH NOSTRIL BID atorvastatin 40 mg Tablet 40 mg PO BEDTIME 0RF Briviact 50 mg Tablet 100 mg PO BID 0RF fluoride (sodium) [Sodium Fluoride 5000 Plus] 1.1 % cream 1 applic DENTAL BID 0RF polyethylene glycol 3350 [Miralax] 17 gram/dose powder 17 gm PO DAILY Qty: 119 0RF melatonin 3 mg tablet 3 mg PO DAILY PRN (Reason: Sleep) 0RF Discharge Orders: Discharge ED (Routine); Ordered 08/09/21 Ordered By: Sky Maier Referrals: Judith Bermudez FNP [Primary Care Provider] - Discharge Diet: Usual diet Discharge Activity: Increase activity as tolerated Patient Instructions: Concussion (ED) Activity Restrictions/Additional Instructions: Home and rest. Activity as tolerated. At this time is recommended to limit screen time for 48 hours. Slowly increase activity over the next 5 days. You can return to full contact sporting activities in 5 to 7 days as long as headache and symptoms resolved. Use acetaminophen or ibuprofen for pain. Use Zofran as needed for nausea. Return to the ER for worsening symptoms such as persistent nausea and vomiting, unresponsiveness, or uncontrolled headache. Coding Level of Care Code ED College Sports Assistant for Jacqueline Fwobdulio Exam Comprehensive Medical Decision Making Low Complexity Time Spent (min) 30
[2021-08-09 17:11] VITALS: BP 121/87; PULSE 101; RESP 18; O2SAT 98
[2021-08-09] MEDS: ondansetron 4 MG Tablet PO (17:20)
[2021-08-09] MEDS: acetaminophen 500 mg Tablet 1000 MG PO (17:21)
--- NOTE | 2021-08-09 17:22 | CTR_ITS ---
PROCEDURE INFORMATION: Exam: CT Head Without Contrast Exam date and time: 08/09/2021 5:22 PM Age: 21 years old Clinical indication: Pain; Headache not specified; Patient HX: C/O L sided TAYLOR and dizziness after bumping head on doorknob; Additional info: Head injury TECHNIQUE: Imaging protocol: Computed tomography of the head without contrast. Radiation optimization: All CT scans at this facility use at least one of these dose optimization techniques: automated exposure control; mA and/or kV adjustment per patient size (includes targeted exams where dose is matched to clinical indication); or iterative reconstruction. COMPARISON: MR head wo con* [id number] 05/22/2021 2:17 PM RADIATION DOSE METRICS: Total DLP (mGy-cm): 819.26 FINDINGS: Brain: Normal. No hemorrhage. Unremarkable white matter. No mass effect. Cerebral ventricles: No ventriculomegaly. Paranasal sinuses: Visualized sinuses are unremarkable. No fluid levels. Mastoid air cells: Visualized mastoid air cells are well aerated. Bones/joints: Unremarkable. No acute fracture. Soft tissues: Unremarkable. CT/CT head wo con* [id number] IMPRESSION: No acute intracranial abnormality.
[2021-08-09 17:41] LABS: Add Urine Microscopic? NO; Charge for UA Resulting for Rev
[2021-08-09 17:46] LABS: HCG Qualitative Urine. Negative (Negative)
[2021-08-09 17:47] LABS: Bilirubin Urine Neg (Negative); Blood Urine Neg (Negative); Glucose Urine UA Norm (Normal); Ketones Urine Negative (Negative); Leukocyte Esterase Urine Negative (Negative); Nitrate Urine Negative (Negative); Protein Urine Neg (Negative); Specific Gravity, Urine 1.015 (1.005-1.030); Urine Appearance Clear (CLEAR); Urine Color Yellow (Yellow); Urobilinogen Urine Norm (Negative); pH Urine 7 (5-7)
== END 2021-08-09 18:19 | disposition home or self-care (01) ==
PROVIDERS: Emergency Medicine; Emergency Provider Nurse Practitioner Family; PCP Nurse Practitioner Family
DX: S09.8XXA Other specified injuries of head, initial encounter (principal); E78.5 Hyperlipidemia, unspecified; Z87.891 Personal history of nicotine dependence; W22.8XXA Striking against or struck by other objects, initial encounter
CPT/HCPCS: 70450; 81003; 81025; 99283; Q0162

== ENCOUNTER 2021-08-13 08:47 | Day surgery (SDC) | payer MEDICARE, MEDICAID, SELFPAY ==
[2021-08-12 09:23] VITALS: BMI 27.4
[2021-08-13] VITALS (8 sets, daily range): BP systolic 104–122; BP diastolic 68–87; PULSE 72–117; RESP 16–18; TEMP 36.1–36.9; O2SAT 97–99
--- NOTE | 2021-08-13 09:02 | P.HP_ITS ---
Same Day Surgery H&P Indication for Procedure/HPI DATE OF PROCEDURE: August 13, 2021 CHIEF COMPLAINT/INDICATIONFOR SURGICAL PROCEDURE: lap suman PREOP DIAGNOSIS: Chronic cholecystitis PLANNED PROCEDURE: Operation Date: 08/13/21 10:20 Proposed Procedures p Laparoscopic Cholecystectomy 14197 K81.1(Not Applicable) - Jd Mendez MD Medications/Allergies* Home Medications Medication Instructions Recorded Confirmed Type atorvastatin 40 mg tablet 40 mg PO BEDTIME 09/15/19 08/12/21 History brivaracetam 50 mg tablet 100 mg PO BID 09/15/19 08/12/21 History (Briviact) docusate sodium 100 mg capsule 100 mg PO BID 09/15/19 08/12/21 History (Colace) fluticasone propionate 50 1 spray INTRANASAL BID 09/15/19 08/12/21 History mcg/actuation nasal spray,suspension multivitamin (Tab-A-Diana) 1 tab PO DAILY 09/15/19 08/12/21 History acetaminophen 325 mg capsule 650 mg PO QID PRN cap 10/01/19 08/12/21 History (Tylenol) ibuprofen 200 mg capsule 400 mg PO TID PRN cap 10/01/19 08/12/21 History bisacodyl 10 mg rectal suppository 10 mg [place] DAILY PRN 03/06/20 08/12/21 History (Dulcolax (bisacodyl)) fluoride (sodium) 1.1 % dental 1 applic DENTAL BID gm 03/06/20 08/12/21 History cream (Sodium Fluoride 5000 Plus) psyllium husk (aspartame) 3.4 1.65 gm PO DAILY 03/06/20 08/12/21 History gram/5.8 gram oral powder (Metamucil [facility] Fiber) melatonin 3 mg tablet 3 mg PO DAILY PRN 05/13/20 07/22/21 History bismuth subsalicylate 262 mg 1 tab PO DAILY tab 07/21/20 08/12/21 History chewable tablet (Pepto-Bismol) diphenhydramine HCl 25 mg capsule 25 mg PO ONCE PRN cap 11/18/20 08/12/21 History (Benadryl) pantoprazole 40 mg granules 40 mg PO BID ea 03/04/21 08/12/21 History delayed-release for susp in packet (Protonix) ferrous sulfate 325 mg (65 mg 325 mg PO DAILY 08/12/21 08/12/21 History iron) tablet (Iron (ferrous sulfate)) Allergies/Adverse Reactions Allergy/AdvReac Type Severity Reaction Status Date / Time clozapine Allergy Unknown Verified 08/12/21 09:26 divalproex sodium Allergy Unresponsiv Verified 08/12/21 09:26 [From Depakote] e escitalopram [From Lexapro] Allergy ALGY-Swell Verified 08/12/21 09:26 Lip/Tongue/Throat lamotrigine [From Lamictal] Allergy Unknown Verified 08/12/21 09:26 lithium Allergy Unknown Verified 08/12/21 09:26 Penicillins Allergy Unknown Verified 08/12/21 09:26 topiramate [From Topamax] Allergy Unknown Verified 08/12/21 09:26 Pertinent History/Comorbid Conditions* Medical History (Updated 08/10/21 @ 00:00 by ) Bipolar disorder Constipation, chronic Hyperlipidemia Intellectual disability Seizures Tachycardia Surgical History (Updated 07/14/21 @ 16:07 by Jd Mendez MD) H/O eye surgery History of colonoscopy Status post placement of VNS (vagus nerve stimulation) device Social History Quit status (tobacco): has quit using tobacco Second hand smoke exposure: Yes Pertinent Exam Findings alert, oriented x 3 and regular rate & rhythm Recommendations Surgery/Procedure today Coding Level of Care Code Acute Associate Relations Specialist for Jacqueline Meyer
--- NOTE | 2021-08-13 09:14 | P.ANESASSM_ITS ---
Pre-Anesthetic Assessment Height/Weight: Height 1.6 m Weight 70.307 kg Temp Pulse Resp BP Pulse Ox 97.6 F 117 H 17 121/87 98 08/13/21 09:01 08/13/21 09:01 08/13/21 09:01 08/13/21 09:01 08/13/21 09:01 Preop Diagnosis: Chronic cholecystitis Operation Date: 08/13/21 10:20 Proposed Procedures p Laparoscopic Cholecystectomy 73432 K81.1(Not Applicable) - Jd Mendez MD CV/HEM Arrythmia Echo CONCLUSIONS ?1. Normal left ventricular size, systolic function and wall ?thickness, with no regional wall motion abnormalities. Left ?ventricular ejection fraction is estimated at 70 %. Normal ?diastolic function. ?2. Normal pulmonary artery pressure. ?3. No significant valvular abnormality. ?4. No pericardial effusion. ?5.? No prior similar studies to compare. Holter monitor 2019 CONCLUSION: 1.? The predominant rhythm was sinus rhythm to sinus tachycardia. 2.? No significant pauses or bradycardias noted. 3.? No significant tachyarrhythmia. 4.? No symptoms noted. 5.? Normal Holter monitor. GI Gastroesophageal Reflux Disease Metabolic Hyperlipidemia Neuropsych Anxiety, Bipolar and Seizure (epilepsy) Hx head injury Medications/Allergies Home Medications Medication Instructions Recorded Confirmed Last Taken Type atorvastatin 40 mg tablet 40 mg PO BEDTIME 09/15/19 08/12/21 02/22/20 21:00 History brivaracetam 50 mg tablet 100 mg PO BID 09/15/19 08/12/21 02/22/20 20:00 History (Briviact) 100 mg docusate sodium 100 mg capsule 100 mg PO BID 09/15/19 08/12/21 01/04/20 History (Colace) fluticasone propionate 50 1 spray INTRANASAL BID 09/15/19 08/12/21 02/22/20 20:00 History mcg/actuation nasal 1 spray spray,suspension multivitamin (Tab-A-Diana) 1 tab PO DAILY 09/15/19 08/12/21 02/22/20 08:00 Hist ory 1 tab acetaminophen 325 mg capsule 650 mg PO QID PRN cap 10/01/19 08/12/21 02/17/20 History (Tylenol) 650 mg ibuprofen 200 mg capsule 400 mg PO TID PRN cap 10/01/19 08/12/21 02/10/20 08:00 History polyethylene glycol 3350 17 17 gm PO DAILY #119 gm 12/24/19 08/12/21 02/22/20 20:00 Rx gram/dose oral powder (Miralax) 17 gm bisacodyl 10 mg rectal suppository 10 mg [place] DAILY PRN 03/06/20 08/12/21 Unknown History (Dulcolax (bisacodyl)) fluoride (sodium) 1.1 % dental 1 applic DENTAL BID gm 03/06/20 08/12/21 Unknown History cream (Sodium Fluoride 5000 Plus) psyllium husk (aspartame) 3.4 1.65 gm PO DAILY 03/06/20 08/12/21 Unknown History gram/5.8 gram oral powder (Metamucil [facility] Fiber) melatonin 3 mg tablet 3 mg PO DAILY PRN 05/13/20 07/22/21 Unknown History bismuth subsalicylate 262 mg 1 tab PO DAILY tab 07/21/20 08/12/21 Unknown History chewable tablet (Pepto-Bismol) diphenhydramine HCl 25 mg capsule 25 mg PO ONCE PRN cap 11/18/20 08/12/21 Unknown History (Benadryl) pantoprazole 40 mg granules 40 mg PO BID ea 03/04/21 08/12/21 Unknown History delayed-release for susp in packet (Protonix) paliperidone 6 mg tablet,extended 12 mg PO DAILY 30 Days #60 tab 03/23/21 08/12/21 Unknown Rx release 24 hr quetiapine 400 mg tablet,extended 800 mg PO BID 30 Days #120 tab 03/23/21 08/12/21 Unknown Rx release 24 hr (Seroquel XR) metoprolol succinate 25 mg 25 mg PO DAILY #90 tab 04/07/21 08/12/21 Unknown Rx tablet,extended release 24 hr benztropine 1 mg tablet 1 mg PO BID #60 tab 07/22/21 08/12/21 Unknown Rx lorazepam 2 mg/mL oral concentrate See Rx Instructions .ROUTE 07/23/21 08/12/21 Unknown Rx .COMPLEX #30 ml propranolol 10 mg tablet 10 mg PO BID #60 tab 07/23/21 08/12/21 Unknown Rx zonisamide 100 mg capsule See Rx Instructions PO .COMPLEX 07/23/21 08/12/21 Unknown Rx #150 cap lorazepam 1 mg tablet See Rx Instructions PO .COMPLEX 30 07/28/21 08/12/21 Unknown Rx Days #45 tab hydroxyzine HCl 50 mg tablet 50 mg PO BID 30 Days #60 tab 08/03/21 08/12/21 Unknown Rx ferrous sulfate 325 mg (65 mg 325 mg PO DAILY 08/12/21 08/12/21 Unknown History iron) tablet (Iron (ferrous sulfate)) Allergies Allergy/AdvReac Type Severity Reaction Status Date / Time clozapine Allergy Unknown Verified 08/13/21 09:03 divalproex sodium Allergy Unresponsiv Verified 08/13/21 09:03 [From Depakote] e escitalopram [From Lexapro] Allergy ALGY-Swell Verified 08/13/21 09:03 Lip/Tongue/Throat lamotrigine [From Lamictal] Allergy Unknown Verified 08/13/21 09:03 lithium Allergy Unknown Verified 08/13/21 09:03 Penicillins Allergy Unknown Verified 08/13/21 09:03 topiramate [From Topamax] Allergy Unknown Verified 08/13/21 09:03 [facility] Anesthesia Medical History Bipolar disorder Constipation, chronic Hyperlipidemia Intellectual disability Seizures Tachycardia Surgical History H/O eye surgery History of colonoscopy Status post placement of VNS (vagus nerve stimulation) device Social History Quit status (tobacco): has quit using tobacco Second hand smoke exposure: Yes Female Reproductive History Date of last menstrual period: 10/04/20 Data Anesthesia Cardiac Studies: Echocardiogram Ultrasound 07/02/20 Holter Monitor 06/16/20
[2021-08-13] MEDS: sodium chloride 0.9% 1,000 ML 30 ML IV (09:15)
--- NOTE | 2021-08-13 09:27 | ANES.PREANE2 ---
Pre-Anesthetic Assessment Height/Weight: Height 1.6 m Weight 70.307 kg Temp Pulse Resp BP Pulse Ox 97.6 F 117 H 17 121/87 98 08/13/21 09:01 08/13/21 09:01 08/13/21 09:01 08/13/21 09:01 08/13/21 09:01 Preop Diagnosis: Chronic cholecystitis Operation Date: 08/13/21 10:20 Proposed Procedures p Laparoscopic Cholecystectomy 88269 K81.1(Not Applicable) - Jd Mendez MD Familial anesthetic complications: None Was Beta Amarjit taken within 24 hours: Yes Was Clonidine taken within 24 hours: N/A Last intake: Intake Last Liquid Date 08/12/21 Last Liquid Time 22:00 Last Solid Date 08/12/21 Last Solid Time 22:00 Social No alcohol and No tobacco Exam alert, oriented x 3, clear to auscultation bilaterally and regular rate & rhythm Airway Submandibular: within normal limits Cervical ROM: within normal limits Mallampati: Class II Dentition: chipped and caps Comments: Comments: Missing several Metabolic Hyperlipidemia Neuropsych Anxiety, Bipolar, Depression and Seizure H/O head injury Anesthetic Plan ASA status: 3 Anesthesia: General Risk of > 500 ml blood loss (7ml/kg in children): No Medications/Allergies Home Medications Medication Instructions Recorded Confirmed Last Taken Type atorvastatin 40 mg tablet 40 mg PO BEDTIME 09/15/19 08/13/21 08/12/21 History brivaracetam 50 mg tablet 100 mg PO BID 09/15/19 08/12/21 02/22/20 20:00 History (Briviact) 100 mg docusate sodium 100 mg capsule 100 mg PO BID 09/15/19 08/12/21 01/04/20 History (Colace) fluticasone propionate 50 1 spray INTRANASAL BID 09/15/19 08/13/21 08/12/21 History mcg/actuation nasal spray,suspension multivitamin (Tab-A-Diana) 1 tab PO DAILY 09/15/19 08/12/21 02/22/20 08:00 History 1 tab acetaminophen 325 mg capsule 650 mg PO QID PRN cap 10/01/19 08/13/21 08/07/21 History (Tylenol) ibuprofen 200 mg capsule 400 mg PO TID PRN cap 10/01/19 08/12/21 02/10/20 08:00 History polyethylene glycol 3350 17 17 gm PO DAILY #119 gm 12/24/19 08/13/21 08/12/21 Rx gram/dose oral powder (Miralax) bisacodyl 10 mg rectal suppository 10 mg [place] DAILY PRN 03/06/20 08/12/21 Unknown History (Dulcolax (bisacodyl)) fluoride (sodium) 1.1 % dental 1 applic DENTAL BID gm 03/06/20 08/12/21 Unknown History cream (Sodium Fluoride 5000 Plus) psyllium husk (aspartame) 3.4 1.65 gm PO DAILY 03/06/20 08/12/21 Unknown History gram/5.8 gram oral powder (Metamucil [facility] Fiber) melatonin 3 mg tablet 3 mg PO DAILY PRN 05/13/20 07/22/21 Unknown History bismuth subsalicylate 262 mg 1 tab PO DAILY tab 07/21/20 08/12/21 Unknown History chewable tablet (Pepto-Bismol) diphenhydramine HCl 25 mg capsule 25 mg PO ONCE PRN cap 11/18/20 08/12/21 Unknown History (Benadryl) pantoprazole 40 mg granules 40 mg PO BID ea 03/04/21 08/13/21 08/13/21 History delayed-release for susp in packet (Protonix) paliperidone 6 mg tablet,extended 12 mg PO DAILY 30 Days #60 tab 03/23/21 08/12/21 Unknown Rx release 24 hr quetiapine 400 mg tablet,extended 800 mg PO BID 30 Days #120 tab 03/23/21 08/13/21 08/13/21 Rx release 24 hr (Seroquel XR) metoprolol succinate 25 mg 25 mg PO DAILY #90 tab 04/07/21 08/12/21 Unknown Rx tablet,extended release 24 hr benztropine 1 mg tablet 1 mg PO BID #60 tab 07/22/21 08/13/21 08/12/21 Rx lorazepam 2 mg/mL oral concentrate See Rx Instructions .ROUTE 07/23/21 08/12/21 Unknown Rx .COMPLEX #30 ml propranolol 10 mg tablet 10 mg PO BID #60 tab 07/23/21 08/12/21 Unknown Rx zonisamide 100 mg capsule See Rx Instructions PO .COMPLEX 07/23/21 08/12/21 Unknown Rx #150 cap lorazepam 1 mg tablet See Rx Instructions PO .COMPLEX 30 07/28/21 08/12/21 Unknown Rx Days #45 tab hydroxyzine HCl 50 mg tablet 50 mg PO BID 30 Days #60 tab 08/03/21 08/12/21 Unknown Rx ferrous sulfate 325 mg (65 mg 325 mg PO DAILY 08/12/21 08/12/21 Unknown History iron) tablet (Iron (ferrous sulfate)) Allergies Allergy/AdvReac Type Severity Reaction Status Date / Time clozapine Allergy Unknown Verified 08/13/21 09:03 divalproex sodium Allergy Unresponsiv Verified 08/13/21 09:03 [From Depakote] e escitalopram [From Lexapro] Allergy ALGY-Swell Verified 08/13/21 09:03 Lip/Tongue/Throat lamotrigine [From Lamictal] Allergy Unknown Verified 08/13/21 09:03 lithium Allergy Unknown Verified 08/13/21 09:03 Penicillins Allergy Unknown Verified 08/13/21 09:03 topiramate [From Topamax] Allergy Unknown Verified 08/13/21 09:03 [facility] Anesthesia Medical History Bipolar disorder Constipation, chronic Hyperlipidemia Intellectual disability Seizures Tachycardia Surgical History H/O eye surgery History of colonoscopy Status post placement of VNS (vagus nerve stimulation) device Social History Quit status (tobacco): has quit using tobacco Second hand smoke exposure: Yes Female Reproductive History Date of last menstrual period: 10/04/20 Data Anesthesia Cardiac Studies: Echocardiogram Ultrasound 07/02/20 Holter Monitor 06/16/20
[2021-08-13 09:32] LABS: OR HCG Qualitative Urine Negative (Negative)
[2021-08-13] MEDS: ciprofloxacin 400 MG/200 ML PREMIX 200 MG IV (09:32)
--- NOTE | 2021-08-13 11:19 | P.OP_ITS ---
Operative Report Date of procedure: August 13, 2021 Pre-op diagnosis: Chronic cholecystitis Post-op diagnosis: same Procedure done: Laparoscopic cholecystectomy Specimens removed/disposition: Gallbladder Surgeon: Jd Mendez Anesthesia: General Condition: stable Disposition: PACU Procedure: The patient was taken to the operating room and was intubated under general anesthesia. After the antibiotic had been administered, the abdomen was prepped and draped in a sterile manner. Using a #15 blade, a 1 centimeter infraumbilical curvilinear incision was made and using an open Everett technique the peritoneal cavity was entered. A 10 millimeter port was placed and 15 millimeters of pneumoperitoneum was created. A 10 millimeter, 30 degrees scope was then introduced. Three 5 millimeter ports were placed in the epigastric, midclavicular and the anterior axillary line two fingerbreadths below the costal margin on the right side under the direct visualization. Ratcheted forceps were introduced into the lateral most port and was used to retract the fundus of the gallbladder cephalad and using forceps the infundibulum of the gallbladder was retracted laterally. Using L-hook cautery the peritoneum overlying the Calot's triangle was opened medially and laterally until the cystic duct and the cystic artery were skeletonized. Dissection was carried along the body of the ga llbladder and after ensuring critical view of safety, 4 clips applied on the cystic duct and cut leaving 3 clips on the remaining portion of the duct. The cystic artery was small and was divided with electrocautery. The rest of the gallbladder was dissected off the liver using L-hook cautery. There was no bleeding or bile leaking noted from the gallbladder fossa and the clips appeared to be in place. An EndoCatch bag was introduced to remove the gallbladder. All the ports were removed under direct visualization and there was no bleeding noted from the port sites. The fascia of the umbilicus was closed using [id number] 0 Vicryl sutures and the subcutaneous tissue was approximated using 3-0 Vicryl sutures. The skin at all four ports were closed using 4-0 Monocryl and Dermabond. A total of 10 millimeters of 0.5% Marcaine was infiltrated around the port sites. The patient was stable throughout the procedure.
[2021-08-13] MEDS: HYDROcodone-acetaminophen 5-325 mg Tablet 1 TAB PO (11:40)
--- NOTE | 2021-08-13 14:20 | ANE.PACU2 ---
Inpatient post-anesthesia follow up: Airway intact: Yes Vital signs: Temperature 97.0 F Pulse Rate 72 Respiratory Rate 18 Blood Pressure 113/78 Pulse Oximetry 99 Oxygen Delivery Me thod Room Air Oxygen Flow Rate Fraction of Inspir ed Oxygen Hydration adequate: Yes Nausea and vomiting: Yes Pain level: 2 Mental status: Baseline
== END 2021-08-13 12:14 | disposition home or self-care (01) ==
PROVIDERS: Anesthesiology; PCP Nurse Practitioner Family; Visit Provider Surgery
PROC: 0FT44ZZ Resection of Gallbladder, Percutaneous Endoscopic Approach (ICD-10-PCS; CPT 47562; principal; 2021-08-13 10:15)
DX: K81.1 Chronic cholecystitis (principal); E78.5 Hyperlipidemia, unspecified; K21.9 Gastro-esophageal reflux disease without esophagitis; Z87.891 Personal history of nicotine dependence
CPT/HCPCS: 47562; 81025; 84703; 88304; J0744; J1100; J1200; J1885; J2250; J2405; J2704; J2710; J3010; J3490; J7030

== ENCOUNTER → 2021-09-17 13:56 | Outpatient (BNVA) | payer MEDICARE, MEDICAID, SELFPAY | PROVIDERS: PCP Nurse Practitioner Family; Visit Provider Psychiatry & Neurology Psychiatry | DX: F41.1 Generalized anxiety disorder (principal); F31.9 Bipolar disorder, unspecified; F79 Unspecified intellectual disabilities | CPT/HCPCS: 99214 ==

== ENCOUNTER → 2021-12-09 09:25 | Outpatient (BNVA) | payer MEDICARE, MEDICAID, SELFPAY | PROVIDERS: PCP Nurse Practitioner Family; Referring Provider Family Medicine; Visit Provider Orthopaedic Surgery | DX: M25.562 Pain in left knee (principal) | CPT/HCPCS: 99203 ==

== ENCOUNTER → 2021-12-15 13:22 | Outpatient (BNVA) | payer MEDICARE, MEDICAID, SELFPAY | PROVIDERS: Family Provider Orthopaedic Surgery; PCP Nurse Practitioner Family; Visit Provider Psychiatry & Neurology Psychiatry | DX: F41.1 Generalized anxiety disorder (principal); F31.9 Bipolar disorder, unspecified; F79 Unspecified intellectual disabilities | CPT/HCPCS: 99214 ==

== ENCOUNTER 2022-01-06 08:33 | Outpatient (RCR) | payer MEDICARE, MEDICAID, SELFPAY | END 2022-01-31 23:59 | disposition home or self-care (01) | LOC: SPT 08:33 | PROVIDERS: PCP Nurse Practitioner Family; Referring Provider Orthopaedic Surgery; Visit Provider Orthopaedic Surgery | DX: M23.52 Chronic instability of knee, left knee (principal) | CPT/HCPCS: 97110; 97161 ==

== ENCOUNTER 2022-02-01 06:00 | Outpatient (RCR) | payer MEDICARE, MEDICAID, SELFPAY | END 2022-03-03 23:59 | disposition home or self-care (01) | LOC: SPT 06:00 | PROVIDERS: PCP Nurse Practitioner Family; Visit Provider Orthopaedic Surgery | DX: M23.52 Chronic instability of knee, left knee (principal) | CPT/HCPCS: 97110 ==

== ENCOUNTER → 2022-03-03 12:43 | Outpatient (BNVA) | payer MEDICARE, MEDICAID, SELFPAY | PROVIDERS: PCP Nurse Practitioner Family; Visit Provider Specialist | DX: G40.309 Generalized idiopathic epilepsy and epileptic syndromes, not intractable, without status epilepticus (principal); G40.209 Localization-related (focal) (partial) symptomatic epilepsy and epileptic syndromes with complex partial seizures, not intractable, without status epilepticus; R00.0 Tachycardia, unspecified; R51.9 Headache, unspecified; Z45.42 Encounter for adjustment and management of neurostimulator; Z96.82 Presence of neurostimulator | CPT/HCPCS: 95971; 99214 ==

== ENCOUNTER 2022-03-27 14:48 | Emergency (ER) | payer MEDICARE, MEDICAID, SELFPAY ==
[2022-03-27 14:52] VITALS: BP 122/86; PULSE 112; RESP 16; TEMP 36.8; O2SAT 98; BMI 29.0
--- NOTE | 2022-03-27 15:23 | CTR_ITS ---
PROCEDURE INFORMATION: Exam: CT Head Without Contrast Exam date and time: 03/27/2022 3:40 PM Age: 22 years old Clinical indication: Injury or trauma; Fall; Blunt trauma (contusions or hematomas); With loss of consciousness; Loss of consciousness for 30 minutes or less; Additional info: Fall from tree and hit head. +loc TECHNIQUE: Imaging protocol: Computed tomography of the head without contrast. Radiation optimization: All CT scans at this facility use at least one of these dose optimization techniques: automated exposure control; mA and/or kV adjustment per patient size (includes targeted exams where dose is matched to clinical indication); or iterative reconstruction. COMPARISON: CT head wo con* [id number] 08/09/2021 5:38 PM RADIATION DOSE METRICS: Total DLP (mGy-cm): 1219.04 FINDINGS: Brain: Normal. No hemorrhage. Unremarkable white matter. No mass effect. Cerebral ventricles: No ventriculomegaly. Paranasal sinuses: Visualized sinuses are unremarkable. No fluid levels. Mastoid air cells: Visualized mastoid air cells are well aerated. Bones/joints: Unremarkable. No acute fracture. Soft tissues: Unremarkable. CT/CT head wo con* [id number] IMPRESSION: No acute intracranial abnormality.
--- NOTE | 2022-03-27 15:23 | CTR_ITS ---
PROCEDURE INFORMATION: Exam: CT Cervical Spine Without Contrast Exam date and time: 03/27/2022 3:40 PM Age: 22 years old Clinical indication: Injury or trauma; Fall; Blunt trauma; Additional info: Fall from tree and hit head-cervical tenderness TECHNIQUE: Imaging protocol: Computed tomography of the cervical spine without contrast. Radiation optimization: All CT scans at this facility use at least one of these dose optimization techniques: automated exposure control; mA and/or kV adjustment per patient size (includes targeted exams where dose is matched to clinical indication); or iterative reconstruction. COMPARISON: CR XR soft tissue neck [id number] 05/10/2020 7:01 PM RADIATION DOSE METRICS: Total DLP (mGy-cm): 195.8 FINDINGS: Bones/joints: No acute fracture. Normal alignment. No significant disc protrusion. No severe spinal canal stenosis. Lungs: Lung apices are normal. Soft tissues: Unremarkable. CT/CT cervical spin wo con* [id number] IMPRESSION: No acute findings.
--- NOTE | 2022-03-27 15:25 | W.ED.HEATRA ---
HPI - Head Injury General: Chief complaint: Headache Stated complaint: Fell and right side of head is numbness Time Seen by Provider: 03/27/22 15:22 History of Present Illness: Patient is a 22-year-old female comes to the ED after falling out of a tree. Past medical history of epilepsy, bipolar disease, personality disorder and intellectual disability. Patient says she was trying to climb a tree earlier today and fell out of tree approximately 3 feet in the air. She hit the back of her head and endorse having a brief moment of loss of consciousness. Since fall she is complaining of feeling a little dazed and out of it. She has a headache that she rates a 5 out of 10 and is located in the back of her head. She endorses feeling a little bit of left arm muscle cramping since fall as well. Denies any emesis or seizure-like activity after fall. She also endorses some mild neck pain. Denies any vision changes, numbness or tingling to 1 side of her body or weakness to 1 side of her body or face. Associated symptoms: Deny nausea or vomiting Review of Systems Const: Denies: fever(s), chills or fatigue Eyes: Denies: change in vision or eye discomfort ENMT: Denies: throat pain, odynophagia, nasal discharge or nasal congestion Card: Denies: chest pain, palpitations, edema, swelling of feet/ankles, dyspnea on exertion or orthopnea Resp: Denies: dyspnea, productive cough or non-productive cough GI: Denies: abdominal pain, nausea, vomiting, diarrhea, constipation or hematochezia : Denies: flank pain, dysuria or hematuria Musc: Reports: muscle cramps (Left arm); Denies: back pain or extremity swelling Skin/Breast: Denies: rash or new lesions Neuro: Reports: headache(s); Denies: numbness in extremities or weakness in extremities PFSH ED PFSH: Medical History Bipolar disorder Constipation, chronic Hyperlipidemia Intellectual disability Seizures Tachycardia Surgical History H/O eye surgery History of colonoscopy Status post laparoscopic cholecystectomy (08/13/21) Status post placement of VNS (vagus nerve stimulation) device Social History Smoking and tobacco status: never smoked Quit status (tobacco): has quit using tobacco Second hand smoke exposure: Yes Female Reproductive History: Date of last menstrual period: 03/15/22 Physical Exam Const: COMMON NORMALS: no acute distress, patient oriented x3 and alert GENERAL APPEARANCE: cooperative HENMT: COMMON NORMALS: normocephalic HEAD & SCALP: normocephalic MOUTH: Normal oral and palatal mucosa present THROAT: posterior oropharynx normal and uvula midline Eye: COMMON NORMALS: Equal, round and reactive pupils present and EOMs intact bilaterally GENERAL EYE: appearance normal, both eyes and all related structures PUPIL: Yes Equal, round and reactive pupils present Neck/C-Spine: COMMON NORMALS: supple GENERAL: Yes normal visual inspection CERVICAL SPINE: Yes cervical ROM normal, Yes Cervical spine tenderness C5, C6 and C7 and Yes Paracervical muscle tenderness bilateral Lymph: LYMPHATIC: no lymphadenopathy noted Resp: COMMON NORMALS: normal respiratory effort, No retractions, No use of accessory muscles and clear to auscultation bilaterally AUSCULTATION: clear to auscultation bilaterally Cardio: COMMON NORMALS: regular rate, regular rhythm, S1 normal heart sound present, S2 normal heart sound present, No gallops present (Cardio), No clicks present (Cardio), No murmurs present (Cardio) and Peripheral pulses 2+ throughout RATE: regular rate RHYTHM: regular rhythm HEART SOUNDS: S1 normal heart sound present and S2 normal heart sound present PERIPHERAL PULSES: Peripheral pulses 2+ throughout GI: COMMON NORMALS: Normal to inspection, nondistended, normoactive bowel sounds present, Soft to palpation, non-tender and no masses PALPATION: Yes Soft to palpation : COMMON NORMALS: Yes no CVA tenderness BLADDER/KIDNEY EXAM: Yes no CVA tenderness Back/Pelvis: COMMON NORMALS: no CVA tenderness Extremity: GENERAL: Yes normal exam except as noted Neuro: COMMON NORMALS: patient oriented x3, CN's II-XII intact bilaterally, moves all extremities, no focal motor deficits and no sensory deficits noted SENSORIUM/ORIENTATION: Yes alert SPEECH: speech normal GAIT: Yes Normal gait present SENSORY EXAM: Yes extremities (intact) MOTOR EXAM: 5/5 motor strength present throughout Skin: COMMON NORMALS: no rashes or lesions noted GENERAL SKIN EXAM: no rashes or lesions noted and dry skin Course Vital Signs: Vital signs: Vital Signs Temperature 98.3 F 03/27/22 14:52 Pulse Rate 112 H 03/27/22 14:52 Respiratory Rate 16 03/27/22 14:52 Blood Pressure 122/86 03/27/22 14:52 Pulse Oximetry 98 03/27/22 14:52 Oxygen Delivery Me thod 03/27/22 14:52 MDM - Head Injury Medcial Decision Making Patient is a 22-year-old female comes to the ED after falling out of a tree. Past medical history of epilepsy, bipolar disease, personality disorder and intellectual disability. Patient says she was trying to climb a tree earlier today and fell out of tree approximately 3 feet in the air. She hit the back of her head and endorse having a brief moment of loss of consciousness. Denies any neuro symptoms. Vitals are stable. Patient appears nontoxic in no acute distress or pain. Neuro exam showed no deficits. She does have some cervical spinal tenderness to palpation. CT of head and cervical spine showed no acute findings. Patient was given dose of Toradol here in the ED help with headache and was stable for discharge home. She is diagnosed with minor head injury with loss of consciousness and told to follow-up with her PCP in the next week for reevaluation. Return to ED precautions given. Patient understood and agreed with plan. Lab Data Radiology Impressions Cervical Spine CT 03/27/22 15:23 IMPRESSION: No acute findings. Head CT 03/27/22 15:23 IMPRESSION: No acute intracranial abnormality. Discharge Plan Discharge Patient Disposition: Home Clinical Impression: Minor head injury with loss of consciousness Qualifiers: Encounter type: initial encounter Qualified Code(s): S06.9X9A - Unspecified intracranial injury with loss of consciousness of unspecified duration, initial encounter Condition: Stable Prescriptions: No Action acetaminophen [Tylenol] 325 mg capsule 650 mg PO QID PRN (Reason: fever or pain) bisacodyl [Dulcolax (bisacodyl)] 10 mg suppository 10 mg [place] DAILY PRN (Reason: Constipation) pantoprazole [Protonix] [address] for susp in packet 40 mg PO BID calcium carbonate [Tums] 300 mg (750 mg) tablet,chewable 300 mg PO .q 4 hrs PRN ibuprofen 600 mg tablet 600 mg PO Q6H PRN (Reason: pain) lorazepam 1 mg tablet See Rx Instructions .ROUTE .COMPLEX Qty: 45 3RF Rx Instructions: take a-half tab po daily prn and a whole tab po q HS benztropine 1 mg tablet 1 mg PO BID Qty: 60 3RF hydroxyzine HCl 50 mg tablet 50 mg PO BID 30 Days Qty: 60 3RF lorazepam 2 mg/mL concentrate See Rx Instructions .ROUTE .COMPLEX Qty: 30 3RF Rx Instructions: 0.5 ML PO PRN daily for seizure activity paliperidone 6 mg tablet extended release 24hr 12 mg PO DAILY 30 Days Qty: 60 3RF quetiapine [Seroquel XR] 400 mg tablet extended release 24 hr 800 mg PO BID 30 Days Qty: 120 3RF bismuth subsalicylate [Pepto-Bismol] 262 mg tablet,chewable 1 tab PO DAILY Rx Instructions: do not exceed 16 tabs per 24 hrs diphenhydramine HCl [Benadryl] 25 mg capsule 25 mg PO ONCE PRN (Reason: allergies) metoprolol succinate 25 mg tablet extended release 24 hr 25 mg PO DAILY Qty: 90 2RF zonisamide 100 mg capsule See Rx Instructions PO .COMPLEX Qty: 150 3RF Rx Instructions: PO; 200mg in the AM and 300mg in the PM Briviact 50 mg tablet 100 mg PO BID Qty: 60 5RF propranolol 10 mg tablet See Rx Instructions .ROUTE .COMPLEX Qty: 60 0RF Dose Instruction: TAKE ONE TABLET BY MOUTH TWICE DAILY Rx Instructions: TAKE ONE TABLET BY MOUTH TWICE DAILY multivitamin [Tab-A-Diana] Tablet 1 tab PO DAILY docusate sodium [Colace] 100 mg Capsule 100 mg PO BID fluticasone propionate 50 mcg/actuation [place],Suspension 1 spray INTRANASAL BID Rx Instructions: INTSILL 1 SPRAY INTO EACH NOSTRIL BID atorvastatin 40 mg Tablet 40 mg PO BEDTIME Iron (ferrous sulfate) 325 mg (65 mg iron) Tablet 325 mg PO DAILY Zofran 4 mg tablet 4 mg PO Q6H PRN (Reason: nausea and vomiting) Qty: 20 0RF Discharge Orders: Discharge ED (Routine); Ordered 03/27/22 Ordered By: Brian Flood Referrals: Judith Bermudez FNP [Primary Care Provider] - Discharge Diet: Regular Discharge Activity: Increase activity as tolerated Patient Instructions: Concussion/Head Injury - Adult Activity Restrictions/Additional Instructions: Here in the ED CT of head and cervical spine was performed and reports normal with no acute findings noted. Patient was given a shot of Toradol here in the ED to help with headache. Follow-up with medical provider as directed in the next 5 to 7 days for reevaluation. Patient can have [id number] Tylenol or ibuprofen per bottle instruction for any headaches. Take medications as prescribed. Return to the ER or your medical provider if condition worsens. Please read and understand discharge instructions. Thank you for choosing [facility] for your healthcare needs today. Please realize this is an emergency room and that we are providing you with a medical screening exam and this may not be complete and all inclusive of all the testing and or work up that you may need to determine your ailment or severity of your illness. It is very important that you follow up as instructed or that you return to the Emergency Department should you have concerns or if your condition changes or worsens in any way. Coding Level of Care Code ED Store Stock Associate for Jacqueline Meyer Exam Comprehensive
[2022-03-27] MEDS: ketorolac 60 mg/2 mL INJ IM (16:06)
== END 2022-03-27 16:47 | disposition home or self-care (01) ==
PROVIDERS: Emergency Provider Physician Assistant; PCP Nurse Practitioner Family
DX: S06.9X9A Unspecified intracranial injury with loss of consciousness of unspecified duration, initial encounter (principal); G40.909 Epilepsy, unspecified, not intractable, without status epilepticus; E78.5 Hyperlipidemia, unspecified; W14.XXXA Fall from tree, initial encounter
CPT/HCPCS: 70450; 72125; 96372; 99285; J1885

== ENCOUNTER → 2022-06-01 15:32 | Outpatient (BNVA) | payer MEDICARE, MEDICAID, OTHER, SELFPAY | PROVIDERS: PCP Nurse Practitioner Family; Visit Provider Psychiatry & Neurology Psychiatry | DX: Z79.899 Other long term (current) drug therapy (principal) | CPT/HCPCS: 80053; 80061; 83036; 84443 ==

== ENCOUNTER 2022-08-06 18:06 | Emergency (ER) | payer MEDICARE, MEDICAID, SELFPAY ==
[2022-08-06 18:09] VITALS: BP 112/69; PULSE 100; RESP 16; TEMP 36.5; O2SAT 100; BMI 29.5
--- NOTE | 2022-08-06 18:24 | ED_ITS ---
HPI - Seizure General: Chief Complaint: Seizure Stated Complaint: SEIZURE Time Seen by Provider: 08/06/22 18:16 History of Present Illness: HPI Narrative: Patient is a 22-year-old female who comes to the ED via EMS with seizure. Patient has a history of seizures and takes brivaracetam and Ativan for seizures. Patient usually has tonic-clonic seizures but today she was up playing a card game the jail. She then started zoning out and was not responding to their questions. She started having a little bit of right arm shaking. She was then assisted down to the ground and in a laying position. She did not fall or hit her head or have any head injury during seizure. It lasted for 5 to 10 minutes and they were able to give patient a dose of her Ativan. Denies any bladder or bowel incontinence. She has not had any recurrent seizures while in route or here in the ED. She feels a little tired and is in her typical postictal state. She is scheduled to see Dr. Huizar this coming August 30. Associated symptoms: Deny chest pain, chills or fever(s) Review of Systems Const: Denies: fever(s), chills or fatigue Eyes: Denies: change in vision or eye discomfort ENMT: Denies: throat pain, odynophagia, nasal discharge or nasal congestion Card: Denies: chest pain, palpitations, edema, swelling of feet/ankles, dyspnea on exertion or orthopnea Resp: Denies: dyspnea, productive cough or non-productive cough GI: Denies: abdominal pain, nausea, vomiting, diarrhea, constipation or hematochezia : Denies: flank pain, dysuria or hematuria Musc: Denies: neck pain, back pain or extremity swelling Skin/Breast: Denies: rash or new lesions Neuro: Reports: seizure-like activity; Denies: headache(s), numbness in extremities or weakness in extremities PFSH ED PFSH: Medical History Bipolar disorder Constipation, chronic Hyperlipidemia Intellectual disability Seizures Tachycardia Surgical History H/O eye surgery History of colonoscopy Status post laparoscopic cholecystectomy (08/13/21) Status post placement of VNS (vagus nerve stimulation) device Social History Smoking and tobacco status: never smoked Quit status (tobacco): has quit using tobacco Second hand smoke exposure: Yes Female Reproductive History: Date of last menstrual period: 03/15/22 Physical Exam Const: COMMON NORMALS: patient oriented x3 and alert GENERAL APPEARANCE: cooperative HENMT: COMMON NORMALS: normocephalic HEAD & SCALP: normocephalic MOUTH: Normal oral and palatal mucosa present THROAT: posterior oropharynx normal and uvula midline Eye: COMMON NORMALS: Equal, round and reactive pupils present and EOMs intact bilaterally GENERAL EYE: appearance normal, both eyes and all related structures PUPIL: Yes Equal, round and reactive pupils present Neck/C-Spine: COMMON NORMALS: supple GENERAL: Yes normal visual inspection Lymph: LYMPHATIC: no lymphadenopathy noted Resp: COMMON NORMALS: normal respiratory effort, No retractions, No use of accessory muscles and clear to auscultation bilaterally AUSCULTATION: clear to auscultation bilaterally Cardio: COMMON NORMALS: regular rate, regular rhythm, S1 normal heart sound present, S2 normal heart sound present, No gallops present (Cardio), No clicks present (Cardio), No murmurs present (Cardio) and Peripheral pulses 2+ throughout RATE: regular rate RHYTHM: regular rhythm HEART SOUNDS: S1 normal heart sound present and S2 normal heart sound present PERIPHERAL PULSES: Peripheral pulses 2+ throughout GI: COMMON NORMALS: Normal to inspection, nondistended, normoactive bowel sounds present, Soft to palpation, non-tender and no masses PALPATION: Yes Soft to palpation : COMMON NORMALS: Yes no CVA tenderness BLADDER/KIDNEY EXAM: Yes no CVA tenderness Back/Pelvis: COMMON NORMALS: no CVA tenderness Extremity: GENERAL: Yes normal exam except as noted Neuro: COMMON NORMALS: patient oriented x3, CN's II-XII intact bilaterally, moves all extremities, no focal motor deficits and no sensory deficits noted SENSORIUM/ORIENTATION: Yes alert SENSORY EXAM: Yes extremities (intact) MOTOR EXAM: 5/5 motor strength present throughout Skin: COMMON NORMALS: no rashes or lesions noted GENERAL SKIN EXAM: no rashes or lesions noted and dry skin Course Vital Signs: Vital signs: Vital Signs Temperature 97.7 F 08/06/22 18:09 Pulse Rate 89 08/06/22 19:23 Respiratory Rate 16 08/06/22 19:23 Blood Pressure 109/63 08/06/22 19:23 Pulse Oximetry 100 08/06/22 19:23 Oxygen Delivery Me thod 08/06/22 18:09 MDM - Seizure MDM Narrative Medical decision making narrative: Patient is a 22-year-old female who comes to the ED via EMS with seizure. Patient has a history of seizures and takes brivaracetam and Ativan for seizu res. Patient usually has tonic-clonic seizures but today she was up playing a card game the jail. She then started zoning out and was not responding to their questions. She started having a little bit of right arm shaking. She was then assisted down to the ground and in a laying position. She did not fall or hit her head or have any head injury during seizure. It lasted for 5 to 10 min utes and they were able to give patient a dose of her Ativan. Denies any bladder or bowel incontinence. She has not had any recurrent seizures while in route or here in the ED. She feels a little tired and is in her typical postictal state. Vitals are stable. Neuro exam shows no deficits. She appears a little sleepy and postictal state but is alert and oriented. Patient has follow-up with Dr. Huizar in a couple weeks. She did not have any reoccurring seizures here in the ED and she was stable for discharge home. Told to continue taking her seizure medications as prescribed. Return ED precautions given. Patient and patient's critical care paramedic understood and agreed with plan. Discharge Plan Discharge Patient Disposition: Home Clinical Impression: Seizure Condition: Stable Prescriptions: No Action acetaminophen [Tylenol] 325 mg capsule 650 mg PO QID PRN (Reason: fever or pain) bisacodyl [Dulcolax (bisacodyl)] 10 mg suppository 10 mg [place] DAILY PRN (Reason: Constipation) pantoprazole [Protonix] [address] for susp in packet 40 mg PO BID calcium carbonate [Tums] 300 mg (750 mg) tablet,chewable 300 mg PO .q 4 hrs PRN ibuprofen 600 mg tablet 600 mg PO Q6H PRN (Reason: pain) lorazepam 2 mg/mL concentrate See Rx Instructions .ROUTE .COMPLEX Qty: 30 3RF Rx Instructions: 0.5 ML PO PRN daily for seizure activity bismuth subsalicylate [Pepto-Bismol] 262 mg tablet,chewable 1 tab PO DAILY Rx Instructions: do not exceed 16 tabs per 24 hrs diphenhydramine HCl [Benadryl] 25 mg capsule 25 mg PO ONCE PRN (Reason: allergies) prenat.vits,maxime,[id number] Tablet 1 tab PO DAILY metoprolol succinate 25 mg tablet extended release 24 hr 25 mg PO DAILY Qty: 90 2RF lorazepam 1 mg tablet See Rx Instructions .ROUTE .COMPLEX Qty: 45 3RF Rx Instructions: take a-half tab po daily prn and a whole tab po q HS hydroxyzine HCl 50 mg tablet 50 mg PO BID 30 Days Qty: 60 3RF quetiapine [Seroquel XR] 400 mg tablet extended release 24 hr 800 mg PO BID 30 Days Qty: 120 3RF Briviact 50 mg tablet 100 mg PO BID Qty: 60 5RF benztropine 1 mg tablet See Rx Instructions .ROUTE .COMPLEX Qty: 60 1RF Dose Instruction: TAKE ONE TABLET BY MOUTH TWICE DAILY Rx Instructions: TAKE ONE TABLET BY MOUTH TWICE DAILY zonisamide 100 mg capsule See Rx Instructions .ROUTE .COMPLEX Qty: 150 3RF Dose Instruction: TAKE 2 CAPSULES BY MOUTH EVERY MORNING and THREE EVERY EVENING Rx Instructions: TAKE 2 CAPSULES BY MOUTH EVERY MORNING and THREE EVERY EVENING propranolol 10 mg tablet See Rx Instructions .ROUTE .COMPLEX Qty: 60 3RF Dose Instruction: TAKE ONE TABLET BY MOUTH TWICE DAILY Rx Instructions: TAKE ONE TABLET BY MOUTH TWICE DAILY paliperidone 6 mg tablet extended release 24 hr 12 mg PO DAILY 30 Days Qty: 60 1RF docusate sodium [Colace] 100 mg Capsule 100 mg PO BID fluticasone propionate 50 mcg/actuation [place],Suspension 1 spray INTRANASAL BID Rx Instructions: INTSILL 1 SPRAY INTO EACH NOSTRIL BID atorvastatin 40 mg Tablet 40 mg PO BEDTIME Iron (ferrous sulfate) 325 mg (65 mg iron) Tablet 325 mg PO DAILY Discharge Orders: Discharge ED (Routine); Ordered 08/06/22 Ordered By: Brian Flood Referrals: Judith Bermudez FNP [Primary Care Provider] - Discharge Diet: Regular Discharge Activity: Increase activity as tolerated Patient Instructions: Seizures Activity Restrictions/Additional Instructions: Follow-up with Dr. Huizar at your next scheduled appointment in the next couple weeks. Continue taking all home medications as previously prescribed. It appears that Dr. Huizar turned VNS off of auto mode back on July 22, 2021. return to the ER or your medical provider if condition worsens. Please read and understand discharge instructions. Thank you for choosing [facility] for your healthcare needs today. Please realize this is an emergency room and that we are providing you with a medical screening exam and this may not be complete and all inclusive of all the testing and or work up that you may need to determine your ailment or severity of your illness. It is very important that you follow up as instructed or that you return to the Emergency Department should you have concerns or if your condition changes or worsens in any way. Coding Level of Care Code ED Exceptional Children Teacher Assistant for Jacqueline Meyer Exam Comprehensive
[2022-08-06 19:23] VITALS: BP 109/63; PULSE 89; RESP 16; O2SAT 100
--- NOTE | 2022-08-06 19:25 | PC.NURSE ---
PT stable, alert and oriented, and ambulatory at time of d/c. updated vitals charted. PT d/c with caregivers.
== END 2022-08-06 19:29 | disposition home or self-care (01) ==
PROVIDERS: Emergency Provider Physician Assistant; PCP Nurse Practitioner Family
DX: R56.9 Unspecified convulsions (principal); E78.5 Hyperlipidemia, unspecified; Z87.891 Personal history of nicotine dependence
CPT/HCPCS: 99282

== ENCOUNTER → 2022-08-30 09:45 | Outpatient (BNVA) | payer MEDICARE, MEDICAID, SELFPAY | PROVIDERS: PCP Nurse Practitioner Family; Visit Provider Specialist | DX: G40.209 Localization-related (focal) (partial) symptomatic epilepsy and epileptic syndromes with complex partial seizures, not intractable, without status epilepticus (principal); G40.309 Generalized idiopathic epilepsy and epileptic syndromes, not intractable, without status epilepticus; F31.9 Bipolar disorder, unspecified; F79 Unspecified intellectual disabilities; R00.0 Tachycardia, unspecified; Z96.82 Presence of neurostimulator; Z45.42 Encounter for adjustment and management of neurostimulator | CPT/HCPCS: 95972; 99214 ==

== ENCOUNTER 2022-10-28 16:41 | Emergency (ER) | payer MEDICARE, MEDICAID, SELFPAY ==
[2022-10-28 16:55] VITALS: BP 132/87; PULSE 97; RESP 16; TEMP 36.1; O2SAT 100; BMI 30.2
--- NOTE | 2022-10-28 17:57 | XRR_ITS ---
PROCEDURE INFORMATION: Exam: XR Abdomen Exam date and time: 10/28/2022 6:07 PM Age: 22 years old Clinical indication: Prior surgery; Surgery date: 6+ months; Surgery type: Gb; Patient HX: C/O constipation and has not had bowel movement in 3 days; Nausea TECHNIQUE: Imaging protocol: Radiologic exam of the abdomen. Views: Frontal supine view of the abdomen. 1 View. COMPARISON: CT abdomen pelvis w con* [id number] 07/06/2021 10:56 AM FINDINGS: Gastrointestinal tract: Severe colonic stool burden. No bowel dilation. Organs: IUD noted in the pelvis. Bones/joints: Unremarkable. XR/XR KUB [id number] IMPRESSION: Severe colonic stool burden.
[2022-10-28 20:32] LABS: HCG Qualitative Urine. Negative (Negative)
--- NOTE | 2022-10-28 21:59 | CTR_ITS ---
PROCEDURE INFORMATION: Exam: CT Abdomen And Pelvis Without Contrast Exam date and time: 10/28/2022 10:03 PM Age: 22 years old Clinical indication: Abdominal pain; Generalized; Prior surgery; Surgery type: Gb. Iud; Patient HX: Diffuse abd pain with constipation. No bm x 3 days. History of chronic recurrent constipation. TECHNIQUE: Imaging protocol: Computed tomography of the abdomen and pelvis without contrast. Radiation optimization: All CT scans at this facility use at least one of these dose optimization techniques: automated exposure control; mA and/or kV adjustment per patient size (includes targeted exams where dose is matched to clinical indication); or iterative reconstruction. REPORTING DATA: Count of CT and Cardiac NM exams in prior 12 months: This patient has received 2 known CTs and 0 known cardiac nuclear medicine studies in the 12 months prior to the current study. COMPARISON: CT abdomen pelvis w con* [id number] 07/06/2021 10:56 AM RADIATION DOSE METRICS: Total DLP (mGy-cm): 597.09 FINDINGS: Liver: Normal. No mass. Gallbladder and bile ducts: Cholecystectomy. No ductal dilation. Pancreas: Normal. No ductal dilation. Spleen: Normal. No splenomegaly. Adrenal glands: Normal. No mass. Kidneys and ureters: Normal. No hydronephrosis. Stomach and bowel: Severe colonic stool burden. No obstruction. No mucosal thickening. Appendix: No evidence of appendicitis. Intraperitoneal space: Unremarkable. No free air. No significant fluid collection. Vasculature: Unremarkable. No abdominal aortic aneurysm. Lymph nodes: Unremarkable. No enlarged lymph nodes. Urinary bladder: Unremarkable as visualized. Reproductive: IUD noted in expected positioning. Bones/joints: No acute fracture. Soft tissues: Unremarkable. CT/CT abdomen pelvis wo con [id number] IMPRESSION: No acute findings. Severe colonic stool burden.
--- NOTE | 2022-10-28 22:03 | ED_ITS ---
HPI - Abdominal Pain General: Chief Complaint: Abdominal Pain Stated Complaint: BC sent for bowel impaction Time Seen by Provider: 10/28/22 17:57 Source: patient Mode of arrival: ambulatory Limitations: no limitations History of Present Illness: 22-year-old female has had a history of chronic constipation over the last 10 years states she has tried multiple laxatives and seen GI has had colonoscopies with no improvement states she Jess increased today who did x-ray told her to come here due to her severe constipation she is concerned about cancer she had a brother of colon cancer in his 20s she denies any fever Associated Symptoms: Reports constipation; Denies chills, diarrhea, dysuria, fever(s), nausea and vomiting Review of Systems Const: Denies: fever(s), chills, body aches or change in appetite ENMT: Denies: throat pain or dental pain Card: Denies: chest pain Resp: Denies: dyspnea GI: Reports: abdominal pain and constipation; Denies: nausea, vomiting or diarrhea : Denies: dysuria Musc: Denies: neck pain or back pain Skin/Breast: Denies: rash Neuro: Denies: headache(s) PFSH ED PFSH: Medical History Bipolar disorder Constipation, chronic Hyperlipidemia Intellectual disability Seizures Tachycardia Surgical History H/O eye surgery History of colonoscopy Status post laparoscopic cholecystectomy (08/13/21) Status post placement of VNS (vagus nerve stimulation) device Social History Smoking and tobacco status: never smoked Quit status (tobacco): has quit using tobacco Second hand smoke exposure: Yes Physical Exam Const: COMMON NORMALS: no acute distress, patient oriented x3 and healthy appearing HENMT: COMMON NORMALS: normocephalic and atraumatic HEAD & SCALP: normocephalic and atraumatic Eye: COMMON NORMALS: conjunctivae normal CONJUNCTIVA: Yes conjunctivae normal Neck/C-Spine: COMMON NORMALS: full ROM and supple Chest: COMMONS NORMALS: normal inspection of the chest and normal palpation of entire chest wall Resp: COMMON NORMALS: normal respiratory effort Cardio: COMMON NORMALS: regular rate, regular rhythm and No murmurs present (Cardio) RATE: regular rate RHYTHM: regular rhythm GI: COMMON NORMALS: Normal to inspection, nondistended, normoactive bowel sounds present, Soft to palpation, non-tender and no masses PALPATION: Yes Soft to palpation Extremity: COMMON NORMALS: normal to inspection and full ROM Neuro: COMMON NORMALS: patient oriented x3, moves all extremities and no focal motor deficits Psych: COMMON NORMALS: mental status grossly normal, Normal thought process present and cooperative THOUGHT PROCESS: Normal thought process present Skin: COMMON NORMALS: no rashes or lesions noted and no wounds GENERAL SKIN EXAM: no rashes or lesions noted Course Vital Signs: Vital signs: Vital Signs Temperature 96.9 F L 10/28/22 16:55 Pulse Rate 97 10/28/22 16:55 Respiratory Rate 16 10/28/22 16:55 Blood Pressure 132/87 10/28/22 16:55 Pulse Oximetry 100 10/28/22 16:55 Oxygen Delivery Me thod Room Air 10/28/22 16:55 MDM - Abdominal Pain Medical Decision Making Patient presents with constipation that is chronic in nature CT scan shows no other findings did give her lactulose here we will prescribe her MiraLAX and her follow-up with Dr. Soto she is return if worsening. Lab Data Labs/Radiology: Radiology Impressions KUB X-Ray 10/28/22 17:57 IMPRESSION: Severe colonic stool burden. Abdomen/Pelvis CT 10/28/22 21:59 IMPRESSION: No acute findings. Severe colonic stool burden. Laboratory Results HCG, Qual Negative (Negative) 10/28/22 20:09 Discharge Plan Discharge Patient Disposition: Home Clinical Impression: Constipation Condition: Stable Prescriptions: New Miralax 17 gram powder in packet 17 g PO DAILY PRN (Reason: constipation) Qty: 14 0RF No Action acetaminophen [Tylenol] 325 mg capsule 650 mg PO QID PRN (Reason: fever or pain) bisacodyl [Dulcolax (bisacodyl)] 10 mg suppository 10 mg [place] DAILY PRN (Reason: Constipation) pantoprazole [Protonix] [address] for susp in packet 40 mg PO DAILY calcium carbonate [Tums] 300 mg (750 mg) tablet,chewable 300 mg PO .q 4 hrs PRN ibuprofen 600 mg tablet 600 mg PO Q6H PRN (Reason: pain) lorazepam 2 mg/mL concentrate See Rx Instructions .ROUTE .COMPLEX Qty: 30 3RF Rx Instructions: 0.5 ML PO PRN daily for seizure activity bismuth subsalicylate [Pepto-Bismol] 262 mg tablet,chewable 1 tab PO DAILY Rx Instructions: do not exceed 16 tabs per 24 hrs diphenhydramine HCl [Benadryl] 25 mg capsule 25 mg PO ONCE PRN (Reason: allergies) zonisamide 100 mg capsule See Rx Instructions .ROUTE .COMPLEX Qty: 150 3RF Dose Instruction: TAKE 2 CAPSULES BY MOUTH EVERY MORNING and THREE EVERY EVENING Rx Instructions: TAKE 2 CAPSULES BY MOUTH EVERY MORNING and THREE EVERY EVENING Briviact 50 mg tablet 100 mg PO BID Qty: 60 5RF prenat.vits,maxime,[id number] Tablet 1 tab PO DAILY sennosides-docusate sodium [Senna with Docusate Sodium] 8.6-50 mg tablet 1 tab-cap PO DAILY PRN naproxen 250 mg tablet 250 mg PO BID PRN acetaminophen-pyrilamine mal 325-12.5 mg tablet PO PRN lubiprostone 24 mcg capsule 24 mcg PO BID melatonin 3 mg capsule 3 mg PO DAILY mecobalamin (vitamin B12) 1,000 mcg tablet,chewable 1,000 mcg PO DAILY metoprolol succinate 25 mg tablet extended release 24 hr 25 mg PO DAILY Qty: 90 2RF benztropine 1 mg tablet See Rx Instructions .ROUTE .COMPLEX Qty: 60 1RF Dose Instruction: TAKE ONE TABLET BY MOUTH TWICE DAILY Rx Instructions: TAKE ONE TABLET BY MOUTH TWICE DAILY propranolol 10 mg tablet See Rx Instructions .ROUTE .COMPLEX Qty: 60 3RF Dose Instruction: TAKE ONE TABLET BY MOUTH TWICE DAILY Rx Instructions: TAKE ONE TABLET BY MOUTH TWICE DAILY hydroxyzine HCl 50 mg tablet 50 mg PO BID 30 Days Qty: 60 3RF quetiapine [Seroquel XR] 400 mg tablet extended release 24 hr 800 mg PO BID 30 Days Qty: 120 1RF paliperidone 6 mg tablet extended release 24 hr 12 mg PO DAILY 30 Days Qty: 60 1RF lorazepam 1 mg tablet See Rx Instructions .ROUTE .COMPLEX Qty: 45 3RF Rx Instructions: take a-half tab po daily prn and a whole tab po q HS docusate sodium [Colace] 100 mg Capsule 100 mg PO BID fluticasone propionate 50 mcg/actuation [place],Suspension 1 spray INTRANASAL BID Rx Instructions: INTSILL 1 SPRAY INTO EACH NOSTRIL BID atorvastatin 40 mg Tablet 40 mg PO BEDTIME Iron (ferrous sulfate) 325 mg (65 mg iron) Tablet 325 mg PO DAILY Discharge Orders: Discharge ED (Routine); Ordered 10/28/22 Ordered By: Duglas Lazaro Referrals: Anthony Soto DO [Physician] - 1-3 days Judith Bermudez FNP [Primary Care Provider] - Discharge Diet: Advance as tolerated Discharge Activity: Resume usual activity Patient Instructions: Constipation (ED) Coding Level of Care Code ED Order Processor for Jacqueline Meyer
[2022-10-28] MEDS: lactulose oral liq 20 gm/30 mL UDC 30 GM PO (22:12)
[2022-10-28] MEDS: peg /e-lyte soln 4,000 mL Btl 1500 ML PO (22:42)
--- NOTE | 2022-10-29 09:04 | DCPLANNER ---
Addendum entered by Xiomara Avila 11/29/22 11:07: Patient had a follow up appointment at general surgery - patient did attend appointment. Addendum entered by Xiomara Avila 11/03/22 09:38: Patient has a follow up appointment scheduled for Tuesday, November 24, 2022 at 1:[address] Soto at general surgery. Original Note: airfield manager had message to schedule a follow up appointment for patient with general surgery. airfield manager sent patients information to the front office staff at general surgery. Patients information will be printed and reviewed. Clinic will call patient with appointment information.
== END 2022-10-28 22:40 | disposition home or self-care (01) ==
PROVIDERS: Nurse Practitioner Family; Emergency Provider Emergency Medicine; PCP Nurse Practitioner Family
DX: K59.00 Constipation, unspecified (principal)
CPT/HCPCS: 74018; 74176; 81025; 99285

== ENCOUNTER 2022-11-05 14:17 | Emergency (ER) | payer MEDICARE, MEDICAID, SELFPAY ==
[2022-11-05 14:26] VITALS: BP 134/87; PULSE 108; RESP 20; TEMP 36.7; O2SAT 98; BMI 30.9
[2022-11-05 18:11] LABS: Add Urine Microscopic? NO; Charge for UA Resulting for Rev
[2022-11-05 18:22] VITALS: BP 138/92; PULSE 107; RESP 16; O2SAT 99
--- NOTE | 2022-11-05 18:28 | ED_ITS ---
HPI - Abdominal Pain General: Chief Complaint: Abdominal Pain Stated Complaint: constipation Time Seen by Provider: 11/05/22 18:14 Source: patient and family Mode of arrival: ambulatory Limitations: no limitations History of Present Illness: Patient presents to the emergency department today accompanied by family for evaluation treatment of acute on chronic constipation. Patient's chart review shows that she was here on 10/28 for similar complaints. Patient had both an x- ray and CT examination which revealed no acute findings except severe colonic constipation. Patient has had chronic constipation due to IBS for the last 10 years. She has seen GI. Patient reports that after being seen in the emergency department and treated, she only had 2 bowel movements. Last bowel movement was 5 days ago. Patient states she was treated with GoLytely and a syrup . Since then she has used suppositories, fleets enema, and MiraLAX without any further passing of stool. Patient is currently on a mechanically soft diet as recommended by her GI doctor during these acute worsening of her constipation symptoms. Patient reports vomiting today. Patient has bilateral lower abdominal discomfort without specific tenderness. Review of Systems General: Reports: 10 or more systems reviewed and unremarkable except in HPI and below PFSH ED PFSH: Medical History Bipolar disorder Constipation, chronic Hyperlipidemia Intellectual disability Seizures Tachycardia Surgical History H/O eye surgery History of colonoscopy Status post laparoscopic cholecystectomy (08/13/21) Status post placement of VNS (vagus nerve stimulation) device Social History Smoking and tobacco status: never smoked Quit status (tobacco): has quit using tobacco Second hand smoke exposure: Yes Physical Exam Const: COMMON NORMALS: no acute distress, patient oriented x3 and alert HENMT: COMMON NORMALS: normocephalic, atraumatic, hearing grossly normal bilaterally and moist oral mucous membranes HEAD & SCALP: normocephalic and atraumatic Eye: COMMON NORMALS: Equal, round and reactive pupils present, EOMs intact bilaterally and conjunctivae normal CONJUNCTIVA: Yes conjunctivae normal PUPIL: Yes Equal, round and reactive pupils present Neck/C-Spine: COMMON NORMALS: full ROM and no JVD Lymph: LYMPHATIC: no lymphadenopathy noted Resp: COMMON NORMALS: normal respiratory effort, No retractions, No use of accessory muscles and clear to auscultation bilaterally AUSCULTATION: clear to auscultation bilaterally Cardio: COMMON NORMALS: no JVD, regular rate and regular rhythm RATE: regular rate RHYTHM: regular rhythm GI: OTHER: Absent bowel sounds throughout. Abdomen is soft but, patient has generalized tenderness on deep palpation in the lower abdomen. : COMMON NORMALS: Yes no CVA tenderness BLADDER/KIDNEY EXAM: Yes no CVA tenderness Back/Pelvis: COMMON NORMALS: no CVA tenderness, no thoracic nor lumbar tenderness and thoraco-lumbar ROM normal Extremity: COMMON NORMALS: normal to inspection, full ROM and capillary refill normal Neuro: COMMON NORMALS: patient oriented x3 SENSORIUM/ORIENTATION: Yes alert Psych: COMMON NORMALS: mental status grossly normal, Normal thought process present, cooperative, normal affect and activity/motor behavior normal THOUGHT PROCESS: Normal thought process present Skin: COMMON NORMALS: no rashes or lesions noted and no wounds GENERAL SKIN EXAM: no rashes or lesions noted Course Vital Signs: Vital signs: Vital Signs Temperature 98.0 F 11/05/22 14:26 Pulse Rate 98 11/05/22 19:59 Respiratory Rate 16 11/05/22 19:59 Blood Pressure 138/92 11/05/22 19:59 Pulse Oximetry 98 11/05/22 19:59 Oxygen Delivery Me thod Room Air 11/05/22 19:59 MDM - Abdominal Pain Medical Decision Making Patient presents emergency department today for acute on chronic constipation. Patient sees Dr. Loredo at [facility]. Patient has multiple bowel regimens to be used to prevent and treat her chronic constipation. She states that for the last few days she has been going through her regimens as well as only eating soft or liquid diet the last 48 hours. I repeated the KUB to cel[place] re today from her evaluation on the which radiology reads as a worsening fecal burden seen on KUB today. Patient was given IV fluids here in the emergency department. I originally reached out to GI here, at [facility], but GI was bounced out to general surgery for consult. GEN robertson recommended calling [facility] as he was not able to provide any recommendations tonight. Spoke with Dr. Saint Antunez with [facility] regarding the patient's presentation here in the ER today. He recommended continuing the recommended bowel regimen and diet changes as previously discussed with her GI specialist but, would recommend she begin taking a dose of MiraLAX hourly to produce bowel movements. He then recommended she call the GI office on Tuesday to speak with her normal doctor regarding any changes which need to be made in her bowel regimen. Patient was given return precautions and they verbalized understanding and agreement to treatment plan. Differential Diagnosis Likely abdominal pain, constipation, gastroenteritis and small bowel obstruction Lab Data Labs/Radiology: Radiology Impressions KUB X-Ray 11/05/22 18:43 IMPRESSION: 1. Nonobstructed bowel gas pattern. 2. Increased fecal content in the colon. 3. Incidental/nonacute findings are listed in the report. Laboratory Results HCG, Qual Negative (Negative) 11/05/22 18:00 Urine Color Yellow (Yellow) 11/05/22 18:00 Urine Appearance Sl hazy (CLEAR) A 11/05/22 18:00 Urine pH 5 (5-7) 11/05/22 18:00 Ur Specific [place] 1.010 (1.005-1.030) 11/05/22 18:00 Urine Protein Neg (Negative) 11/05/22 18:00 Urine Glucose (UA) Norm (Normal) 11/05/22 18:00 Urine Ketones Negative (Negative) 11/05/22 18:00 Urine Blood Neg (Negative) 11/05/22 18:00 Urine Nitrate Negative (Negative) 11/05/22 18:00 Urine Bilirubin Neg (Negative) 11/05/22 18:00 Urine Urobilinogen Norm mg/dL (Negative) 11/05/22 18:00 Ur Leukocyte Esterase Negative (Negative) 11/05/22 18:00 Discharge Plan Discharge Patient Disposition: Home Clinical Impression: Constipation, chronic Condition: Stable Prescriptions: No Action acetaminophen [Tylenol] 325 mg capsule 650 mg PO QID PRN (Reason: fever or pain) bisacodyl [Dulcolax (bisacodyl)] 10 mg suppository 10 mg [place] DAILY PRN (Reason: Constipation) pantoprazole [Protonix] [address] for susp in packet 40 mg PO DAILY calcium carbonate [Tums] 300 mg (750 mg) tablet,chewable 300 mg PO .q 4 hrs PRN ibuprofen 600 mg tablet 600 mg PO Q6H PRN (Reason: pain) lorazepam 2 mg/mL concentrate See Rx Instructions .ROUTE .COMPLEX Qty: 30 3RF Rx Instructions: 0.5 ML PO PRN daily for seizure activity bismuth subsalicylate [Pepto-Bismol] 262 mg tablet,chewable 1 tab PO DAILY Rx Instructions: do not exceed 16 tabs per 24 hrs diphenhydramine HCl [Benadryl] 25 mg capsule 25 mg PO ONCE PRN (Reason: allergies) zonisamide 100 mg capsule See Rx Instructions .ROUTE .COMPLEX Qty: 150 3RF Dose Instruction: TAKE 2 CAPSULES BY MOUTH EVERY MORNING and THREE EVERY EVENING Rx Instructions: TAKE 2 CAPSULES BY MOUTH EVERY MORNING and THREE EVERY EVENING Briviact 50 mg tablet 100 mg PO BID Qty: 60 5RF prenat.vits,maxime,[id number] Tablet 1 tab PO DAILY sennosides-docusate sodium [Senna with Docusate Sodium] 8.6-50 mg tablet 1 tab-cap PO DAILY PRN naproxen 250 mg tablet 250 mg PO BID PRN acetaminophen-pyrilamine mal 325-12.5 mg tablet PO PRN lubiprostone 24 mcg capsule 24 mcg PO BID melatonin 3 mg capsule 3 mg PO DAILY mecobalamin (vitamin B12) 1,000 mcg tablet,chewable 1,000 mcg PO DAILY metoprolol succinate 25 mg tablet extended release 24 hr 25 mg PO DAILY Qty: 90 2RF benztropine 1 mg tablet See Rx Instructions .ROUTE .COMPLEX Qty: 60 1RF Dose Instruction: TAKE ONE TABLET BY MOUTH TWICE DAILY Rx Instructions: TAKE ONE TABLET BY MOUTH TWICE DAILY propranolol 10 mg tablet See Rx Instructions .ROUTE .COMPLEX Qty: 60 3RF Dose Instruction: TAKE ONE TABLET BY MOUTH TWICE DAILY Rx Instructions: TAKE ONE TABLET BY MOUTH TWICE DAILY hydroxyzine HCl 50 mg tablet 50 mg PO BID 30 Days Qty: 60 3RF quetiapine [Seroquel XR] 400 mg tablet extended release 24 hr 800 mg PO BID 30 Days Qty: 120 1RF paliperidone 6 mg tablet extended release 24 hr 12 mg PO DAILY 30 Days Qty: 60 1RF lorazepam 1 mg tablet See Rx Instructions .ROUTE .COMPLEX Qty: 45 3RF Rx Instructions: take a-half tab po daily prn and a whole tab po q HS docusate sodium [Colace] 100 mg Capsule 100 mg PO BID fluticasone propionate 50 mcg/actuation [place],Suspension 1 spray INTRANASAL BID Rx Instructions: INTSILL 1 SPRAY INTO EACH NOSTRIL BID atorvastatin 40 mg Tablet 40 mg PO BEDTIME Iron (ferrous sulfate) 325 mg (65 mg iron) Tablet 325 mg PO DAILY Miralax 17 gram powder in packet 17 g PO DAILY PRN (Reason: constipation) Qty: 14 0RF Discharge Orders: Discharge ED (Routine); Ordered 11/05/22 Ordered By: Tanja Kramer Referrals: uJdith Bermudez FNP [Primary Care Provider] - Discharge Diet: As Directed Discharge Activity: Increase activity as tolerated Patient Instructions: Irritable Bowel Syndrome (ED), Constipation (ED) Activity Restrictions/Additional Instructions: X-ray today still shows significant constipation-similar to that found on your previous evaluation on 10/28. I reached out to the on-call general lithographic worker with [facility]- Dr Krishnamurthy, regarding your evaluation today. He is recommending a bowel regimen to be performed through the weekend-or until you start producing bowel movements. He requests a full dose of MiraLAX to be taken every hour in order to produce bowel movement. You may wish to start this regimen in the morning to avoid waking every hour during the night. He request that you reach out to your GI specialty office on Tuesday to discuss these frequent recurrence of severe constipation. He also encourages you to continue following the plan previously discussed with your GI specialist for when acute worsening of constipation occurs. Coding Level of Care Code ED Clinical Informatics Strategist for Jacqueline Meyer
[2022-11-05 18:30] LABS: Bilirubin Urine Neg (Negative); Blood Urine Neg (Negative); Glucose Urine UA Norm (Normal); Ketones Urine Negative (Negative); Leukocyte Esterase Urine Negative (Negative); Nitrate Urine Negative (Negative); Protein Urine Neg (Negative); Urine Appearance SL Hazy (CLEAR); Urine Color Yellow (Yellow); Urobilinogen Urine Norm (Negative); pH Urine 5 (5-7)
--- NOTE | 2022-11-05 18:43 | XRR_ITS ---
PROCEDURE INFORMATION: Exam: XR Abdomen Exam date and time: 11/05/2022 7:33 PM Age: 22 years old Clinical indication: Condition or disease; Other: Chronic constipation; Prior surgery; Surgery type: Iud; Additional info: Constipation, chronic TECHNIQUE: Imaging protocol: Radiologic exam of the abdomen. Views: Frontal supine view of the abdomen. 1 View. COMPARISON: CT abdomen pelvis wo con [id number] 10/28/2022 10:03 PM FINDINGS: Tubes, catheters and devices: There is an intrauterine device in the pelvis. Gastrointestinal tract: Increased fecal content in the colon. Nonobstructive bowel gas pattern. Intraperitoneal space: No free intraperitoneal air. Organs: Stable findings consistent with a previous cholecystectomy with surgical clips in the right upper quadrant. No organomegaly. Bones/joints: Unremarkable. XR/XR KUB [id number] IMPRESSION: 1. Nonobstructed bowel gas pattern. 2. Increased fecal content in the colon. 3. Incidental/nonacute findings are listed in the report.
[2022-11-05 19:59] VITALS: BP 138/92; PULSE 98; RESP 16; O2SAT 98
[2022-11-05 20:26] LABS: HCG Qualitative Urine. Negative (Negative)
[2022-11-05] MEDS: sodium chloride 0.9% 1,000 ML 999 ML IV (21:55)
== END 2022-11-05 22:14 | disposition home or self-care (01) ==
PROVIDERS: Emergency Provider Physician Assistant; PCP Nurse Practitioner Family
DX: K59.09 Other constipation (principal); E78.5 Hyperlipidemia, unspecified; Z87.891 Personal history of nicotine dependence
CPT/HCPCS: 74018; 81003; 81025; 99284; J7030

== ENCOUNTER → 2022-11-24 12:43 | Outpatient (BNVA) | payer MEDICARE, MEDICAID, SELFPAY | PROVIDERS: PCP Nurse Practitioner Family; Visit Provider Surgery | DX: K59.09 Other constipation (principal); Z80.0 Family history of malignant neoplasm of digestive organs; K21.9 Gastro-esophageal reflux disease without esophagitis | CPT/HCPCS: 99203 ==

== ENCOUNTER 2022-12-14 18:39 | Emergency (ER) | payer MEDICARE, MEDICAID, SELFPAY ==
[2022-12-14 18:47] VITALS: BP 109/72; PULSE 117; RESP 16; TEMP 36.8; O2SAT 98; BMI 28.7
--- NOTE | 2022-12-14 21:30 | ED_ITS ---
HPI - Fall General: Chief Complaint: Fall Stated Complaint: Head Injury Possible Concustion Time Seen by Provider: 12/14/22 20:37 Source: patient Mode of arrival: ambulatory Limitations: no limitations History of Present Illness: 22-year-old female states that she did hit her head on a cabinet today at 1 PM states she had a headache since then states it was 7 out of 10 earlier it is currently 410 she had some dizziness and nausea she denies any severe headache she denies any loss of consciousness she denies any neck pain denies any worsening providers. Associated symptoms-after fall: Reports headache(s); Denies abdominal pain, chest pain or neck pain Review of Systems Const: Denies: fever(s) or chills Eyes: Denies: eye discomfort ENMT: Denies: throat pain or dental pain Card: Denies: chest pain Resp: Denies: dyspnea GI: Denies: abdominal pain, nausea, vomiting or diarrhea Musc: Denies: neck pain or back pain Skin/Breast: Denies: rash Neuro: Reports: headache(s) PFSH ED PFSH: Medical History Bipolar disorder Constipation, chronic Hyperlipidemia Intellectual disability Seizures Tachycardia Surgical History H/O eye surgery History of colonoscopy Status post laparoscopic cholecystectomy (08/13/21) Status post placement of VNS (vagus nerve stimulation) device Social History Smoking and tobacco status: current every day smoker cigarettes and e- cigarettes E-Cigarette Details: e-cigarette and with nicotine Quit status (tobacco): has quit using tobacco Second hand smoke exposure: Yes Physical Exam Const: COMMON NORMALS: no acute distress, patient oriented x3 and healthy appearing HENMT: COMMON NORMALS: normocephalic and atraumatic HEAD & SCALP: normocephalic and atraumatic Eye: COMMON NORMALS: Equal, round and reactive pupils present and EOMs intact bilaterally PUPIL: Yes Equal, round and reactive pupils present Neck/C-Spine: COMMON NORMALS: full ROM Chest: COMMONS NORMALS: normal inspection of the chest Resp: COMMON NORMALS: normal respiratory effort Cardio: COMMON NORMALS: regular rate, regular rhythm and No murmurs present (Cardio) RATE: regular rate RHYTHM: regular rhythm GI: INSPECTION: Yes normal to inspection Extremity: COMMON NORMALS: normal to inspection and full ROM Neuro: COMMON NORMALS: patient oriented x3, moves all extremities and no focal motor deficits Psych: COMMON NORMALS: mental status grossly normal, Normal thought process present and cooperative THOUGHT PROCESS: Normal thought process present Skin: COMMON NORMALS: no rashes or lesions noted and no wounds GENERAL SKIN EXAM: no rashes or lesions noted Course Vital Signs: Vital signs: Vital Signs Temperature 98.3 F 12/14/22 18:47 Pulse Rate 103 H 12/14/22 21:57 Respiratory Rate 16 12/14/22 21:57 Blood Pressure 101/76 12/14/22 21:57 Pulse Oximetry 98 12/14/22 21:57 Oxygen Delivery Me thod Room Air 12/14/22 21:57 MDM - Fall Medical Decision Making Patient presents here with a closed head injury she is well-appearing here no signs of any major injury does not require head CT she is stable for discharge she is to follow-up with PCP and return if worsening she understands agrees to plan. Medical Records I reviewed the patient's medical records. Lab Data I reviewed the patient's lab results. Discharge Plan Discharge Patient Disposition: Home Clinical Impression: Head injury Condition: Stable Prescriptions: No Action acetaminophen [Tylenol] 325 mg capsule 650 mg PO QID PRN (Reason: fever or pain) bisacodyl [Dulcolax (bisacodyl)] 10 mg suppository 10 mg [place] DAILY PRN (Reason: Constipation) pantoprazole [Protonix] [address] for susp in packet 40 mg PO DAILY calcium carbonate [Tums] 300 mg (750 mg) tablet,chewable 300 mg PO .q 4 hrs PRN ibuprofen 600 mg tablet 600 mg PO Q6H PRN (Reason: pain) bismuth subsalicylate [Pepto-Bismol] 262 mg tablet,chewable 1 tab PO DAILY Rx Instructions: do not exceed 16 tabs per 24 hrs diphenhydramine HCl [Benadryl] 25 mg capsule 25 mg PO ONCE PRN (Reason: allergies) prenat.vits,maxime,[id number]-hjqqq Tablet 1 tab PO DAILY sennosides-docusate sodium [Senna with Docusate Sodium] 8.6-50 mg tablet 1 tab-cap PO DAILY PRN naproxen 250 mg tablet 250 mg PO BID PRN acetaminophen-pyrilamine mal 325-12.5 mg tablet PO PRN lubiprostone 24 mcg capsule 24 mcg PO BID melatonin 3 mg capsule 3 mg PO DAILY mecobalamin (vitamin B12) 1,000 mcg tablet,chewable 1,000 mcg PO DAILY Neosporin (vju-eyl-uyxvf) 3.5mg-400 unit- 5,000 unit/gram ointment 1 applic topical DAILY famotidine 20 mg tablet 20 mg PO DAILY hydrocortisone [Anti-Itch (HC)] 1 % cream 1 applic topical TID PRN Midol 500-25 mg tablet 1 tab PO Q6H PRN Blisovi 24 Fe 1 mg-20 mcg (24)/75 mg (4) tablet 1 tab PO DAILY ondansetron HCl 4 mg tablet 4 mg PO Q6H norethindrone-e.estradiol-iron [Blisovi Fe 1/20 (28)] 1 mg-20 mcg (21)/75 mg (7) tablet 1 tab PO DAILY polyethylene glycol 3350 [Miralax] 17 gram/dose powder 4 g PO DAILY Qty: 238 0RF Rx Instructions: Follow colonoscopy directions Linzess 145 mcg capsule 145 mcg PO DAILY Qty: 30 0RF pantoprazole [Protonix] 40 mg tablet,delayed release (DR/EC) 40 mg PO BID 42 Days Qty: 84 0RF metoprolol succinate 25 mg tablet extended release 24 hr 25 mg PO DAILY Qty: 90 2RF quetiapine 25 mg tablet 12.5 mg PO .q day 12:30-1PM Qty: 15 3RF Briviact 50 mg tablet 100 mg PO BID Qty: 60 5RF benztropine 1 mg tablet See Rx Instructions .ROUTE .COMPLEX Qty: 60 3RF Dose Instruction: TAKE ONE TABLET BY MOUTH TWICE DAILY Rx Instructions: TAKE ONE TABLET BY MOUTH TWICE DAILY hydroxyzine HCl 50 mg tablet 50 mg PO BID 30 Days Qty: 60 3RF lorazepam 1 mg tablet See Rx Instructions .ROUTE .COMPLEX Qty: 45 3RF Rx Instructions: take a-half tab po daily prn and a whole tab po q HS paliperidone 6 mg tablet extended release 24 hr 12 mg PO DAILY 30 Days Qty: 60 3RF quetiapine [Seroquel XR] 400 mg tablet extended release 24 hr 800 mg PO BID 30 Days Qty: 120 3RF propranolol 10 mg tablet See Rx Instructions .ROUTE .COMPLEX Qty: 60 2RF Dose Instruction: TAKE ONE TABLET BY MOUTH TWICE DAILY Rx Instructions: TAKE ONE TABLET BY MOUTH TWICE DAILY zonisamide 100 mg capsule See Rx Instructions .ROUTE .COMPLEX Qty: 150 3RF Dose Instruction: TAKE 2 CAPSULES BY MOUTH EVERY MORNING and THREE EVERY EVENING Rx Instructions: TAKE 2 CAPSULES BY MOUTH EVERY MORNING and THREE EVERY EVENING lorazepam 2 mg/mL concentrate See Rx Instructions .ROUTE .COMPLEX Qty: 30 3RF Rx Instructions: 0.5 ML PO PRN daily for seizure activity fluticasone propionate 50 mcg/actuation [place],Suspension 1 spray INTRANASAL BID Rx Instructions: INTSILL 1 SPRAY INTO EACH NOSTRIL BID atorvastatin 40 mg Tablet 40 mg PO BEDTIME Iron (ferrous sulfate) 325 mg (65 mg iron) Tablet 325 mg PO DAILY Miralax 17 gram powder in packet 17 g PO DAILY PRN (Reason: constipation) Qty: 14 0RF Discharge Orders: Discharge ED (Routine); Ordered 12/14/22 Ordered By: Duglas Lazaro Referrals: Judith Bermudez FNP [Primary Care Provider] - 1-3 days Discharge Diet: Advance as tolerated Discharge Activity: Resume usual activity Patient Instructions: Head Injury (ED) Coding Level of Care Code ED Tr[employer]ark Affixer for Jacqueline Meyer
[2022-12-14] MEDS: ketorolac 30 mg/mL INJ IM (21:38)
[2022-12-14] MEDS: metoclopramide 5 mg/mL SDV 2 mL 10 MG IM (21:38)
[2022-12-14] MEDS: diphenhydrAMINE 50 mg/mL SDV 1mL IM (21:38)
[2022-12-14 21:57] VITALS: BP 101/76; PULSE 103; RESP 16; O2SAT 98
== END 2022-12-14 22:13 | disposition home or self-care (01) ==
PROVIDERS: Emergency Provider Emergency Medicine; PCP Nurse Practitioner Family
DX: S09.90XA Unspecified injury of head, initial encounter (principal); W22.8XXA Striking against or struck by other objects, initial encounter
CPT/HCPCS: 96372; 99284; J1200; J1885; J2765

== ENCOUNTER 2022-12-22 07:31 | Day surgery (SDC) | payer MEDICARE, MEDICAID, SELFPAY ==
[2022-12-21 08:55] VITALS: BMI 28.7
[2022-12-22 07:53] VITALS: BP 125/87; PULSE 121; RESP 18; TEMP 36.6; O2SAT 96
[2022-12-22] MEDS: sodium chloride 0.9% 1,000 ML 30 ML IV (07:58)
--- NOTE | 2022-12-22 09:13 | P.ANESASSM_ITS ---
Pre-Anesthetic Assessment Height/Weight: Height 1.6 m Weight 73.482 kg Temp Pulse Resp BP Pulse Ox O2 Del Method 97.8 F 121 H 18 125/87 96 Room Air 12/22/22 07:53 12/22/22 07:53 12/22/22 07:53 12/22/22 07:53 12/22/22 07:53 12/22/22 07:53 Preop Diagnosis: Constipation, GERD Operation Date: 12/22/22 09:00 Proposed Procedures p 67003 egd [id number] colon K59.09, Z80.0,K21.9(Not Applicable) - Anthony Soto DO s Colonoscopy(Not Applicable) - Anthony Soto DO Was Beta Amarjit taken within 24 hours: N/A Was Clonidine taken within 24 hours: N/A Last intake: Intake Last Liquid Date 12/21/22 Last Liquid Time 22:30 Last Solid Date 12/19/22 Last Solid Time 19:30 Social Tobacco and No alcohol Exam alert, oriented x 3, clear to auscultation bilaterally and regular rate & rhythm Intellectual disability Airway Submandibular: within normal limits Cervical ROM: within normal limits Mallampati: Class II Comments: Comments: Missing teeth History/ROS No significant history except as noted and No significant complaints Pulmonary None reported CV/HEM Arrythmia None reported Hepatic None reported GI Gastroesophageal Reflux Disease Metabolic None reported Musc/skel None reported Neuropsych Bipolar and Seizure Anesthetic Plan ASA status: 3 Anesthesia: Anesthesia Evaluation and MAC Risk of > 500 ml blood loss (7ml/kg in children): No Medications/Allergies Home Medications Medication Instructions Recorded Confirmed Last Taken Type atorvastatin 40 mg tablet 40 mg PO BEDTIME 09/15/19 12/21/22 12/22/22 07:00 History fluticasone propionate 50 1 spray intranasal BID 09/15/19 12/21/22 12/22/22 07:00 History mcg/actuation nasal spray,suspension acetaminophen 325 mg capsule 650 mg PO QID PRN fever or pain 10/01/19 12/21/22 12/19/22 History (Tylenol) bismuth subsalicylate 262 mg 1 tab PO DAILY PRN adominal upset 07/21/20 12/21/22 Unknown History chewable tablet (Pepto-Bismol) diphenhydramine HCl 25 mg capsule 25 mg PO ONCE PRN allergies 11/18/20 12/21/22 12/19/22 History (Benadryl) metoprolol succinate 25 mg 25 mg PO DAILY #90 tabs 04/07/21 12/21/22 12/22/22 07:00 Rx tablet,extended release 24 hr ferrous sulfate 325 mg (65 mg 325 mg PO DAILY 08/12/21 12/21/22 12/22/22 07:00 History iron) tablet (Iron (ferrous sulfate)) calcium carbonate 300 mg (750 mg) 300 mg PO .q 4 hrs PRN abdominal 09/17/21 12/21/22 Unknown History chewable tablet (Tums) upset ibuprofen 600 mg tablet 600 mg PO Q6H PRN pain 09/17/21 12/21/22 Unknown History prenat.vits,maxime,[id number]-zktwr 1 tab PO DAILY 06/01/22 12/21/22 12/22/22 07:00 History acetaminophen 325 mg-pyrilamine 1 tab PO DAILY PRN Pain 08/17/22 12/21/22 Unknown History maleate 12.5 mg tablet lubiprostone 24 mcg capsule 24 mcg PO BID 08/17/22 12/21/22 12/22/22 07:00 History mecobalamin (vitamin B12) 1,000 1,000 mcg PO DAILY 08/17/22 12/21/22 12/22/22 07:00 History mcg chewable tablet melatonin 3 mg capsule 3 mg PO DAILY 08/17/22 12/21/22 12/22/22 07:00 History naproxen 250 mg tablet 250 mg PO BID PRN Pain 08/17/22 12/21/22 Unknown History pantoprazole 40 mg granules 40 mg PO BID 08/17/22 12/21/22 12/22/22 07:00 History delayed-release for susp in packet (Protonix) polyethylene glycol 3350 17 gram 17 g PO DAILY PRN constipation #14 10/28/22 12/21/22 12/19/22 Rx oral powder packet (Miralax) ea acetaminophen-pamabrom 500 mg-25 1 tab PO Q6H PRN Cramps 11/16/22 12/21/22 12/19/22 History mg tablet (Midol) hydrocortisone 1 % topical cream 1 applic topical TID PRN 11/16/22 12/21/22 Unknown History (Anti-Itch (hydrocortisone)) Hemorrhoids neomycin-bacitracn Zn-polymyx 3.5 1 applic topical DAILY PRN Rash 11/16/22 12/21/22 Unknown History mg-400 unit-5,000 unit/gram top oint (Neosporin (rpo-zjk-hbkxq)) norethindrone 1 mg-ethinyl 1 tab PO DAILY 11/16/22 12/21/22 12/20/22 History estradiol 20 mcg (24)-iron 75 mg (4) tablet (Blisovi 24 Fe) quetiapine 25 mg tablet 12.5 mg PO .q day 12:30-1PM #15 11/17/22 12/21/22 12/20/22 Rx tabs brivaracetam 50 mg tablet 100 mg PO BID #60 tabs 11/22/22 12/21/22 12/22/22 07:00 Rx (Briviact) lorazepam 1 mg tablet See Rx Instructions .Route 11/23/22 12/21/22 12/22/22 07:00 Rx .COMPLEX anxiety #45 tabs quetiapine 400 mg tablet,extended 800 mg PO BID 30 days #120 tabs 11/23/22 12/21/22 12/22/22 07:00 Rx release 24 hr (Seroquel XR) linaclotide 145 mcg capsule 145 mcg PO DAILY #30 caps 11/24/22 12/21/22 12/22/22 07:00 Rx (Linzess) ondansetron HCl 4 mg tablet 4 mg PO Q6H PRN nausea 11/24/22 12/21/22 Unknown History zonisamide 100 mg capsule See Rx Instructions .Route 12/07/22 12/21/22 12/22/22 07:00 Rx .COMPLEX #150 caps lorazepam 2 mg/mL oral concentrate See Rx Instructions .Route 12/14/22 12/21/22 Unknown Rx .COMPLEX #30 mL benztropine 1 mg tablet 1 mg PO BID 12/21/22 12/21/22 12/21/22 History paliperidone 6 mg tablet,extended 12 mg PO DAILY psychosis, agitation 12/21/22 12/21/22 12/22/22 07:00 History release 24 hr (Invega) propranolol 10 mg tablet 10 mg PO DAILY 06/12/21/22 12/22/22 07:00 History Allergies Allergy/AdvReac Type Severity Reaction Status Date / Time clozapine Allergy Unknown Verified 12/22/22 07:48 divalproex sodium Allergy Unresponsiv Verified 12/22/22 07:48 [From Depakote] e escitalopram [From Lexapro] Allergy ALGY-Swell Verified 12/22/22 07:48 Lip/Tongue/Throat lamotrigine [From Lamictal] Allergy Unknown Verified 12/22/22 07:48 lithium Allergy Unknown Verified 12/22/22 07:48 Penicillins Allergy Unknown Verified 12/22/22 07:48 topiramate [From Topamax] Allergy Unknown Verified 12/22/22 07:48 peanuts AdvReac Mild ADR-Abdominal Uncoded 12/22/22 07:48 Pain Current Medications Generic Name Dose Route Start Last Admin Trade Name Freq PRN Reason Stop Dose Admin Sodium Chloride 1,000 mls @ 30 mls/hr 12/22/22 07:45 12/22/22 07:58 Sodium Chloride 0.9% IV 12/23/22 07:44 30 mls/hr .Q24H SARAH Administration PFSH Anesthesia Medical History Bipolar disorder Constipation, chronic Hyperlipidemia Intellectual disability Seizures Tachycardia Surgical History H/O eye surgery History of colonoscopy Status post laparoscopic cholecystectomy (08/13/21) Status post placement of VNS (vagus nerve stimulation) device Social History Smoking and tobacco status: current every day smoker cigarettes and e- cigarettes E-Cigarette Details: e-cigarette and with nicotine Quit status (tobacco): has quit using tobacco Second hand smoke exposure: Yes Data Anesthesia Cardiac Studies: Echocardiogram Ultrasound 07/02/20 Holter Monitor 06/16/20
[2022-12-22 09:29] LABS: OR HCG Qualitative Urine Negative (Negative)
--- NOTE | 2022-12-22 09:30 | W.PM.OPSUD ---
Surgery/Procedure H&P Update DATE OF PROCEDURE: December 22, 2022 DATE H&P PERFORMED: 11/24/22 H&P UPDATE INFORMATION: I have reviewed H&P completed within last 30 days, I have examined patient prior to procedure and No changes to prior documentation PREOP DIAGNOSIS: Constipation, GERD PLANNED PROCEDURE: Operation Date: 12/22/22 09:00 Proposed Procedures p [id number] egd [id number] colon K59.09, Z80.0,K21.9(Not Applicable) - DO cali Knapp Colonoscopy(Not Applicable) - Anthony Soto DO
[2022-12-22 10:36] VITALS: BP 110/85; PULSE 82; RESP 16; TEMP 36.2; O2SAT 96
[2022-12-22 11:00] VITALS: BP 130/97; PULSE 95; RESP 18; O2SAT 96
--- NOTE | 2022-12-22 14:00 | ANE.PACU2 ---
Inpatient post-anesthesia follow up: Airway intact: Yes Vital signs: Temperature 97.1 F Pulse Rate 95 Respiratory Rate 18 Blood Pressure 130/97 Pulse Oximetry 96 Oxygen Delivery Me thod Room Air Oxygen Flow Rate 4 Fraction of Inspir ed Oxygen Hydration adequate: Yes Nausea and vomiting: No Pain level: 2 Mental status: Baseline
== END 2022-12-22 11:38 | disposition home or self-care (01) ==
PROVIDERS: Anesthesiology; PCP Nurse Practitioner Family; Visit Provider Surgery
PROC: 0DJ08ZZ Inspection of Upper Intestinal Tract, Via Natural or Artificial Opening Endoscopic (ICD-10-PCS; CPT 43235; principal; 2022-12-22 09:00)
PROC: 0DJD8ZZ Inspection of Lower Intestinal Tract, Via Natural or Artificial Opening Endoscopic (ICD-10-PCS; CPT 45378; 2022-12-22 09:00)
DX: K59.09 Other constipation (principal); K29.70 Gastritis, unspecified, without bleeding; K31.819 Angiodysplasia of stomach and duodenum without bleeding; K21.9 Gastro-esophageal reflux disease without esophagitis; E78.5 Hyperlipidemia, unspecified; R56.9 Unspecified convulsions; Z87.891 Personal history of nicotine dependence; Z88.0 Allergy status to penicillin; Z80.0 Family history of malignant neoplasm of digestive organs
CPT/HCPCS: 43239; 45378; 81025; 84703; 88305; J2704; J7030

== ENCOUNTER 2023-01-15 20:38 | Inpatient (IN) | payer MEDICARE, MEDICAID, SELFPAY ==
[2023-01-15 20:57] VITALS: BP 117/80; PULSE 111; RESP 16; TEMP 36.7; O2SAT 97; BMI 29.4
[2023-01-15 21:46] LABS: Basophils % 0.6 %; Eosinophils # 0.1 10^3/uL (0.0-0.8); Eosinophils % 1.3 %; Hemoglobin 12.4 g/dL (11.5-15.3); Lymphocytes # 2.8 10^3/uL (0.8-4.8); Lymphocytes % 40.5 %; Mean Corpuscular HGB Conc 32.6 g/dL (30.0-36.0); Mean Corpuscular Hemoglobin 30.2 pg (28.0-34.0); Mean Corpuscular Volume 92.5 fl (81-99); Mean Platelet Volume 11.5 fL (7.4-10.4); Monocytes # 0.6 10^3/uL (0.2-0.9); Monocytes % 8.8 %; Neutrophils # 3.29 10^3/uL (1.8-7.7); Neutrophils % 48.4 %; Nucleated Red Blood Cells % 0 %; Platelet Count 223 10^3/cmm (130-400); Red Blood Count 4.11 10^6/uL (4.1-5.3); Red Cell Distribution Width 12.7 % (12.1-15.1); White Blood Count 6.8 10^3/uL (4.0-10.0)
[2023-01-15 22:05] LABS: Bilirubin Urine Neg (Negative); Blood Urine 3+ (Negative); Glucose Urine UA Norm (Normal); Ketones Urine Negative (Negative); Leukocyte Esterase Urine Trace (Negative); Nitrate Urine Negative (Negative); Protein Urine Trace (Negative); Urine Appearance Hazy (CLEAR); Urine Color Yellow (Yellow); Urobilinogen Urine Norm (Negative); pH Urine 5 (5-7)
[2023-01-15 22:06] LABS: Add Urine Microscopic? YES; Amphetamines Screen Urine Negative (Negative); Barbiturates Screen Urine Negative (Negative); Benzodiazepines Screen Urine Positive (Negative); Cocaine Screen Urine Negative (Negative); Opiate Screen Urine Negative (Negative); PCP Screen Urine Negative (Negative); THC Screen Urine Negative (Negative)
[2023-01-15 22:07] LABS: Bacteria Urine 1+ /hpf; RBC Urine 0-4 /hpf (0-2); WBC Urine 0-4 /hpf (0-5)
[2023-01-15 22:13] LABS: Alanine Aminotransferase 20 U/L (0-33); Alkaline Phosphatase 104 U/L (35-105); Anion Gap 13.9 (5-19); Aspartate Amino Transferase 20 U/L (0-32); Blood Urea Nitrogen 7 mg/dL (6-20); Calcium 9.3 mg/dL (8.5-10.5); Carbon Dioxide 23 mmol/L (22-29); Chloride 108 mmol/L (98-107); Globulin 2.5 g/dL (1.3-4.6); Glomerular Filtration Rate 89.7 mL/min (90-130); Glucose 91 mg/dL (65-115); Osmolality Calculated 290 mOsm/kg (285-295); Potassium 3.9 mmol/L (3.5-5.1); Sodium 141 mmol/L (136-145); Total Bilirubin 0.2 mg/dL (0.15-1.2); Total Protein 6.5 g/dL (6.6-8.7)
[2023-01-15 22:17] LABS: Acetaminophen < 5.0 ug/mL (10-30); Alcohol Level < 10 mg/dL (0-10); Salicylate < 0.3 mg/dL (3-10)
--- NOTE | 2023-01-15 22:34 | W.ED.PSYCHS ---
HPI - Psych General: Chief Complaint: Psychiatric Symptoms Stated Complaint: MHE Time Seen by Provider: 01/15/23 21:07 Source: patient History of Present Illness: 22 22-year-old female resident of an [facility]. She has a history of seizure disorder as well as bipolar disorder and depression. She presents with worsening depression over the last several days, complicated by domestic problems this afternoon when speaking with her mother. She is felt more down since that time, and told a staff member that she wanted to lay in the road and . She is seeking psychiatric treatment. She had an increase in her Seroquel dosage recently. This is the only other medication change. No recent illnesses. MD complaint: suicidal ideation and feels depressed Onset (ago): day(s) Duration: constant and getting worse History of same: Yes Exacerbating factors: other Context: significant life stressor Associated psychiatric symptoms: depression and suicidal ideation Associated symptoms: Deny auditory hallucinations, visual hallucinations, delusions or homicidal ideation Treatments prior to arrival: none If self harm: admits thoughts of self harm Review of Systems Const: Denies: fever(s), chills or body aches Eyes: Denies: change in vision Card: Denies: chest pain or palpitations Resp: Denies: dyspnea, productive cough, non-productive cough or wheezing GI: Denies: abdominal pain, nausea, vomiting, diarrhea or hematochezia : Denies: difficulty voiding Skin/Breast: Denies: rash Neuro: Denies: headache(s), weakness in extremities, dizziness or confusion Psych: Denies: visual hallucinations, auditory hallucinations or homicidal ideation PFS ED PFSH: Medical History Bipolar disorder Constipation, chronic Hyperlipidemia Intellectual disability Seizures Tachycardia Surgical History H/O eye surgery History of colonoscopy Status post laparoscopic cholecystectomy (08/13/21) Status post placement of VNS (vagus nerve stimulation) device Social History Smoking and tobacco status: current every day smoker cigarettes and e-cigarettes E-Cigarette Details: e-cigarette and with nicotine Quit status (tobacco): has quit using tobacco Second hand smoke exposure: Yes Female Reproductive History: Date of last menstrual period: 01/13/23 Physical Exam Const: COMMON NORMALS: no acute distress GENERAL APPEARANCE: cooperative; not ill appearing and not frail appearing HENMT: COMMON NORMALS: normocephalic, atraumatic and Normal external nose present HEAD & SCALP: normocephalic and atraumatic FACE & SINUS: normal facial exam and face symmetric NOSE: Normal external nose present Eye: COMMON NORMALS: Equal, round and reactive pupils present and EOMs intact bilaterally PUPIL: Yes Equal, round and reactive pupils present Neck/C-Spine: GENERAL: Yes trachea midline Chest: CHEST: Yes Symmetrical chest wall rise Resp: COMMON NORMALS: normal respiratory effort, No retractions, No use of accessory muscles and clear to auscultation bilaterally AUSCULTATION: clear to auscultation bilaterally Cardio: COMMON NORMALS: regular rate and regular rhythm RATE: regular rate RHYTHM: regular rhythm GI: COMMON NORMALS: Normal to inspection, nondistended, normoactive bowel sounds present Extremity: COMMON NORMALS: no pedal edema Neuro: MARIE COMA SCALE: document GCS findings Sieper coma scale eye opening: Spontaneous Sieper coma scale verbal response: Orientated Marie coma scale motor response: Obey commands Sieper coma scale total score: 15 SENSORY EXAM: Yes extremities (intact) Psych: COMMON NORMALS: speech normal SPEECH: Yes normal speech THOUGHT CONTENT: No delusions Skin: COMMON NORMALS: no rashes or lesions noted GENERAL SKIN EXAM: no rashes or lesions noted Course Vital Signs: Vital signs: Vital Signs Temperature 98.4 F 01/16/23 00:43 Pulse Rate 114 H 01/16/23 00:43 Respiratory Rate 18 01/16/23 00:43 Blood Pressure 117/78 01/16/23 00:43 Pulse Oximetry 93 01/16/23 00:43 Oxygen Delivery Me thod Room Air 01/16/23 00:43 MDM - Psych Medical Decision Making Have been trying to contact psychiatry for admission we have not received word back yet. Patient remains medically stable. She does wish to be admitted for evaluation and management. I agree given the severity of her symptoms. Laboratory is essentially normal. Lab Data 01/15/23 21:38 01/15/23 21:38 Laboratory Results WBC 6.8 10^3/uL (4.0-10.0) 01/15/23 21:38 RBC 4.11 10^6/uL (4.1-5.3) 01/15/23 21:38 Hgb 12.4 g/dL (11.5-15.3) 01/15/23 21:38 Hct 38.0 % (37.0-47.0) 01/15/23 21:38 MCV 92.5 fl (81-99) 01/15/23 21:38 MCH 30.2 pg (28.0-34.0) 01/15/23 21:38 MCHC 32.6 g/dL (30.0-36.0) 01/15/23 21:38 RDW 12.7 % (12.1-15.1) 01/15/23 21:38 Plt Count 223 10^3/cmm (130-400) 01/15/23 21:38 MPV 11.5 fL (7.4-10.4) H 01/15/23 21:38 Neut % (Auto) 48.4 % 01/15/23 21:38 Lymph % (Auto) 40.5 % 01/15/23 21:38 [place] % (Auto) 8.8 % 01/15/23 21:38 Eos % (Auto) 1.3 % 01/15/23 21:38 Baso % (Auto) 0.6 % 01/15/23 21:38 Neut # (Auto) 3.29 10^3/uL (1.8-7.7) 01/15/23 21:38 Lymph # (Auto) 2.8 10^3/uL (0.8-4.8) 01/15/23 21:38 [place] # (Auto) 0.6 10^3/uL (0.2-0.9) 01/15/23 21:38 Eos # (Auto) 0.1 10^3/uL (0.0-0.8) 01/15/23 21:38 Baso # (Auto) 0.0 10^3/uL (0.0-0.1) 01/15/23 21: Nucleated RBC % (auto) 0 % 01/15/23 21: Nucleated RBCs # 0.0 /100WBC 01/15/23 21:38 Sodium 141 mmol/L (136-145) 01/15/23 21:38 Potassium 3.9 mmol/L (3.5-5.1) 01/15/23 21:38 Chloride 108 mmol/L (98-107) H 01/15/23 21:38 Carbon Dioxide 23 mmol/L (22-29) 01/15/23 21:38 Anion Gap 13.9 (5-19) 01/15/23 21:38 BUN 7 mg/dL (6-20) 01/15/23 21:38 Creatinine 0.8 mg/dL (0.5-0.9) 01/15/23 21:38 GFR Calculation 89.7 mL/min (90-130) L 01/15/23 21:38 Glucose 91 mg/dL (65-115) 01/15/23 21:38 Calculated Osmolality 290 mOsm/kg (285-295) 01/15/23 21:38 Calcium 9.3 mg/dL (8.5-10.5) 01/15/23 21:38 Total Bilirubin 0.2 mg/dL (0.15-1.2) 01/15/23 21:38 AST 20 U/L (0-32) 01/15/23 21:38 ALT 20 U/L (0-33) 01/15/23 21:38 Alkaline Phosphatase 104 U/L (35-105) 01/15/23 21:38 Total Protein 6.5 g/dL (6.6-8.7) L 01/15/23 21:38 Albumin 4.0 g/dL (3.5-5.2) 01/15/23 21:38 Globulin 2.5 g/dL (1.3-4.6) 01/15/23 21:38 Urine Color Yellow (Yellow) 01/15/23 19:25 Urine Appearance Hazy (CLEAR) A 01/15/23 19:25 Urine pH 5 (5-7) 01/15/23 19:25 Ur Specific [place] 1.010 (1.005-1.030) 01/15/23 19:25 Urine Protein Trace (Negative) 01/15/23 19:25 Urine Glucose (UA) Norm (Normal) 01/15/23 19:25 Urine Ketones Negative (Negative) 01/15/23 19:25 Urine Blood 3+ (Negative) H 01/15/23 19:25 Urine Nitrate Negative (Negative) 01/15/23 19: Urine Bilirubin Neg (Negative) 01/15/23 19:25 Urine Urobilinogen Norm mg/dL (Negative) 01/15/23 19:25 Ur Leukocyte Esterase Trace (Negative) H 01/15/23 19:25 Urine RBC 0-4 /hpf (0-2) H 01/15/23 19:25 Urine WBC 0-4 /hpf (0-5) H 01/15/23 19:25 Ur Squamous Epith Cells 5-10 /hpf (0-5) H 01/15/23 19:25 Amorphous Sediment Not Reportable 01/15/23 19:25 Urine Bacteria 1+ /hpf (NONE) H 01/15/23 19:25 Salicylates < 0.3 mg/dL (3-10) L 01/15/23 21:38 Urine Opiates Screen Negative ng/mL (Negative) 01/15/23 19:25 Acetaminophen < 5.0 ug/mL (10-30) L 01/15/23 21:38 Ur Barbiturates Screen Negative ng/mL (Negative) 01/15/23 19:25 Ur Phencyclidine Scrn Negative ng/mL (Negative) 01/15/23 19:25 Ur Amphetamines Screen Negative ng/mL (Negative) 01/15/23 19:25 U Benzodiazepines Scrn Positive ng/mL (Negative) H 01/15/23 19:25 Urine Cocaine Screen Negative ng/mL (Negative) 01/15/23 19:25 U Marijuana (THC) Screen Negative ng/mL (Negative) 01/15/23 19:25 Ethyl Alcohol < 10 mg/dL (0-10) 01/15/23 21:38 Discharge Plan Discharge Patient Disposition: Admitted As Inpatient Admit Provider: Gen Barrios Clinical Impression: Suicidal ideation Condition: Stable Coding Level of Care Code ED Ward[employer] Specialist for Jacqueline Meyer
[2023-01-16 00:43] VITALS: BP 117/78; PULSE 114; RESP 18; TEMP 36.9; O2SAT 93
[2023-01-16 06:00] VITALS: BP 112/78; PULSE 103; RESP 16; TEMP 36.6; O2SAT 99
[2023-01-16] MEDS: acetaminophen 325 mg Tablet 650 MG PO (06:56)
[2023-01-16] MEDS: prenatal vitamin Capsule 1 CAP PO (09:02)
[2023-01-16] MEDS: metoprolol succinate ER (24 HR) 25 mg Tablet PO (09:02)
[2023-01-16] MEDS: ferrous sulfate EC 325 mg Tablet PO (09:02)
[2023-01-16] MEDS: cyanocobalamin 1,000 mcg Tablet 1000 MCG PO (09:02)
[2023-01-16] MEDS: benztropine 1 mg Tablet PO ×2 (09:02→18:14)
[2023-01-16] MEDS: paliperidone ER 6 mg Tablet 12 MG PO (09:02)
[2023-01-16] MEDS: zonisamide 100 MG Capsule 200 MG PO (09:02)
[2023-01-16] MEDS: quetiapine XR (24HR) 50 mg Tablet 200 MG PO ×2 (09:03→18:14)
[2023-01-16] MEDS: quetiapine XR (24HR) 300 mg Tablet 600 MG PO ×2 (09:03→18:14)
[2023-01-16] MEDS: fluticasone nasal spray 16gm Btl 1 SPRAY INTRANASAL ×2 (09:05→18:13)
[2023-01-16] MEDS: nicotine 2 mg Gum BUCCAL ×4 (09:18→20:10)
[2023-01-16] MEDS: NON-FORMULARY MEDICATION (Linaclotide [Linzess] 145 MCG) 145 EACH PO (11:06)
[2023-01-16] MEDS: quetiapine 25 mg Tablet PO (12:55)
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
[2023-01-16 14:00] VITALS: BP 75/52; PULSE 91; RESP 16; TEMP 36.6; O2SAT 98
[2023-01-16 14:44] VITALS: BP 82/51; PULSE 79; O2SAT 98
[2023-01-16 14:55] VITALS: BP 108/62
--- NOTE | 2023-01-16 14:55 | PC.NURSE ---
PT BLOOD PRESSURE TAKEN WITH MACHINE WAS LOW. TAKEN MANUALLY IT WAS 108/62. PT STATES THAT SHE IS FEELING OKAY. WILL CONTINUE TO MONITOR.
[2023-01-16] MEDS: hyDROXYzine 25 mg Capsule 50 MG PO (16:44)
[2023-01-16] MEDS: zonisamide 100 MG Capsule 300 MG PO (18:15)
[2023-01-16] MEDS: LORazepam 1 mg Tablet PO (20:10)
[2023-01-16] MEDS: atorvastatin 40 mg Tablet PO (20:10)
[2023-01-16] MEDS: trazodone 50 mg Tablet PO (20:14)
[2023-01-16 20:24] VITALS: BP 100/66; PULSE 101; RESP 17; TEMP 37; O2SAT 95
[2023-01-17 06:00] VITALS: BP 102/69; PULSE 80; RESP 16; O2SAT 94
[2023-01-17] MEDS: fluticasone nasal spray 16gm Btl 1 SPRAY INTRANASAL ×2 (08:39→18:23)
[2023-01-17] MEDS: ferrous sulfate EC 325 mg Tablet PO (08:40)
[2023-01-17] MEDS: quetiapine XR (24HR) 300 mg Tablet 600 MG PO ×2 (08:40→18:24)
[2023-01-17] MEDS: prenatal vitamin Capsule 1 CAP PO (08:40)
[2023-01-17] MEDS: metoprolol succinate ER (24 HR) 25 mg Tablet PO (08:40)
[2023-01-17] MEDS: quetiapine XR (24HR) 50 mg Tablet 200 MG PO ×2 (08:41→18:24)
[2023-01-17] MEDS: zonisamide 100 MG Capsule 200 MG PO (08:41)
[2023-01-17] MEDS: benztropine 1 mg Tablet PO ×2 (08:41→18:24)
[2023-01-17] MEDS: paliperidone ER 6 mg Tablet 12 MG PO (08:41)
[2023-01-17] MEDS: cyanocobalamin 1,000 mcg Tablet 1000 MCG PO (08:41)
[2023-01-17] MEDS: NON-FORMULARY MEDICATION (Linaclotide [Linzess] 145 MCG) 145 EACH PO (08:42)
[2023-01-17] MEDS: hyDROXYzine 25 mg Capsule 50 MG PO ×2 (08:45→18:36)
--- NOTE | 2023-01-17 08:46 | PC.NURSE ---
PRN VISTARIL 50 MG GIVEN PO PER PT C/O STATED ANXIETY
[2023-01-17] MEDS: nicotine 2 mg Gum BUCCAL (11:02)
[2023-01-17] MEDS: quetiapine 25 mg Tablet PO (12:17)
[2023-01-17 14:00] VITALS: BP 90/63; PULSE 105; RESP 16; TEMP 36.6; O2SAT 98
--- NOTE | 2023-01-17 17:39 | P.NPUPN_ITS ---
Subjective NPU Subjective: Patient presented today reporting that she is feeling a bit better. She reports that she has been taking the Vistaril as needed and that that has helped quite a bit. We discussed that Vistaril is in the treatment for psychosis and she acknowledges that maybe she is dealing with anxiety and stress at the [facility] in the anxiolytic properties of the Vistaril are really helping. She began asking about when she might be able to be discharged and we discussed that we would want to have identification of significant lessening of her voices and hallucinations. And we will work with her guardian about discharge. Mental Status Exam MSE Comments: This is an overweight, white female, lives with limited grooming, and eye contact. Her hair is somewhat disheveled but cooperative with exam in mild distress. Speech was slightly decreased prosody and rate and volume. Mood described as a little better, affect much less irritable. Thought process, organized. Thought content: patient denied any suicidal or homicidal ideation, there were no delusions reported or noted, patient endorsed auditory and visual hallucinations. Attention and concentration appear intact, and memory appears unreliable but likely intentionally so but none were formally tested. She is alert and oriented times three. Insight and judgment are impaired. Impulse control is limited, and intellectual ability appears limited versus impaired. Vitals/I&O/Wt Last Vital Signs Temp 98.2 F 01/17/23 19:48 Pulse 86 01/17/23 19:48 Resp 17 01/17/23 19:48 BP 104/74 01/17/23 19:48 Pulse Ox 98 01/17/23 19:48 O2 Del Method Room Air 01/17/23 19:48 Weight last 48 hrs Weight 75.296 kg Data NPU 01/15/23 21:38 01/15/23 21:38 A&P Assessment and plan (1) Suicidal ideation: (2) GERD (gastroesophageal reflux disease): (3) Family history of colon cancer: (4) Status post VNS (vagus nerve stimulator) placement: (5) Pain of right thumb: (6) Left knee pain: (7) Status post laparoscopic cholecystectomy: (8) Chronic cholecystitis: (9) Acute sinusitis: (10) Generalized epilepsy: (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: (12) Intellectual disability: (13) Bipolar disorder: (14) Generalized anxiety disorder: (15) Oppositional defiant behavior: (16) Unspecified personality disorder: Plan This is a 22 year old, white female, with a history of personality disorder, obsessive compulsive disorder, generalized anxiety disorder, mood dysregulation which has been questioned about whether that is in the bipolar spectrum or in the Cluster B spectrum, and intellectual disability, mild, versus borderline intellectual functioning, who presents after having some conflicts at her [facility] and wanting to not live there anymore reporting auditory and visual cristy lucinations seeing a person called Dick and wondering if this is not a sign of her schizophrenia. 1. Continue current medication. 2. Continue every 15 minute checks for safety. 3. Encourage individual, group and milieu therapies. 4. Patient with likely personality disorder mixed with her intellectual disability with limited thoughts at this Dick represents adin auditory visual hallucinations but represents her best attempt at dealing with the stress of not wanting to be at her [facility]. 5. We will monitor and consider medication changes likely discharge as quickly as is safely possible. Likely discharge in the next 48 hours. Involuntary Hold Information 96 Hour Hold: 96 Hour Involuntary Admission: No Attestations NPU Medical Necessity Statement*: Inpatient hospitalization is medically necessary, and the clinically appropriate intervention at this time. We will monitor medications and make adjustments as indicated. She displays significant Cluster B pathology, we will work with guardian for a quick discharge given the limited efficacy of long inpatient stays for Cluster B patients. Likely length of stay 1-3 days. 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
[2023-01-17] MEDS: zonisamide 100 MG Capsule 300 MG PO (18:24)
--- NOTE | 2023-01-17 18:37 | PC.NURSE ---
PRN VISTARIL 50 MG GIVEN PO PER PT C/O STATED ANXIETY
[2023-01-17] MEDS: atorvastatin 40 mg Tablet PO (19:31)
[2023-01-17] MEDS: LORazepam 1 mg Tablet PO (19:31)
[2023-01-17 19:48] VITALS: BP 104/74; PULSE 86; RESP 17; TEMP 36.8; O2SAT 98
[2023-01-18 06:00] VITALS: BP 92/61; PULSE 81; RESP 16; O2SAT 97
[2023-01-18] MEDS: metoprolol succinate ER (24 HR) 25 mg Tablet PO (08:41)
[2023-01-18] MEDS: prenatal vitamin Capsule 1 CAP PO (08:42)
[2023-01-18] MEDS: cyanocobalamin 1,000 mcg Tablet 1000 MCG PO (08:42)
[2023-01-18] MEDS: quetiapine XR (24HR) 300 mg Tablet 600 MG PO (08:42)
[2023-01-18] MEDS: paliperidone ER 6 mg Tablet 12 MG PO (08:42)
[2023-01-18] MEDS: quetiapine XR (24HR) 50 mg Tablet 200 MG PO (08:42)
[2023-01-18] MEDS: zonisamide 100 MG Capsule 200 MG PO (08:42)
[2023-01-18] MEDS: benztropine 1 mg Tablet PO (08:42)
[2023-01-18] MEDS: ferrous sulfate EC 325 mg Tablet PO (08:42)
[2023-01-18] MEDS: NON-FORMULARY MEDICATION (Linaclotide [Linzess] 145 MCG) 145 EACH PO (08:43)
[2023-01-18] MEDS: fluticasone nasal spray 16gm Btl 1 SPRAY INTRANASAL (08:44)
--- NOTE | 2023-01-18 12:40 | P.NPUDS_ITS ---
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 manager/social workers/dc planners, documenting/other paperwork and evaluating patient/reviewing data Coding Level of Care Code Acute Chg FW DC note Diagnoses Suicidal ideation R45.463 GERD (gastroesophageal reflux disease) K21.9 Family history of colon cancer Z80.0 Status post VNS (vagus nerve stimulator) placement Z96.89 Pain of right thumb M79.644 Left knee pain M25.562 Status post laparoscopic cholecystectomy Z90.49 Chronic cholecystitis K81.1 Acute sinusitis J01.90 Generalized epilepsy G40.309 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
[2023-01-18] MEDS: quetiapine 25 mg Tablet PO (12:41)
[2023-01-18 12:47] VITALS: BP 92/61; PULSE 81; RESP 16; O2SAT 97
--- NOTE | 2023-01-18 14:00 | PC.SOCIAL ---
IMM completed with [facility] staff and was given a copy of rights.
== END 2023-01-18 14:01 | disposition home or self-care (01) | DRG 885 ==
LOC: ER 22:34 → NP 01-16 00:25
PROVIDERS: Admitting Provider Psychiatry & Neurology Psychiatry; Emergency Provider Emergency Medicine; PCP Electrodiagnostic Medicine; Visit Provider Psychiatry & Neurology Psychiatry
DX: F31.9 Bipolar disorder, unspecified (principal); R45.851 Suicidal ideations; F60.9 Personality disorder, unspecified; F42.9 Obsessive-compulsive disorder, unspecified; F41.1 Generalized anxiety disorder; F79 Unspecified intellectual disabilities; F17.210 Nicotine dependence, cigarettes, uncomplicated
CPT/HCPCS: 36415; 80053; 80306; 80307; 81001; 85025; 97150; 97165; 99238; 99285

== ENCOUNTER → 2023-02-08 10:00 | Outpatient (BNVA) | payer MEDICARE, MEDICAID, SELFPAY | PROVIDERS: PCP Nurse Practitioner Family; Visit Provider Specialist | DX: G40.309 Generalized idiopathic epilepsy and epileptic syndromes, not intractable, without status epilepticus (principal); G40.209 Localization-related (focal) (partial) symptomatic epilepsy and epileptic syndromes with complex partial seizures, not intractable, without status epilepticus; F91.3 Oppositional defiant disorder; F79 Unspecified intellectual disabilities; Z96.82 Presence of neurostimulator | CPT/HCPCS: 95970; 99214 ==

== ENCOUNTER → 2023-02-09 15:33 | Outpatient (BNVA) | payer MEDICARE, MEDICAID, SELFPAY | PROVIDERS: PCP Nurse Practitioner Family; Visit Provider Surgery | DX: Z09 Encounter for follow-up examination after completed treatment for conditions other than malignant neoplasm (principal) | CPT/HCPCS: 99213 ==

== ENCOUNTER 2023-02-27 14:02 | Emergency (ER) | payer MEDICARE, MEDICAID, SELFPAY ==
[2023-02-27 14:20] VITALS: BP 117/79; PULSE 121; RESP 18; TEMP 36.7; O2SAT 98; BMI 29.5
--- NOTE | 2023-02-27 15:28 | XRR_ITS ---
PROCEDURE INFORMATION: Exam: XR Chest Exam date and time: 02/27/2023 4:05 PM Age: 23 years old Clinical indication: Shortness of breath TECHNIQUE: Imaging protocol: Radiologic exam of the chest. Views: 1 view. COMPARISON: CR XR chest 1V portable [id number] 07/21/2021 8:05 PM FINDINGS: Tubes, catheters and devices: Vagal nerve stimulator device again noted. Lungs: Unremarkable. No consolidation. Pleural spaces: Unremarkable. No pleural effusion. No pneumothorax. Heart/Mediastinum: Unremarkable. No cardiomegaly. Bones/joints: Unremarkable. XR/XR chest 1V portable [id number] IMPRESSION: No acute findings.
[2023-02-27 15:42] LABS: Basophils % 0.5 %; Eosinophils # 0.1 10^3/uL (0.0-0.8); Eosinophils % 1.2 %; Lymphocytes # 2.3 10^3/uL (0.8-4.8); Lymphocytes % 30.5 %; Mean Corpuscular HGB Conc 33.3 g/dL (30-55); Mean Corpuscular Hemoglobin 30.6 pg (27-33); Mean Corpuscular Volume 91.8 fl (85-98); Mean Platelet Volume 11.5 fL (7.4-10.4); Monocytes # 0.7 10^3/uL (0.2-0.9); Monocytes % 8.9 %; Neutrophils # 4.42 10^3/uL (1.8-7.7); Neutrophils % 58.5 %; Nucleated Red Blood Cells % 0 %; Platelet Count 274 10^3/cmm (157-399); Red Blood Count 4.25 10^6/uL (3.85-5.65); White Blood Count 7.55 10^3/uL (3.29-11.43)
--- NOTE | 2023-02-27 15:55 | ED_ITS ---
HPI - Skin/Abscess/Foreign Bdy General: Chief complaint: Skin/Abscess/Foreign Body Stated complaint: rash on chest, blister in mouth Time Seen by Provider: 02/27/23 15:11 History of Present Illness: Patient presents to the ER with complaints of a rash on her foot, blister in her mouth, and a rash on her feet. 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 Patient's been very alarmed if she has any type of rash. Patient came to the ER to have it checked out. Patient also states for the last couple days she been getting very short of breath with any type of exertion. Review of Systems General: Reports: 10 or more systems reviewed and unremarkable except in HPI and below PFSH ED PFSH: Medical History Bipolar disorder Constipation, chronic Hyperlipidemia Intellectual disability Seizures Tachycardia Surgical History H/O eye surgery History of colonoscopy Status post laparoscopic cholecystectomy (08/13/21) Status post placement of VNS (vagus nerve stimulation) device Social History Smoking and tobacco status: current every day smoker cigarettes and e- cigarettes E-Cigarette Details: e-cigarette and with nicotine Quit status (tobacco): has quit using tobacco Second hand smoke exposure: Yes Female Reproductive History: Date of last menstrual period: 02/09/23 Physical Exam Const: COMMON NORMALS: no acute distress, average body habitus, patient oriented x3, no limitations, healthy appearing, alert and well nourished HENMT: COMMON NORMALS: normocephalic, atraumatic, hearing grossly normal bilaterally, external ears normal, Normal external nose present and moist oral mucous membranes HEAD & SCALP: normocephalic and atraumatic NOSE: Normal external nose present EXTERNAL EAR: Yes external ears normal Eye: COMMON NORMALS: Equal, round and reactive pupils present, EOMs intact bilaterally, conjunctivae normal and no scleral icterus CONJUNCTIVA: Yes conjunctivae normal PUPIL: Yes Equal, round and reactive pupils present Neck/C-Spine: COMMON NORMALS: full ROM, no lymphadenopathy, supple, no meningeal signs, no JVD and Thyroid normal THYROID: Thyroid normal Lymph: LYMPHATIC: no lymphadenopathy noted and no lymphedema noted Chest: COMMONS NORMALS: normal inspection of the chest and normal palpation of entire chest wall Resp: COMMON NORMALS: normal respiratory effort, No retractions, No use of accessory muscles and clear to auscultation bilaterally AUSCULTATION: clear to auscultation bilaterally Cardio: COMMON NORMALS: no JVD, regular rate, regular rhythm, S1 normal heart sound present, S2 normal heart sound present, No gallops present (Cardio), No clicks present (Cardio), No murmurs present (Cardio) and No rub (Cardio) RATE: regular rate RHYTHM: regular rhythm HEART SOUNDS: S1 normal heart sound present and S2 normal heart sound present GI: COMMON NORMALS: Normal to inspection, nondistended, normoactive bowel sounds present, Soft to palpation, non-tender, No hepatosplenomegaly present and no masses PALPATION: Yes Soft to palpation and Yes No hepatosplenomegaly present : COMMON NORMALS: Yes no CVA tenderness BLADDER/KIDNEY EXAM: Yes no CVA tenderness Back/Pelvis: COMMON NORMALS: no CVA tenderness Neuro: COMMON NORMALS: patient oriented x3 SENSORIUM/ORIENTATION: Yes alert MENINGEAL SIGNS: Yes no meningeal signs Skin: NARRATIVE SKIN EXAM: Normal amount of dry scaly skin with minimal redness on left breast and in between breast. Minimal irritation noted to lateral soles of feet. Minimal redness noted to left base of tongue. All of these are very minimal Course Vital Signs: Vital signs: Vital Signs Temperature 98.1 F 02/27/23 14:20 Pulse Rate 121 H 02/27/23 14:20 Respiratory Rate 18 02/27/23 14:20 Blood Pressure 117/79 02/27/23 14:20 Pulse Oximetry 98 02/27/23 14:20 Oxygen Delivery Me thod Room Air 02/27/23 14:20 MDM - Skin/Abscess/Foreign Bdy Medicial Decision Making Presents to the ER with a rash in between her breasts on her soles of her feet and a spot on left side of her tongue. Patient has had Lew-Arturo's in the past when she was exposed to a certain type of seizure medicine. This does not look like Lew-Arturo's at all this just looks like a regular nonspecific rash. She also complained of being short of breath. Lab work was obtained as well as chest x-ray all of which were benign. Patient be discharged home to follow-up with her PCP on an as-needed basis Differential Diagnosis Unlikely abscess of skin or subcutaneous tissue, viral exanthem, dermatophytosis, urticaria, herpes zoster, allergic reaction to drug, cellulitis, eczema, insect bites, impetigo or contact dermatitis Medical Records I reviewed the patient's medical records. Lab Data I reviewed the patient's lab results. 02/27/23 15:35 02/27/23 15:35 Radiology Impressions Chest X-Ray 02/27/23 15:28 IMPRESSION: No acute findings. Laboratory Results WBC 7.55 10^3/uL (3.29-11.43) 02/27/23 15:35 RBC 4.25 10^6/uL (3.85-5.65) 02/27/23 15:35 Hgb 13.00 g/dL (11.27-16.99) 02/27/23 15:35 Hct 39.0 % (36-47) 02/27/23 15:35 MCV 91.8 fl (85-98) 02/27/23 15:35 MCH 30.6 pg (27-33) 02/27/23 15:35 MCHC 33.3 g/dL (30-55) 02/27/23 15:35 RDW 12.0 % (12.1-15.1) L 02/27/23 15:35 Plt Count 274 10^3/cmm (157-399) 02/27/23 15:35 MPV 11.5 fL (7.4-10.4) H 02/27/23 15:35 Neut % (Auto) 58.5 % 02/27/23 15:35 Lymph % (Auto) 30.5 % 02/27/23 15:35 [place] % (Auto) 8.9 % 02/27/23 15:35 Eos % (Auto) 1.2 % 02/27/23 15:35 Baso % (Auto) 0.5 % 02/27/23 15:35 Neut # (Auto) 4.42 10^3/uL (1.8-7.7) 02/27/23 15:35 Lymph # (Auto) 2.3 10^3/uL (0.8-4.8) 02/27/23 15:35 [place] # (Auto) 0.7 10^3/uL (0.2-0.9) 02/27/23 15:35 Eos # (Auto) 0.1 10^3/uL (0.0-0.8) 02/27/23 15:35 Baso # (Auto) 0.0 10^3/uL (0.0-0.1) 02/27/23 15:35 Nucleated RBC % (auto) 0 % 02/27/23 15:35 Nucleated RBCs # 0.0 /100WBC 02/27/23 15:35 Sodium 141 mmol/L (136-145) 02/27/23 15:35 Potassium 3.5 mmol/L (3.5-5.1) 02/27/23 15:35 Chloride 110 mmol/L (98-107) H 02/27/23 15:35 Carbon Dioxide 20 mmol/L (22-29) L 02/27/23 15:35 Anion Gap 14.5 (5-19) 02/27/23 15:35 BUN 7 mg/dL (6-20) 02/27/23 15:35 Creatinine 0.7 mg/dL (0.5-0.9) 02/27/23 15:35 GFR Calculation 103.7 mL/min (90-130) 02/27/23 15:35 Glucose 87 mg/dL (65-115) 02/27/23 15:35 Calculated Osmolality 289 mOsm/kg (285-295) 02/27/23 15:35 Calcium 9.1 mg/dL (8.5-10.5) 02/27/23 15:35 Total Bilirubin 0.2 mg/dL (0.15-1.2) 02/27/23 15:35 AST 17 U/L (0-32) 02/27/23 15:35 ALT 16 U/L (0-33) 02/27/23 15:35 Alkaline Phosphatase 88 U/L (35-105) 02/27/23 15:35 C-Reactive Protein 3.0 mg/L (0.0-4.9) 02/27/23 15:35 Total Protein 6.6 g/dL (6.6-8.7) 02/27/23 15:35 Albumin 4.1 g/dL (3.5-5.2) 02/27/23 15:35 Globulin 2.5 g/dL (1.3-4.6) 02/27/23 15:35 Urine Color Yellow (Yellow) 02/27/23 15:47 Urine Appearance Hazy (CLEAR) A 02/27/23 15:47 Urine pH 6 (5-7) 02/27/23 15:47 Ur Specific [place] 1.010 (1.005-1.030) 02/27/23 15:47 Urine Protein Neg (Negative) 02/27/23 15:47 Urine Glucose (UA) Norm (Normal) 02/27/23 15:47 Urine Ketones Negative (Negative) 02/27/23 15:47 Urine Blood Neg (Negative) 02/27/23 15:47 Urine Nitrate Negative (Negative) 02/27/23 15:47 Urine Bilirubin Neg (Negative) 02/27/23 15:47 Urine Urobilinogen Norm mg/dL (Negative) 02/27/23 15:47 Ur Leukocyte Esterase Trace (Negative) H 02/27/23 15:47 Urine RBC None /hpf (0-2) 02/27/23 15:47 Urine WBC 5-10 /hpf (0-5) H 02/27/23 15:47 Ur Squamous Epith Cells 5-10 /hpf (0-5) H 02/27/23 15:47 Amorphous Sediment Not Reportable 02/27/23 15:47 Urine Bacteria 2+ /hpf (NONE) H 02/27/23 15:47 Discharge Plan Discharge Patient Disposition: Home Clinical Impression: Rash and nonspecific skin eruption, Exertional shortness of breath Condition: Stable Prescriptions: No Action acetaminophen [Tylenol] 325 mg capsule 650 mg PO QID PRN (Reason: fever or pain) calcium carbonate [Tums] 300 mg (750 mg) tablet,chewable 1,500 mg PO TID PRN (Reason: abdominal upset) bismuth subsalicylate [Pepto-Bismol] 262 mg tablet,chewable 1 tab PO DAILY PRN (Reason: adominal upset) Rx Instructions: do not exceed 16 tabs per 24 hrs diphenhydramine HCl [Benadryl] 25 mg capsule 25 mg PO Q6H PRN (Reason: allergies) pantoprazole [Protonix] 40 mg tablet,delayed release (DR/EC) 40 mg PO BID 42 Days Qty: 84 1RF prenat.vits,maxime,qit-jbcw-wtutt Tablet 1 tab PO DAILY naproxen 250 mg tablet 250 mg PO BID PRN (Reason: Pain) Hold Instructions: Resume on 12/24/22. lubiprostone 24 mcg capsule 24 mcg PO BID melatonin 3 mg capsule 3 mg PO BEDTIME mecobalamin (vitamin B12) 1,000 mcg tablet,chewable 1,000 mcg PO DAILY Midol 500-25 mg tablet 1 tab PO Q6H PRN (Reason: Cramps) Blisovi 24 Fe 1 mg-20 mcg (24)/75 mg (4) tablet 1 tab PO DAILY ondansetron HCl 4 mg tablet 4 mg PO Q6H PRN (Reason: nausea) propranolol 10 mg tablet 10 mg PO BID metoprolol succinate 25 mg tablet extended release 24 hr 25 mg PO DAILY Qty: 90 2RF Briviact 50 mg tablet 100 mg PO BID Qty: 60 5RF quetiapine [Seroquel XR] 400 mg tablet extended release 24 hr 800 mg PO BID 30 Days Qty: 120 3RF zonisamide 100 mg capsule See Rx Instructions .ROUTE .COMPLEX Qty: 150 3RF Dose Instruction: TAKE 2 CAPSULES BY MOUTH EVERY MORNING and THREE EVERY EVENING Rx Instructions: TAKE 2 CAPSULES BY MOUTH EVERY MORNING and THREE EVERY EVENING Linzess 145 mcg capsule 145 mcg PO DAILY Qty: 30 11RF quetiapine 25 mg tablet 25 mg PO .q day 12:30-1PM Qty: 30 3RF fluticasone propionate 50 mcg/actuation [place],Suspension 1 spray INTRANASAL BID Rx Instructions: INTSILL 1 SPRAY INTO EACH NOSTRIL BID atorvastatin 40 mg Tablet 40 mg PO BEDTIME ferrous sulfate [Iron (ferrous sulfate)] 325 mg (65 mg iron) Tablet 325 mg PO DAILY polyethylene glycol 3350 [Miralax] 17 gram powder in packet 17 g PO DAILY PRN (Reason: constipation) Qty: 14 0RF benztropine 1 mg tablet 1 mg PO BID Rx Instructions: TAKE ONE TABLET BY MOUTH TWICE DAILY paliperidone [Invega] 6 mg tablet extended release 24 hr 12 mg PO DAILY hydroxyzine pamoate 25 mg Capsule 50 mg PO Q6H PRN (Reason: Anxiety) 30 Days Qty: 120 1RF ibuprofen 200 mg Tablet 600 mg PO Q6H PRN (Reason: Pain) lorazepam 1 mg tablet See Rx Instructions .ROUTE .COMPLEX PRN (Reason: Agitation) Rx Instructions: take a-half tab po daily as needed and 1 whole tablet at bedtime lorazepam 2 mg/mL concentrate See Rx Instructions .ROUTE .COMPLEX PRN (Reason: Anxiety) Rx Instructions: 0.5 ML PO PRN daily Neosporin (ldt-lwu-tezvq) 3.5mg-400 unit- 5,000 unit/gram Ointment 1 applic TOPICAL BID PRN (Reason: Rash) hydrocortisone 1 % Ointment 1 applic TOPICAL TID PRN (Reason: Rash) Senokot-S 8.6-50 mg Tablet 2 tab-cap PO DAILY bisacodyl 10 mg Suppository 10 mg TN DAILY PRN (Reason: Constipation) Fleet Enema 19-7 gram/118 mL Enema See Rx Instructions .ROUTE .COMPLEX PRN (Reason: Constipation) Rx Instructions: 118 mL rectally as needed if no bowel movement in 3 days Icy Hot No Mess 16 % Liquid 1 ea TOPICAL BID PRN (Reason: Pain) [place] Cough Drops 7.5 mg Lozenge 7.5 mg MUCOUS MEMBRANE Q2H PRN (Reason: Cough) Discharge Orders: Discharge ED (Routine); Ordered 02/27/23 Ordered By: Nicolas Coffman Referrals: Judith Bermudez FNP [Primary Care Provider] - Patient Instructions: Opioid Safety, Pain Management Activity Restrictions/Additional Instructions: Please keep an eye on the rash. If it worsens please follow-up with your family practice doctor. Coding Level of Care Code ED Photographer Apprentice for Jacqueline Meyer
[2023-02-27 15:59] LABS: Alanine Aminotransferase 16 U/L (0-33); Albumin Level 4.1 g/dL (3.5-5.2); Alkaline Phosphatase 88 U/L (35-105); Anion Gap 14.5 (5-19); Aspartate Amino Transferase 17 U/L (0-32); Blood Urea Nitrogen 7 mg/dL (6-20); Calcium 9.1 mg/dL (8.5-10.5); Carbon Dioxide 20 mmol/L (22-29); Chloride 110 mmol/L (98-107); Globulin 2.5 g/dL (1.3-4.6); Glomerular Filtration Rate 103.7 mL/min (90-130); Glucose 87 mg/dL (65-115); Osmolality Calculated 289 mOsm/kg (285-295); Potassium 3.5 mmol/L (3.5-5.1); Sodium 141 mmol/L (136-145); Total Bilirubin 0.2 mg/dL (0.15-1.2); Total Protein 6.6 g/dL (6.6-8.7)
[2023-02-27 16:00] LABS: Blood Urine Neg (Negative); Glucose Urine UA Norm (Normal); Ketones Urine Negative (Negative); Nitrate Urine Negative (Negative); Protein Urine Neg (Negative); Urine Appearance Hazy (CLEAR); Urine Color Yellow (Yellow); pH Urine 6 (5-7)
[2023-02-27 16:01] LABS: Add Urine Culture? No; Add Urine Microscopic? YES; Bacteria Urine 2+ /hpf; Bilirubin Urine Neg (Negative); Leukocyte Esterase Urine Trace (Negative); Urobilinogen Urine Norm (Negative)
== END 2023-02-27 17:25 | disposition home or self-care (01) ==
PROVIDERS: Emergency Provider Emergency Medicine; PCP Nurse Practitioner Family
DX: R21 Rash and other nonspecific skin eruption (principal); R06.02 Shortness of breath; E78.5 Hyperlipidemia, unspecified; F17.290 Nicotine dependence, other tobacco product, uncomplicated
CPT/HCPCS: 36415; 71045; 80053; 81001; 85025; 86140; 99284

== ENCOUNTER 2023-05-05 18:57 | Emergency (ER) | payer MEDICARE, MEDICAID, SELFPAY ==
[2023-05-05 18:59] VITALS: BP 132/86; PULSE 108; RESP 14; TEMP 36.6; O2SAT 99; BMI 31.8
--- NOTE | 2023-05-05 19:22 | XRR_ITS ---
PROCEDURE INFORMATION: Exam: XR Chest Exam date and time: 05/05/2023 7:52 PM Age: 23 years old Clinical indication: Other: Eval placement; Additional info: Vns issues, hit vns - eval placement TECHNIQUE: Imaging protocol: Radiologic exam of the chest. Views: 1 view. COMPARISON: CR XR chest 1V portable [id number] 02/27/2023 4:05 PM FINDINGS: Tubes, catheters and devices: Left-sided vagus nerve stimulator again seen with leads in the region of the left lower neck, similar to prior exam. Lungs: Unremarkable. No consolidation. Pleural spaces: Unremarkable. No pleural effusion. No pneumothorax. Heart/Mediastinum: Unremarkable. No cardiomegaly. Bones/joints: Unremarkable. XR/XR chest 1V [id number] IMPRESSION: Left-sided vagus nerve stimulator again seen with leads in the region of the left lower neck, similar to prior exam.
[2023-05-05 22:11] VITALS: BP 128/84; PULSE 110; RESP 16; O2SAT 99
--- NOTE | 2023-05-05 22:22 | W.ED.GENADLT ---
HPI - General Adult General: Chief complaint: General Medical Stated complaint: Check VNS Time Seen by Provider: 05/05/23 19:13 Source: patient Mode of arrival: ambulatory Limitations: no limitations History of Present Illness: Patient presents emergency department today accompanied by a guardian for evaluation treatment of concerns for malfunction of her vagus nerve stimulator. Patient currently resides at a facility and brings a guardian/facility staff member with her today. Patient reports that she was trying to feed some horses today and accidentally ran into a metal fence on the left side of her chest. Patient has a vagus nerve stimulator in the left side of her chest with 2 electrodes placed at the base of the left side of the neck. Chart review shows patient had the stimulator placed in March 2020 with neurology at [facility]. It appears patient has been followed by Dr. Carrington up until the last couple of years. Patient has not had evaluation since then. Patient has had 2 other episodes where she impacted her nerve stimulator which caused small shocks and buzzing sensation requiring neuro evaluation and resetting of her stimulator. Patient states that today after impacting her stimulator she has been having buzzing and shocks every 15 seconds or so felt primarily in her upper extremities bilaterally. Review of Systems General: Reports: 10 or more systems reviewed and unremarkable except in HPI and below PFSH ED PFSH: Medical History Bipolar disorder Constipation, chronic Hyperlipidemia Intellectual disability Seizures Tachycardia Surgical History H/O eye surgery History of colonoscopy Status post laparoscopic cholecystectomy (08/13/21) Status post placement of VNS (vagus nerve stimulation) device Social History Smoking and tobacco/nicotine status: current every day tobacco/nicotine user cigarettes and e-cigarettes E-Cigarette Details: e-cigarette and with nicotine Quit status (tobacco/nicotine): has quit using Second hand smoke exposure: Yes Physical Exam Const: COMMON NORMALS: no acute distress, patient oriented x3, healthy appearing and alert HENMT: COMMON NORMALS: normocephalic, atraumatic, hearing grossly normal bilaterally, Normal external nose present and moist oral mucous membranes HEAD & SCALP: normocephalic and atraumatic NOSE: Normal external nose present Eye: COMMON NORMALS: Equal, round and reactive pupils present, EOMs intact bilaterally and conjunctivae normal CONJUNCTIVA: Yes conjunctivae normal PUPIL: Yes Equal, round and reactive pupils present Neck/C-Spine: COMMON NORMALS: full ROM, no meningeal signs and no JVD Lymph: LYMPHATIC: no lymphadenopathy noted Chest: OTHER: Patient has a small lump in the left upper part of her chest correlating with her implanted device. Patient has a well-healed surgical scar at the base of the left side of her neck. Patient has some mild erythema over the left upper chest where she indicates the impact occurred. Patient is tender on palpation to this region. Resp: COMMON NORMALS: normal respiratory effort, No retractions and No use of accessory muscles Cardio: COMMON NORMALS: no JVD, regular rate and Peripheral pulses 2+ throughout RATE: regular rate PERIPHERAL PULSES: Peripheral pulses 2+ throughout : COMMON NORMALS: Yes no CVA tenderness BLADDER/KIDNEY EXAM: Yes no CVA tenderness Back/Pelvis: COMMON NORMALS: no CVA tenderness, thoraco-lumbar ROM normal and straight leg raise negative bilaterally Extremity: COMMON NORMALS: normal to inspection, full ROM, no joint enlargement and no calf tenderness GENERAL: Yes normal exam except as noted Neuro: COMMON NORMALS: patient oriented x3, CN's II-XII intact bilaterally, moves all extremities, no focal motor deficits and no sensory deficits noted SENSORIUM/ORIENTATION: Yes alert MENINGEAL SIGNS: Yes no meningeal signs OTHER: No active muscle twitching appreciated on examination. Course Vital Signs: Vital signs: Vital Signs Temperature 97.9 F 05/05/23 18:59 Pulse Rate 110 H 05/05/23 22:11 Respiratory Rate 16 05/05/23 22:11 Blood Pressure 128/84 05/05/23 22:11 Pulse Oximetry 99 05/05/23 22:11 [facility] - General Adult Medical Decision Making Chart review indicated that [facility] neurology was contacted each of the previous times patient had similar findings. It indicated she had follow-up with neurology the next day to interrogate and reset/readjust her stimulator. However, when I reached out to neurology [facility] and spoke with Dr. Stallworth, there was concern as patient has not been seen or evaluated for interrogation of her device in a couple of years. He states that even though the x-ray appears to show no fragmented pieces or wires malaligned, he would like her to come tonight and have the device interrogated for potential adjustments. He does not want the patient to drive herself but would be willing to allow her to drive POV if she had a industrial tractor driver. 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 The patient's mother wants to meet her there but is not able to drive her tonight. As [facility] neurology is requesting an ER to ER transfer, we will send her by EMS. Discussed all of this with the patient including the neurologist recommendation for the ER to ER transfer tonight. She is in agreement. She is very concerned however that she has not had her nighttime medications and she has several psych and seizure medications she is due to have. I spoke with Dr. Lazaro regarding ordering these medications and he indicated we should attempt to give the patient the medications she takes chronically that are available here through the hospital. I did put in several orders for the patient to have administered prior to her discharge. I was able to speak with the patient's mother on the phone regarding the transfer and she was in agreement and indicated to the patient that she would be up there in the morning should patient require a longer evaluation paperwork for EMS transfer was initiated and completed. We will defer care to [facility] neurology at this time for more definitive treatment and management of the patient's device. Differential Diagnosis DDx: Chest contusion, rib fracture, broken device, wire displacement Lab Data Radiology Impressions Chest X-Ray 05/05/23 19:22 IMPRESSION: Left-sided vagus nerve stimulator again seen with leads in the region of the left lower neck, similar to prior exam. All radiology interpretation(s) finalized by discharge Discharge Plan Discharge Patient Disposition: Transfer to ED Clinical Impression: Status post VNS (vagus nerve stimulator) placement, Complication associated with vagal nerve stimulator Condition: Stable Prescriptions: No Action acetaminophen [Tylenol] 325 mg capsule 650 mg PO QID PRN (Reason: fever or pain) calcium carbonate [Tums] 300 mg (750 mg) tablet,chewable 1,500 mg PO TID PRN (Reason: abdominal upset) bismuth subsalicylate [Pepto-Bismol] 262 mg tablet,chewable 1 tab PO DAILY PRN (Reason: adominal upset) Rx Instructions: do not exceed 16 tabs per 24 hrs diphenhydramine HCl [Benadryl] 25 mg capsule 25 mg PO Q6H PRN (Reason: allergies) pantoprazole [Protonix] 40 mg tablet,delayed release (DR/EC) 40 mg PO BID 42 Days Qty: 84 1RF prenat.vits,maxime,kpz-gyzd-bciaq Tablet 1 tab PO DAILY lubiprostone 24 mcg capsule 24 mcg PO BID melatonin 3 mg capsule 3 mg PO BEDTIME mecobalamin (vitamin B12) 1,000 mcg tablet,chewable 1,000 mcg PO DAILY Midol 500-25 mg tablet 1 tab PO Q6H PRN (Reason: Cramps) Blisovi 24 Fe 1 mg-20 mcg (24)/75 mg (4) tablet 1 tab PO DAILY ondansetron HCl 4 mg tablet 4 mg PO Q6H PRN (Reason: nausea) metoprolol succinate 25 mg tablet extended release 24 hr 25 mg PO DAILY Qty: 90 2RF Linzess 145 mcg capsule 145 mcg PO DAILY Qty: 30 11RF Briviact 50 mg tablet 100 mg PO BID Qty: 60 5RF propranolol 10 mg tablet 10 mg PO BID 90 Days Qty: 180 1RF hydroxyzine pamoate 25 mg capsule 50 mg PO Q6H PRN (Reason: Anxiety) 30 Days Qty: 120 1RF quetiapine [Seroquel XR] 400 mg tablet extended release 24 hr 800 mg PO BID 30 Days Qty: 120 3RF zonisamide 100 mg capsule See Rx Instructions .ROUTE .COMPLEX Qty: 150 3RF Dose Instruction: TAKE 2 CAPSULES BY MOUTH EVERY MORNING and THREE EVERY EVENING Rx Instructions: TAKE 2 CAPSULES BY MOUTH EVERY MORNING and THREE EVERY EVENING paliperidone [Invega] 6 mg tablet extended release 24 hr 12 mg PO DAILY 30 Days Qty: 60 3RF quetiapine 50 mg tablet 50 mg PO .q day at 4pm 30 Days Qty: 30 3RF fluticasone propionate 50 mcg/actuation [place],Suspension 1 spray INTRANASAL BID Rx Instructions: INTSILL 1 SPRAY INTO EACH NOSTRIL BID atorvastatin 40 mg Tablet 40 mg PO BEDTIME ferrous sulfate [Iron (ferrous sulfate)] 325 mg (65 mg iron) Tablet 325 mg PO DAILY polyethylene glycol 3350 [Miralax] 17 gram powder in packet 17 g PO DAILY PRN (Reason: constipation) Qty: 14 0RF benztropine 1 mg tablet 1 mg PO BID Rx Instructions: TAKE ONE TABLET BY MOUTH TWICE DAILY lorazepam 1 mg tablet See Rx Instructions .ROUTE .COMPLEX PRN (Reason: Agitation) Rx Instructions: take a-half tab po daily as needed and 1 whole tablet at bedtime lorazepam 2 mg/mL concentrate See Rx Instructions .ROUTE .COMPLEX PRN (Reason: Anxiety) Rx Instructions: 0.5 ML PO PRN daily Neosporin (qzx-okt-pfsxx) 3.5mg-400 unit- 5,000 unit/gram Ointment 1 applic TOPICAL BID PRN (Reason: Rash) hydrocortisone 1 % Ointment 1 applic TOPICAL TID PRN (Reason: Rash) Senokot-S 8.6-50 mg Tablet 2 tab-cap PO DAILY bisacodyl 10 mg Suppository 10 mg IN DAILY PRN (Reason: Constipation) Fleet Enema 19-7 gram/118 mL Enema See Rx Instructions .ROUTE .COMPLEX PRN (Reason: Constipation) Rx Instructions: 118 mL rectally as needed if no bowel movement in 3 days Icy Hot No Mess 16 % Liquid 1 ea TOPICAL BID PRN (Reason: Pain) [place] Cough Drops 7.5 mg Lozenge 7.5 mg MUCOUS MEMBRANE Q2H PRN (Reason: Cough) Referrals: Judith Bermudez FNP [Primary Care Provider] - Coding Level of Care Code ED Lather Apprentice for Jacqueline Meyer
[2023-05-05] MEDS: zonisamide 100 MG Capsule 300 MG PO (22:38)
[2023-05-05] MEDS: pantoprazole DR 40 mg Tablet PO (22:39)
[2023-05-05] MEDS: LORazepam 1 mg Tablet PO (22:39)
[2023-05-05] MEDS: propranolol 20 mg Tablet 10 MG PO (22:39)
[2023-05-05] MEDS: benztropine 1 mg Tablet PO (22:39)
[2023-05-05] MEDS: quetiapine XR (24HR) 50 mg Tablet 200 MG PO (22:46)
[2023-05-05] MEDS: paliperidone ER 9 mg Tablet PO (22:46)
[2023-05-05] MEDS: quetiapine XR (24HR) 300 mg Tablet 600 MG PO (22:46)
== END 2023-05-06 00:28 ==
PROVIDERS: Emergency Provider Physician Assistant; PCP Nurse Practitioner Family
DX: T85.9XXA Unspecified complication of internal prosthetic device, implant and graft, initial encounter (principal); Y75.1 Therapeutic (nonsurgical) and rehabilitative neurological devices associated with adverse incidents; E78.5 Hyperlipidemia, unspecified; F17.290 Nicotine dependence, other tobacco product, uncomplicated
CPT/HCPCS: 71045; 99283

== ENCOUNTER → 2023-06-13 07:58 | Outpatient (BNVA) | payer MEDICARE, MEDICAID, SELFPAY | PROVIDERS: PCP Nurse Practitioner Family; Visit Provider Specialist | DX: G40.209 Localization-related (focal) (partial) symptomatic epilepsy and epileptic syndromes with complex partial seizures, not intractable, without status epilepticus (principal); Z96.89 Presence of other specified functional implants; F41.0 Panic disorder [episodic paroxysmal anxiety]; G43.909 Migraine, unspecified, not intractable, without status migrainosus; R00.0 Tachycardia, unspecified | CPT/HCPCS: 95971; 99214 ==

== ENCOUNTER 2023-07-26 18:55 | Emergency (ER) | payer MEDICARE, MEDICAID, SELFPAY ==
[2023-07-26 18:59] VITALS: BP 97/74; PULSE 135; RESP 18; TEMP 37.1; O2SAT 97
[2023-07-26 19:50] LABS: Basophils % 0.4 %; Eosinophils # 0.1 10^3/uL (0.0-0.8); Eosinophils % 0.9 %; Hematocrit 45.1 % (36-47); Lymphocytes # 0.7 10^3/uL (0.8-4.8); Mean Corpuscular HGB Conc 32.8 g/dL (30-55); Mean Corpuscular Hemoglobin 30.5 pg (27-33); Mean Platelet Volume 12.2 fL (7.4-10.4); Monocytes # 0.5 10^3/uL (0.2-0.9); Monocytes % 4.5 %; Neutrophils # 8.58 10^3/uL (1.8-7.7); Neutrophils % 86.5 %; Nucleated Red Blood Cells % 0 %; Platelet Count 243 10^3/cmm (157-399); Red Blood Count 4.85 10^6/uL (3.85-5.65); Red Cell Distribution Width 12.2 % (12.1-15.1); White Blood Count 9.93 10^3/uL (3.29-11.43)
--- NOTE | 2023-07-26 20:10 | ED_ITS ---
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 Patient states yesterday evening she began having some abdominal cramping/discomfort. She states this morning she began vomiting. She was reportedly seen at [facility] earlier today and given Zofran. She states vomiting continued throughout the day so she was then seen at the [facility] walk-in clinic and given more antiemetics. Patient states later this evening she had an episode of dry heaving so they sent her to the ED for further evaluation. Patient has not had any episodes of diarrhea. She has had a normal bowel movement today and yesterday. She is passing gas. He has not been running fevers. Caregiver states that many of the consumers and care staff have recently been ill with stomach bugs. MD elicited complaint: nausea, vomiting and abdominal pain Onset (ago): hour(s) Associated nausea: Yes Associated abdominal pain: Yes Location of pain: Diffuse Radiation: diffuse Pain consistency: intermittent Severity: moderate Quality: cramping Relieving factors: none Context: sick contacts Associated symtoms: Reports nausea; Denies chest pain, dysuria, fatigue, headache(s) or malaise Review of Systems 2 Const: Denies: fever(s), chills, body aches, fatigue or malaise Card: Denies: chest pain Resp: Denies: dyspnea GI: Reports: abdominal pain, nausea, vomiting and GI cramping; Denies: hematemesis, diarrhea, hematochezia or melena : Denies: flank pain, dysuria or hematuria Musc: Denies: neck pain, back pain, extremity pain or joint pain Skin/Breast: Denies: rash Neuro: Denies: headache(s), numbness in extremities, weakness in extremities or sensory changes PFS ED 2 PFSH: Medical History Tachycardia Intellectual disability Bipolar disorder Seizures Hyperlipidemia Constipation, chronic Surgical History Status post laparoscopic cholecystectomy (08/13/21) History of colonoscopy Status post placement of VNS (vagus nerve stimulation) device H/O eye surgery Social History Smoking and tobacco/nicotine status: current every day tobacco/nicotine user cigarettes and e-cigarettes E-Cigarette Details: e-cigarette and with nicotine Quit status (tobacco/nicotine): has quit using Second hand smoke exposure: Yes Physical Exam 2 Const: COMMON NORMALS: no acute distress, patient oriented x3, no limitations, alert and well nourished GENERAL APPEARANCE: cooperative NUTRITIONAL APPEARANCE: overweight ORIENTATION/CONSCIOUSNESS: Yes awake, Yes oriented to person, Yes oriented to place and Yes oriented to time Eye: COMMON NORMALS: no scleral icterus Resp: COMMON NORMALS: normal respiratory effort and clear to auscultation bilaterally AUSCULTATION: clear to auscultation bilaterally Cardio: COMMON NORMALS: regular rhythm RATE: tachycardic (pt of chronically elevated HR) RHYTHM: regular rhythm GI: COMMON NORMALS: Normal to inspection, nondistended, normoactive bowel sounds present, Soft to palpation, No hepatosplenomegaly present and no masses INSPECTION: Yes normal to inspection AUSCULTATION: Yes normoactive bowel sounds PALPATION: Yes Soft to palpation, Yes Tenderness to palpation present (GI) (lower abdomen-non surgical exam), No Guarding due to palpation present (GI), No Rigid due to palpation and Yes No hepatosplenomegaly present : COMMON NORMALS: Yes no CVA tenderness BLADDER/KIDNEY EXAM: Yes no CVA tenderness Back/Pelvis: COMMON NORMALS: no CVA tenderness Extremity: COMMON NORMALS: normal to inspection GENERAL: Yes normal exam except as noted Neuro: MARIE COMA SCALE: document GCS findings [place] coma scale eye opening: Spontaneous Marie coma scale verbal response: Orientated [place] coma scale motor response: Obey commands [place] coma scale total score: 15 COMMON NORMALS: patient oriented x3 SENSORIUM/ORIENTATION: Yes alert, Yes oriented to person, Yes oriented to place and Yes oriented to time Skin: COMMON NORMALS: no rashes or lesions noted GENERAL SKIN EXAM: no rashes or lesions noted Course 2 Vital Signs: Vital signs: Vital Signs Temperature 98.7 F 07/26/23 18:59 Pulse Rate 111 H 07/26/23 22:12 Respiratory Rate 17 07/26/23 22:12 Blood Pressure 123/87 07/26/23 22:12 Pulse Oximetry 97 07/26/23 22:12 Oxygen Delivery Me thod Room Air 07/26/23 20:41 MDM - Nausea/Vomiting/Diarrhea Medical Decision Making Patient here with symptoms consistent with a viral gastroenteritis. She has been around several other individuals (care staff and other consumers through [employer]) that have had similar symptoms. This is patient's third medical visit just today ([facility], today's ED visit) for the symptoms. They just started yesterday evening. Patient's abdomen is nonsurgical. She has not had any vomiting or diarrhea while here. Blood pressure was slightly low upon arrival. This is improved with fluids. She is always tachycardic. Blood work is overall unremarkable. Very mild hypokalemia at 3.4. She was given oral supplementation for this. Patient is stable for discharge. Return ED precautions given. Medical Records I reviewed the patient's medical records. Lab Data I reviewed the patient's lab results. 07/26/23 19:21 07/26/23 20:24 Laboratory Results WBC 9.93 10^3/uL (3.29-11.43) 07/26/23 19:21 RBC 4.85 10^6/uL (3.85-5.65) 07/26/23 19:21 Hgb 14.80 g/dL (11.27-16.99) 07/26/23 19:21 Hct 45.1 % (36-47) 07/26/23 19:21 MCV 93.0 fl (85-98) 07/26/23 19:21 MCH 30.5 pg (27-33) 07/26/23 19:21 MCHC 32.8 g/dL (30-55) 07/26/23 19:21 RDW 12.2 % (12.1-15.1) 07/26/23 19:21 Plt Count 243 10^3/cmm (157-399) 07/26/23 19:21 MPV 12.2 fL (7.4-10.4) H 07/26/23 19:21 Neut % (Auto) 86.5 % 07/26/23 19:21 Lymph % (Auto) 7.0 % 07/26/23 19:21 [place] % (Auto) 4.5 % 07/26/23 19:21 Eos % (Auto) 0.9 % 07/26/23 19:21 Baso % (Auto) 0.4 % 07/26/23 19:21 Neut # (Auto) 8.58 10^3/uL (1.8-7.7) H 07/26/23 19:21 Lymph # (Auto) 0.7 10^3/uL (0.8-4.8) L 07/26/23 19:21 [place] # (Auto) 0.5 10^3/uL (0.2-0.9) 07/26/23 19:21 Eos # (Auto) 0.1 10^3/uL (0.0-0.8) 07/26/23 19:21 Baso # (Auto) 0.0 10^3/uL (0.0-0.1) 07/26/23 19:21 Nucleated RBC % (auto) 0 % 07/26/23 19:21 Nucleated RBCs # 0.0 /100WBC 07/26/23 19:21 Sodium 138 mmol/L (136-145) 07/26/23 20:24 Potassium 3.4 mmol/L (3.5-5.1) L 07/26/23 20:24 Chloride 102 mmol/L (98-107) 07/26/23 20:24 Carbon Dioxide 21 mmol/L (22-29) L 07/26/23 20:24 Anion Gap 18.4 (5-19) 07/26/23 20:24 BUN 12 mg/dL (6-20) 07/26/23 20:24 Creatinine 0.8 mg/dL (0.5-0.9) 07/26/23 20:24 GFR Calculation 88.9 mL/min (90-130) L 07/26/23 20:24 Glucose 86 mg/dL (65-115) 07/26/23 20:24 Calculated Osmolality 285 mOsm/kg (285-295) 07/26/23 20:24 Calcium 9.4 mg/dL (8.5-10.5) 07/26/23 20:24 Total Bilirubin 0.4 mg/dL (0.15-1.2) 07/26/23 20:24 AST 32 U/L (0-32) 07/26/23 20:24 ALT 26 U/L (0-33) 07/26/23 20:24 Alkaline Phosphatase 111 U/L (35-105) H 07/26/23 20:24 Total Protein 6.9 g/dL (6.6-8.7) 07/26/23 20:24 Albumin 3.9 g/dL (3.5-5.2) 07/26/23 20:24 Globulin 3.0 g/dL (1.3-4.6) 07/26/23 20:24 Lipase 13 U/L (13-60) 07/26/23 20:24 HCG, Qual Negative (Negative) 07/26/23 20:24 Urine Color Yellow (Yellow) 07/26/23 21:18 Urine Appearance Clear (CLEAR) 07/26/23 21:18 Urine pH 5 (5-7) 07/26/23 21:18 Ur Specific [place] 1.025 (1.005-1.030) 07/26/23 21:18 Urine Protein Trace (Negative) 07/26/23 21:18 Urine Glucose (UA) Norm (Normal) 07/26/23 21:18 Urine Ketones Negative (Negative) 07/26/23 21:18 Urine Blood Neg (Negative) 07/26/23 21:18 Urine Nitrate Negative (Negative) 07/26/23 21:18 Urine Bilirubin Neg (Negative) 07/26/23 21:18 Urine Urobilinogen Norm mg/dL (Negative) 07/26/23 21:18 Ur Leukocyte Esterase Negative (Negative) 07/26/23 21:18 Urine RBC None /hpf (0-2) 07/26/23 21:18 Urine WBC 0-4 /hpf (0-5) H 07/26/23 21:18 Ur Squamous Epith Cells 0-4 /hpf (0-5) H 07/26/23 21:18 Amorphous Sediment Not Reportable 07/26/23 21:18 Urine Bacteria 1+ /hpf (NONE) H 07/26/23 21:18 Urine Mucus 1+ /hpf 07/26/23 21:18 No radiology studies performed this visit Discharge Plan Discharge Patient Disposition: Home Clinical Impression: Gastroenteritis Condition: Stable Prescriptions: No Action acetaminophen [Tylenol] 325 mg capsule 650 mg PO QID PRN (Reason: fever or pain) calcium carbonate [Tums] 300 mg (750 mg) tablet,chewable 1,500 mg PO TID PRN (Reason: abdominal upset) bismuth subsalicylate [Pepto-Bismol] 262 mg tablet,chewable 1 tab PO DAILY PRN (Reason: adominal upset) Rx Instructions: do not exceed 16 tabs per 24 hrs diphenhydramine HCl [Benadryl] 25 mg capsule 25 mg PO Q6H PRN (Reason: allergies) pantoprazole [Protonix] 40 mg tablet,delayed release (DR/EC) 40 mg PO BID 42 Days Qty: 84 1RF prenat.vits,maxime,[id number] Tablet 1 tab PO DAILY lubiprostone 24 mcg capsule 24 mcg PO BID melatonin 3 mg capsule 3 mg PO BEDTIME mecobalamin (vitamin B12) 1,000 mcg tablet,chewable 1,000 mcg PO DAILY Midol 500-25 mg tablet 1 tab PO Q6H PRN (Reason: Cramps) [place] 24 Fe 1 mg-20 mcg (24)/75 mg (4) tablet 1 tab PO DAILY ondansetron HCl 4 mg tablet 4 mg PO Q6H PRN (Reason: nausea) benztropine 1 mg tablet 1 mg PO BID Qty: 60 0RF Rx Instructions: TAKE ONE TABLET BY MOUTH TWICE DAILY hydroxyzine pamoate 25 mg capsule 50 mg PO Q6H PRN (Reason: Anxiety) 30 Days Qty: 120 1RF lorazepam 2 mg/mL concentrate See Rx Instructions .ROUTE .COMPLEX PRN (Reason: seizure activity) Qty: 30 0RF Rx Instructions: 0.5 ML PO PRN daily lorazepam 1 mg tablet See Rx Instructions .ROUTE .COMPLEX PRN (Reason: Agitation) Qty: 60 3RF Rx Instructions: Take a half a tab at 3 PM, take a half a tab at 6 PM, take a whole tab at bedtime, hold for sedation paliperidone [Invega] 6 mg tablet extended release 24hr 12 mg PO DAILY 30 Days Qty: 60 3RF quetiapine 50 mg tablet 50 mg PO .q day at 4pm 30 Days Qty: 30 3RF quetiapine [Seroquel XR] 400 mg tablet extended release 24 hr 800 mg PO BID 30 Days Qty: 120 3RF zonisamide 100 mg capsule See Rx Instructions .ROUTE .COMPLEX Qty: 150 5RF Dose Instruction: TAKE 2 CAPSULES BY MOUTH EVERY MORNING and THREE EVERY EVENING Rx Instructions: TAKE 2 CAPSULES BY MOUTH EVERY MORNING and THREE EVERY EVENING Linzess 145 mcg capsule 145 mcg PO DAILY Qty: 30 11RF Briviact 50 mg tablet 100 mg PO BID Qty: 60 5RF propranolol 20 mg tablet 20 mg PO BID Qty: 90 6RF Rx Instructions: bid for 7 days then tid fluticasone propionate 50 mcg/actuation [place],Suspension 1 spray INTRANASAL BID Rx Instructions: INTSILL 1 SPRAY INTO EACH NOSTRIL BID atorvastatin 40 mg Tablet 40 mg PO BEDTIME ferrous sulfate [Iron (ferrous sulfate)] 325 mg (65 mg iron) Tablet 325 mg PO DAILY polyethylene glycol 3350 [Miralax] 17 gram powder in packet 17 g PO DAILY PRN (Reason: constipation) Qty: 14 0RF Neosporin (kux-orm-oemis) 3.5mg-400 unit- 5,000 unit/gram Ointment 1 applic TOPICAL BID PRN (Reason: Rash) hydrocortisone 1 % Ointment 1 applic TOPICAL TID PRN (Reason: Rash) Senokot-S 8.6-50 mg Tablet 2 tab-cap PO DAILY bisacodyl 10 mg Suppository 10 mg MI DAILY PRN (Reason: Constipation) Fleet Enema 19-7 gram/118 mL Enema See Rx Instructions .ROUTE .COMPLEX PRN (Reason: Constipation) Rx Instructions: 118 mL rectally as needed if no bowel movement in 3 days Icy Hot No Mess 16 % Liquid 1 ea TOPICAL BID PRN (Reason: Pain) [place] Cough Drops 7.5 mg Lozenge 7.5 mg MUCOUS MEMBRANE Q2H PRN (Reason: Cough) Discharge Orders: Discharge ED (Routine); Ordered 07/26/23 Ordered By: Lynda Perez Referrals: Judith Bermudez FNP [Primary Care Provider] - Patient Instructions: Gastroenteritis (DC) Coding Level of Care Code ED Licensed Sales Assistant for Jacqueline Meyer
[2023-07-26] MEDS: sodium chloride 0.9% 1,000 ML 999 ML IV (20:28)
[2023-07-26 20:41] VITALS: PULSE 117; RESP 16; O2SAT 97
[2023-07-26 21:12] LABS: HCG, Serum Qual Negative (Negative)
[2023-07-26 21:18] LABS: Alanine Aminotransferase 26 U/L (0-33); Albumin Level 3.9 g/dL (3.5-5.2); Aspartate Amino Transferase 32 U/L (0-32); Chloride 102 mmol/L (98-107); Glucose 86 mg/dL (65-115); Lipase 13 U/L (13-60); Sodium 138 mmol/L (136-145); Total Protein 6.9 g/dL (6.6-8.7)
[2023-07-26 21:32] LABS: Blood Urea Nitrogen 12 mg/dL (6-20); Calcium 9.4 mg/dL (8.5-10.5); Carbon Dioxide 21 mmol/L (22-29); Glomerular Filtration Rate 88.9 mL/min (90-130); Osmolality Calculated 285 mOsm/kg (285-295); Total Bilirubin 0.4 mg/dL (0.15-1.2)
[2023-07-26 21:37] LABS: Alkaline Phosphatase 111 U/L (35-105); Anion Gap 18.4 (5-19); Potassium 3.4 mmol/L (3.5-5.1)
[2023-07-26 21:40] LABS: Add Urine Microscopic? YES; Bacteria Urine 1+ /hpf; Bilirubin Urine Neg (Negative); Blood Urine Neg (Negative); Glucose Urine UA Norm (Normal); Ketones Urine Negative (Negative); Leukocyte Esterase Urine Negative (Negative); Mucus Urine 1+ /hpf; Nitrate Urine Negative (Negative); Protein Urine Trace (Negative); Specific Gravity, Urine 1.025 (1.005-1.030); Squamous Epithelial Cell Urine 0-4 /hpf (0-5); Urine Appearance Clear (CLEAR); Urine Color Yellow (Yellow); Urobilinogen Urine Norm (Negative); WBC Urine 0-4 /hpf (0-5); pH Urine 5 (5-7)
[2023-07-26 21:41] LABS: Add Urine Culture? No
[2023-07-26 21:42] VITALS: BP 120/72; PULSE 111; O2SAT 97
[2023-07-26] MEDS: potassium chloride ER 20 mEq Tablet 40 MEQ PO (21:53)
[2023-07-26 22:12] VITALS: BP 123/87; PULSE 111; RESP 17; O2SAT 97
== END 2023-07-26 22:15 | disposition home or self-care (01) ==
PROVIDERS: Emergency Medicine; Emergency Provider Physician Assistant; PCP Nurse Practitioner Family
DX: K52.9 Noninfective gastroenteritis and colitis, unspecified (principal); E78.5 Hyperlipidemia, unspecified; F17.290 Nicotine dependence, other tobacco product, uncomplicated
CPT/HCPCS: 36415; 80053; 81001; 83690; 84703; 85025; 99284; J7030

== ENCOUNTER → 2023-08-09 11:12 | Outpatient (BNVA) | payer MEDICARE, MEDICAID, SELFPAY | PROVIDERS: PCP Nurse Practitioner Family; Visit Provider Specialist | DX: G40.309 Generalized idiopathic epilepsy and epileptic syndromes, not intractable, without status epilepticus (principal); Z96.89 Presence of other specified functional implants; G40.209 Localization-related (focal) (partial) symptomatic epilepsy and epileptic syndromes with complex partial seizures, not intractable, without status epilepticus; F91.3 Oppositional defiant disorder; F79 Unspecified intellectual disabilities | CPT/HCPCS: 95970; 99214 ==

== ENCOUNTER 2023-09-20 18:40 | Emergency (ER) | payer MEDICARE, MEDICAID, SELFPAY ==
[2023-09-20 19:10] VITALS: BP 132/83; PULSE 102; RESP 18; TEMP 36.6; O2SAT 95; BMI 33.3
--- NOTE | 2023-09-20 19:18 | W.ED.ABDPA2 ---
Documented by User: RITESH Page 09/20/23 21:20 HPI - Abdominal Pain General: Chief Complaint: Abdominal Pain Stated Complaint: abdomen pain Time Seen by Provider: 09/20/23 18:50 Source: patient Mode of arrival: ambulatory Limitations: no limitations History of Present Illness: Patient is a 23-year-old female who presents to the emergency department complaining of constipation onset 3 weeks. Patient was seen at urgent care on 09/16 for similar complaints along with hemorrhoids, and was given Proctofoam. Patient states she is still doing with constipations, but her hemorrhoids have improved. 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 She has had constipation before and was seen in the emergency department last year for the same issue, where she was told to take MiraLAX every hour and this improved her constipation. She currently is noting some diffuse crampy abdominal pain, and notes that her last normal bowel movement was 3 weeks ago. She did have a bowel movement earlier today that was small and soft. She notes increasing her dietary fiber, but has still not seen any improvement. She denies any other symptoms at this time. MD elicited complaint: abdominal pain Pertinent past history: constipation Onset (ago): week(s) Pain Consistency: constant Location: Diffuse Severity: mild Quality: cramping Radiation: none Migration to: no migration Context: history of similar episodes Associated Symptoms: Reports change in bowel habits and constipation; Denies chills, diarrhea, dysuria, fever(s), hematochezia, fecal incontinence, nausea and vomiting Related Data: Date of Last Menstrual Period: 08/22/23 Review of Systems General: Reports: 10 or more systems reviewed and unremarkable except in HPI and below Const: Denies: fever(s), chills, change in appetite, change in weight or diaphoresis ENMT: Denies: throat pain or hoarseness Card: Denies: chest pain, palpitations or lightheadedness Resp: Denies: dyspnea, productive cough or wheezing GI: Reports: abdominal pain, constipation and change in bowel habits; Denies: nausea, vomiting, diarrhea, fecal incontinence, pain on defecation or hematochezia : Denies: flank pain, difficulty voiding, dysuria, urinary frequency or urinary urgency Musc: Denies: neck pain or back pain Skin/Breast: Denies: rash or new lesions Neuro: Denies: headache(s) or dizziness PFSH ED PFSH: Medical History Tachycardia Intellectual disability Bipolar disorder Seizures Hyperlipidemia Constipation, chronic Surgical History Status post laparoscopic cholecystectomy (08/13/21) History of colonoscopy Status post placement of VNS (vagus nerve stimulation) device H/O eye surgery Social History Smoking and tobacco/nicotine status: current every day tobacco/nicotine user cigarettes and e-cigarettes E-Cigarette Details: e-cigarette and with nicotine Quit status (tobacco/nicotine): has quit using Second hand smoke exposure: Yes Female Reproductive History: Date of last menstrual period: 08/22/23 Physical Exam Const: COMMON NORMALS: no acute distress, average body habitus, patient oriented x3, no limitations, healthy appearing, alert and well nourished GENERAL APPEARANCE: cooperative and comfortable ORIENTATION/CONSCIOUSNESS: Yes awake HENMT: COMMON NORMALS: normocephalic, atraumatic, hearing grossly normal bilaterally, external ears normal, Normal external nose present, Normal nasal mucous membranes and turbinates present and moist oral mucous membranes HEAD & SCALP: normocephalic and atraumatic NOSE: Normal external nose present and Normal nasal mucous membranes and turbinates present EXTERNAL EAR: Yes external ears normal Eye: COMMON NORMALS: Equal, round and reactive pupils present, EOMs intact bilaterally, conjunctivae normal and normal visual yeh by confrontation CONJUNCTIVA: Yes conjunctivae normal PUPIL: Yes Equal, round and reactive pupils present Neck/C-Spine: COMMON NORMALS: full ROM, supple, no meningeal signs and no JVD Resp: COMMON NORMALS: normal respiratory effort, No retractions, No use of accessory muscles and clear to auscultation bilaterally AUSCULTATION: clear to auscultation bilaterally, no crackles, no rales, no rhonchi and no wheezes Cardio: COMMON NORMALS: no JVD, regular rate, regular rhythm, S1 normal heart sound present, S2 normal heart sound present, No gallops present (Cardio), No clicks present (Cardio), No murmurs present (Cardio), No rub (Cardio) and Peripheral pulses 2+ throughout RATE: regular rate RHYTHM: regular rhythm HEART SOUNDS: S1 normal heart sound present and S2 normal heart sound present PERIPHERAL PULSES: Peripheral pulses 2+ throughout GI: COMMON NORMALS: Normal to inspection, nondistended, normoactive bowel sounds present, Soft to palpation, No hepatosplenomegaly present and no masses INSPECTION: Yes normal to inspection AUSCULTATION: Yes normoactive bowel sounds PALPATION: Yes Soft to palpation, Yes Tenderness to palpation present (GI) (mild diffuse TTP), No Guarding due to palpation present (GI), No Rigid due to palpation and Yes No hepatosplenomegaly present Extremity: COMMON NORMALS: normal to inspection and full ROM Neuro: COMMON NORMALS: patient oriented x3, moves all extremities, no focal motor deficits and no sensory deficits noted SENSORIUM/ORIENTATION: Yes alert MENINGEAL SIGNS: Yes no meningeal signs Psych: COMMON NORMALS: mental status grossly normal, cooperative and speech normal SPEECH: Yes normal speech Skin: COMMON NORMALS: no rashes or lesions noted GENERAL SKIN EXAM: no rashes or lesions noted Course Vital Signs: Vital signs: Vital Signs Temperature 97.9 F 09/20/23 19:10 Pulse Rate 88 09/20/23 21:41 Respiratory Rate 16 09/20/23 21:41 Blood Pressure 131/79 09/20/23 21:41 Pulse Oximetry 99 09/20/23 21:41 Oxygen Delivery Me thod Room Air 09/20/23 21:04 MDM - Abdominal Pain Medical Decision Making This patient was seen and evaluated in the emergency department today for constipation. She notes she has struggled with constipation in the past and sees a staff trainer. Currently she states her last normal bowel movement was 3 weeks ago. On arrival vitals normal. Laboratory evaluation unremarkable. KUB revealed mild to moderate constipation with no obstruction. Due to patient's continued constipation I will send her home with a mixture of milk of magnesia, lactulose, and mineral oil. Also encouraged her to try MiraLAX, which she states has worked for her in the past. She may also take Colace or Senokot. Patient agrees with this plan. Return precautions are given. Lab Data 09/20/23 19:32 09/20/23 19:32 Labs/Radiology: Radiology Impressions KUB X-Ray 09/20/23 19:22 IMPRESSION: 1. Bzuv-mu-lwasbzat constipation without bowel dilation to indicate obstruction. 2. IUD over the pelvic inlet. Laboratory Results WBC 5.49 10^3/uL (3.29-11.43) 09/20/23 19: RBC 4.37 10^6/uL (3.85-5.65) 09/20/23 19: Hgb 13.40 g/dL (11.27-16.99) 09/20/23: Hct 41.2 % (36-47) 09/20/23 19: MCV 94.3 fl (85-98) 09/20/23: MCH 30.7 pg (27-33) 09/20/23: MCHC 32.5 g/dL (30-55) 09/20/23: RDW 12.3 % (12.1-15.1) 09/20/23: Plt Count 281 10^3/cmm (157-399) 09/20/23: MPV 11.5 fL (7.4-10.4) H 09/20/23 19: Neut % (Auto) 41.1 % 09/20/23: Lymph % (Auto) 44.6 % 09/20/23: [place] % (Auto) 10.0 % 09/20/23: Eos % (Auto) 2.9 % 09/20/23: Baso % (Auto) 0.9 % 09/20/23: Neut # (Auto) 2.25 10^3/uL (1.8-7.7) 09/20/23: Lymph # (Auto) 2.5 10^3/uL (0.8-4.8) 09/20/23: [place] # (Auto) 0.6 10^3/uL (0.2-0.9) 09/20/23: Eos # (Auto) 0.2 10^3/uL (0.0-0.8) 09/20/23: Baso # (Auto) 0.1 10^3/uL (0.0-0.1) 09/20/23: Nucleated RBC % (auto) 0 % 03/19/24 19:32 Nucleated RBCs # 0.0 /100WBC 09/20/23 19:32 Sodium 141 mmol/L (136-145) 09/20/23 19:32 Potassium 3.6 mmol/L (3.5-5.1) 09/20/23 19:32 Chloride 109 mmol/L (98-107) H 09/20/23 19:32 Carbon Dioxide 21 mmol/L (22-29) L 09/20/23 19:32 Anion Gap 14.6 (5-19) 09/20/23 19:32 BUN 7 mg/dL (6-20) 09/20/23 19:32 Creatinine 0.7 mg/dL (0.5-0.9) 09/20/23 19:32 GFR Calculation 103.7 mL/min (90-130) 09/20/23 19:32 Glucose 68 mg/dL (65-115) 09/20/23 19:32 Calculated Osmolality 288 mOsm/kg (285-295) 09/20/23 19:32 Calcium 9.2 mg/dL (8.5-10.5) 09/20/23 19:32 Total Bilirubin 0.2 mg/dL (0.15-1.2) 09/20/23 19:32 AST 23 U/L (0-32) 09/20/23 19:32 ALT 22 U/L (0-33) 09/20/23 19:32 Alkaline Phosphatase 125 U/L (35-105) H 09/20/23 19:32 Total Protein 6.7 g/dL (6.6-8.7) 09/20/23 19:32 Albumin 4.0 g/dL (3.5-5.2) 09/20/23 19:32 Globulin 2.7 g/dL (1.3-4.6) 09/20/23 19:32 Lipase 40 U/L (13-60) 09/20/23 19:32 HCG, Qual Negative (Negative) 09/20/23 19:32 Urine Color Yellow (Yellow) 09/20/23 19:30 Urine Appearance Sl hazy (CLEAR) A 09/20/23 19:30 Urine pH 6 (5-7) 09/20/23 19:30 Ur Specific [place] 1.015 (1.005-1.030) 09/20/23 19:30 Urine Protein Neg (Negative) 09/20/23 19:30 Urine Glucose (UA) Norm (Normal) 09/20/23 19:30 Urine Ketones Negative (Negative) 09/20/23 19:30 Urine Blood 3+ (Negative) H 09/20/23 19:30 Urine Nitrate Negative (Negative) 09/20/23 19:30 Urine Bilirubin Neg (Negative) 09/20/23 19:30 Urine Urobilinogen Norm mg/dL (Negative) 09/20/23 19:30 Ur Leukocyte Esterase Negative (Negative) 09/20/23 19:30 Urine RBC 0-4 /hpf (0-2) H 09/20/23 19:30 Urine WBC 0-4 /hpf (0-5) H 09/20/23 19:30 Ur Squamous Epith Cells 0-4 /hpf (0-5) H 09/20/23 19:30 Ur Transition Epith Cell 0-4 /hpf 09/20/23 19:30 Amorphous Sediment Not Reportable 09/20/23 19:30 Urine Bacteria 1+ /hpf (NONE) H 09/20/23 19:30 Urine Mucus None /hpf 09/20/23 19:30 All radiology interpretation(s) finalized by discharge Discharge Plan Discharge Patient Disposition: Home Clinical Impression: Constipation Qualifiers: Constipation type: unspecified constipation type Qualified Code(s): K59.00 - Constipation, unspecified Condition: Stable Prescriptions: No Action acetaminophen [Tylenol] 325 mg capsule 650 mg PO QID PRN (Reason: fever or pain) calcium carbonate [Tums] 300 mg (750 mg) tablet,chewable 1,500 mg PO TID PRN (Reason: abdominal upset) bismuth subsalicylate [Pepto-Bismol] 262 mg tablet,chewable 1 tab PO DAILY PRN (Reason: adominal upset) Rx Instructions: do not exceed 16 tabs per 24 hrs diphenhydramine HCl [Benadryl] 25 mg capsule 25 mg PO Q6H PRN (Reason: allergies) lorazepam 1 mg tablet See Rx Instructions .ROUTE .COMPLEX Qty: 60 3RF Rx Instructions: take a half a tab at 6 PM, take a whole tab at bedtime, hold for sedation; pantoprazole [Protonix] 40 mg tablet,delayed release (DR/EC) 40 mg PO BID 42 Days Qty: 84 1RF Proctofoam HC 1-1 % foam 1 applic [place] QID PRN (Reason: hemorrhoids) Qty: 10 5RF prenat.vits,maxime,zfd-dvkt-tevov Tablet 1 tab PO DAILY lubiprostone 24 mcg capsule 24 mcg PO BID melatonin 3 mg capsule 3 mg PO BEDTIME mecobalamin (vitamin B12) 1,000 mcg tablet,chewable 1,000 mcg PO DAILY Midol 500-25 mg tablet 1 tab PO Q6H PRN (Reason: Cramps) Blisovi 24 Fe 1 mg-20 mcg (24)/75 mg (4) tablet 1 tab PO DAILY ondansetron HCl 4 mg tablet 4 mg PO Q6H PRN (Reason: nausea) benztropine 1 mg tablet 1 mg PO BID Qty: 60 0RF Rx Instructions: TAKE ONE TABLET BY MOUTH TWICE DAILY hydroxyzine pamoate 25 mg capsule 50 mg PO Q6H PRN (Reason: Anxiety) 30 Days Qty: 120 1RF lorazepam 2 mg/mL concentrate See Rx Instructions .ROUTE .COMPLEX PRN (Reason: seizure activity) Qty: 30 0RF Rx Instructions: 0.5 ML PO PRN daily paliperidone [Invega] 6 mg tablet extended release 24hr 12 mg PO DAILY 30 Days Qty: 60 3RF quetiapine 50 mg tablet 50 mg PO .q day at 4pm 30 Days Qty: 30 3RF quetiapine [Seroquel XR] 400 mg tablet extended release 24 hr 800 mg PO BID 30 Days Qty: 120 3RF zonisamide 100 mg capsule See Rx Instructions .ROUTE .COMPLEX Qty: 150 5RF Dose Instruction: TAKE 2 CAPSULES BY MOUTH EVERY MORNING and THREE EVERY EVENING Rx Instructions: TAKE 2 CAPSULES BY MOUTH EVERY MORNING and THREE EVERY EVENING Linzess 145 mcg capsule 145 mcg PO DAILY Qty: 30 11RF Briviact 50 mg tablet 100 mg PO BID Qty: 60 5RF propranolol 20 mg tablet 20 mg PO BID Qty: 90 6RF Rx Instructions: bid for 7 days then tid fluticasone propionate 50 mcg/actuation [place],Suspension 1 spray INTRANASAL BID Rx Instructions: INTSILL 1 SPRAY INTO EACH NOSTRIL BID atorvastatin 40 mg Tablet 40 mg PO BEDTIME ferrous sulfate [Iron (ferrous sulfate)] 325 mg (65 mg iron) Tablet 325 mg PO DAILY polyethylene glycol 3350 [Miralax] 17 gram powder in packet 17 g PO DAILY PRN (Reason: constipation) Qty: 14 0RF Neosporin (mnv-wrw-xcged) 3.5mg-400 unit- 5,000 unit/gram Ointment 1 applic TOPICAL BID PRN (Reason: Rash) hydrocortisone 1 % Ointment 1 applic TOPICAL TID PRN (Reason: Rash) Senokot-S 8.6-50 mg Tablet 2 tab-cap PO DAILY bisacodyl 10 mg Suppository 10 mg [place] DAILY PRN (Reason: Constipation) Fleet Enema 19-7 gram/118 mL Enema See Rx Instructions .ROUTE .COMPLEX PRN (Reason: Constipation) Rx Instructions: 118 mL rectally as needed if no bowel movement in 3 days Icy Hot No Mess 16 % Liquid 1 ea TOPICAL BID PRN (Reason: Pain) [place] Cough Drops 7.5 mg Lozenge 7.5 mg MUCOUS MEMBRANE Q2H PRN (Reason: Cough) Discharge Orders: Discharge ED (Routine); Ordered 09/20/23 Ordered By: Jani Bateman Referrals: Judith Bermudez FNP [Primary Care Provider] - Discharge Diet: Usual diet Discharge Activity: Increase activity as tolerated Patient Instructions: Constipation (ED) Activity Restrictions/Additional Instructions: Take laxative mixture at home as instructed. You may take xjjs-nmh-htxhyvf MiraLAX, Colace, or Senokot. High-fiber diet. Plenty of fluids. Return with any new or worsening symptoms. Follow-up with your primary care provider. Coding Level of Care Code ED Die Maintenance Technician for Chg Fwd Documented by User: Yuan Villatoro DO 09/21/23 06:01 HPI - Abdominal Pain General: Chief Complaint: Abdominal Pain Stated Complaint: abdomen pain Time Seen by Provider: 09/20/23 18:50 PFSH ED PFSH: Medical History Tachycardia Intellectual disability Bipolar disorder Seizures Hyperlipidemia Constipation, chronic Surgical History Status post laparoscopic cholecystectomy (08/13/21) History of colonoscopy Status post placement of VNS (vagus nerve stimulation) device H/O eye surgery Social History Smoking and tobacco/nicotine status: current every day tobacco/nicotine user cigarettes and e-cigarettes E-Cigarette Details: e-cigarette and with nicotine Quit status (tobacco/nicotine): has quit using Second hand smoke exposure: Yes Course Vital Signs: Vital signs: Vital Signs Temperature 97.9 F 09/20/23 19:10 Pulse Rate 88 09/20/23 21:41 Respiratory Rate 16 09/20/23 21:41 Blood Pressure 131/79 09/20/23 21:41 Pulse Oximetry 99 09/20/23 21:41 Oxygen Delivery Me thod Room Air 09/20/23 21:04 MDM - Abdominal Pain Medical Decision Making This patient was seen and evaluated in the emergency department today for constipation. She notes she has struggled with constipation in the past and sees a staff trainer. Currently she states her last normal bowel movement was 3 weeks ago. On arrival vitals normal. Laboratory evaluation unremarkable. KUB revealed mild to moderate constipation with no obstruction. Due to patient's continued constipation I will send her home with a mixture of milk of magnesia, lactulose, and mineral oil. Also encouraged her to try MiraLAX, which she states has worked for her in the past. She may also take Colace or Senokot. Patient agrees with this plan. Return precautions are given. Chart reviewed Lab Data 09/20/23 19:32 09/20/23 19:32 Labs/Radiology: Radiology Impressions KUB X-Ray 09/20/23 19:22 IMPRESSION: 1. Zoaj-td-wsbymssv constipation without bowel dilation to indicate obstruction. 2. IUD over the pelvic inlet. Laboratory Results WBC 5.49 10^3/uL (3.29-11.43) 09/20/23 19:32 RBC 4.37 10^6/uL (3.85-5.65) 09/20/23 19:32 Hgb 13.40 g/dL (11.27-16.99) 09/20/23 19:32 Hct 41.2 % (36-47) 09/20/23: MCV 94.3 fl (85-98) 09/20/23: MCH 30.7 pg (27-33) 09/20/23 19: MCHC 32.5 g/dL (30-55) 09/20/23: RDW 12.3 % (12.1-15.1) 09/20/23: Plt Count 281 10^3/cmm (157-399) 09/20/23 19: MPV 11.5 fL (7.4-10.4) H 09/20/23 19: Neut % (Auto) 41.1 % 09/20/23 19: Lymph % (Auto) 44.6 % 09/20/23: [place] % (Auto) 10.0 % 09/20/23: Eos % (Auto) 2.9 % 09/20/23: Baso % (Auto) 0.9 % 09/20/23: Neut # (Auto) 2.25 10^3/uL (1.8-7.7) 09/20/23: Lymph # (Auto) 2.5 10^3/uL (0.8-4.8) 09/20/23: [place] # (Auto) 0.6 10^3/uL (0.2-0.9) 09/20/23: Eos # (Auto) 0.2 10^3/uL (0.0-0.8) 09/20/23: Baso # (Auto) 0.1 10^3/uL (0.0-0.1) 09/20/23: Nucleated RBC % (auto) 0 % 09/20/23: Nucleated RBCs # 0.0 /100WBC 09/20/23 19: Sodium 141 mmol/L (136-145) 09/20/23 19: Potassium 3.6 mmol/L (3.5-5.1) 09/20/23 19: Chloride 109 mmol/L (98-107) H 09/20/23: Carbon Dioxide 21 mmol/L (22-29) L 09/20/23 19:32 Anion Gap 14.6 (5-19) 09/20/23 19:32 BUN 7 mg/dL (6-20) 09/20/23 19:32 Creatinine 0.7 mg/dL (0.5-0.9) 09/20/23 19:32 GFR Calculation 103.7 mL/min (90-130) 09/20/23 19:32 Glucose 68 mg/dL (65-115) 09/20/23 19:32 Calculated Osmolality 288 mOsm/kg (285-295) 09/20/23 19:32 Calcium 9.2 mg/dL (8.5-10.5) 09/20/23 19:32 Total Bilirubin 0.2 mg/dL (0.15-1.2) 09/20/23 19:32 AST 23 U/L (0-32) 09/20/23 19:32 ALT 22 U/L (0-33) 09/20/23 19:32 Alkaline Phosphatase 125 U/L (35-105) H 09/20/23 19:32 Total Protein 6.7 g/dL (6.6-8.7) 09/20/23 19:32 Albumin 4.0 g/dL (3.5-5.2) 09/20/23 19:32 Globulin 2.7 g/dL (1.3-4.6) 09/20/23 19:32 Lipase 40 U/L (13-60) 09/20/23 19:32 HCG, Qual Negative (Negative) 09/20/23 19:32 Urine Color Yellow (Yellow) 09/20/23 19:30 Urine Appearance Sl hazy (CLEAR) A 09/20/23 19:30 Urine pH 6 (5-7) 09/20/23 19:30 Ur Specific [place] 1.015 (1.005-1.030) 09/20/23 19:30 Urine Protein Neg (Negative) 09/20/23 19:30 Urine Glucose (UA) Norm (Normal) 09/20/23 19:30 Urine Ketones Negative (Negative) 09/20/23 19:30 Urine Blood 3+ (Negative) H 09/20/23 19:30 Urine Nitrate Negative (Negative) 09/20/23 19:30 Urine Bilirubin Neg (Negative) 09/20/23: Urine Urobilinogen Norm mg/dL (Negative) 09/20/23 19:30 Ur Leukocyte Esterase Negative (Negative) 09/20/23 19:30 Urine RBC 0-4 /hpf (0-2) H 09/20/23 19:30 Urine WBC 0-4 /hpf (0-5) H 09/20/23 19:30 Ur Squamous Epith Cells 0-4 /hpf (0-5) H 09/20/23 19:30 Ur Transition Epith Cell 0-4 /hpf 09/20/23 19:30 Amorphous Sediment Not Reportable 09/20/23 19:30 Urine Bacteria 1+ /hpf (NONE) H 09/20/23 19:30 Urine Mucus None /hpf 09/20/23 19:30 Discharge Plan Discharge Patient Disposition: Home Clinical Impression: Constipation Qualifiers: Constipation type: unspecified constipation type Qualified Code(s): K59.00 - Constipation, unspecified Condition: Stable Prescriptions: No Action acetaminophen [Tylenol] 325 mg capsule 650 mg PO QID PRN (Reason: fever or pain) calcium carbonate [Tums] 300 mg (750 mg) tablet,chewable 1,500 mg PO TID PRN (Reason: abdominal upset) bismuth subsalicylate [Pepto-Bismol] 262 mg tablet,chewable 1 tab PO DAILY PRN (Reason: adominal upset) Rx Instructions: do not exceed 16 tabs per 24 hrs diphenhydramine HCl [Benadryl] 25 mg capsule 25 mg PO Q6H PRN (Reason: allergies) lorazepam 1 mg tablet See Rx Instructions .ROUTE .COMPLEX Qty: 60 3RF Rx Instructions: take a half a tab at 6 PM, take a whole tab at bedtime, hold for sedation; pantoprazole [Protonix] 40 mg tablet,delayed release (DR/EC) 40 mg PO BID 42 Days Qty: 84 1RF Proctofoam HC 1-1 % foam 1 applic [place] QID PRN (Reason: hemorrhoids) Qty: 10 5RF prenat.vits,maxime,sxa-whme-uvuiq Tablet 1 tab PO DAILY lubiprostone 24 mcg capsule 24 mcg PO BID melatonin 3 mg capsule 3 mg PO BEDTIME mecobalamin (vitamin B12) 1,000 mcg tablet,chewable 1,000 mcg PO DAILY Midol 500-25 mg tablet 1 tab PO Q6H PRN (Reason: Cramps) [place] 24 Fe 1 mg-20 mcg (24)/75 mg (4) tablet 1 tab PO DAILY ondansetron HCl 4 mg tablet 4 mg PO Q6H PRN (Reason: nausea) benztropine 1 mg tablet 1 mg PO BID Qty: 60 0RF Rx Instructions: TAKE ONE TABLET BY MOUTH TWICE DAILY hydroxyzine pamoate 25 mg capsule 50 mg PO Q6H PRN (Reason: Anxiety) 30 Days Qty: 120 1RF lorazepam 2 mg/mL concentrate See Rx Instructions .ROUTE .COMPLEX PRN (Reason: seizure activity) Qty: 30 0RF Rx Instructions: 0.5 ML PO PRN daily paliperidone [Invega] 6 mg tablet extended release 24hr 12 mg PO DAILY 30 Days Qty: 60 3RF quetiapine 50 mg tablet 50 mg PO .q day at 4pm 30 Days Qty: 30 3RF quetiapine [Seroquel XR] 400 mg tablet extended release 24 hr 800 mg PO BID 30 Days Qty: 120 3RF zonisamide 100 mg capsule See Rx Instructions .ROUTE .COMPLEX Qty: 150 5RF Dose Instruction: TAKE 2 CAPSULES BY MOUTH EVERY MORNING and THREE EVERY EVENING Rx Instructions: TAKE 2 CAPSULES BY MOUTH EVERY MORNING and THREE EVERY EVENING Linzess 145 mcg capsule 145 mcg PO DAILY Qty: 30 11RF Briviact 50 mg tablet 100 mg PO BID Qty: 60 5RF propranolol 20 mg tablet 20 mg PO BID Qty: 90 6RF Rx Instructions: bid for 7 days then tid fluticasone propionate 50 mcg/actuation [place],Suspension 1 spray INTRANASAL BID Rx Instructions: INTSILL 1 SPRAY INTO EACH NOSTRIL BID atorvastatin 40 mg Tablet 40 mg PO BEDTIME ferrous sulfate [Iron (ferrous sulfate)] 325 mg (65 mg iron) Tablet 325 mg PO DAILY polyethylene glycol 3350 [Miralax] 17 gram powder in packet 17 g PO DAILY PRN (Reason: constipation) Qty: 14 0RF Neosporin (sep-phq-fdorw) 3.5mg-400 unit- 5,000 unit/gram Ointment 1 applic TOPICAL BID PRN (Reason: Rash) hydrocortisone 1 % Ointment 1 applic TOPICAL TID PRN (Reason: Rash) Senokot-S 8.6-50 mg Tablet 2 tab-cap PO DAILY bisacodyl 10 mg Suppository 10 mg [place] DAILY PRN (Reason: Constipation) Fleet Enema 19-7 gram/118 mL Enema See Rx Instructions .ROUTE .COMPLEX PRN (Reason: Constipation) Rx Instructions: 118 mL rectally as needed if no bowel movement in 3 days Icy Hot No Mess 16 % Liquid 1 ea TOPICAL BID PRN (Reason: Pain) [place] Cough Drops 7.5 mg Lozenge 7.5 mg MUCOUS MEMBRANE Q2H PRN (Reason: Cough) Discharge Orders: Discharge ED (Routine); Ordered 09/20/23 Ordered By: Jani Bateman Referrals: Judith Bermudez FNP [Primary Care Provider] - Discharge Diet: Usual diet Discharge Activity: Increase activity as tolerated Patient Instructions: Constipation (ED) Activity Restrictions/Additional Instructions: Take laxative mixture at home as instructed. You may take ntuv-lbh-sscmzvl MiraLAX, Colace, or Senokot. High-fiber diet. Plenty of fluids. Return with any new or worsening symptoms. Follow-up with your primary care provider. Coding Level of Care Code ED Die Maintenance Technician for Jacqueline Meyer
--- NOTE | 2023-09-20 19:22 | XRR_ITS ---
PROCEDURE INFORMATION: Exam: XR Abdomen Exam date and time: 09/20/2023 8:40 PM Age: 23 years old Clinical indication: Constipation; Prior surgery; Surgery date: 6+ months; Surgery type: Gb iud TECHNIQUE: Imaging protocol: Radiologic exam of the abdomen. Views: Frontal supine view of the abdomen. 1 View. COMPARISON: CR XR KUB [id number] 05/02/2023 4:09 PM FINDINGS: Gastrointestinal tract: Beor-gd-ldcrovlr constipation without bowel dilation to indicate obstruction. Organs: IUD over the pelvic inlet. Bones/joints: Unremarkable. XR/XR KUB portable [id number] IMPRESSION: 1. Lxzw-ds-vvnertjh constipation without bowel dilation to indicate obstruction. 2. IUD over the pelvic inlet.
[2023-09-20 19:55] LABS: Basophils # 0.1 10^3/uL (0.0-0.1); Basophils % 0.9 %; Eosinophils # 0.2 10^3/uL (0.0-0.8); Eosinophils % 2.9 %; Hematocrit 41.2 % (36-47); Lymphocytes # 2.5 10^3/uL (0.8-4.8); Lymphocytes % 44.6 %; Mean Corpuscular HGB Conc 32.5 g/dL (30-55); Mean Corpuscular Hemoglobin 30.7 pg (27-33); Mean Corpuscular Volume 94.3 fl (85-98); Mean Platelet Volume 11.5 fL (7.4-10.4); Monocytes # 0.6 10^3/uL (0.2-0.9); Neutrophils # 2.25 10^3/uL (1.8-7.7); Neutrophils % 41.1 %; Nucleated Red Blood Cells % 0 %; Platelet Count 281 10^3/cmm (157-399); Red Blood Count 4.37 10^6/uL (3.85-5.65); Red Cell Distribution Width 12.3 % (12.1-15.1); White Blood Count 5.49 10^3/uL (3.29-11.43)
[2023-09-20 20:00] LABS: Add Urine Microscopic? YES; Bilirubin Urine Neg (Negative); Blood Urine 3+ (Negative); Glucose Urine UA Norm (Normal); Ketones Urine Negative (Negative); Leukocyte Esterase Urine Negative (Negative); Nitrate Urine Negative (Negative); Protein Urine Neg (Negative); Specific Gravity, Urine 1.015 (1.005-1.030); Urine Appearance SL Hazy (CLEAR); Urine Color Yellow (Yellow); Urobilinogen Urine Norm (Negative); pH Urine 6 (5-7)
[2023-09-20 20:09] LABS: Bacteria Urine 1+ /hpf; RBC Urine 0-4 /hpf (0-2); Squamous Epithelial Cell Urine 0-4 /hpf (0-5); Transitional Epi Cells Urine 0-4 /hpf; WBC Urine 0-4 /hpf (0-5)
[2023-09-20 20:10] LABS: Add Urine Culture? No
[2023-09-20 20:15] LABS: Alanine Aminotransferase 22 U/L (0-33); Alkaline Phosphatase 125 U/L (35-105); Anion Gap 14.6 (5-19); Aspartate Amino Transferase 23 U/L (0-32); Blood Urea Nitrogen 7 mg/dL (6-20); Calcium 9.2 mg/dL (8.5-10.5); Carbon Dioxide 21 mmol/L (22-29); Chloride 109 mmol/L (98-107); Creatinine Clr Calc Pharmacy 129.3442; Globulin 2.7 g/dL (1.3-4.6); Glomerular Filtration Rate 103.7 mL/min (90-130); Glucose 68 mg/dL (65-115); HCG, Serum Qual Negative (Negative); Lipase 40 U/L (13-60); Osmolality Calculated 288 mOsm/kg (285-295); Potassium 3.6 mmol/L (3.5-5.1); Sodium 141 mmol/L (136-145); Total Bilirubin 0.2 mg/dL (0.15-1.2); Total Protein 6.7 g/dL (6.6-8.7)
[2023-09-20 20:46] VITALS: BP 121/79; PULSE 66; RESP 14; O2SAT 99
[2023-09-20 21:02] VITALS: BP 139/87; RESP 16; O2SAT 96
[2023-09-20 21:04] VITALS: BP 139/87; PULSE 86; RESP 16; O2SAT 96
[2023-09-20] MEDS: magnesium hydroxide 30 mL UDC PO (21:32)
[2023-09-20] MEDS: mineral oil 30 mL UDC PO (21:33)
[2023-09-20] MEDS: lactulose oral liq 20 gm/30 mL UDC 30 GM PO (21:33)
[2023-09-20 21:41] VITALS: BP 131/79; PULSE 88; RESP 16; O2SAT 99
== END 2023-09-20 21:43 | disposition home or self-care (01) ==
PROVIDERS: Emergency Medicine; Emergency Provider Physician Assistant; PCP Nurse Practitioner Family
DX: K59.00 Constipation, unspecified (principal); E78.5 Hyperlipidemia, unspecified; F17.290 Nicotine dependence, other tobacco product, uncomplicated
CPT/HCPCS: 74018; 80053; 81001; 83690; 84703; 85025; 99284

== ENCOUNTER → 2023-10-20 08:05 | Outpatient (BNVA) | payer MEDICARE, MEDICAID, OTHER, SELFPAY | PROVIDERS: PCP Nurse Practitioner Family; Visit Provider Nurse Practitioner Women's Health | DX: Z30.9 Encounter for contraceptive management, unspecified (principal) | CPT/HCPCS: 81025 ==

== ENCOUNTER → 2024-01-21 16:15 | Outpatient (BNVA) | payer MEDICARE, MEDICAID, SELFPAY | PROVIDERS: PCP Nurse Practitioner Family; Visit Provider Emergency Medicine | DX: N92.6 Irregular menstruation, unspecified (principal) | CPT/HCPCS: 81025 ==

== ENCOUNTER → 2024-02-14 11:47 | Outpatient (BNVA) | payer MEDICARE, MEDICAID, SELFPAY | PROVIDERS: PCP Nurse Practitioner Family; Visit Provider Specialist | DX: G40.309 Generalized idiopathic epilepsy and epileptic syndromes, not intractable, without status epilepticus (principal); G40.209 Localization-related (focal) (partial) symptomatic epilepsy and epileptic syndromes with complex partial seizures, not intractable, without status epilepticus; F91.3 Oppositional defiant disorder; F79 Unspecified intellectual disabilities; Z96.89 Presence of other specified functional implants | CPT/HCPCS: 95970; 99213 ==

== ENCOUNTER → 2024-03-28 18:42 | Outpatient (BNVA) | payer MEDICARE, MEDICAID, SELFPAY | PROVIDERS: PCP Nurse Practitioner Family; Visit Provider Nurse Practitioner | DX: S69.91XA Unspecified injury of right wrist, hand and finger(s), initial encounter (principal); M79.641 Pain in right hand; X58.XXXA Exposure to other specified factors, initial encounter | CPT/HCPCS: 73130 ==

== ENCOUNTER 2024-05-25 22:55 | Emergency (ER) | payer MEDICARE, SELFPAY ==
[2024-05-25 22:59] VITALS: BP 116/81; PULSE 101; RESP 15; TEMP 36.4; O2SAT 99; BMI 34.5
--- NOTE | 2024-05-25 23:29 | ED_ITS ---
HPI - Burn/Smoke Inhalation General: Chief complaint: Burn/Smoke Inhalation Stated complaint: burn on right hand Time Seen by Provider: 05/25/24 23:13 History of Present Illness: 24-year-old female comes in today with s ome superficial lane to the fingertips of her right hand. Patient denies any other complaints or injuries. Related Data Home Medications Medication Instructions Recorded Confirmed atorvastatin 40 mg tablet 40 mg PO BEDTIME 09/15/19 04/23/24 fluticasone propionate 50 1 spray intranasal BID 09/15/19 04/23/24 mcg/actuation nasal spray,suspension acetaminophen 325 mg capsule 650 mg PO QID PRN fever or pain 10/01/19 04/23/24 (Tylenol) bismuth subsalicylate 262 mg 1 tab PO DAILY PRN adominal upset 07/21/20 04/23/24 chewable tablet (Pepto-Bismol) diphenhydramine HCl 25 mg capsule 25 mg PO Q6H PRN allergies 11/18/20 04/23/24 (Benadryl) ferrous sulfate 325 mg (65 mg 325 mg PO DAILY 08/12/21 04/23/24 iron) tablet (Iron (ferrous sulfate)) calcium carbonate (Tums) 1,500 mg PO TID PRN abdominal upset 09/17/21 04/23/24 prenat.vits,maxime,igy-cttv-nnwuc 1 tab PO DAILY 06/01/22 04/23/24 lubiprostone 24 mcg capsule 24 mcg PO BID 08/17/22 04/23/24 mecobalamin (vitamin B12) 1,000 1,000 mcg PO DAILY 08/17/22 04/23/24 mcg chewable tablet melatonin 3 mg capsule 3 mg PO BEDTIME 08/17/22 04/23/24 acetaminophen-pamabrom 500 mg-25 1 tab PO Q6H PRN Cramps 11/16/22 04/23/24 mg tablet (Midol) norethindrone 1 mg-ethinyl 1 tab PO DAILY 11/16/22 04/23/24 estradiol 20 mcg (24)-iron 75 mg (4) tablet (Blisovi 24 Fe) ondansetron HCl 4 mg tablet 4 mg PO Q6H PRN nausea 11/24/22 04/23/24 bisacodyl 10 mg rectal suppository 10 mg [place] DAILY PRN Constipation 02/27/23 04/23/24 hydrocortisone 1 % topical ointment 1 applic topical TID PRN Rash 02/27/23 04/23/24 menthol 16 % topical liquid (Icy 1 ea topical BID PRN Pain 02/27/23 04/23/24 Hot No Mess) menthol 7.5 mg lozenges ([place] 7.5 mg mucous membrane Q2H PRN 02/27/23 04/23/24 Cough Drops) Cough neomycin-bacitracn Zn-polymyx 3.5 1 applic topical BID PRN Rash 02/27/23 04/23/24 mg-400 unit-5,000 unit/gram top oint (Neosporin (aaj-vsv-mhesu)) sennosides 8.6 mg-docusate sodium 2 tab-cap PO DAILY BEDTIME 02/27/23 04/23/24 50 mg tablet (Senokot-S) sodium phosphates 19 gram-7 See Rx Instructions .Route 02/27/23 04/23/24 gram/118 mL enema (Fleet Enema) .COMPLEX PRN Constipation etonogestrel 68 mg subdermal 1 implant subdermal ONCE 01/24/24 04/23/24 implant (Nexplanon) loperamide 2 mg capsule 2 mg PO Q4H PRN 04/23/24 04/23/24 Previous Rx's Medication Instructions Recorded polyethylene glycol 3350 17 gram 17 g PO DAILY PRN constipation #14 10/28/22 oral powder packet (Miralax) ea linaclotide 145 mcg capsule 145 mcg PO DAILY #30 caps 12/24/22 (Linzess) pantoprazole 40 mg tablet,delayed 40 mg PO BID 6 weeks #84 tabs 02/09/23 release (Protonix) hydrocortisone 1 %-pramoxine 1 % 1 applic [place] QID PRN hemorrhoids 09/17/23 rectal foam (Proctofoam HC) #10 grams hydroxyzine pamoate 25 mg capsule 50 mg (2 x 25 mg) PO Q6H PRN 10/03/23 Anxiety 30 days #120 caps cetirizine 10 mg tablet (Zyrtec) 10 mg PO DAILY PRN allergy 12/09/23 symptoms #60 tabs zonisamide 100 mg capsule See Rx Instructions .Route 01/27/24 .COMPLEX #150 caps lorazepam 1 mg tablet See Rx Instructions .Route 03/06/24 .COMPLEX Agitation #60 tabs brivaracetam 100 mg tablet 100 mg PO BID 30 days #60 tabs 03/07/24 quetiapine 400 mg tablet,extended See Rx Instructions .Route 03/07/24 release 24 hr .COMPLEX #120 tabs carbamide peroxide 6.5 % ear drops 5 drp otic (ear) DAILY 4 days #15 03/11/24 (Debrox) mL propranolol 20 mg tablet 20 mg PO BID #90 tabs 03/27/24 benztropine 1 mg tablet 1 mg PO BID #60 tabs 04/20/24 lorazepam 2 mg/mL oral concentrate See Rx Instructions .Route 04/24/24 .COMPLEX PRN seizure activity #30 mL paliperidone 9 mg tablet,extended 9 mg PO DAILY psychosis, agitation 05/24/24 release 24 hr 30 days #30 tabs quetiapine 50 mg tablet 50 mg PO DAILY 30 days #30 tabs 05/24/24 bacitracin 500 unit/gram topical 1 applic topical BID #14.2 grams 05/25/24 ointment Allergies Allergy/AdvReac Type Severity Reaction Status Date / Time clozapine Allergy Unknown Verified 05/25/24 22:59 divalproex sodium Allergy Unresponsiv Verified 05/25/24 22:59 [From Depakote] e escitalopram [From Lexapro] Allergy ALGY-Swell Verified 05/25/24 22:59 Lip/Tongue/Throat lamotrigine [From Lamictal] Allergy Unknown Verified 05/25/24 22:59 lithium Allergy Unknown Verified 05/25/24 22:59 peanut Allergy ADR-Abdominal Verified 05/25/24 22:59 Pain Penicillins Allergy Unknown Verified 05/25/24 22:59 topiramate [From Topamax] Allergy Unknown Verified 05/25/24 22:59 Review of Systems General: Reports: 10 or more systems reviewed and unremarkable except in HPI and below Skin/Breast: Reports: new lesions PFSH ED PFSH: Medical History Psychiatric care Tachycardia Intellectual disability Bipolar disorder Seizures Hyperlipidemia Constipation, chronic Surgical History Status post laparoscopic cholecystectomy (08/13/21) History of colonoscopy Status post placement of VNS (vagus nerve stimulation) device H/O eye surgery Family History Father Heart disease Hypercholesteremia Mother Hypertension Stroke Denies family history of Colon cancer Ovarian cancer Prostate cancer Diabetes Breast cancer Uterine cancer Thyroid disease Social History Smoking and tobacco/nicotine status: former use of tobacco/nicotine Physical Exam Const: COMMON NORMALS: alert HENMT: COMMON NORMALS: normocephalic HEAD & SCALP: normocephalic Neck/C-Spine: COMMON NORMALS: full ROM Resp: COMMON NORMALS: normal respiratory effort Cardio: COMMON NORMALS: regular rate RATE: regular rate Extremity: COMMON NORMALS: normal to inspection Neuro: SENSORIUM/ORIENTATION: Yes alert Skin: NARRATIVE SKIN EXAM: Redness noted to the fourth and second digit of the right hand and some increased redness and tenderness to the middle finger of the right hand. each of the injuries are on the pads of the distal finger. May be some light blistering to the middle finger. Course Vital Signs: Vital signs: Vital Signs Temperature 97.5 F L 05/25/24 22:59 Pulse Rate 101 H 05/25/24 22:59 Respiratory Rate 15 05/25/24 22:59 Blood Pressure 116/81 05/25/24 22:59 Pulse Oximetry 99 05/25/24 22:59 Oxygen Delivery Me thod Room Air 05/25/24 22:59 MDM - Burn/Smoke Inhalation Medical Decision Making 24-year-old female comes in today for burn to the second third and fourth finger of the right hand to the distal pad. Patient is good range of motion. No significant blistering is noted. Differential diagnosis superficial burn, partial-thickness burn, malingering. No sign of severe injury is noted. Patient was wound was covered with bacitracin ointment and dressing. Recommend continuing bacitracin ointment until wounds are healed. Patient and caregiver both reported understanding. No radiology studies performed this visit Discharge Plan Discharge Patient Disposition: Home Clinical Impression: Superficial burn of finger Qualifiers: Encounter type: initial encounter Laterality: right Qualified Code(s): T23.121A - Burn of first degree of single right finger (nail) except thumb, initial en counter Condition: Stable Prescriptions: New bacitracin 500 unit/gram ointment 1 applic topical BID Qty: 14.2 0RF No Action acetaminophen [Tylenol] 325 mg capsule 650 mg PO QID PRN (Reason: fever or pain) calcium carbonate [Tums] 300 mg (750 mg) tablet,chewable 1,500 mg PO TID PRN (Reason: abdominal upset) bismuth subsalicylate [Pepto-Bismol] 262 mg tablet,chewable 1 tab PO DAILY PRN (Reason: adominal upset) Rx Instructions: do not exceed 16 tabs per 24 hrs diphenhydramine HCl [Benadryl] 25 mg capsule 25 mg PO Q6H PRN (Reason: allergies) pantoprazole [Protonix] 40 mg tablet,delayed release (DR/EC) 40 mg PO BID 42 Days Qty: 84 1RF Proctofoam HC 1-1 % foam 1 applic [place] QID PRN (Reason: hemorrhoids) Qty: 10 5RF Nexplanon 68 mg implant 1 implant subdermal ONCE cetirizine [Zyrtec] 10 mg tablet 10 mg PO DAILY PRN (Reason: allergy symptoms) Qty: 60 0RF Debrox 6.5 % drops 5 drp otic (ear) DAILY 4 Days Qty: 15 0RF prenat.vits,maxime,rzp-okbm-emrax Tablet 1 tab PO DAILY lubiprostone 24 mcg capsule 24 mcg PO BID melatonin 3 mg capsule 3 mg PO BEDTIME mecobalamin (vitamin B12) 1,000 mcg tablet,chewable 1,000 mcg PO DAILY Midol 500-25 mg tablet 1 tab PO Q6H PRN (Reason: Cramps) Blisovi 24 Fe 1 mg-20 mcg (24)/75 mg (4) tablet 1 tab PO DAILY ondansetron HCl 4 mg tablet 4 mg PO Q6H PRN (Reason: nausea) loperamide 2 mg capsule 2 mg PO Q4H PRN Rx Instructions: administer after each loose stool until symptoms controlled; do not exceed 8 mg per 24 hrs Linzess 145 mcg capsule 145 mcg PO DAILY Qty: 30 11RF hydroxyzine pamoate 25 mg capsule 50 mg PO Q6H PRN (Reason: Anxiety) 30 Days Qty: 120 1RF zonisamide 100 mg capsule See Rx Instructions .ROUTE .COMPLEX Qty: 150 5RF Dose Instruction: TAKE 2 CAPSULES BY MOUTH EVERY MORNING and THREE EVERY EVENING Rx Instructions: TAKE 2 CAPSULES BY MOUTH EVERY MORNING and THREE EVERY EVENING lorazepam 1 mg tablet See Rx Instructions .ROUTE .COMPLEX Qty: 60 3RF Rx Instructions: take a half a tab at 6 PM, take a whole tab at bedtime, hold for sedation; brivaracetam 100 mg tablet 100 mg PO BID 30 Days Qty: 60 5RF quetiapine 400 mg tablet extended release 24 hr See Rx Instructions .ROUTE .COMPLEX Qty: 120 5RF Dose Instruction: TAKE 2 TABLETS BY MOUTH TWICE DAILY Rx Instructions: TAKE 2 TABLETS BY MOUTH TWICE DAILY propranolol 20 mg tablet 20 mg PO BID Qty: 90 6RF Rx Instructions: bid for 7 days then tid benztropine 1 mg tablet 1 mg PO BID Qty: 60 3RF Rx Instructions: TAKE ONE TABLET BY MOUTH TWICE DAILY lorazepam 2 mg/mL concentrate See Rx Instructions .ROUTE .COMPLEX PRN (Reason: seizure activity) Qty: 30 0RF Rx Instructions: 0.5 ML PO PRN daily paliperidone 9 mg tablet extended release 24 hr 9 mg PO DAILY 30 Days Qty: 30 1RF quetiapine 50 mg tablet 50 mg PO DAILY 30 Days Qty: 30 1RF fluticasone propionate 50 mcg/actuation [place],Suspension 1 spray INTRANASAL BID Rx Instructions: INTSILL 1 SPRAY INTO EACH NOSTRIL BID atorvastatin 40 mg Tablet 40 mg PO BEDTIME ferrous sulfate [Iron (ferrous sulfate)] 325 mg (65 mg iron) Tablet 325 mg PO DAILY polyethylene glycol 3350 [Miralax] 17 gram powder in packet 17 g PO DAILY PRN (Reason: constipation) Qty: 14 0RF Neosporin (nhv-pgu-uhyyz) 3.5mg-400 unit- 5,000 unit/gram Ointment 1 applic TOPICAL BID PRN (Reason: Rash) hydrocortisone 1 % Ointment 1 applic TOPICAL TID PRN (Reason: Rash) Senokot-S 8.6-50 mg Tablet 2 tab-cap PO DAILY bisacodyl 10 mg Suppository 10 mg [place] DAILY PRN (Reason: Constipation) Fleet Enema 19-7 gram/118 mL Enema See Rx Instructions .ROUTE .COMPLEX PRN (Reason: Constipation) Rx Instructions: 118 mL rectally as needed if no bowel movement in 3 days Icy Hot No Mess 16 % Liquid 1 ea TOPICAL BID PRN (Reason: Pain) [place] Cough Drops 7.5 mg Lozenge 7.5 mg MUCOUS MEMBRANE Q2H PRN (Reason: Cough) Discharge Orders: Discharge ED (Routine); Ordered 05/25/24 Ordered By: Sky Maier Referrals: Judith Bermudez FNP [Primary Care Provider] - Discharge Diet: Usual diet Discharge Activity: Increase activity as tolerated Patient Instructions: Superficial Burn (ED) Activity Restrictions/Additional Instructions: Apply bacitracin ointment to lane until healed. Use acetaminophen ibuprofen as needed for pain. Follow-up with primary care. 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
[2024-05-26] MEDS: bacitracin ointment Pkt 1 EACH TOPICAL (00:04)
[2024-05-26 00:08] VITALS: BP 128/78; PULSE 80; O2SAT 99
== END 2024-05-26 00:09 | disposition home or self-care (01) ==
PROVIDERS: Emergency Provider Nurse Practitioner Family; PCP Nurse Practitioner Family
DX: T23.121A Burn of first degree of single right finger (nail) except thumb, initial encounter (principal); X58.XXXA Exposure to other specified factors, initial encounter
CPT/HCPCS: 99283

== ENCOUNTER → 2024-06-07 14:03 | Outpatient (BNVA) | payer MEDICARE, SELFPAY | PROVIDERS: PCP Nurse Practitioner Family; Visit Provider Specialist | DX: G47.10 Hypersomnia, unspecified (principal); G40.309 Generalized idiopathic epilepsy and epileptic syndromes, not intractable, without status epilepticus; Z96.89 Presence of other specified functional implants; G40.209 Localization-related (focal) (partial) symptomatic epilepsy and epileptic syndromes with complex partial seizures, not intractable, without status epilepticus; F91.3 Oppositional defiant disorder; F79 Unspecified intellectual disabilities | CPT/HCPCS: 99214 ==

== ENCOUNTER 2024-06-09 15:50 | Emergency (ER) | payer MEDICARE, MEDICAID, SELFPAY ==
[2024-06-09 15:51] VITALS: BP 129/85; PULSE 106; RESP 16; TEMP 36.9; O2SAT 99; BMI 32.8
--- NOTE | 2024-06-09 15:55 | ED_ITS ---
HPI - Seizure 2 General: Chief Complaint: Seizure Stated Complaint: SEIZURE Time Seen by Provider: 06/09/24 15:51 Source: patient and EMS Mode of arrival: EMS Limitations: no limitations History of Present Illness: HPI Narrative: 24-year-old female has a history of abse nce seizure's patient states she had a very stressful day and sometimes it triggers her seizures had a seizure at home was initially postictal she is now awake alert she is answering all my questions appropriately she denies headache or fever states she is feels tired. Associated symptoms: Deny chest pain, chills or fever(s) Related Data Home Medications Medication Instructions Recorded Confirmed atorvastatin 40 mg tablet 40 mg PO BEDTIME 09/15/19 06/09/24 fluticasone propionate 50 1 spray intranasal BID 09/15/19 06/09/24 mcg/actuation nasal spray,suspension bismuth subsalicylate 262 mg 1 tab PO DAILY PRN adominal upset 07/21/20 06/09/24 chewable tablet (Pepto-Bismol) diphenhydramine HCl 25 mg capsule 25 mg PO Q6H PRN allergies 11/18/20 06/09/24 (Benadryl) ferrous sulfate 325 mg (65 mg 325 mg PO DAILY 08/12/21 06/09/24 iron) tablet (Iron (ferrous sulfate)) calcium carbonate (Tums) 1,500 mg PO TID PRN abdominal upset 09/17/21 06/09/24 lubiprostone 24 mcg capsule 24 mcg PO BID 08/17/22 06/09/24 mecobalamin (vitamin B12) 1,000 1,000 mcg PO DAILY 08/17/22 06/09/24 mcg chewable tablet melatonin 3 mg capsule 3 mg PO BEDTIME 08/17/22 06/09/24 acetaminophen-pamabrom 500 mg-25 1 tab PO Q6H PRN Cramps 11/16/22 06/09/24 mg tablet (Midol) ondansetron HCl 4 mg tablet 4 mg PO Q6H PRN nausea 11/24/22 06/09/24 bisacodyl 10 mg rectal suppository 10 mg [place] DAILY PRN Constipation 02/27/23 06/09/24 hydrocortisone 1 % topical ointment 1 applic topical TID PRN Rash 02/27/23 06/09/24 menthol 16 % topical liquid (Icy 1 ea topical BID PRN Pain 02/27/23 06/09/24 Hot No Mess) menthol 7.5 mg lozenges ([place] 7.5 mg mucous membrane Q2H PRN 02/27/23 06/09/24 Cough Drops) Cough neomycin-bacitracn Zn-polymyx 3.5 1 applic topical BID PRN Rash 02/27/23 06/09/24 mg-400 unit-5,000 unit/gram top oint (Neosporin (qbt-yup-ctyco)) sennosides 8.6 mg-docusate sodium 2 tab-cap PO DAILY BEDTIME 02/27/23 06/09/24 50 mg tablet (Senokot-S) sodium phosphates 19 gram-7 See Rx Instructions .Route 02/27/23 06/09/24 gram/118 mL enema (Fleet Enema) .COMPLEX PRN Constipation etonogestrel 68 mg subdermal 1 implant subdermal ONCE 01/24/24 06/09/24 implant (Nexplanon) loperamide 2 mg capsule 2 mg PO Q4H PRN Loose Stool 04/23/24 06/09/24 acetaminophen 325 mg tablet 650 mg PO QID PRN Pain 06/09/24 06/09/24 Previous Rx's Medication Instructions Recorded polyethylene glycol 3350 17 gram 17 g PO DAILY PRN constipation #14 10/28/22 oral powder packet (Miralax) ea linaclotide 145 mcg capsule 145 mcg PO DAILY #30 caps 12/24/22 (Linzess) pantoprazole 40 mg tablet,delayed 40 mg PO BID 6 weeks #84 tabs 02/09/23 release (Protonix) hydrocortisone 1 %-pramoxine 1 % 1 applic [place] QID PRN hemorrhoids 09/17/23 rectal foam (Proctofoam HC) #10 grams hydroxyzine pamoate 25 mg capsule 50 mg (2 x 25 mg) PO Q6H PRN 10/03/23 Anxiety 30 days #120 caps cetirizine 10 mg tablet (Zyrtec) 10 mg PO DAILY PRN allergy 12/09/23 symptoms #60 tabs lorazepam 1 mg tablet See Rx Instructions .Route 03/06/24 .COMPLEX Agitation #60 tabs quetiapine 400 mg tablet,extended See Rx Instructions .Route 03/07/24 release 24 hr .COMPLEX #120 tabs carbamide peroxide 6.5 % ear drops 5 drp otic (ear) DAILY 4 days #15 03/11/24 (Debrox) mL propranolol 20 mg tablet 20 mg PO BID #90 tabs 03/27/24 benztropine 1 mg tablet 1 mg PO BID #60 tabs 04/20/24 lorazepam 2 mg/mL oral concentrate See Rx Instructions .Route 04/24/24 .COMPLEX PRN seizure activity #30 mL bacitracin 500 unit/gram topical 1 applic topical BID #14.2 grams 05/25/24 ointment metoclopramide HCl 5 mg tablet 5 mg PO DAILY #30 tabs 05/28/24 (Reglan) paliperidone 9 mg tablet,extended 9 mg PO DAILY psychosis, agitation 05/28/24 release 24 hr 30 days #30 tabs quetiapine 50 mg tablet 50 mg PO DAILY 30 days #30 tabs 05/28/24 brivaracetam 100 mg tablet 100 mg PO BID #60 tabs 06/07/24 zonisamide 100 mg capsule See Rx Instructions .Route 06/07/24 .COMPLEX #150 caps Allergies Allergy/AdvReac Type Severity Reaction Status Date / Time clozapine Allergy Unknown Verified 06/08/24 17:53 divalproex sodium Allergy Unresponsiv Verified 06/08/24 17:53 [From Depakote] e escitalopram [From Lexapro] Allergy ALGY-Swell Verified 06/08/24 17:53 Lip/Tongue/Throat lamotrigine [From Lamictal] Allergy Unknown Verified 06/08/24 17:53 lithium Allergy Unknown Verified 06/08/24 17:53 peanut Allergy ADR-Abdominal Verified 06/08/24 17:53 Pain Penicillins Allergy Unknown Verified 06/08/24 17:53 topiramate [From Topamax] Allergy Unknown Verified 06/08/24 17:53 Review of Systems 2 Const: Denies: fever(s), chills, body aches or change in appetite ENMT: Denies: throat pain or dental pain Card: Denies: chest pain Resp: Denies: dyspnea GI: Denies: abdominal pain, nausea, vomiting or diarrhea Musc: Denies: neck pain or back pain Skin/Breast: Denies: rash Neuro: Reports: seizure-like activity; Denies: headache(s) PFSH ED 2 PFSH: Medical History Psychiatric care Tachycardia Intellectual disability Bipolar disorder Seizures Hyperlipidemia Constipation, chronic Surgical History Status post laparoscopic cholecystectomy (08/13/21) History of colonoscopy Status post placement of VNS (vagus nerve stimulation) device H/O eye surgery Family History Father Heart disease Hypercholesteremia Mother Hypertension Stroke Denies family history of Colon cancer Ovarian cancer Prostate cancer Diabetes Breast cancer Uterine cancer Thyroid disease Social History Smoking and tobacco/nicotine status: former use of tobacco/nicotine (quit smoking and vaping 10 months ago) Physical Exam 2 Const: COMMON NORMALS: no acute distress, patient oriented x3 and healthy appearing HENMT: COMMON NORMALS: normocephalic and atraumatic HEAD & SCALP: n ormocephalic and atraumatic Neck/C-Spine: COMMON NORMALS: full ROM and supple Chest: COMMONS NORMALS: normal inspection of the chest Resp: COMMON NORMALS: normal respiratory effort, No retractions, No use of accessory muscles and clear to auscultation bilaterally AUSCULTATION: clear to auscultation bilaterally Cardio: COMMON NORMALS: regular rate, regular rhythm and No murmurs present (Cardio) RATE: regular rate RHYTHM: regular rhythm GI: COMMON NORMALS: Normal to inspection, nondistended, normoactive bowel sounds present, Soft to palpation, non-tender and no masses PALPATION: Yes Soft to palpation Extremity: COMMON NORMALS: normal to inspection and full ROM Neuro: COMMON NORMALS: patient oriented x3, moves all extremities and no focal motor deficits Psych: COMMON NORMALS: mental status grossly normal, Normal thought process present and cooperative THOUGHT PROCESS: Normal thought process present Skin: COMMON NORMALS: no rashes or lesions noted and no wounds GENERAL SKIN EXAM: no rashes or lesions noted Course 2 Vital Signs: Vital signs: Vital Signs Temperature 98.5 F 06/09/24 15:51 Pulse Rate 106 H 06/09/24 15:51 Respiratory Rate 16 06/09/24 15:51 Blood Pressure 129/85 06/09/24 15:51 Pulse Oximetry 99 06/09/24 15:51 Oxygen Delivery Me thod Room Air 06/09/24 15:51 MDM - Seizure MDM Narrative Medical decision making narrative: Patient presents here with likely absence seizure she been well-appearing here no seizure-like activity here she is stable for discharge follow-up PCP return if worsening. Lab Data 06/09/24 16:15 Labs: Laboratory Results Sodium 140 mmol/L (136-145) 06/09/24 16:15 Potassium 3.1 mmol/L (3.5-5.1) L 06/09/24 16:15 Chloride 111 mmol/L (98-107) H 06/09/24 16:15 Carbon Dioxide 20 mmol/L (22-29) L 06/09/24 16:15 Anion Gap 12.1 (5-19) 06/09/24 16:15 BUN 9 mg/dL (6-20) 06/09/24 16:15 Creatinine 1.0 mg/dL (0.5-0.9) H 06/09/24 16:15 GFR Calculation 68.1 mL/min (90-130) L 06/09/24 16:15 Glucose 102 mg/dL (65-115) 06/09/24 16:15 Calculated Osmolality 289 mOsm/kg (285-295) 06/09/24 16:15 Calcium 9.4 mg/dL (8.5-10.5) 06/09/24 16:15 HCG, Qual Negative (Negative) 06/09/24 16:15 No radiology studies performed this visit Discharge Plan Discharge Patient Disposition: Home Clinical Impression: Seizures Condition: Stable Prescriptions: No Action calcium carbonate [Tums] 300 mg (750 mg) tablet,chewable 1,500 mg PO TID PRN (Reason: abdominal upset) bismuth subsalicylate [Pepto-Bismol] 262 mg tablet,chewable 1 tab PO DAILY PRN (Reason: adominal upset) Rx Instructions: do not exceed 16 tabs per 24 hrs diphenhydramine HCl [Benadryl] 25 mg capsule 25 mg PO Q6H PRN (Reason: allergies) pantoprazole [Protonix] 40 mg tablet,delayed release (DR/EC) 40 mg PO BID 42 Days Qty: 84 1RF Proctofoam HC 1-1 % foam 1 applic [place] QID PRN (Reason: hemorrhoids) Qty: 10 5RF Nexplanon 68 mg implant 1 implant subdermal ONCE cetirizine [Zyrtec] 10 mg tablet 10 mg PO DAILY PRN (Reason: allergy symptoms) Qty: 60 0RF Debrox 6.5 % drops 5 drp otic (ear) DAILY 4 Days Qty: 15 0RF zonisamide 100 mg capsule See Rx Instructions .ROUTE .COMPLEX Qty: 150 5RF Dose Instruction: TAKE 2 CAPSULES BY MOUTH EVERY MORNING and THREE EVERY EVENING Rx Instructions: TAKE 2 CAPSULES BY MOUTH EVERY MORNING and THREE EVERY EVENING brivaracetam 100 mg tablet 100 mg PO BID Qty: 60 5RF metoclopramide HCl [Reglan] 5 mg tablet 5 mg PO DAILY Qty: 30 1RF Rx Instructions: take one tab daily lubiprostone 24 mcg capsule 24 mcg PO BID melatonin 3 mg capsule 3 mg PO BEDTIME mecobalamin (vitamin B12) 1,000 mcg tablet,chewable 1,000 mcg PO DAILY Midol 500-25 mg tablet 1 tab PO Q6H PRN (Reason: Cramps) ondansetron HCl 4 mg tablet 4 mg PO Q6H PRN (Reason: nausea) loperamide 2 mg capsule 2 mg PO Q4H PRN (Reason: Loose Stool) Rx Instructions: administer after each loose stool until symptoms controlled; do not exceed 8 mg per 24 hrs Linzess 145 mcg capsule 145 mcg PO DAILY Qty: 30 11RF hydroxyzine pamoate 25 mg capsule 50 mg PO Q6H PRN (Reason: Anxiety) 30 Days Qty: 120 1RF lorazepam 1 mg tablet See Rx Instructions .ROUTE .COMPLEX Qty: 60 3RF Rx Instructions: take a half a tab at 6 PM, take a whole tab at bedtime, hold for sedation; quetiapine 400 mg tablet extended release 24 hr See Rx Instructions .ROUTE .COMPLEX Qty: 120 5RF Dose Instruction: TAKE 2 TABLETS BY MOUTH TWICE DAILY Rx Instructions: TAKE 2 TABLETS BY MOUTH TWICE DAILY propranolol 20 mg tablet 20 mg PO BID Qty: 90 6RF Rx Instructions: bid for 7 days then tid benztropine 1 mg tablet 1 mg PO BID Qty: 60 3RF Rx Instructions: TAKE ONE TABLET BY MOUTH TWICE DAILY lorazepam 2 mg/mL concentrate See Rx Instructions .ROUTE .COMPLEX PRN (Reason: seizure activity) Qty: 30 0RF Rx Instructions: 0.5 ML PO PRN daily quetiapine 50 mg tablet 50 mg PO DAILY 30 Days Qty: 30 5RF paliperidone 9 mg tablet extended release 24 hr 9 mg PO DAILY 30 Days Qty: 30 5RF fluticasone propionate 50 mcg/actuation [place],Suspension 1 spray INTRANASAL BID Rx Instructions: INTSILL 1 SPRAY INTO EACH NOSTRIL BID atorvastatin 40 mg Tablet 40 mg PO BEDTIME ferrous sulfate [Iron (ferrous sulfate)] 325 mg (65 mg iron) Tablet 325 mg PO DAILY polyethylene glycol 3350 [Miralax] 17 gram powder in packet 17 g PO DAILY PRN (Reason: constipation) Qty: 14 0RF acetaminophen 325 mg Tablet 650 mg PO QID PRN (Reason: Pain) Neosporin (nun-tsv-hrnog) 3.5mg-400 unit- 5,000 unit/gram Ointment 1 applic TOPICAL BID PRN (Reason: Rash) hydrocortisone 1 % Ointment 1 applic TOPICAL TID PRN (Reason: Rash) sennosides-docusate sodium [Senokot-S] 8.6-50 mg Tablet 2 tab-cap PO DAILY bisacodyl 10 mg Suppository 10 mg [place] DAILY PRN (Reason: Constipation) [place] Enema 19-7 gram/118 mL Enema See Rx Instructions .ROUTE .COMPLEX PRN (Reason: Constipation) Rx Instructions: 118 mL rectally as needed if no bowel movement in 3 days Icy Hot No Mess 16 % Liquid 1 ea TOPICAL BID PRN (Reason: Pain) [place] Cough Drops 7.5 mg Lozenge 7.5 mg MUCOUS MEMBRANE Q2H PRN (Reason: Cough) bacitracin 500 unit/gram ointment 1 applic topical BID Qty: 14.2 0RF Discharge Orders: Discharge ED (Routine); Ordered 06/09/24 Ordered By: Duglas Lazaro Referrals: Judith Bermudez FNP [Primary Care Provider] - Discharge Diet: Advance as tolerated Discharge Activity: Resume usual activity Patient Instructions: Absence Seizure Coding Level of Care Code ED Clerical Specialist for Premag Mitch
[2024-06-09 16:38] LABS: HCG, Serum Qual Negative (Negative)
[2024-06-09 16:41] LABS: Anion Gap 12.1 (5-19); Blood Urea Nitrogen 9 mg/dL (6-20); Calcium 9.4 mg/dL (8.5-10.5); Carbon Dioxide 20 mmol/L (22-29); Chloride 111 mmol/L (98-107); Creatinine Clr Calc Pharmacy 89.0221; Glomerular Filtration Rate 68.1 mL/min (90-130); Glucose 102 mg/dL (65-115); Osmolality Calculated 289 mOsm/kg (285-295); Potassium 3.1 mmol/L (3.5-5.1); Sodium 140 mmol/L (136-145)
[2024-06-09 17:20] VITALS: BP 93/73; PULSE 94; RESP 16; O2SAT 100
== END 2024-06-09 17:05 | disposition home or self-care (01) ==
PROVIDERS: Emergency Provider Emergency Medicine; PCP Nurse Practitioner Family
DX: R56.9 Unspecified convulsions (principal); Z87.891 Personal history of nicotine dependence; E78.5 Hyperlipidemia, unspecified
CPT/HCPCS: 80048; 84703; 99283

== ENCOUNTER → 2024-06-13 12:57 | Outpatient (BNVA) | payer MEDICARE, MEDICAID, SELFPAY | PROVIDERS: PCP Nurse Practitioner Family; Referring Provider Nurse Practitioner Family; Visit Provider Specialist | DX: G40.309 Generalized idiopathic epilepsy and epileptic syndromes, not intractable, without status epilepticus (principal); G40.209 Localization-related (focal) (partial) symptomatic epilepsy and epileptic syndromes with complex partial seizures, not intractable, without status epilepticus; Z96.89 Presence of other specified functional implants; F91.3 Oppositional defiant disorder; F79 Unspecified intellectual disabilities; G47.10 Hypersomnia, unspecified | CPT/HCPCS: 95971; 99215 ==

== ENCOUNTER 2024-06-15 13:52 | Emergency (ER) | payer MEDICARE, MEDICAID, SELFPAY ==
[2024-06-15] VITALS (11 sets, daily range): BP systolic 109–115; BP diastolic 70–93; PULSE 86–126; RESP 14–21; TEMP 36.9; O2SAT 95–100; BMI 33.1
--- NOTE | 2024-06-15 18:05 | XRR_ITS ---
PROCEDURE INFORMATION: Exam: XR Chest Exam date and time: 06/15/2024 6:24 PM Age: 24 years old Clinical indication: Other: Tachycardia; Prior surgery; Surgery date: 6+ months; Surgery type: Vagal nerve stimulator TECHNIQUE: Imaging protocol: Radiologic exam of the chest. Views: 1 view. COMPARISON: CR XR chest 1V [id number] 05/05/2023 7:52 PM FINDINGS: Tubes, catheters and devices: Stable left chest wall vagal nerve stimulator. Lungs: No pulmonary consolidation. Pleural spaces: No pleural effusion or pneumothorax. Heart/Mediastinum: The cardiomediastinal silhouette is within normal limits. Bones/joints: No acute osseous abnormalities are seen. XR/XR chest 1V portable [id number] IMPRESSION: No acute cardiopulmonary disease.
[2024-06-15 18:22] LABS: Basophils % 0.6 %; Eosinophils # 0.1 10^3/uL (0.0-0.8); Eosinophils % 1.3 %; Hematocrit 43.7 % (36-47); Lymphocytes # 2.7 10^3/uL (0.8-4.8); Mean Corpuscular HGB Conc 33.9 g/dL (30-55); Mean Corpuscular Volume 91.6 fl (85-98); Mean Platelet Volume 11.3 fL (7.4-10.4); Monocytes # 0.6 10^3/uL (0.2-0.9); Monocytes % 9.2 %; Neutrophils # 2.74 10^3/uL (1.8-7.7); Neutrophils % 44.4 %; Nucleated Red Blood Cells % 0 %; Platelet Count 268 10^3/cmm (157-399); Red Blood Count 4.77 10^6/uL (3.85-5.65); Red Cell Distribution Width 11.9 % (12.1-15.1); White Blood Count 6.18 10^3/uL (3.29-11.43)
--- NOTE | 2024-06-15 18:26 | ECG_ITS ---
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 Measurements Intervals [place] Rate: 92 P: 29 TX: 135 QRS: 31 QRSD: 83 T: 80 QT: 346 QTc: 429 Interpretive Statements SINUS RHYTHM NONSPECIFIC T-WAVE ABNORMALITY Compared to ECG 07/21/2021 21:26:46 Sinus tachycardia no longer present T-wave abnormality still present Electronically Signed On 06-15-2024 21:54:40 [employer] PROFESS[employer] by Raghav Munoz M.D. [email or web address]
--- NOTE | 2024-06-15 18:40 | W.ED.SEIZURE ---
HPI - Seizure General: Chief Complaint: Seizure Stated Complaint: alert from seizure monitor Time Seen by Provider: 06/15/24 18:05 History of Present Illness: HPI Narrative: Patient resents to the ER with complaints of feeling like there is a long, seizure being tachycardic today. Patient says her highest heart rate was 140 0 beats a minute while she was sitting comfortably. Patient has a vagal nerve stimulator. She says this alerts her before she is about to have a seizure. Patient says slurred her 4 times a day. Related Data Home Medications Medication Instructions Recorded Confirmed atorvastatin 40 mg tablet 40 mg PO BEDTIME 09/15/19 06/14/24 fluticasone propionate 50 1 spray intranasal BID 09/15/19 06/14/24 mcg/actuation nasal spray,suspension bismuth subsalicylate 262 mg 1 tab PO DAILY PRN adominal upset 07/21/20 06/14/24 chewable tablet (Pepto-Bismol) diphenhydramine HCl 25 mg capsule 25 mg PO Q6H PRN allergies 11/18/20 06/14/24 (Benadryl) ferrous sulfate 325 mg (65 mg 325 mg PO DAILY 08/12/21 06/14/24 iron) tablet (Iron (ferrous sulfate)) calcium carbonate (Tums) 1,500 mg PO TID PRN abdominal upset 09/17/21 06/14/24 lubiprostone 24 mcg capsule 24 mcg PO BID 08/17/22 06/14/24 mecobalamin (vitamin B12) 1,000 1,000 mcg PO DAILY 08/17/22 06/14/24 mcg chewable tablet melatonin 3 mg capsule 3 mg PO BEDTIME 08/17/22 06/14/24 acetaminophen-pamabrom 500 mg-25 1 tab PO Q6H PRN Cramps 11/16/22 06/14/24 mg tablet (Midol) ondansetron HCl 4 mg tablet 4 mg PO Q6H PRN nausea 11/24/22 06/14/24 bisacodyl 10 mg rectal suppository 10 mg MT DAILY PRN Constipation 02/27/23 06/14/24 hydrocortisone 1 % topical ointment 1 applic topical TID PRN Rash 02/27/23 06/14/24 menthol 16 % topical liquid (Icy 1 ea topical BID PRN Pain 02/27/23 06/14/24 Hot No Mess) menthol 7.5 mg lozenges ([place] 7.5 mg mucous membrane Q2H PRN 02/27/23 06/14/24 Cough Drops) Cough neomycin-bacitracn Zn-polymyx 3.5 1 applic topical BID PRN Rash 02/27/23 06/14/24 mg-400 unit-5,000 unit/gram top oint (Neosporin ([id number])) sennosides 8.6 mg-docusate sodium 2 tab-cap PO DAILY BEDTIME 02/27/23 06/14/24 50 mg tablet (Senokot-S) sodium phosphates 19 gram-7 See Rx Instructions .Route 02/27/23 06/14/24 gram/118 mL enema (Fleet Enema) .COMPLEX PRN Constipation etonogestrel 68 mg subdermal 1 implant subdermal ONCE 01/24/24 06/14/24 implant (Nexplanon) loperamide 2 mg capsule 2 mg PO Q4H PRN Loose Stool 04/23/24 06/14/24 acetaminophen 325 mg tablet 650 mg PO QID PRN Pain 06/09/24 06/14/24 Previous Rx's Medication Instructions Recorded polyethylene glycol 3350 17 gram 17 g PO DAILY PRN constipation #14 10/28/22 oral powder packet (Miralax) ea linaclotide 145 mcg capsule 145 mcg PO DAILY #30 caps 12/24/22 (Linzess) pantoprazole 40 mg tablet,delayed 40 mg PO BID 6 weeks #84 tabs 02/09/23 release (Protonix) hydrocortisone 1 %-pramoxine 1 % 1 applic MT QID PRN hemorrhoids 09/17/23 rectal foam (Proctofoam HC) #10 grams hydroxyzine pamoate 25 mg capsule 50 mg (2 x 25 mg) PO Q6H PRN 10/03/23 Anxiety 30 days #120 caps cetirizine 10 mg tablet (Zyrtec) 10 mg PO DAILY PRN allergy 12/09/23 symptoms #60 tabs lorazepam 1 mg tablet See Rx Instructions .Route 03/06/24 .COMPLEX Agitation #60 tabs quetiapine 400 mg tablet,extended See Rx Instructions .Route 03/07/24 release 24 hr .COMPLEX #120 tabs carbamide peroxide 6.5 % ear drops 5 drp otic (ear) DAILY 4 days #15 03/11/24 (Debrox) mL benztropine 1 mg tablet 1 mg PO BID #60 tabs 04/20/24 lorazepam 2 mg/mL oral concentrate See Rx Instructions .Route 04/24/24 .COMPLEX PRN seizure activity #30 mL bacitracin 500 unit/gram topical 1 applic topical BID #14.2 grams 05/25/24 ointment metoclopramide HCl 5 mg tablet 5 mg PO DAILY #30 tabs 05/28/24 (Reglan) paliperidone 9 mg tablet,extended 9 mg PO DAILY psychosis, agitation 05/28/24 release 24 hr 30 days #30 tabs quetiapine 50 mg tablet 50 mg PO DAILY 30 days #30 tabs 05/28/24 brivaracetam 100 mg tablet 100 mg PO BID #60 tabs 06/07/24 zonisamide 100 mg capsule See Rx Instructions .Route 06/13/24 .COMPLEX #180 caps Allergies Allergy/AdvReac Type Severity Reaction Status Date / Time clozapine Allergy Unknown Verified 06/15/24 14:06 divalproex sodium Allergy Unresponsiv Verified 06/15/24 14:06 [From Depakote] e escitalopram [From Lexapro] Allergy ALGY-Swell Verified 06/15/24 14:06 Lip/Tongue/Throat lamotrigine [From Lamictal] Allergy Unknown Verified 06/15/24 14:06 lithium Allergy Unknown Verified 06/15/24 14:06 peanut Allergy ADR-Abdominal Verified 06/15/24 14:06 Pain Penicillins Allergy Unknown Verified 06/15/24 14:06 topiramate [From Topamax] Allergy Unknown Verified 06/15/24 14:06 Review of Systems General: Reports: 10 or more systems reviewed and unremarkable except in HPI and below PFSH ED PFSH: Medical History Psychiatric care Tachycardia Intellectual disability Bipolar disorder Seizures Hyperlipidemia Constipation, chronic Surgical History Status post laparoscopic cholecystectomy (08/13/21) History of colonoscopy Status post placement of VNS (vagus nerve stimulation) device H/O eye surgery Family History Father Heart disease Hypercholesteremia Mother Hypertension Stroke Denies family history of Colon cancer Ovarian cancer Prostate cancer Diabetes Breast cancer Uterine cancer Thyroid disease Social History Smoking and tobacco/nicotine status: former use of tobacco/nicotine (quit about a year ago) Physical Exam Const: COMMON NORMALS: no acute distress, average body habitus, patient oriented x3, no limitations, healthy appearing, alert and well nourished HENMT: COMMON NORMALS: normocephalic, atraumatic, hearing grossly normal bilaterally, external ears normal, Normal external nose present and moist oral mucous membranes HEAD & SCALP: normocephalic and atraumatic NOSE: Normal external nose present EXTERNAL EAR: Yes external ears normal Eye: COMMON NORMALS: Equal, round and reactive pupils present, EOMs intact bilaterally, conjunctivae normal and no scleral icterus CONJUNCTIVA: Yes conjunctivae normal PUPIL: Yes Equal, round and reactive pupils present Neck/C-Spine: COMMON NORMALS: full ROM, no lymphadenopathy, supple, no meningeal signs, no JVD and Thyroid normal THYROID: Thyroid normal Chest: COMMONS NORMALS: normal inspection of the chest and normal palpation of entire chest wall Resp: COMMON NORMALS: normal respiratory effort, No retractions, No use of accessory muscles and clear to auscultation bilaterally AUSCULTATION: clear to auscultation bilaterally Cardio: COMMON NORMALS: no JVD, regular rate, regular rhythm, S1 normal heart sound present, S2 normal heart sound present, No gallops present (Cardio), No clicks present (Cardio), No murmurs present (Cardio) and No rub (Cardio) RATE: regular rate RHYTHM: regular rhythm HEART SOUNDS: S1 normal heart sound present and S2 normal heart sound present GI: COMMON NORMALS: Normal to inspection, nondistended, normoactive bowel sounds present, Soft to palpation, non-tender, No hepatosplenomegaly present and no masses PALPATION: Yes Soft to palpation and Yes No hepatosplenomegaly present Neuro: COMMON NORMALS: patient oriented x3 SENSORIUM/ORIENTATION: Yes alert MENINGEAL SIGNS: Yes no meningeal signs Course Vital Signs: Vital signs: Vital Signs Temperature 98.4 F 06/15/24 13:59 Pulse Rate 96 06/15/24 19:45 Respiratory Rate 14 06/15/24 19:45 Blood Pressure 109/76 06/15/24 19:45 Pulse Oximetry 99 06/15/24 19:45 Oxygen Delivery Me thod Room Air 06/15/24 18:00 MDM - Seizure MDM Narrative Medical decision making narrative: Patient fell she did have seizure today and was tachycardic.Lab work was obtained as well as EKG and chest x-ray, all essentially benign. Patient be discharged home Medical Records Attestation: I reviewed the patient's medical records. Lab Data Attestation: I reviewed the patient's lab results. 06/15/24 18:13 06/15/24 18:13 Labs: Radiology Impressions Chest X-Ray 06/15/24 18:05 IMPRESSION: No acute cardiopulmonary disease. Laboratory Results WBC 6.18 10^3/uL (3.29-11.43) 06/15/24 18:13 RBC 4.77 10^6/uL (3.85-5.65) 06/15/24 18:13 Hgb 14.80 g/dL (11.27-16.99) 06/15/24 18:13 Hct 43.7 % (36-47) 06/15/24 18:13 MCV 91.6 fl (85-98) 06/15/24 18:13 MCH 31.0 pg (27-33) 06/15/24 18:13 MCHC 33.9 g/dL (30-55) 06/15/24 18:13 RDW 11.9 % (12.1-15.1) L 06/15/24 18:13 Plt Count 268 10^3/cmm (157-399) 06/15/24 18:13 MPV 11.3 fL (7.4-10.4) H 06/15/24 18:13 Neut % (Auto) 44.4 % 06/15/24 18:13 Lymph % (Auto) 44.0 % 06/15/24 18:13 [place] % (Auto) 9.2 % 06/15/24 18:13 Eos % (Auto) 1.3 % 06/15/24 18:13 Baso % (Auto) 0.6 % 06/15/24 18:13 Neut # (Auto) 2.74 10^3/uL (1.8-7.7) 06/15/24 18:13 Lymph # (Auto) 2.7 10^3/uL (0.8-4.8) 06/15/24 18:13 [place] # (Auto) 0.6 10^3/uL (0.2-0.9) 06/15/24 18:13 Eos # (Auto) 0.1 10^3/uL (0.0-0.8) 06/15/24 18:13 Baso # (Auto) 0.0 10^3/uL (0.0-0.1) 06/15/24 18:13 Nucleated RBC % (auto) 0 % 06/15/24 18:13 Nucleated RBCs # 0.0 /100WBC 06/15/24 18:13 Sodium 140 mmol/L (136-145) 06/15/24 18:13 Potassium 3.4 mmol/L (3.5-5.1) L 06/15/24 18:13 Chloride 104 mmol/L (98-107) 06/15/24 18:13 Carbon Dioxide 22 mmol/L (22-29) 06/15/24 18:13 Anion Gap 17.4 (5-19) 06/15/24 18:13 BUN 7 mg/dL (6-20) 06/15/24 18:13 Creatinine 0.8 mg/dL (0.5-0.9) 06/15/24 18:13 GFR Calculation 88.1 mL/min (90-130) L 06/15/24 18:13 Glucose 91 mg/dL (65-115) 06/15/24 18:13 Calculated Osmolality 288 mOsm/kg (285-295) 06/15/24 18:13 Calcium 10.5 mg/dL (8.5-10.5) 06/15/24 18:13 Magnesium 2.2 mg/dL (1.7-2.3) 06/15/24 18:13 Total Bilirubin 0.2 mg/dL (0.15-1.2) 06/15/24 18:13 AST 27 U/L (0-32) 06/15/24 18:13 ALT 29 U/L (0-33) 06/15/24 18:13 Alkaline Phosphatase 176 U/L (35-105) H 06/15/24 18:13 Troponin T Baseline < 6 ng/L (0-10) 06/15/24 18:13 Total Protein 7.1 g/dL (6.6-8.7) 06/15/24 18:13 Albumin 4.7 g/dL (3.5-5.2) 06/15/24 18:13 Globulin 2.4 g/dL (1.3-4.6) 06/15/24 18:13 All radiology interpretation(s) finalized by discharge Discharge Plan Discharge Patient Disposition: Home Clinical Impression: Tachycardia, Seizures Condition: Stable Prescriptions: No Action calcium carbonate [Tums] 300 mg (750 mg) tablet,chewable 1,500 mg PO TID PRN (Reason: abdominal upset) bismuth subsalicylate [Pepto-Bismol] 262 mg tablet,chewable 1 tab PO DAILY PRN (Reason: adominal upset) Rx Instructions: do not exceed 16 tabs per 24 hrs diphenhydramine HCl [Benadryl] 25 mg capsule 25 mg PO Q6H PRN (Reason: allergies) pantoprazole [Protonix] 40 mg tablet,delayed release (DR/EC) 40 mg PO BID 42 Days Qty: 84 1RF Proctofoam HC 1-1 % foam 1 applic MT QID PRN (Reason: hemorrhoids) Qty: 10 5RF Nexplanon 68 mg implant 1 implant subdermal ONCE cetirizine [Zyrtec] 10 mg tablet 10 mg PO DAILY PRN (Reason: allergy symptoms) Qty: 60 0RF Debrox 6.5 % drops 5 drp otic (ear) DAILY 4 Days Qty: 15 0RF brivaracetam 100 mg tablet 100 mg PO BID Qty: 60 5RF metoclopramide HCl [Reglan] 5 mg tablet 5 mg PO DAILY Qty: 30 1RF Rx Instructions: take one tab daily zonisamide 100 mg capsule See Rx Instructions .ROUTE .COMPLEX Qty: 180 11RF Dose Instruction: TAKE 2 CAPSULES BY MOUTH EVERY MORNING and THREE EVERY EVENING Rx Instructions: TAKE 3 CAPSULES BY MOUTH EVERY MORNING and THREE EVERY EVENING lubiprostone 24 mcg capsule 24 mcg PO BID melatonin 3 mg capsule 3 mg PO BEDTIME mecobalamin (vitamin B12) 1,000 mcg tablet,chewable 1,000 mcg PO DAILY Midol 500-25 mg tablet 1 tab PO Q6H PRN (Reason: Cramps) ondansetron HCl 4 mg tablet 4 mg PO Q6H PRN (Reason: nausea) loperamide 2 mg capsule 2 mg PO Q4H PRN (Reason: Loose Stool) Rx Instructions: administer after each loose stool until symptoms controlled; do not exceed 8 mg per 24 hrs Linzess 145 mcg capsule 145 mcg PO DAILY Qty: 30 11RF hydroxyzine pamoate 25 mg capsule 50 mg PO Q6H PRN (Reason: Anxiety) 30 Days Qty: 120 1RF lorazepam 1 mg tablet See Rx Instructions .ROUTE .COMPLEX Qty: 60 3RF Rx Instructions: take a half a tab at 6 PM, take a whole tab at bedtime, hold for sedation; quetiapine 400 mg tablet extended release 24 hr See Rx Instructions .ROUTE .COMPLEX Qty: 120 5RF Dose Instruction: TAKE 2 TABLETS BY MOUTH TWICE DAILY Rx Instructions: TAKE 2 TABLETS BY MOUTH TWICE DAILY benztropine 1 mg tablet 1 mg PO BID Qty: 60 3RF Rx Instructions: TAKE ONE TABLET BY MOUTH TWICE DAILY lorazepam 2 mg/mL concentrate See Rx Instructions .ROUTE .COMPLEX PRN (Reason: seizure activity) Qty: 30 0RF Rx Instructions: 0.5 ML PO PRN daily quetiapine 50 mg tablet 50 mg PO DAILY 30 Days Qty: 30 5RF paliperidone 9 mg tablet extended release 24 hr 9 mg PO DAILY 30 Days Qty: 30 5RF fluticasone propionate 50 mcg/actuation [place],Suspension 1 spray INTRANASAL BID Rx Instructions: INTSILL 1 SPRAY INTO EACH NOSTRIL BID atorvastatin 40 mg Tablet 40 mg PO BEDTIME ferrous sulfate [Iron (ferrous sulfate)] 325 mg (65 mg iron) Tablet 325 mg PO DAILY polyethylene glycol 3350 [Miralax] 17 gram powder in packet 17 g PO DAILY PRN (Reason: constipation) Qty: 14 0RF acetaminophen 325 mg Tablet 650 mg PO QID PRN (Reason: Pain) Neosporin (lag-hmx-muote) 3.5mg-400 unit- 5,000 unit/gram Ointment 1 applic TOPICAL BID PRN (Reason: Rash) hydrocortisone 1 % Ointment 1 applic TOPICAL TID PRN (Reason: Rash) sennosides-docusate sodium [Senokot-S] 8.6-50 mg Tablet 2 tab-cap PO DAILY bisacodyl 10 mg Suppository 10 mg MT DAILY PRN (Reason: Constipation) Fleet Enema 19-7 gram/118 mL Enema See Rx Instructions .ROUTE .COMPLEX PRN (Reason: Constipation) Rx Instructions: 118 mL rectally as needed if no bowel movement in 3 days [place]cy Hot No Mess 16 % Liquid 1 ea TOPICAL BID PRN (Reason: Pain) [place] Cough Drops 7.5 mg Lozenge 7.5 mg MUCOUS MEMBRANE Q2H PRN (Reason: Cough) bacitracin 500 unit/gram ointment 1 applic topical BID Qty: 14.2 0RF Discharge Orders: Discharge ED (Routine); Ordered 06/15/24 Ordered By: Nicolas Coffman Referrals: Judith Bermudez FNP [Primary Care Provider] - 1 week Patient Instructions: Tachycardia (ED) Activity Restrictions/Additional Instructions: Your evaluation in the ER that included physical exam, blood work, EKG, chest x-ray did not show any acute cause of your symptomatology. It was all essentially normal. Please follow-up with your family practice physician within next 7 to 10 days for further evaluation and treatment as needed. Thank you for choosing [facility] for your healthcare needs today. Please realize that you were seen in the emergency department and that we are providing you with an emergency medical screening exam and this may not be a complete and all exclusive of all testing and/or medical workup we may need to determine your element or severity of your illness. It is very important that you follow-up as instructed with your primary care provider or specialist for the additional evaluation and to discuss your medical treatment plan. You may return to the emergency department should you have concerns or if your condition changes or worsens in any way. Coding Level of Care Code ED Production Aide for Jacqueline Meyer
[2024-06-15 18:43] LABS: Troponin(5th) Baseline < 6 ng/L (0-10)
[2024-06-15 18:44] LABS: Alanine Aminotransferase 29 U/L (0-33); Albumin Level 4.7 g/dL (3.5-5.2); Alkaline Phosphatase 176 U/L (35-105); Anion Gap 17.4 (5-19); Aspartate Amino Transferase 27 U/L (0-32); Blood Urea Nitrogen 7 mg/dL (6-20); Calcium 10.5 mg/dL (8.5-10.5); Carbon Dioxide 22 mmol/L (22-29); Chloride 104 mmol/L (98-107); Creatinine Clr Calc Pharmacy 111.8987; Globulin 2.4 g/dL (1.3-4.6); Glomerular Filtration Rate 88.1 mL/min (90-130); Glucose 91 mg/dL (65-115); Magnesium 2.2 mg/dL (1.7-2.3); Osmolality Calculated 288 mOsm/kg (285-295); Potassium 3.4 mmol/L (3.5-5.1); Sodium 140 mmol/L (136-145); Total Bilirubin 0.2 mg/dL (0.15-1.2); Total Protein 7.1 g/dL (6.6-8.7)
--- NOTE | 2024-06-15 21:01 | PC.NURSE ---
No urine sample needed. Discharge patient per Dr. Coffman.
== END 2024-06-15 20:57 | disposition home or self-care (01) ==
PROVIDERS: Emergency Provider Emergency Medicine; PCP Nurse Practitioner Family
DX: R00.0 Tachycardia, unspecified (principal); R56.9 Unspecified convulsions; Z87.891 Personal history of nicotine dependence; E78.5 Hyperlipidemia, unspecified
CPT/HCPCS: 36415; 71045; 80053; 83735; 84484; 85025; 93005; 99285

== ENCOUNTER → 2024-06-20 12:56 | Outpatient (BNVA) | payer MEDICARE, MEDICAID, SELFPAY | PROVIDERS: PCP Nurse Practitioner Family; Referring Provider Nurse Practitioner Family; Visit Provider Specialist | DX: G40.309 Generalized idiopathic epilepsy and epileptic syndromes, not intractable, without status epilepticus (principal); Z96.89 Presence of other specified functional implants; G40.209 Localization-related (focal) (partial) symptomatic epilepsy and epileptic syndromes with complex partial seizures, not intractable, without status epilepticus; F91.3 Oppositional defiant disorder; F79 Unspecified intellectual disabilities; G47.10 Hypersomnia, unspecified; R03.0 Elevated blood-pressure reading, without diagnosis of hypertension | CPT/HCPCS: 95971; 99215 ==

== ENCOUNTER → 2024-07-19 08:00 | Outpatient (BNVA) | payer MEDICARE, MEDICAID, SELFPAY | PROVIDERS: PCP Nurse Practitioner Family; Referring Provider Specialist; Visit Provider Specialist | DX: G40.309 Generalized idiopathic epilepsy and epileptic syndromes, not intractable, without status epilepticus (principal) | CPT/HCPCS: 95819 ==

== ENCOUNTER → 2024-07-25 14:09 | Outpatient (BNVA) | payer MEDICARE, MEDICAID, SELFPAY | PROVIDERS: PCP Nurse Practitioner Family; Visit Provider Specialist | DX: Z96.89 Presence of other specified functional implants (principal); G40.209 Localization-related (focal) (partial) symptomatic epilepsy and epileptic syndromes with complex partial seizures, not intractable, without status epilepticus; F79 Unspecified intellectual disabilities; F91.3 Oppositional defiant disorder; G40.309 Generalized idiopathic epilepsy and epileptic syndromes, not intractable, without status epilepticus; G47.10 Hypersomnia, unspecified; R03.0 Elevated blood-pressure reading, without diagnosis of hypertension | CPT/HCPCS: 95970; 99214 ==

== ENCOUNTER 2024-08-08 19:46 | Emergency (ER) | payer MEDICARE, MEDICAID, SELFPAY ==
[2024-08-08 20:03] VITALS: BP 109/71; PULSE 113; RESP 18; TEMP 36.7; O2SAT 99; BMI 31.3
[2024-08-08 20:58] LABS: Basophils % 0.6 %; Eosinophils # 0.1 10^3/uL (0.0-0.8); Lymphocytes # 2.4 10^3/uL (0.8-4.8); Lymphocytes % 38.7 %; Mean Corpuscular HGB Conc 33.8 g/dL (30-55); Mean Corpuscular Hemoglobin 30.5 pg (27-33); Mean Corpuscular Volume 90.5 fl (85-98); Mean Platelet Volume 11.6 fL (7.4-10.4); Monocytes # 0.5 10^3/uL (0.2-0.9); Neutrophils # 3.19 10^3/uL (1.8-7.7); Neutrophils % 51.4 %; Nucleated Red Blood Cells % 0 %; Platelet Count 213 10^3/cmm (157-399); Red Blood Count 4.42 10^6/uL (3.85-5.65); Red Cell Distribution Width 11.7 % (12.1-15.1); White Blood Count 6.22 10^3/uL (3.29-11.43)
[2024-08-08 21:14] LABS: Alanine Aminotransferase 22 U/L (0-33); Albumin Level 4.5 g/dL (3.5-5.2); Alkaline Phosphatase 136 U/L (35-105); Anion Gap 15.3 (5-19); Aspartate Amino Transferase 23 U/L (0-32); Blood Urea Nitrogen 7 mg/dL (6-20); Calcium 9.6 mg/dL (8.5-10.5); Carbon Dioxide 21 mmol/L (22-29); Chloride 109 mmol/L (98-107); Creatinine Clr Calc Pharmacy 87.0342; Globulin 2.4 g/dL (1.3-4.6); Glomerular Filtration Rate 68.1 mL/min (90-130); Glucose 93 mg/dL (65-115); Lipase 42 U/L (13-60); Osmolality Calculated 292 mOsm/kg (285-295); Potassium 3.3 mmol/L (3.5-5.1); Sodium 142 mmol/L (136-145); Total Bilirubin 0.2 mg/dL (0.15-1.2); Total Protein 6.9 g/dL (6.6-8.7)
--- NOTE | 2024-08-08 21:44 | W.ED.ABDPA2 ---
HPI - Abdominal Pain General: Chief Complaint: Abdominal Pain Stated Complaint: Pressure in stomach both sides Time Seen by Provider: 08/08/24 21:37 Source: patient Mode of arrival: ambulatory Limitations: no limitations History of Present Illness: Patient is a 24-year-old female presents to ED today with complaint of abdominal pain that began 4 hours ago. She describes abdominal pains of both sides of her abdomen radiating up across her upper abdomen. She clinically appears in no acute distress upon arrival to the emergency department. She arrives with completely stable vital signs apart from mild tachycardia which is frequently present. She states she is having a little vomiting in my mouth . She has had some mild nonbloody diarrhea over the past 5 days. No fevers. She has no urinary complaints. She does not have menstrual cycles due to her Nexplanon implant. She is sexually active. Patient has been seen many many times in the past for abdominal pains. MD elicited complaint: abdominal pain Onset (ago): hour(s) Pain Consistency: constant Severity: mild Radiation: none Migration to: no migration Exacerbating factors: nothing Relieving factors: nothing Associated Symptoms: Reports diarrhea; Denies chills, dysuria, fever(s), hematochezia, hematemesis, melena and vomiting Related Data Home Medications ?Medication ?Instructions ?Recorded ?Confirmed atorvastatin 40 mg tablet 40 mg PO BEDTIME 09/15/19 07/26/24 fluticasone propionate 50 1 spray intranasal BID 09/15/19 07/26/24 mcg/actuation nasal spray,suspension bismuth subsalicylate 262 mg 1 tab PO DAILY PRN adominal upset 07/21/20 07/26/24 chewable tablet (Pepto-Bismol) diphenhydramine HCl 25 mg capsule 25 mg PO Q6H PRN allergies 11/18/20 07/26/24 (Benadryl) ferrous sulfate 325 mg (65 mg 325 mg PO DAILY 08/12/21 07/26/24 iron) tablet (Iron (ferrous sulfate)) calcium carbonate (Tums) 1,500 mg PO TID PRN abdominal upset 09/17/21 07/26/24 lubiprostone 24 mcg capsule 24 mcg PO BID 08/17/22 07/26/24 mecobalamin (vitamin B12) 1,000 1,000 mcg PO DAILY 08/17/22 07/26/24 mcg chewable tablet melatonin 3 mg capsule 3 mg PO BEDTIME 08/17/22 07/26/24 acetaminophen-pamabrom 500 mg-25 1 tab PO Q6H PRN Cramps 11/16/22 07/26/24 mg tablet (Midol) ondansetron HCl 4 mg tablet 4 mg PO Q6H PRN nausea 11/24/22 07/26/24 bisacodyl 10 mg rectal suppository 10 mg [place] DAILY PRN Constipation 02/27/23 07/26/24 hydrocortisone 1 % topical ointment 1 applic topical TID PRN Rash 02/27/23 07/26/24 menthol 16 % topical liquid (Icy 1 ea topical BID PRN Pain 02/27/23 07/26/24 Hot No Mess) menthol 7.5 mg lozenges ([place] 7.5 mg mucous membrane Q2H PRN 02/27/23 07/26/24 Cough Drops) Cough neomycin-bacitracn Zn-polymyx 3.5 1 applic topical BID PRN Rash 02/27/23 07/26/24 mg-400 unit-5,000 unit/gram top oint (Neosporin ([id number])) sennosides 8.6 mg-docusate sodium 2 tab-cap PO DAILY BEDTIME 02/27/23 07/26/24 50 mg tablet (Senokot-S) sodium phosphates 19 gram-7 See Rx Instructions .Route 02/27/23 07/26/24 gram/118 mL enema (Fleet Enema) .COMPLEX PRN Constipation etonogestrel 68 mg subdermal 1 implant subdermal ONCE 01/24/24 07/26/24 implant (Nexplanon) loperamide 2 mg capsule 2 mg PO Q4H PRN Loose Stool 04/23/24 07/26/24 acetaminophen 325 mg tablet 650 mg PO QID PRN Pain 06/09/24 07/26/24 metoprolol tartrate 25 mg tablet mg PO 06/20/24 07/26/24 Previous Rx's ?Medication ?Instructions ?Recorded polyethylene glycol 3350 17 gram 17 g PO DAILY PRN constipation #14 10/28/22 oral powder packet (Miralax) ea linaclotide 145 mcg capsule 145 mcg PO DAILY #30 caps 12/24/22 (Linzess) pantoprazole 40 mg tablet,delayed 40 mg PO BID 6 weeks #84 tabs 02/09/23 release (Protonix) hydrocortisone 1 %-pramoxine 1 % 1 applic [place] QID PRN hemorrhoids 09/17/23 rectal foam (Proctofoam HC) #10 grams hydroxyzine pamoate 25 mg capsule 50 mg (2 x 25 mg) PO Q6H PRN 10/03/23 Anxiety 30 days #120 caps cetirizine 10 mg tablet (Zyrtec) 10 mg PO DAILY PRN allergy 12/09/23 symptoms #60 tabs quetiapine 400 mg tablet,extended See Rx Instructions .Route 03/07/24 release 24 hr .COMPLEX #120 tabs carbamide peroxide 6.5 % ear drops 5 drp otic (ear) DAILY 4 days #15 03/11/24 (Debrox) mL benztropine 1 mg tablet 1 mg PO BID #60 tabs 04/20/24 lorazepam 2 mg/mL oral concentrate See Rx Instructions .Route 04/24/24 .COMPLEX PRN seizure activity #30 mL bacitracin 500 unit/gram topical 1 applic topical BID #14.2 grams 05/25/24 ointment metoclopramide HCl 5 mg tablet 5 mg PO DAILY #30 tabs 05/28/24 (Reglan) quetiapine 50 mg tablet 50 mg PO DAILY 30 days #30 tabs 05/28/24 brivaracetam 100 mg tablet 100 mg PO BID #60 tabs 06/07/24 zonisamide 100 mg capsule See Rx Instructions .Route 06/13/24 .COMPLEX #180 caps paliperidone 9 mg tablet,extended 9 mg PO DAILY psychosis, agitation 07/24/24 release 24 hr 30 days #30 tabs lorazepam 1 mg tablet See Rx Instructions .Route 08/03/24 .COMPLEX Agitation #60 tabs Allergies Allergy/AdvReac Type Severity Reaction Status Date / Time clozapine Allergy Unknown Verified 08/08/24 20:07 divalproex sodium (From Allergy Unresponsiv Verified 08/08/24 20:07 Depakote) e escitalopram (From Lexapro) Allergy ALGY-Swell Verified 08/08/24 20:07 Lip/Tongue/Throat lamotrigine (From Lamictal) Allergy Unknown Verified 08/08/24 20:07 lithium Allergy Unknown Verified 08/08/24 20:07 peanut Allergy ADR-Abdominal Verified 08/08/24 20:07 Pain Penicillins Allergy Unknown Verified 08/08/24 20:07 topiramate (From Topamax) Allergy Unknown Verified 08/08/24 20:07 Review of Systems Const: Denies: fever(s), chills, body aches, fatigue or malaise Card: Denies: chest pain Resp: Denies: dyspnea GI: Reports: abdominal pain and diarrhea; Denies: vomiting, hematemesis, pain on defecation, rectal pain, hematochezia or melena : Denies: flank pain, difficulty voiding, dysuria, urinary frequency, urinary urgency or urinary hesitancy Musc: Denies: neck pain, back pain, extremity pain, extremity swelling or joint swelling Skin/Breast: Denies: rash Neuro: Denies: headache(s) or dizziness PFSH ED PFSH: Medical History Psychiatric care Tachycardia Intellectual disability Bipolar disorder Seizures Hyperlipidemia Constipation, chronic Surgical History Status post laparoscopic cholecystectomy (08/13/21) History of colonoscopy Status post placement of VNS (vagus nerve stimulation) device H/O eye surgery Family History Father Heart disease Hypercholesteremia Mother Hypertension Stroke Denies family history of Colon cancer Ovarian cancer Prostate cancer Diabetes Breast cancer Uterine cancer Thyroid disease Social History Smoking and tobacco/nicotine status: former use of tobacco/nicotine (quit 2022) Physical Exam Const: COMMON NORMALS: no acute distress, average body habitus, no limitations, healthy appearing, alert and well nourished GENERAL APPEARANCE: cooperative Eye: COMMON NORMALS: no scleral icterus Neck/C-Spine: COMMON NORMALS: full ROM, no lymphadenopathy and no meningeal signs Resp: COMMON NORMALS: normal respiratory effort and clear to auscultation bilaterally AUSCULTATION: clear to auscultation bilaterally Cardio: COMMON NORMALS: regular rhythm RATE: tachycardic RHYTHM: regular rhythm GI: COMMON NORMALS: Normal to inspection, nondistended, normoactive bowel sounds present, Soft to palpation, non-tender, No hepatosplenomegaly present and no masses INSPECTION: Yes normal to inspection AUSCULTATION: Yes normoactive bowel sounds PALPATION: Yes Soft to palpation, No Guarding due to palpation present (GI), No Rigid due to palpation and Yes No hepatosplenomegaly present OTHER: pt reporting diffuse tenderness however she does not seem to be bothered whatsoever by light or deep palpation of any portion of her abdomen; certainly this is a non-acute abdominal examination : COMMON NORMALS: Yes no CVA tenderness BLADDER/KIDNEY EXAM: Yes no CVA tenderness Back/Pelvis: COMMON NORMALS: no CVA tenderness Extremity: GENERAL: Yes normal exam except as noted Neuro: COMMON NORMALS: moves all extremities, no focal motor deficits and no sensory deficits noted SENSORIUM/ORIENTATION: Yes alert MENINGEAL SIGNS: Yes no meningeal signs Skin: COMMON NORMALS: no rashes or lesions noted GENERAL SKIN EXAM: no rashes or lesions noted Course Vital Signs: Vital signs: Vital Signs Temperature 98.1 F 08/08/24 20:03 Pulse Rate 113 H 08/08/24 20:03 Respiratory Rate 18 08/08/24 20:03 Blood Pressure 109/71 08/08/24 20:03 Pulse Oximetry 99 08/08/24 20:03 Oxygen Delivery Me thod Room Air 08/08/24 20:03 MDM - Abdominal Pain Medical Decision Making Patient appears in absolutely no acute distress. Her vital signs are stable. Blood work is nonactionable. She has a nonsurgical abdominal examination. She will be allowed discharge. Recommend she follow-up with primary care. Return to ED precautions given. Medical Records I reviewed the patient's medical records. Lab Data I reviewed the patient's lab results. 08/08/24 20:46 08/08/24 20:46 Labs/Radiology: Laboratory Results WBC 6.22 10^3/uL (3.29-11.43) 08/08/24 20:46 RBC 4.42 10^6/uL (3.85-5.65) 08/08/24 20:46 Hgb 13.50 g/dL (11.27-16.99) 08/08/24 20:46 Hct 40.0 % (36-47) 08/08/24 20:46 MCV 90.5 fl (85-98) 08/08/24 20:46 MCH 30.5 pg (27-33) 08/08/24 20:46 MCHC 33.8 g/dL (30-55) 08/08/24 20:46 RDW 11.7 % (12.1-15.1) L 08/08/24 20:46 Plt Count 213 10^3/cmm (157-399) 08/08/24 20:46 MPV 11.6 fL (7.4-10.4) H 08/08/24 20:46 Neut % (Auto) 51.4 % 08/08/24 20:46 Lymph % (Auto) 38.7 % 08/08/24 20:46 Levy % (Auto) 8.0 % 08/08/24 20:46 Eos % (Auto) 1.0 % 08/08/24 20:46 Baso % (Auto) 0.6 % 08/08/24 20:46 Neut # (Auto) 3.19 10^3/uL (1.8-7.7) 08/08/24 20:46 Lymph # (Auto) 2.4 10^3/uL (0.8-4.8) 08/08/24 20:46 Levy # (Auto) 0.5 10^3/uL (0.2-0.9) 08/08/24 20:46 Eos # (Auto) 0.1 10^3/uL (0.0-0.8) 08/08/24 20:46 Baso # (Auto) 0.0 10^3/uL (0.0-0.1) 08/08/24 20:46 Nucleated RBC % (auto) 0 % 08/08/24 20:46 Nucleated RBCs # 0.0 /100WBC 08/08/24 20:46 Sodium 142 mmol/L (136-145) 08/08/24 20:46 Potassium 3.3 mmol/L (3.5-5.1) L 08/08/24 20:46 Chloride 109 mmol/L (98-107) H 08/08/24 20:46 Carbon Dioxide 21 mmol/L (22-29) L 08/08/24 20:46 Anion Gap 15.3 (5-19) 08/08/24 20:46 BUN 7 mg/dL (6-20) 08/08/24 20:46 Creatinine 1.0 mg/dL (0.5-0.9) H 08/08/24 20:46 GFR Calculation 68.1 mL/min (90-130) L 08/08/24 20:46 Glucose 93 mg/dL (65-115) 08/08/24 20:46 Calculated Osmolality 292 mOsm/kg (285-295) 08/08/24 20:46 Calcium 9.6 mg/dL (8.5-10.5) 08/08/24 20:46 Total Bilirubin 0.2 mg/dL (0.15-1.2) 08/08/24 20:46 AST 23 U/L (0-32) 08/08/24 20:46 ALT 22 U/L (0-33) 08/08/24 20:46 Alkaline Phosphatase 136 U/L (35-105) H 08/08/24 20:46 Total Protein 6.9 g/dL (6.6-8.7) 08/08/24 20:46 Albumin 4.5 g/dL (3.5-5.2) 08/08/24 20:46 Globulin 2.4 g/dL (1.3-4.6) 08/08/24 20:46 Lipase 42 U/L (13-60) 08/08/24 20:46 HCG, Qual Negative (Negative) 08/08/24 20:46 Urine Color Yellow (Yellow) 08/08/24 20:15 Urine Appearance Clear (CLEAR) 08/08/24 20:15 Urine pH 6.5 (5-7) 08/08/24 20:15 Ur Specific [place] 1.012 (1.005-1.030) 08/08/24 20:15 Urine Protein Negative (Negative) 08/08/24 20:15 Urine Glucose (UA) Negative (Normal) 08/08/24 20:15 Urine Ketones Negative (Negative) 08/08/24 20: Urine Blood Negative (Negative) 08/08/24 20:15 Urine Nitrate Negative (Negative) 08/08/24 20:15 Urine Bilirubin Negative (Negative) 08/08/24 20:15 Urine Urobilinogen 1.0 mg/dL (Negative) 08/08/24 20:15 Ur Leukocyte Esterase Negative (Negative) 08/08/24 20: Urine RBC 3-5 /hpf (0-2) 08/08/24 20:15 Urine WBC 6-10 /hpf (0-5) 08/08/24 20:15 Ur Squamous Epith Cells 0-5 /hpf (0-5) 08/08/24 20:15 Amorphous Sediment Not Reportable 08/08/24 20:15 Urine Bacteria 1+ /hpf (NONE) H 08/08/24 20:15 Hyaline Casts 0.81 /lpf 08/08/24 20:15 No radiology studies performed this visit Discharge Plan Discharge Patient Disposition: Home Clinical Impression: Abdominal pain Qualifiers: Abdominal location: generalized Qualified Code(s): R10.84 - Generalized abdominal pain Condition: Stable Prescriptions: No Action calcium carbonate [Tums] 300 mg (750 mg) tablet,chewable 1,500 mg PO TID PRN (Reason: abdominal upset) bismuth subsalicylate [Pepto-Bismol] 262 mg tablet,chewable 1 tab PO DAILY PRN (Reason: adominal upset) Rx Instructions: do not exceed 16 tabs per 24 hrs diphenhydramine HCl [Benadryl] 25 mg capsule 25 mg PO Q6H PRN (Reason: allergies) pantoprazole [Protonix] 40 mg tablet,delayed release (DR/EC) 40 mg PO BID 42 Days Qty: 84 1RF Proctofoam HC 1-1 % foam 1 applic [place] QID PRN (Reason: hemorrhoids) Qty: 10 5RF Nexplanon 68 mg implant 1 implant subdermal ONCE cetirizine [Zyrtec] 10 mg tablet 10 mg PO DAILY PRN (Reason: allergy symptoms) Qty: 60 0RF [place] 6.5 % drops 5 drp otic (ear) DAILY 4 Days Qty: 15 0RF brivaracetam 100 mg tablet 100 mg PO BID Qty: 60 5RF metoclopramide HCl [Reglan] 5 mg tablet 5 mg PO DAILY Qty: 30 1RF Rx Instructions: take one tab daily zonisamide 100 mg capsule See Rx Instructions .ROUTE .COMPLEX Qty: 180 11RF Dose Instruction: TAKE 2 CAPSULES BY MOUTH EVERY MORNING and THREE EVERY EVENING Rx Instructions: TAKE 3 CAPSULES BY MOUTH EVERY MORNING and THREE EVERY EVENING metoprolol tartrate 25 mg tablet PO lubiprostone 24 mcg capsule 24 mcg PO BID melatonin 3 mg capsule 3 mg PO BEDTIME mecobalamin (vitamin B12) 1,000 mcg tablet,chewable 1,000 mcg PO DAILY Midol 500-25 mg tablet 1 tab PO Q6H PRN (Reason: Cramps) ondansetron HCl 4 mg tablet 4 mg PO Q6H PRN (Reason: nausea) loperamide 2 mg capsule 2 mg PO Q4H PRN (Reason: Loose Stool) Rx Instructions: administer after each loose stool until symptoms controlled; do not exceed 8 mg per 24 hrs Linzess 145 mcg capsule 145 mcg PO DAILY Qty: 30 11RF hydroxyzine pamoate 25 mg capsule 50 mg PO Q6H PRN (Reason: Anxiety) 30 Days Qty: 120 1RF quetiapine 400 mg tablet extended release 24 hr See Rx Instructions .ROUTE .COMPLEX Qty: 120 5RF Dose Instruction: TAKE 2 TABLETS BY MOUTH TWICE DAILY Rx Instructions: TAKE 2 TABLETS BY MOUTH TWICE DAILY benztropine 1 mg tablet 1 mg PO BID Qty: 60 3RF Rx Instructions: TAKE ONE TABLET BY MOUTH TWICE DAILY lorazepam 2 mg/mL concentrate See Rx Instructions .ROUTE .COMPLEX PRN (Reason: seizure activity) Qty: 30 0RF Rx Instructions: 0.5 ML PO PRN daily quetiapine 50 mg tablet 50 mg PO DAILY 30 Days Qty: 30 5RF paliperidone 9 mg tablet extended release 24 hr 9 mg PO DAILY 30 Days Qty: 30 2RF lorazepam 1 mg tablet See Rx Instructions .ROUTE .COMPLEX Qty: 60 0RF Rx Instructions: take a half a tab at 6 PM, take a whole tab at bedtime, hold for sedation; fluticasone propionate 50 mcg/actuation [place],Suspension 1 spray INTRANASAL BID Rx Instructions: INTSILL 1 SPRAY INTO EACH NOSTRIL BID atorvastatin 40 mg Tablet 40 mg PO BEDTIME ferrous sulfate [Iron (ferrous sulfate)] 325 mg (65 mg iron) Tablet 325 mg PO DAILY polyethylene glycol 3350 [Miralax] 17 gram powder in packet 17 g PO DAILY PRN (Reason: constipation) Qty: 14 0RF acetaminophen 325 mg Tablet 650 mg PO QID PRN (Reason: Pain) Neosporin ([id number]) 3.5mg-400 unit- 5,000 unit/gram Ointment 1 applic TOPICAL BID PRN (Reason: Rash) hydrocortisone 1 % Ointment 1 applic TOPICAL TID PRN (Reason: Rash) sennosides-docusate sodium [Senokot-S] 8.6-50 mg Tablet 2 tab-cap PO DAILY bisacodyl 10 mg Suppository 10 mg [place] DAILY PRN (Reason: Constipation) Fleet Enema 19-7 gram/118 mL Enema See Rx Instructions .ROUTE .COMPLEX PRN (Reason: Constipation) Rx Instructions: 118 mL rectally as needed if no bowel movement in 3 days [place]cy Hot No Mess 16 % Liquid 1 ea TOPICAL BID PRN (Reason: Pain) [place] Cough Drops 7.5 mg Lozenge 7.5 mg MUCOUS MEMBRANE Q2H PRN (Reason: Cough) bacitracin 500 unit/gram ointment 1 applic topical BID Qty: 14.2 0RF Discharge Orders: Discharge ED (Routine); Ordered 08/08/24 Ordered By: Lynda Perez Referrals: Judith Bermudez FNP [Primary Care Provider] - Patient Instructions: Abdominal Pain (ED) Activity Restrictions/Additional Instructions: As we discussed, recommend you follow-up with primary care later this week/early next week for re-evaluation. Your blood work and urine here are fairly unremarkable. There was no indication for emergent imaging today. You may return to the emergency department for worsening pain, fevers, blood in your stool, repetitive episodes of vomiting, generally feeling worse or unwell, or any other concerns you may have. Print Language: Estonian Coding Level of Care Code ED Electrophysiology Nurse Practitioner for Jacqueline Meyer
[2024-08-08 21:49] LABS: HCG, Serum Qual Negative (Negative)
[2024-08-08 21:57] LABS: Bilirubin Urine Negative (Negative); Blood Urine Negative (Negative); Glucose Urine UA Negative (Normal); Ketones Urine Negative (Negative); Leukocyte Esterase Urine Negative (Negative); Nitrate Urine Negative (Negative); Protein Urine Negative (Negative); Specific Gravity, Urine 1.012 (1.005-1.030); Urine Appearance Clear (CLEAR); Urine Color Yellow (Yellow); pH Urine 6.5 (5-7)
[2024-08-08 21:59] LABS: Add Urine Microscopic? YES; Bacteria Urine 1+ /hpf; Hyaline Casts Urine 0.81 /lpf; Squamous Epithelial Cell Urine 0-5 /hpf (0-5)
[2024-08-08 22:30] VITALS: BP 112/69; PULSE 102; RESP 16; O2SAT 94
[2024-08-08 22:34] VITALS: BP 112/69; PULSE 102; O2SAT 94
== END 2024-08-08 22:36 | disposition home or self-care (01) ==
PROVIDERS: Emergency Medicine; Emergency Provider Physician Assistant; PCP Nurse Practitioner Family
DX: R10.84 Generalized abdominal pain (principal); Z87.891 Personal history of nicotine dependence; E78.5 Hyperlipidemia, unspecified
CPT/HCPCS: 36415; 80053; 81001; 83690; 84703; 85025; 99283

== ENCOUNTER 2024-09-10 11:03 | Outpatient (CLI) | payer MEDICARE, MEDICAID, SELFPAY | END 2024-09-10 11:04 | disposition home or self-care (01) | LOC: SLEEP 11:06 | PROVIDERS: PCP Nurse Practitioner Family; Visit Provider Specialist | DX: G47.10 Hypersomnia, unspecified (principal) | CPT/HCPCS: G0399 ==

== ENCOUNTER 2024-09-13 17:53 | Emergency (ER) | payer MEDICARE, MEDICAID, SELFPAY ==
[2024-09-13 18:00] VITALS: BP 111/75; PULSE 109; RESP 17; TEMP 36.9; O2SAT 98; BMI 30.8
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
[2024-09-13 18:47] VITALS: BP 112/63; PULSE 78; O2SAT 96
== END 2024-09-13 18:48 | disposition home or self-care (01) ==
PROVIDERS: Emergency Provider Nurse Practitioner Family; PCP Nurse Practitioner Family
DX: Z04.1 Encounter for examination and observation following transport accident (principal); V89.2XXA Person injured in unspecified motor-vehicle accident, traffic, initial encounter; Z87.891 Personal history of nicotine dependence; E78.5 Hyperlipidemia, unspecified
CPT/HCPCS: 99281

== ENCOUNTER → 2024-10-12 12:14 | Outpatient (BNVA) | payer MEDICARE, MEDICAID, SELFPAY | PROVIDERS: PCP Nurse Practitioner Family; Visit Provider Registered Nurse Neonatal Intensive Care | DX: R39.9 Unspecified symptoms and signs involving the genitourinary system (principal); N92.6 Irregular menstruation, unspecified; R30.0 Dysuria | CPT/HCPCS: 81000; 81025; 87491; 87591; 87661 ==

== ENCOUNTER → 2025-01-06 17:56 | Outpatient (BNVA) | payer MEDICARE, MEDICAID, SELFPAY | PROVIDERS: PCP Nurse Practitioner Family; Visit Provider Emergency Medicine | DX: R50.9 Fever, unspecified (principal) | CPT/HCPCS: 87426 ==

== ENCOUNTER 2025-01-22 20:21 | Emergency (ER) | payer MEDICARE, MEDICAID, SELFPAY ==
--- OUTSIDE RECORDS SUMMARY | 2016-03-15 05:40 | XMS_ITS | Continuity of Care Document ---
Author Organization [facility] Address [address] [place] [address] Phone Care Team Providers Care Process Development Manager Name Role Phone Unavailable Unavailable Unavailable Advance Directives Directive Yes / No Effective Date File Name No Information Encounters Encounter Description Practice Location Reason(s) For Visit Diagnoses Date Provider Providers Copied on Encounter [facility], ., [address], [address], [place] tel:[phone] [facility] No Information 6 No Information Referring Provider: JUAN COPPOLA, [address] [place], [address]. tel:[phone] Family History Family Member Type Diagnosis Age [...] hypertrophic Payers Payer name Insurance type Covered democrat ID Authoriza tion(s) [facility] [id number] [employer] [facility] HMO [id number] [id number] Social History Type Description Quantity Date Captured [...]
--- OUTSIDE RECORDS SUMMARY | 2019-02-09 09:45 | XMS_ITS | Continuity of Care Document ---
Author Organization 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 - Active buspirone 30 mg tablet take 1 tablet by oral route 2 times every day - Active Prozac 40 mg capsule TAKE 1 CAPSULE BY MOUTH IN THE MORNING. - Active naltrexone 50 mg tablet Take half po q HS - Active Klonopin 0.5 mg tablet take 1 tablet by oral route 2 times every day 0.5 MG - Active Must last 28 days Tegretol XR 100 mg tablet,extended release take 1 tablet by oral route every 9 hours 100 MG - Active carbamazepine ER 100 mg tablet,extended release,12 hr take 1 tablet by oral route Qam & take 2 tablets QHS - Active Zonegran 100 mg capsule take 3 capsule by oral route every day 300 MG - Active Colace 100 mg capsule - Active Flonase 50 mcg/actuation nasal spray,suspension - Active Miralax 17 gram/dose oral powder - Active Zantac Maximum Strength 150 mg tablet - Active Imodium A-D 2 mg tablet - Active Motrin IB 200 mg tablet - Active Zofran 4 mg/5 mL oral solution - Active ZYRTEC (unknown strength) Not Available - Active MULTIVITAMIN (unknown strength) Not Available - Active Procedures Procedure Date Intraoral Periapical First Film Limited Oral Evaluation Problem Focused EDR Approval Note Finalize Template Workaround OFFICE/OUTPATIENT VISIT, EST (1371) Finalize Template Workaround OFFICE/OUTPATIENT VISIT, EST (1371) NO CHARGE Finalize Template Workaround OFFICE/OUTPATIENT VISIT, EST (1371) Finalize Template Workaround OFFICE/OUTPATIENT VISIT, EST (1371) Finalize Template Workaround OFFICE/OUTPATIENT VISIT, EST (1371) Finalize Template Workaround OFFICE/OUTPATIENT VISIT, EST (1371) OFFICE/OUTPATIENT VISIT, EST (1371) PSYCH MAMADOU CUELLAR W/MED SRVCS (94) 2016 Bitewings Four Films Prophylaxis Adult Topical Fluoride Varnish; Therapeutic Ap plication Periodic Oral Evaluation Established Patient Sealant Per Tooth Sealant Per Tooth Sealant Per Tooth Sealant Per Tooth Panoramic Film EDR Approval Note Self-management Goals Reviewed 16 Oral Hygiene Instructions Nutritional Counseling For Control Of De ntal Disea Caries High Risk Prophylaxis Adult Topical Fluoride Varnish; Therapeutic Ap plication Periodic Oral Evaluation Established Patient Bitewings Four Films EDR Approval Note Self-management Goals Reviewed 16 Oral Hygiene Instructions Nutritional Counseling For Control Of De ntal Disea Caries High Risk Caries High Risk Treatment Plan Complete Analgesia, Anxiolysis, Inhalation Of Nit jerson Oxide [place] Porcelain/Ceramic Substrate [place] Porcelain/Ceramic Substrate EDR Approval Note Intraoral Periapical First Film [place] Prep [place] Prep EDR Approval Note Self-management Goals Reviewed 16 Oral Hygiene Instructions Nutritional Counseling For Control Of De ntal Disea Caries High Risk Anterior (Excluding Final Voodoo) J Anterior (Excluding Final Voodoo) J Core Buildup, Including Any Pins 2015 Core Buildup, Including Any Pins 2015 EDR Approval Note Periodic Oral Evaluation Established Patient Topical Fluoride Varnish; Therapeutic Ap plication Bitewings Four Films Prophylaxis Adult EDR Approval Note Extraction, Erupted Tooth Or Exposed Laurie t (Elevati Analgesia, Anxiolysis, Inhalation Of Nit jerson Oxide EDR Approval Note Analgesia, Anxiolysis, Inhalation Of Nit jerson Oxide Resin-Based Composite One Surface, Anterior Extraction, Erupted Tooth Or Exposed Laurie t (Elevati Amalgam One Surface, Primary Or Permanent EDR Approval Note Analgesia, Anxiolysis, Inhalation Of Nit jerson Oxide Resin-Based Composite Two Surfaces, Anterior Resin-Based Composite Two Surfaces, Anterior Extraction, Erupted Tooth Or Exposed Laurie t (Elevati EDR Approval Note Analgesia, Anxiolysis, Inhalation Of Nit jerson Oxide Resin-Based Composite Three Surfaces, Anterior Resin-Based Composite Three Surfaces, Anterior EDR Approval Note Bitewings Four Films Panoramic Film Intraoral Periapical First Film Intraoral Periapical Each Additional Film Intraoral Periapical Each Additional Film Intraoral Periapical Each Additional Film Topical Fluoride Varnish; Therapeutic Ap plication Prophylaxis Adult Periodic Oral Evaluation Established Patient EDR Approval Note Advance Directives Directive Yes / No Effective Date File Name No Information Encounters Encounter Description Practice Location Reason(s) For Visit Diagnoses Date Provider Providers Copied on Encounter [facility], [id number]- [place], [place], [id number], [place] tel:[phone] [facility] Encounter for dental exam and cleaning w/o abnormal findings 9 Modesto Izquierdo. [address] [place], [address], [place]. tel:[phone] Referring Provider: Timbo De La Garza, [address] [place], [address]. tel:[phone] [facility], [id number]- [place], [address], [place] tel:[phone] [facility] No Information No Information [facility], [id number]- [place], [id number], [place] tel:[phone] [facility] No Information No Information [facility], [id number]- [place], [address], [place] tel:[phone] [facility] Anxiety (chief complaint)Bip olar disorder (chief complaint)Att ention deficit disorder (chief complaint) Generalized Anxiety DisorderBipol ar disorder, current episode depressed, moderateADHD predominantly inattentive typeIntention al self-harm by unspecified sharp object, subsequent encounter 8 No Information [facility], [id number], [address], [place] tel:[phone] [facility] Anxiety (chief complaint)Bip olar disorder (chief complaint)Att ention deficit hyperactivity disorder (chief complaint) Bipolar disorder, current episode depressed, moderateGener alized Anxiety DisorderADHD predominantly inattentive type 8 No Information [facility], [id number], [address], [place] tel:[phone] [facility] No Information 8 No Information [facility], [id number], [address], [place] tel:[phone] [facility] Bipolar disorder (chief complaint)Anx iety (chief complaint)Att ention deficit disorder (chief complaint) Bipolar disorder, current episode depressed, moderateGener alized Anxiety DisorderADHD predominantly inattentive type 8 No Information [facility], [id number], [address], [place] tel:[phone] [facility] No Information 8 No Information [facility], [id number], [address], [place] tel:[phone] [facility] Bipolar disorder (chief complaint)Anx iety (chief complaint)Att ention deficit disorder (chief complaint) Bipolar disorder, current episode depressed, moderateGener alized Anxiety DisorderADHD predominantly inattentive type Oct-0 8 No Information [facility], [id number]- [place], [address], [place] tel:[phone] [facility] Bipolar disorder (chief complaint)Anx iety (chief complaint)Att ention deficit disorder (chief complaint) Bipolar disorder, current episode depressed, moderateADHD predominantly inattentive typeGeneraliz ed Anxiety Disorder Fe 8 No Information [facility], [id number], [address], [place] tel:[phone] [facility] Bipolar disorder (chief complaint)Anx iety (chief complaint)Att ention deficit disorder (chief complaint) Bipolar disorder, current episode depressed, moderateGener alized Anxiety DisorderADHD predominantly inattentive type 7 No Information [facility], [id number], [address], [place] tel:[phone] [facility] Bipolar disorder (chief complaint)Anx iety (chief complaint)Att ention deficit hyperactivity disorder (chief complaint) Bipolar disorder, current episode depressed, moderateGener alized Anxiety DisorderADHD predominantly inattentive type 7 No Information [facility], [id number]- [place], [address], [place] tel:[phone] [facility] new patient (chief complaint) Bipolar disorder, current episode depressed, moderateADHD predominantly inattentive type 7 No Information [facility], [id number], [address], [place] tel:[phone] [facility] Encounter for dental exam and cleaning w/o abnormal findings 6 Penelope Cavazos. [address] [place], [address], [place]. tel:[phone] Referring Provider: Macy Gomez, [address] [place], [address]. tel:[phone] [facility], [id number]- [facility], [place], [place], [address], [place] tel:[phone] [facility] Encounter for dental exam and cleaning w/o abnormal findings 6 No Information [facility], [id number]- [place], [address], [place] tel:[phone] [facility] No Information 6 No Information [facility], [address] [id number]- [place], [address], [place] tel:[phone] [facility] No Information 6 No Information [facility], [id number]- [place], [address], [place] tel:[phone] [facility] Encounter for dental exam and cleaning w/o abnormal findings 6 No Information [facility], [id number]- [place], [place], [address], [place] tel:[phone] [facility] No Information 5 Modesto Izquierdo. [address] [place], [address], [place]. tel:[phone] Referring Provider: Alirio Squires, [address] [place] [address], [address]. tel:[phone] [facility], [id number]- [place], [address], [place] tel:[phone] [facility] No Information 4 No Information [facility], [id number]- [facility], [place], [place], [address], [place] tel:[phone] [facility] No Information No Information [facility], [id number]- [facility], [place], [place], [address], [place] tel:[phone] [facility] No Information No Information [facility], [id number]- [facility], [place], [place], [address], [place] tel:[phone] [facility] No Information No Information [facility], [id number]- [facility], [place], [place], [address], [place] tel:[phone] [facility] No Information No Information Family History Family Member Type Diagnosis Age At Onset Problem (finding) Family history of mental health conditions Mother Problem (finding) Alive and well Payers Payer name Insurance type Covered alliance party ID Authoriza tion(s) No Information Social History Type Description Quantity Date Captured Comments Alcohol Use Details No Caffeine Use Details Unknown Tobacco Use Status No Information Smoking Status No Information Sex Female Sexual Orientation Heterosexual Gender Identity Female Vital Signs Date / Time: Height Weight BMI Pulse Rate Blood Pressure Temperature Respiratory Rate Body Surface Area Head Circumference Head Circ. Percentile Wt./Giuseppe. Percentile BMI percentile Pulse Ox Inhaled Ox 4:57 PM 105/80 mm[Hg] Chief Complaint And Reason For Visit No Information Reason For Referral Reason For Referral No Information History Of Present Illness Encounter Date Complaint History Of Prese nt Illness Anxiety This is a follow up visit. Related symptoms are poorly controlled. There is worsening of previously reported symptoms. The patient reports functioning as very difficult. The patient presents with anxious/fearful thoughts and excessive worry. The patient denies any aggravating factors. The Anxiety is associated with irritability. The patient denies any headache, nausea, urinary frequency, vomiting and weight gain. Attention deficit disorder The p atient is stable at this time on her current ADHD medications. It should be noted, however, that when the patient is off her medications, she exhibits the following symptoms:1. Patient is careless and reports frequent mistakes at school or work.2. Patient has difficulty sustaining attention on school or work activities and has unusual trouble staying focused on boring or repetitive tasks.3. Patient does not listen well and frequently has to ask people to repeat directions.4. Patient is disorganized and has difficulty with time management.5. Patient reports frequently having to look for important items.6. Patient is easily distractible and needs relative isolation to get work done. Bipolar disorder Attention deficit hy peractivity disorder The patient is stable at this time on her current ADHD medications. It should be noted, however, that when the patient is off her medications, she exhibits the following symptoms:1. Patient is careless and reports frequent mistakes at school or work.2. Patient has difficulty sustaining attention on school or work activities and has unusual trouble staying focused on boring or repetitive tasks.3. Patient does not listen well and frequently has to ask people to repeat directions.4. Patient is disorganized and has difficulty with time management.5. Patient reports frequently having to look for important items.6. Patient is easily distractible and needs relative isolation to get work done. Anxiety This is a follow up visit. Related symptoms are poorly controlled. There is worsening of previously reported symptoms. The patient reports functioning as somewhat difficult. The patient presents with anxious/fearful thoughts, excessive worry and feelings of guilt. The self denies any aggravating factors. The patient denies any headache, nausea, urinary frequency, vomiting and weight gain. The patient denies any associated symptoms. Bipolar disorder Bipolar disorder This is a follo w up visit. Related symptoms are poorly controlled. The patient reports functioning as very difficult. The patient presents with decreased need for sleep, difficulty concentrating and racing thoughts. The Bipolar disorder is aggravated by reduction in Carbamazepine. The Bipolar disorder is associated with irritability. The patient denies any pertinent negatives. Anxiety Attention deficit disorder The s ymptoms are reported as being very difficult. The symptoms are described as poorly controlled. 1. Patient is careless and reports frequent mistakes at school or work.2. Patient has difficulty sustaining attention on school or work activities and has unusual trouble staying focused on boring or repetitive tasks.3. Patient does not listen well and frequently has to ask people to repeat directions.4. Patient is disorganized and has difficulty with time management.5. Patient reports frequently having to look for important items.6. Patient is easily distractible and needs relative isolation to get work done. Anxiety Bipolar disorder This is a follo w up visit. Related symptoms are stable. The patient reports functioning as somewhat difficult. The patient denies any presenting symptoms. The patient denies any aggravating factors. The patient denies any associated symptoms. The patient denies any pertinent negatives. Attention deficit disorder The s ymptoms are reported as being somewhat difficult. The symptoms are described as stable. The patient is stable at this time on her current ADHD medications. It should be noted, however, that when the patient is off her medications, she exhibits the following symptoms:1. Patient is careless and reports frequent mistakes at school or work.2. Patient has difficulty sustaining attention on school or work activities and has unusual trouble staying focused on boring or repetitive tasks.3. Patient does not listen well and frequently has to ask people to repeat directions.4. Patient is disorganized and has difficulty with time management.5. Patient reports frequently having to look for important items.6. Patient is easily distractible and needs relative isolation to get work done. Attention deficit disorder The s ymptoms are described as poorly controlled. Associated symptoms include difficulty concentrating. Anxiety Bipolar disorder This is a follo w up visit. Related symptoms are poorly controlled. The patient reports functioning as very difficult. The patient presents with decreased need for sleep, difficulty concentrating, racing thoughts and restlessness. The patient denies any aggravating factors. The Bipolar disorder is associated with irritability. The patient denies any pertinent negatives. Anxiety The symptoms are described as poorly controlled. Associated symptoms include anxious/fearful thoughts and excessive worry. Attention deficit disorder Bipolar disorder This is a follo w up visit. Related symptoms are poorly controlled. The patient reports functioning as very difficult. The patient presents with anxious/fearful thoughts, excessive worry, feelings of guilt and panic. The patient denies any aggravating factors. The Bipolar disorder is associated with irritability. The patient denies any pertinent negatives. Anxiety The symptoms are described as worsening. Associated symptoms include anxious/fearful thoughts and excessive worry. Attention deficit hy peractivity disorder Bipolar disorder This is a follo w up visit. There is worsening of previously reported symptoms. The patient reports functioning as somewhat difficult. The patient presents with anxious/fearful thoughts, compulsive thoughts, excessive worry and feelings of guilt. The patient denies any aggravating factors. The Bipolar disorder is associated with irritability. The patient denies any pertinent negatives. new patient Functional Status Date Functional Assessmen t No Information Instructions Date Instruction Additional Infor tk Add Revia 50mg 1/2 Q HS for self-cutting behaviors. Related to Intentional self-harm by unspecified sharp object, subsequent encounter I reviewed patient's chart including previous progress notes, lab data and nursing notes. We spoke about the risks and benefits of changes being made in medications, including possible drug/drug interactions and potential side effects. I explained the reason for the changes, i.e. better genetic match, different side effect profile and targeted symptoms. I explained other treatment options available. We also spoke about life style changes, including diet, exercise and substance abuse. Lastly we spoke about continuing the treatment plan and what to do if conditions worsen.Follow-up: Return to clinic in 4-6 weeks for follow-up visit. Related to Generalized Anxiety Disorder I reviewed patient's chart including previous progress notes, lab data and nursing notes. We spoke about the risks and benefits of changes being made in medications, including possible drug/drug interactions and potential side effects. I explained the reason for the changes, i.e. better genetic match, different side effect profile and targeted symptoms. I explained other treatment options available. We also spoke about life style changes, including diet, exercise and substance abuse. Lastly we spoke about continuing the treatment plan and what to do if conditions worsen.Discontinue Buspar.Add Klonopin 0.5mg BID.Follow-up: Return to clinic in 6-8 weeks for follow-up visit. Related to Generalized Anxiety Disorder I reviewed patient's chart including previous progress notes, lab data and nursing notes. We spoke about the risks and benefits of changes being made in medications, including possible drug/drug interactions and potential side effects. I explained the reason for the changes, i.e. better genetic match, different side effect profile and targeted symptoms. I explained other treatment options available. We also spoke about life style changes, including diet, exercise and substance abuse. Lastly we spoke about continuing the treatment plan and what to do if conditions worsen.Increase Zyprexa to 20mg QHS.Follow-up: Return to clinic in 6 weeks for follow-up visit. Related to Bipolar disorder, current episode depressed, moderate No changes necessary at this time.Follow-up: Return to clinic in 12 weeks for follow-up visit.Current medications prescribed by this provider:Buspirone 30mg BID (#56, 2 refills given on 10/03/17)Prozac 40mg QAM (#28, 2 refills given on 10/03/17)Zyprexa 15mg Q daily (#28, 2 refills given on 10/03/17) Related to Bipolar disorder, current episode depressed, moderate Increase Zyprexa to 15mg QHS.Follow-up: Return to clinic in 6-8 weeks for follow-up visit.Current medications prescribed by this provider:Prozac 40mg QHS (#28, 1 refill given on 08/04/17)Zyprexa 15mg QHS (#28, 1 refill given on 08/04/17) Related to Bipolar disorder, current episode depressed, moderate Taper off Abilify.St art Vraylar at 1.5mg QHS x1 week then increase to 3mg QHS.Follow-up: Return to clinic in 6-8 weeks for follow-up visit.Current medications prescribed by this provider:Abilify 7.5mg QHS x1 week then discontinue (no Rx needed)Vraylar 1.5mg QHS x1 week then increase (#7, no refills)Vraylar 3mg QHS (#30, 1 refill given on 06/23/17) Related to Bipolar disorder, current episode depressed, moderate Discontinue Rexulti, Buspar, and Catapres.Switch to Buspar 30mg BID.Start Abilify 15mg QHS.Follow-up: Return to clinic in 4-6 weeks for follow-up visit.Current medications prescribed by this provider:Buspar 30mg BID (#60, 1 refill given on 05/24/17)Abilify 15mg QHS (#30, 1 refill given on 05/24/17) Related to Bipolar disorder, current episode depressed, moderate No changes until we get the results back from her Genetic testing.Follow-up: Return to clinic for follow-up visit as directed by provider. Related to Bipolar disorder, current episode depressed, moderate Lifestyle education Related to D ental Examination Lifestyle education Related to D ental Examination Lifestyle education Related to D ental Examination Lifestyle education Related to D ental Examination Lifestyle education Related to D ental Examination Benefits of flouride Benefits of flouride Benefits of flouride Benefits of flouride Assessments Type Assessment Date assessment Encounter for dental exam and cl eaning w/o abnormal findings Patient Care Teams Name Effective Dates (start - stop) Status Members No Information
--- OUTSIDE RECORDS SUMMARY | 2025-01-22 20:34 | XMS_ITS | Encounter Summary ---
Author Organization [facility] Address [address] [place] [address] Care Team Providers Care Property Preservation Specialist Name Role Phone Cyndi Kramer [employer] Primary Care Provider + Encounter Details Date Type Department Care Team (Late st Contact Info) Description 01/16/2025 External Device Data [place] [facility]STRACTION Provider, Abstract NO ADDRESS ON FILE Social History Tobacco Use Types Packs/Day Years Used Date Smoking Tobacco: Former Cigarettes Smokeless Tobacco: Never Alcohol Use Standard Drinks/Week Comments No 0 (1 standard drink = 0.6 oz pur e alcohol) Comments No Sex and Gender Information Value Date Recorded Sex Assigned at Not on file Legal Sex Female 12:48 AM [employer] Gender Identity Not on file Sexual Orientation Not on file documented as of this encounter Plan of Treatment Upcoming Encounters Date Type Department Care Team (Late st Contact Info) Description 08/08/2025 10:45 AM [employer] Office Visit [facility] [address] [place] [phone] Landen Morrison MD [address] [place] [phone] documented as of this encounter Visit Diagnoses Not on filedocumented in this encounter Additional Health Concerns Assessment Noted Time PHQ-9 Depression Total Score: 2 10/05/19 18 7:00 AM CDT documented as of this encounter Care Teams Property Preservation Specialist Relationship Specialty Start Date End Date Cyndi Kramer FNP [address] [place] [phone] PCP - General 09/11/20 documented as of this encounter
--- OUTSIDE RECORDS SUMMARY | 2025-01-22 20:34 | XMS_ITS ---
Author Organization Unknown Results OrderDate OrderTestName ResultName ResultDate Value Units Range AbnormalFlag ResultStatus ObservationNotes TestCode ResultCode DateRecorded AccessionNumber DiagnosticSectionCode DiagnosticSectionName Sequence Interpretation Cust om 07/17/2024 00:00:00 CBC hct 9737-66-85X56:00:00 39.2 % 37.0 -47.0 Final CBC Coding hct 07/17/2024 00:00: 00:00:00CMP, SERUM OR PLASMAtotal protein 2159-28-10M74:00:007.5g/dl6.0-8.5Final Coding CMP, SERUM OR PLASMA Coding total protein 01/31/2024 00:00: 00:00:00CMP, SERUM OR PLASMAast (sgot) 8551-24-36X64:00:0041.0u/l0.0-46.0Final Coding CMP, SERUM OR PLASMA Coding ast (sgot) 01/31/2024 00:00: 00:00:00CMP, SERUM OR PLASMAtotal bilirubin 5098-68-79N66:00:000.4mg/dl0.2-1.3Final Coding CMP, SERUM OR PLASMA Coding total bilirubin 01/31/2024 00:00: 00:00:00CMP, SERUM OR PLASMAalp phos 4297-61-20V57:00:71297.0u/l30.0-140.0normalFinal Coding CMP, SERUM OR PLASMA Coding alp phos 07/17/2024 00:00: 00:00:00CMP, SERUM OR PLASMAast (sgot) 2564-00-08Y33:00:0032.0u/l0.0-46.0Final Coding CMP, SERUM OR PLASMA Coding ast (sgot) 07/17/2024 00:00: 00:00:24AZGZKZIuy0-ffp6311-59-96C97:00:000.05iu/ml normalFinal Coding UNKNOWN Coding tb1-nil tb1-nil 01/31/2024 00:00: 00:00:00URINALYSIS, FEKFECBS4458-12-13Q20:00:00 Negative Coding URINALYSIS, DIPSTICK Coding 09/04/2024 00:00: 00:00:00CBCgranulcytes#4262-22-58E40:00:004.0x10 Final Coding CBC Coding granulcytes# 07/17/2024 00:00: 00:00:00LIPID PANEL, BLOODcholesterol 2286-77-01W19:00:00908.0mg/dl0.0-200.0highFinal Coding LIPID PANEL, BLOOD Coding cholesterol 01/31/2024 00:00: 00:00:00URINALYSIS, RSLLYFAB4452-49-72M55:00:00 negative Coding URINALYSIS, DIPSTICK Coding 09/04/2024 00:00: 00:00:00CBCgranulcytes %7630-20-94I92:00:0050.6% 30.0-70.0Final Coding CBC Coding granulcytes % 01/31/2024 00:00: 00:00:00URINALYSIS, BICOAJNF8983-35-37K75:00:00.2 Coding URINALYSIS, DIPSTICK Coding 09/04/2024 00:00: 00:00:00CBClymphocytes #6463-44-45X24:00:001.8x10 Final Coding CBC Coding lymphocytes # 01/31/2024 00:00: 00:00:00LIPID PANEL, BLOODvldl - direct 2253-09-54V26:00:0029.6mg/dlFinal Coding LIPID PANEL, BLOOD Coding vldl - direct 01/31/2024 00:00: 00:00:00CMP, SERUM OR PLASMAtotal protein 7673-71-68E10:00:007.6g/dl6.0-8.5Final Coding CMP, SERUM OR PLASMA Coding total protein 07/17/2024 00:00: 00:00:00CMP, SERUM OR PLASMAalp phos 5552-68-66T97:00:70364.0u/l30.0-140.0normalFinal Coding CMP, SERUM OR PLASMA Coding alp phos 01/31/2024 00:00: 00:00:00CMP, SERUM OR PLASMAcreatinine (serum) 5627-44-40Z12:00:000.9mg/dl0.4-1.5Final Coding CMP, SERUM OR PLASMA Coding creatinine (serum) 01/31/2024 00:00: 00:00:00URINALYSIS, HAUKAVOW7408-56-70P83:00:00 Negative Coding URINALYSIS, DIPSTICK Coding 09/04/2024 00:00: 00:00:00CMP, SERUM OR PLASMAchloride 1987-02-74Z77:00:08766.0mmol/l98.0-110.0abnormalFinal Coding CMP, SERUM OR PLASMA Coding chloride 01/31/2024 00:00: 00:00:65XEQtop5974-40-40F13:00:0091.8fl80.0-99.9 Final Coding CBC Coding mcv 07/17/2024 00:00: 00:00:00CMP, SERUM OR PLASMAglucose 2628-33-61U59:00:50615.0mg/dl60.0-99.0highFinal Coding CMP, SERUM OR PLASMA Coding glucose 01/31/2024 00:00: 00:00:00CMP, SERUM OR PLASMAchloride 9837-57-90D59:00:81077.0mmol/l98.0-110.0normalFinal Coding CMP, SERUM OR PLASMA Coding chloride 07/17/2024 00:00: 00:00:00URINALYSIS, VZSIUUMI5523-81-99X61:00:00 1.030 Coding URINALYSIS, DIPSTICK Coding 09/04/2024 00:00: 00:00:97JJDchw0986-44-48V34:00:006.8x104.0-10.5 Final Coding CBC Coding wbc 07/17/2024 00:00: 00:00:51JCZCJAGkrw5135-19-50N55:00:000.02iu/ml normalFinal Coding UNKNOWN Coding nil nil 01/31/2024 00:00: 00:00:00CMP, SERUM OR PLASMApotassium 9152-73-65Q79:00:004.2mmol/l3.5-5.1Final Coding CMP, SERUM OR PLASMA Coding potassium 01/31/2024 00:00: 00:00:00URINALYSIS, MKTQDFHC2775-45-43N36:00:00 Trace Coding URINALYSIS, DIPSTICK Coding 09/04/2024 00:00: 00:00:00CMP, SERUM OR PLASMAalbumin 6592-79-95X38:00:004.8g/dl3.5-5.5Final Coding CMP, SERUM OR PLASMA Coding albumin 07/17/2024 00:00: 00:00:00SARS COV 2 RNA, QL, NASOPHARYNX 9243-50-77X32:00:00negative Coding SARS COV 2 RNA, QL, NASOPHAR YNX Coding 02/23/2024 00:00: 00:00:00CBClymphocytes %6830-18-91N98:00:0034.7% 20.0-50.0Final Coding CBC Coding lymphocytes % 01/31/2024 00:00: 00:00:00CMP, SERUM OR PLASMAtotal bilirubin 6716-02-20L81:00:000.4mg/dl0.2-1.3Final Coding CMP, SERUM OR PLASMA Coding total bilirubin 07/17/2024 00:00: 00:00:00CMP, SERUM OR PLASMAcreatinine (serum) 9204-11-90L34:00:000.7mg/dl0.4-1.5Final Coding CMP, SERUM OR PLASMA Coding creatinine (serum) 07/17/2024 00:00: 00:00:26TASgshb8697-20-54E15:00:0035.8g/dl 32.0-36.0Final Coding CBC Coding mchc 07/17/2024 00:00: 00:00:17PAJacc9932-42-13M92:00:33621.0x10 140.0-451.0Final Coding CBC Coding plt 07/17/2024 00:00: 00:00:58ZGDtre1041-70-39Z20:00:004.08k586.50-5.50 Final Coding CBC Coding rbc 01/31/2024 00:00: 00:00:00CBCmonocytes #8441-24-61K53:00:000.7x10 Final Coding CBC Coding monocytes # 07/17/2024 00:00: 00:00:00CMP, SERUM OR PLASMAaltv (sgpt) 0698-79-76K72:00:0038.0u/l13.0-69.0normalFinal Coding CMP, SERUM OR PLASMA Coding altv (sgpt) 01/31/2024 00:00: 00:00:00CMP, SERUM OR PLASMAosmolality 6127-21-74R65:00:15642.5calcFinal Coding CMP, SERUM OR PLASMA Coding osmolality 01/31/2024 00:00: 00:00:21HSIhlj7650-16-93S87:00:0032.8pg27.0-32.0 highFinal Coding CBC Coding mch 07/17/2024 00:00: 00:00:00CMP, SERUM OR PLASMAglobulin 1353-17-30P97:00:002.8calcFinal Coding CMP, SERUM OR PLASMA Coding globulin 07/17/2024 00:00: 00:00:00CMP, SERUM OR PLASMAsodium 8316-78-04P46:00:65314.0mmol/l136.0-145.0Final Coding CMP, SERUM OR PLASMA Coding sodium 07/17/2024 00:00: 00:00:00CMP, SERUM OR PLASMAcalcium 5128-87-40B78:00:009.9mg/dl8.4-10.5Final Coding CMP, SERUM OR PLASMA Coding calcium 01/31/2024 00:00: 00:00:00CBCgranulcytes %9783-93-43H04:00:0058.2% 30.0-70.0Final Coding CBC Coding granulcytes % 07/17/2024 00:00: 00:00:00CMP, SERUM OR PLASMAcalcium 7286-46-28B73:00:0010.1mg/dl8.4-10.5Final Coding CMP, SERUM OR PLASMA Coding calcium 07/17/2024 00:00: 00:00:00LIPID PANEL, FYNJAiakw4780-17-65Q44:00:00 148.0mg/dl0.0-150.0Final Coding LIPID PANEL, BLOOD Coding trig 01/31/2024 00:00: 00:00:00LDL, DIRECT, SERUMdirect ldl 3724-94-57K34:00:38342gp/dl<100highFinal Coding LDL, DIRECT, SERUM Coding direct ldl direct ldl 07/17/2024 00:00: 00:00:00CMP, SERUM OR DIYVDRu327170-01-89B06:00:00 19.0mmol/l22.0-31.0lowFinal Coding CMP, SERUM OR PLASMA Coding c02 01/31/2024 00:00: 00:00:00CMP, SERUM OR PLASMAa/g ratio 3509-94-28E85:00:001.6ratioFinal Coding CMP, SERUM OR PLASMA Coding a/g ratio 01/31/2024 00:00:00012/31/2024 00:00:00SARS COV 2 RNA, QL PROBE, NASOPHARYNX 3928-67-50L70:00:00negative Coding SARS COV 2 RNA, QL PROBE, NA SOPHARYNX Coding 12/31/2024 00:00: 00:00:00CMP, SERUM OR PLASMAosmolality 6687-88-84P82:00:10064.4calcFinal Coding CMP, SERUM OR PLASMA Coding osmolality 07/17/2024 00:00: 00:00:00CMP, SERUM OR JEYCADr641962-62-41B07:00:00 21.0mmol/l22.0-31.0lowFinal Coding CMP, SERUM OR PLASMA Coding c02 07/17/2024 00:00: 00:00:00CMP, SERUM OR PLASMAglucose 1123-84-91J42:00:0095.0mg/dl60.0-99.0Final Coding CMP, SERUM OR PLASMA Coding glucose 07/17/2024 00:00: 00:00:00URINALYSIS, IYPZXCOX6696-43-24X94:00:00 Negative Coding URINALYSIS, DIPSTICK Coding 09/04/2024 00:00: 00:00:87IXWcmc2515-69-74R10:00:0013.3%11.5-14.5 Final Coding CBC Coding rdw 01/31/2024 00:00: 00:00:85OAJptb1733-34-37G73:00:004.46z859.50-5.50 Final Coding CBC Coding rbc 07/17/2024 00:00: 00:00:00CMP, SERUM OR PLASMAbun (blood urea nitrogen)3849-60-96Q81:00:006.0mg/dl10.0-26.0lowFinal Coding CMP, SERUM OR PLASMA Coding bun (blood urea nitrogen) 01/31/2024 00:00: 00:00:00CMP, SERUM OR PLASMAbun/creatinine ratio 1189-99-83K21:00:006.38ratioFinal Coding CMP, SERUM OR PLASMA Coding bun/creatinine ratio 01/31/2024 00:00: 00:00:85IOArei6453-51-29R20:00:0012.6%11.5-14.5 Final Coding CBC Coding rdw 07/17/2024 00:00: 00:00:00CMP, SERUM OR PLASMAsodium 7283-25-93V29:00:86105.0mmol/l136.0-145.0Final Coding CMP, SERUM OR PLASMA Coding sodium 01/31/2024 00:00: 00:00:00URINALYSIS, KVCRSFXN0219-14-15K75:00:00 Dark Yellow Coding URINALYSIS, DIPSTICK Coding 09/04/2024 00:00: 00:00:00CMP, SERUM OR PLASMAbun/creatinine ratio 6999-45-68B08:00:0011.43ratioFinal Coding CMP, SERUM OR PLASMA Coding bun/creatinine ratio 07/17/2024 00:00: 00:00:00CMP, SERUM OR PLASMAanion gap 3440-58-02G32:00:008.0calcFinal Coding CMP, SERUM OR PLASMA Coding anion gap 01/31/2024 00:00: 00:00:40IWRxrs2824-07-84F49:00:0014.3g/dl12.0-16.0 Final Coding CBC Coding hgb 01/31/2024 00:00: 00:00:00UNKNOWNquantiferon(r)-tb gold plus, 1 tube 1926-42-11T53:00:00NEGATIVENEGATIVEnormalFinal Coding UNKNOWN Coding quantiferon(r)-tb gold plus, 1 tube quantiferon(r)-tb gold plus, 1 tube 01/31/2024 00:00: 00:00:00CBClymphocytes #5471-57-81R35:00:002.1x10 Final Coding CBC Coding lymphocytes # 07/17/2024 00:00: 00:00:00CMP, SERUM OR PLASMAa/g ratio 0530-89-32B29:00:001.7ratioFinal Coding CMP, SERUM OR PLASMA Coding a/g ratio 07/17/2024 00:00: 00:00:00CMP, SERUM OR PLASMAegfr calculated 7442-48-95F26:00:45786.3Final Coding CMP, SERUM OR PLASMA Coding egfr calculated 07/17/2024 00:00: 00:00:49IBNgof7153-47-09R02:00:0031.5pg27.0-32.0 Final Coding CBC Coding mch 01/31/2024 00:00: 00:00:00URINALYSIS, MNGVFMIM1136-33-64N33:00:00 Slightly Cloudy Coding URINALYSIS, DIPSTICK Coding 09/04/2024 00:00: 00:00:00URINALYSIS, EBPDTEDF1933-90-98Q86:00:00 Negative Coding URINALYSIS, DIPSTICK Coding 09/04/2024 00:00: 00:00:00CBCgranulcytes#0041-26-50G24:00:002.6x10 Final Coding CBC Coding granulcytes# 01/31/2024 00:00: 00:00:00CBClymphocytes %2013-60-17H41:00:0030.5% 20.0-50.0Final Coding CBC Coding lymphocytes % 07/17/2024 00:00: 00:00:00CBCmonocytes %6142-67-96D87:00:009.9% 2.0-16.0Final Coding CBC Coding monocytes % 07/17/2024 00:00: 00:00:00TSH, SERUM OR KPCGDFgfr2268-81-19U39:00:00 1.16uiu/ml0.49-3.82 Coding TSH, SERUM OR PLASMA Coding tsh 01/31/2024 00:00: 00:00:00CMP, SERUM OR PLASMAaltv (sgpt) 7269-55-52L45:00:0034.0u/l13.0-69.0normalFinal Coding CMP, SERUM OR PLASMA Coding altv (sgpt) 07/17/2024 00:00: 00:00:56CANZZZFxghumbq-kby4694-81-01T00:00:00 >10.00iu/mlnormalFinal Coding UNKNOWN Coding mitogen-nil mitogen-nil 01/31/2024 00:00: 00:00:00CMP, SERUM OR PLASMAanion gap 0265-33-08L62:00:0011.0calcFinal Coding CMP, SERUM OR PLASMA Coding anion gap 07/17/2024 00:00: 00:00:00CMP, SERUM OR PLASMApotassium 2437-37-83I27:00:003.8mmol/l3.5-5.1Final Coding CMP, SERUM OR PLASMA Coding potassium 07/17/2024 00:00: 00:00:00URINALYSIS, TEWFMZSD0323-42-19U37:00:00 Negative Coding URINALYSIS, DIPSTICK Coding 09/04/2024 00:00: 00:00:00LIPID PANEL, BLOODldl - direct 0706-60-17H68:00:07827.4mg/dl0.0-130.0highFinal Coding LIPID PANEL, BLOOD Coding ldl - direct 01/31/2024 00:00: 00:00:00GXPdyz6623-34-19L45:00:65650.0x10 140.0-451.0Final Coding CBC Coding plt 01/31/2024 00:00: 00:00:00LIPID PANEL, BLOODhdl - direct 2961-37-08C22:00:0041.0mg/dl>40.0Final Coding LIPID PANEL, BLOOD Coding hdl - direct 01/31/2024 00:00: 00:00:00CBCmonocytes #7774-97-31R74:00:000.6x10 Final Coding CBC Coding monocytes # 01/31/2024 00:00: 00:00:49VOObau6112-14-80X95:00:0014.0g/dl12.0-16.0 Final Coding CBC Coding hgb 07/17/2024 00:00: 00:00:05CBNrmfk6592-89-28Q21:00:0034.5g/dl 32.0-36.0Final Coding CBC Coding mchc 01/31/2024 00:00: 00:00:36LKNyal0568-64-27F75:00:0091.4fl80.0-99.9 Final Coding CBC Coding mcv 01/31/2024 00:00: 00:00:00CMP, SERUM OR PLASMAegfr calculated 9436-28-37Y70:00:0078.4Final Coding CMP, SERUM OR PLASMA Coding egfr calculated 01/31/2024 00:00: 00:00:39RRBuij4835-65-14R46:00:005.2x104.0-10.5 Final Coding CBC Coding wbc 01/31/2024 00:00: 00:00:38BYGFVAQec3-zpl6110-91-73O30:00:000.03iu/ml normalFinal Coding UNKNOWN Coding tb2-nil tb2-nil 01/31/2024 00:00: 00:00:00CMP, SERUM OR PLASMAglobulin 4028-47-02I66:00:002.9calcFinal Coding CMP, SERUM OR PLASMA Coding globulin 01/31/2024 00:00: 00:00:00CMP, SERUM OR PLASMAalbumin 0776-93-51S58:00:004.6g/dl3.5-5.5Final Coding CMP, SERUM OR PLASMA Coding albumin 01/31/2024 00:00: 00:00:00URINALYSIS, GATMNBHN1871-67-40K39:00:007.0 Coding URINALYSIS, DIPSTICK Coding 09/04/2024 00:00:00001/31/2024 00:00:00CBCmonocytes %8295-30-26O73:00:0012.0% 2.0-16.0Final Coding CBC Coding monocytes % 01/31/2024 00:00: 00:00:71EREsdy3460-43-13V29:00:0041.3%37.0-47.0 Final Coding CBC Coding hct 01/31/2024 00:00: 00:00:00CMP, SERUM OR PLASMAbun (blood urea nitrogen)2517-49-50S12:00:008.0mg/dl10.0-26.0lowFinal Coding CMP, SERUM OR PLASMA Coding bun (blood urea nitrogen) 07/17/2024 00:00:00
--- OUTSIDE RECORDS SUMMARY | 2025-01-22 20:34 | XMS_ITS | Clinical Summary ---
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 03/11/20 20 Active melatonin 3 mg Tablet Take by mouth nightly as needed for Insomnia. 03/11/20 20 Active LORazepam (ATIVAN) 1 mg tablet Take 1 mg by mouth daily at bedtime. 03/11/20 20 Active calcium as carbonate (TUMS) 500 mg (200 mg elemental) Tablet, Chewable Take 750 mg by mouth every 4 hours as needed for Dyspepsia or Indigestion. 03/11/20 20 Active acetaminophen (TYLENOL) 325 mg tablet Take 650 mg by mouth every 6 hours as needed. 03/11/20 20 Active norethindrone-e.estr adioL-iron (LO LOESTRIN FE) 1 mg-10 mcg (24)/10 mcg (2) Tablet per tablet Take 1 Tablet by mouth daily. 28 Tablet PRN 02/21/20 19 Active paliperidone (INVEGA) 6 mg Extended Release 24 hour tabletIndications:Se izures (CMS/HCC) Take [address] mouth daily [address] light repairer helper. 10/10/19 19 Active atorvastatin (LIPITOR) 20 mg tablet 40 mg daily. TAKE 1 TABLET BY MOUTH ONCE A DAY FOR CHOLESTEROL(EQ: LIPITOR) 06/29/20 18 Active QUEtiapine (SEROquel) 400 mg tablet Take 800 mg by mouth 2 times daily. 1 06/29/20 18 Active benztropine (COGENTIN) 1 mg tablet Take 1 mg by mouth 2 times daily. 06/29/20 18 Active Zonisamide (ZONEGRAN) 100 mg capsuleIndications:G eneralized epilepsy (CMS/HCC) Take 3 Capsules (300 mg) by mouth 2 times daily. 180 Capsule 12 09/17/19 21 Active LORazepam (ATIVAN) 2 mg/mL ConcentrateIndicatio ns:Seizures (CMS/[facility]) GIVE 0.5MG BY MOUTH NEEDED FOR WITH SEIZURES LASTING MORE THAN 3 MINUTES 10 mL 5 09/11/19 21 Active metoprolol succinate (TOPROL XL) 25 mg Extended Release 24 hour tablet Take 25 mg by mouth daily. 09/17/19 21 Active LORazepam (ATIVAN) 0.5 mg tablet Take 0.5 mg by mouth every 6 hours as needed for Anxiety. 09/17/19 21 Active sennosides-docusate sodium (SENNA-S) 8.6-50 mg tablet Take 2 Tablets by mouth daily. As needed for constipation 60 Tablet 1 05/25/20 21 Active fluticasone propionate (FLONASE) 50 mcg/spray [place], Suspension nasal inhaler Administer 2 Sprays in each nostril daily. Active PNV no.27/iron carb,fum/folic (PNV#27-IRON CARB, FUM-FOLIC AC ORAL) Take by mouth daily. Active cyanocobalamin, vitamin B-12, (VITAMIN B-12 ORAL) Take by mouth daily. Active ferrous sulfate 325 mg (65 mg iron) tablet Take 325 mg by mouth daily. Active multivitamin (DAILY-KESHAWN) tablet Take 1 Tablet by mouth daily. 90 Tablet 3 10/05/19 18 Active fluticasone propionate (FLONASE) 50 mcg/spray [place], Suspension nasal inhaler Administer 2 Sprays in each nostril daily. 16 Gram 3 10/04/19 18 Active polyethylene glycol 3350 (MIRALAX) 17 gram/dose PowderIndications:Co nstipation, unspecified constipation type Take 1 SCOOP (17 Grams) by mouth daily Dissolve in 8 ounces of fluid and drink entire liquid. Titrate to soft stools.. 527 Gram 3 10/04/19 18 Active brivaracetam (Briviact) 50 mg tabletIndications:Ge neralized epilepsy (CMS/HCC) TAKE TWO TABLETS BY MOUTH TWICE DAILY 120 Tablet 1 03/15/20 22 Active docusate sodium (COLACE) 100 mg capsule TAKE 1 CPASULE BY MOUTH TWO TIMES A DAY Strength: 100 mg 60 Capsule 3 03/24/20 22 Active Ytsgpridanrtf-Iely-A yrilamine 500-60-15 mg Tablet TAKE DIRECTED ON label FOR cramps 03/29/20 23 Active bismuth subsalicylate (PEPTO-BISMOL) 262 mg Tablet, Chewable CHEW ONE TABLET BY MOUTH EVERY DAY NEEDED Active hydrOXYzine pamoate (VISTARIL) 25 mg capsule TAKE 2 CAPSULES BY MOUTH EVERY 6 HOURS NEEDED FOR anxiety FOR 30 DAYS Active QUEtiapine (SEROquel) 50 mg tablet Take 50 mg by mouth daily. At 4pm Active linaCLOtide (Linzess) 145 mcg capsuleIndications:C hronic idiopathic constipation Take 1 Capsule (145 mcg) by mouth daily before breakfast. 30 Capsule 10/20/19 25 Active pantoprazole (PROTONIX) 40 mg Tablet, Delayed Release (E.C.)Indications:Ch ronic gastroesophageal reflux disease Take 1 Tablet (40 mg) by mouth 2 times daily. 60 Tablet 10/20/19 25 Active lubiprostone (AMITIZA) 24 mcg CapsuleIndications:C hronic idiopathic constipation Take 1 Capsule (24 mcg) by mouth 2 times daily with meals. 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 Abnormal EEG 12/25/2013 Myopia 06/08/2012 Exotropia 11/04/2010 Overview (10/30/2020): Overview: Bipolar disorder, current episode mixed, moderat e 07/03/2009 Resolved Problems Problem Noted Date Diagnosed Date Resolved Date 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 Oppositional defiant disorde r of childhood or adolescence 07/03/2009 09/17/2010 ADHD (attention deficit hype ractivity disorder) 07/03/2009 09/17/2010 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 Encounters Date Type Department Care Team Description 01/16/2025 External Device Data [facility] ABSTRACTION Provider, Abstract 01/16/2025 External Device Data [facility] ABSTRACTION Provider, Abstract 12/19/2024 External Device Data [facility] ABSTRACTION Provider, Abstract 11/22/2024 External Device Data [facility] ABSTRACTION Provider, Abstract 11/21/2024 External Device Data [facility] ABSTRACTION Provider, Abstract 11/21/2024 External Device Data [facility] ABSTRACTION Provider, Abstract 11/20/2024 External Device Data [facility] ABSTRACTION Provider, Abstract from Last 3 Months Immunizations Immunization Administration Dates Next Due (DIPHTHERIA AND TETANUS TOXO IDS ADSORBED)(6 WKS-6 YRS) DIPTHERHIS AND TETANUS TOXOIDS VACCINE, 0.5 ML IM 03/01/2006,06/11/2003,2000,08/25 (GARDASIL)(9-45 YRS) HUMAN PAPILLOMAVIRUS VACCINE, TYPES 6, 11, 16, 18, QUADRIVALENT (4VHPV), 3 DOSE, IM 02/26/2015,10/08/2013,03/28/2013 (HAVRIX/VAQTA)(12 MO-18 YRS) HEPATITIS A VACCINE 0.5 ML PED/ADOL 2 DOSE, IM 03/28/2013 (INFANRIX)(6 WKS-6 YRS) DIPT HERIA, TETANUS TOXOIDS, AND ACCELLULAR PERTUSSIS VACCINE (DTAP), 0.5 ML IM 03/01/2006,06/11/2003,2000,08/25,2000 (IPOL)(6 WKS AND UP) POLIOVI DELMIS VACCINE, INACTIVATED (IPV), 3 DOSE, SUBCUT OR IM 03/01/2006,05/08/2001,2000,04/05 (M-M-R II/PRIORIX)(12 MO UP) MEASLES, MUMPS AND RUBELLA VIRUS VACCINE, 0.5 ML IM/SUBCUT 03/01/2006,05/08/2001 (TDVAX)(7 YRS UP) TETANUS AN D DIPHTHERIA TOXOIDS, ADSORBED (2 LF OF TETANUS TOXOID AND 2 LF OF DIPHTHERIA TOXOID), 0.5ML (PF), IM 03/28/2013 (TENIVAC)(7 YRS UP) TETANUS AND DIPHTHERIA TOXOIDS, ADSORBED (5 LF OF TETANUS TOXOID AND 2 LF OF DIPHTHERIA TOXOID), 0.5ML (PF), IM 03/28/2013 (VARIVAX)(12 MOS UP)VARICELL A VIRUS VACCINE (PF) 0.5 ML, SUB CUT 11/04/2010,03/01/2006 HIB, Unspecified Formulation 09/29/2001, 2000,2000,04/05 HPV Vaccine 3 Dose IM VFC 02/26/2015 Hepatitis A Vaccine 03/28/2013,11/04/2010 Hepatitis A Vaccine Ped Adol IM 2 Dose VFC 11/04/2010 Hepatitis B Vaccine 2000,2000,1999 Influenza Seasonal Unspecifi ed Formulation IM 06/03/2017,04/07/2015 Influenza Vaccine Quad Split 3+ Yrs PF IM VFC 04/07/2015 Meningococcal A Conjugate Vaccine IM 03/28/2013 Meningococcal ACWY Vaccine, Unspecified Formulation 03/28/2013 PREVNAR (PCV13) pneumococcal 13-valent conjugate Vaccine 2000 Pneumococcal 7-valent conjug ate vaccine IM 06/11/2003,2000 Varicella Vaccine Live Sq VFC 11/04/2010 Family History Medical History Relation Name Comments Healthy Brother Seizures Brother febrile seizure s Heart Disease Father Other Father TIA's Healthy Mother Migraines Mother ADHD Other cousins Colon Cancer Other cousins 1/2 paternal br other colon cancer Seizures Other cousins febrile Healthy Sister Seizures Sister epilepsy until 5 years old Mental Retardation Neg Hx Relation Name Status Comments Brother Alive Father Mother Alive Other cousins Sister Alive Social History Tobacco Use Types Packs/Day Years Used Date Smoking Tobacco: Former Cigarettes Smokeless Tobacco: Never Tobacco Cessation:Counseling Given: No Alcohol Use Standard Drinks/Week Comments No 0 (1 standard drink = 0.6 oz pur e alcohol) Comments No Sex and Gender Information Value Date Recorded Sex Assigned at Not on file Legal 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 Gender Identity Not on file Sexual Orientation Not on file Last Filed Vital Signs Vital Sign Reading Time Taken Comments Blood Pressure 111/77 10/19/2024 8:00 AM CDT Pulse 100 10/19/2024 8:00 AM CDT Temperature 37.1 C (98.8 F) 05/06/2023 2:26 AM CDT Respiratory Rate 13 05/07/2023 11:30 AM CDT Oxygen Saturation 95% 05/07/2023 11:30 AM CDT Inhaled Oxygen Concentration - - Weight 80.3 kg (177 lb) 10/19/2024 8:00 AM CDT Height 160 cm (5' 3 ) 10/19/2024 8:00 AM CDT Body Mass Index 31.35 10/19/2024 8:00 AM CDT Plan of Treatment Upcoming Encounters Date Type Department Care Team (Late st Contact Info) Description 08/08/2025 10:45 AM LICENSING OFFICER Office Visit [facility] [address] [place] [address] Landen Morrison MD [address] [place] [address] Health Maintenance Due Date Last Done Comments HPV/Cotest (21-29) 02/05/2021 CERVICAL CANCER SCREENING 07/08/2024 PAP SMEAR 07/08/2024 07/08/2021 INFLUENZA VACCINE (#1) 2025 , 07/10/2018, 06/03/2017, Additional history exists DTAP/TDAP/TD VACCINES (7 - T d or Tdap) 10/06/2025 10/07/2015, 03/28/2013, 03/28/2013, Additional history exists HEPATITIS B VACCINES Completed 2000, 2000, 2000, Additional history exists HPV VACCINES Completed 02/26/2015, 02/02, 10/08/2013, Additional history exists Medical Devices Implanted Type Area 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 Shelf Expiration Date Model / Serial / Lot Lead Vns Therapy 2mm 303-20 - [id number] Implanted:Qty: 1 on 03/18/2020 by Dallas Shelley MD Lead N/A: Neck [employer] [place] [id number] 07/16/2023 303-20 / / 2023-07-16 Generator Vns [employer] 1000 - [id number] Implanted:Qty: 1 on 03/18/2020 by Dallas Shelley MD Neuro N/A: Chest [employer] [place] [id number] 1000 / / Insurance MEDICARE PART A AND B [place]ID [place] Advance Directives For more information, please contact: [phone] * Full Code (Latest Code Status on File) Date Activated Date Inactivated Comments 05/06/2023 5:27 AM 05/07/2023 4:19 PM * Full Code Date Activated Date Inactivated Comments 12/23/2021 8:22 AM 12/23/2021 11:57 AM * Full Code Date Activated Date Inactivated Comments 12/22/2021 9:51 AM 12/22/2021 1:38 PM * Full Code Date Activated Date Inactivated Comments 09/16/2021 7:57 AM 09/16/2021 12:49 PM Care Teams Coppersmith Apprentice Relationship Specialty Start Date End Date Cyndi Kramer, MANUEL [address] [place] [id number] PCP - General 09/11/20
--- OUTSIDE RECORDS SUMMARY | 2025-01-22 20:34 | XMS_ITS | Encounter Summary ---
Author Organization [facility] Address [address] [place] [address] Care Team Providers Care Block Out Machine Operator Name Role Phone Cyndi KramerRandi JACKSON Primary Care Provider + Reason for Visit * Reason Onset Date Comments Wants Appointment 06/21/2024 Encounter Details Date Type Department Care Team (Late st Contact Info) Description 06/21/2024 Telephone [facility] [address] [facility] [address] [place] [phone] Landen Morrison MD [address] [facility] [address] [place] [phone] Wants Appointment Social History Tobacco Use Types Packs/Day Years Used Date Smoking Tobacco: Former Cigarettes Smokeless Tobacco: Never Alcohol Use Standard Drinks/Week Comments No 0 (1 standard drink = 0.6 oz pur e alcohol) Comments No Sex and Gender Information Value Date Recorded Sex Assigned at Not on file Legal Sex Female 12:48 AM 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 Cardiology Doping Supervisor: Monalisa Perry OSER TEACHING ARTIST documented in this encounter Plan of Treatment Upcoming Encounters Date Type Department Care Team (Late st Contact Info) Description 08/08/2025 10:45 AM COMPOSER TEACHING ARTIST Office Visit [facility] [address] [place] [phone] Landen Morrison MD [address] [place] [phone] documented as of this encounter Visit Diagnoses Not on filedocumented in this encounter Additional Health Concerns Assessment Noted Time PHQ-9 Depression Total Score: 2 10/05/19 18 7:00 AM CDT documented as of this encounter Care Teams Block Out Machine Operator Relationship Specialty Start Date End Date Cyndi Kramer FNP [address] [place] [address] PCP - General 09/11/20 documented as of this encounter
--- NOTE | 2025-01-22 20:35 | W.ED.GENADLT ---
HPI - General Adult General: Chief complaint: Weakness Stated complaint: NEAR SYNCOPE, SOB, Time Seen by Provider: 01/22/25 20:23 History of Present Illness: Patient comes in after having a near syncopal event. States she took a bath and when she got up out of the bath she started feel lightheaded. She states staff had put her hands up over her head. States that her heart rate began to increase. States she has a history of tachycardia and she takes medications for it. Denies syncope. Denies any chest pain or difficulty breathing. Denies any cold symptoms including no fever, cough, congestion, vomiting, diarrhea. Denies any abdominal pain shortness of breath, or chest pain. Will check labs, EKG, give IV fluids, and reassess. Associated symptoms: Deny chest pain, dyspnea, nausea, palpitations or vomiting Related Data Home Medications ?Medication ?Instructions ?Recorded ?Confirmed atorvastatin 40 mg tablet 40 mg PO BEDTIME 09/15/19 01/10/25 fluticasone propionate 50 1 spray intranasal BID 09/15/19 01/10/25 mcg/actuation nasal spray,suspension bismuth subsalicylate 262 mg 1 tab PO DAILY PRN adominal upset 07/21/20 01/10/25 chewable tablet (Pepto-Bismol) diphenhydramine HCl 25 mg capsule 25 mg PO Q6H PRN allergies 11/18/20 01/10/25 (Benadryl) ferrous sulfate 325 mg (65 mg 325 mg PO DAILY 08/12/21 01/10/25 iron) tablet (Iron (ferrous sulfate)) lubiprostone 24 mcg capsule 24 mcg PO BID 08/17/22 01/10/25 mecobalamin (vitamin B12) 1,000 1,000 mcg PO DAILY 08/17/22 01/10/25 mcg chewable tablet acetaminophen-pamabrom 500 mg-25 1 tab PO Q6H PRN Cramps 11/16/22 01/10/25 mg tablet (Midol) ondansetron HCl 4 mg tablet 4 mg PO Q6H PRN nausea 11/24/22 01/10/25 bisacodyl 10 mg rectal suppository 10 mg MA DAILY PRN Constipation 02/27/23 01/10/25 menthol 7.5 mg lozenges ([place] 7.5 mg mucous membrane Q2H PRN 02/27/23 01/10/25 Cough Drops) Cough sennosides 8.6 mg-docusate sodium 2 tab-cap PO DAILY BEDTIME 02/27/23 01/10/25 50 mg tablet (Senokot-S) etonogestrel 68 mg subdermal 1 implant subdermal ONCE 01/24/24 01/10/25 implant (Nexplanon) acetaminophen 325 mg tablet 650 mg PO QID PRN Pain 06/09/24 01/10/25 metoprolol tartrate 25 mg tablet mg PO 06/20/24 01/10/25 hydroxyzine pamoate 25 mg capsule 50 mg PO BID Anxiety 09/14/24 01/10/25 vitamins-iron fumarate 66 tab PO DAILY 09/14/24 01/10/25 mg iron-folic acid 1 mg tablet melatonin 5 mg capsule mg PO PRN 12/14/24 01/10/25 Previous Rx's ?Medication ?Instructions ?Recorded polyethylene glycol 3350 17 gram 17 g PO DAILY PRN constipation #14 10/28/22 oral powder packet (Miralax) ea linaclotide 145 mcg capsule 145 mcg PO DAILY #30 caps 12/24/22 (Linzess) pantoprazole 40 mg tablet,delayed 40 mg PO BID 6 weeks #84 tabs 02/09/23 release (Protonix) hydrocortisone 1 %-pramoxine 1 % 1 applic MA QID PRN hemorrhoids 09/17/23 rectal foam (Proctofoam HC) #10 grams zonisamide 100 mg capsule See Rx Instructions .Route 06/13/24 .COMPLEX #180 caps paliperidone 9 mg tablet,extended 9 mg PO DAILY psychosis, agitation 07/24/24 release 24 hr 30 days #30 tabs brivaracetam 100 mg tablet 100 mg PO BID #60 tabs 08/24/24 benztropine 1 mg tablet 1 mg PO BID #60 tabs 09/14/24 quetiapine 400 mg tablet,extended See Rx Instructions .Route 09/14/24 release 24 hr .COMPLEX #120 tabs quetiapine 50 mg tablet 50 mg PO DAILY 30 days #30 tabs 09/14/24 sucralfate 1 gram tablet 1 g PO BID #14 tabs 09/17/24 lorazepam 1 mg tablet See Rx Instructions .Route 11/29/24 .COMPLEX Agitation #45 tabs lorazepam 2 mg/mL oral concentrate See Rx Instructions .Route 11/30/24 .COMPLEX PRN seizure activity #30 mL Allergies Allergy/AdvReac Type Severity Reaction Status Date / Time clozapine Allergy Unknown Verified 01/22/25 20:42 divalproex sodium (From Allergy Unresponsiv Verified 01/22/25 20:42 Depakote) e escitalopram (From Lexapro) Allergy ALGY-Swell Verified 01/22/25 20:42 Lip/Tongue/Throat lamotrigine (From Lamictal) Allergy Unknown Verified 01/22/25 20:42 lithium Allergy Unknown Verified 01/22/25 20:42 peanut Allergy ADR-Abdominal Verified 01/22/25 20:42 Pain Penicillins Allergy Unknown Verified 01/22/25 20:42 topiramate (From Topamax) Allergy Unknown Verified 01/22/25 20:42 Review of Systems Const: Denies: fever(s) or body aches ENMT: Denies: throat pain or odynophagia Card: Denies: chest pain or palpitations Resp: Denies: dyspnea or productive cough GI: Denies: abdominal pain, nausea or vomiting PFSH ED PFSH: Medical History (Updated 01/22/25 @ 21:31 by Derrick Hanley MD) Psychiatric care Tachycardia Intellectual disability Bipolar disorder Seizures Hyperlipidemia Constipation, chronic Surgical History Status post laparoscopic cholecystectomy (08/13/21) History of colonoscopy Status post placement of VNS (vagus nerve stimulation) device H/O eye surgery Family History Father Heart disease Hypercholesteremia Mother Hypertension Stroke Denies family history of Colon cancer Ovarian cancer Prostate cancer Diabetes Breast cancer Uterine cancer Thyroid disease Social History Smoking and tobacco/nicotine status: current every day tobacco/nicotine user Physical Exam Const: COMMON NORMALS: no acute distress, patient oriented x3, healthy appearing and alert HENMT: COMMON NORMALS: normocephalic and atraumatic HEAD & SCALP: normocephalic and atraumatic Eye: COMMON NORMALS: EOMs intact bilaterally Neck/C-Spine: COMMON NORMALS: full ROM and supple Resp: COMMON NORMALS: normal respiratory effort, No retractions and No use of accessory muscles Cardio: COMMON NORMALS: regular rate and regular rhythm RATE: regular rate RHYTHM: regular rhythm GI: COMMON NORMALS: Normal to inspection, nondistended, normoactive bowel sounds present, Soft to palpation and non-tender PALPATION: Yes Soft to palpation Extremity: COMMON NORMALS: normal to inspection and full ROM Neuro: COMMON NORMALS: patient oriented x3 SENSORIUM/ORIENTATION: Yes alert Psych: COMMON NORMALS: mental status grossly normal and cooperative Course Vital Signs: Vital signs: Vital Signs Temperature 97.5 F L 01/22/25 20:37 Pulse Rate 102 H 01/22/25 20:37 Respiratory Rate 16 01/22/25 20:37 Blood Pressure 117/82 01/22/25 20:37 Pulse Oximetry 99 01/22/25 20:37 Oxygen Delivery Me thod Room Air 01/22/25 20:37 MDM - General Adult Medical Decision Making On reassessment talked with patient and caregiver about the test results. She is resting comfortably in the raustin with no signs of distress. Will discharge at this time with precautions to return for worsening or changing symptoms. Lab Data 01/22/25 20:54 01/22/25 20:54 Laboratory Results WBC 5.89 10^3/uL (3.29-11.43) 01/22/25 20:54 RBC 4.20 10^6/uL (3.85-5.65) 01/22/25 20:54 Hgb 12.60 g/dL (11.27-16.99) 01/22/25 20:54 Hct 38.1 % (36-47) 01/22/25 20:54 MCV 90.7 fl (85-98) 01/22/25 20:54 MCH 30.0 pg (27-33) 01/22/25 20:54 MCHC 33.1 g/dL (30-55) 01/22/25 20:54 RDW 12.0 % (12.1-15.1) L 01/22/25 20:54 Plt Count 229 10^3/cmm (157-399) 01/22/25 20:54 MPV 10.8 fL (7.4-10.4) H 01/22/25 20:54 Neut % (Auto) 41.0 % 01/22/25 20:54 Lymph % (Auto) 48.0 % 01/22/25 20:54 Taylor % (Auto) 8.0 % 01/22/25 20:54 Eos % (Auto) 2.2 % 01/22/25 20:54 Baso % (Auto) 0.5 % 01/22/25 20:54 Neut # (Auto) 2.41 10^3/uL (1.8-7.7) 01/22/25 20:54 Lymph # (Auto) 2.8 10^3/uL (0.8-4.8) 01/22/25 20:54 Taylor # (Auto) 0.5 10^3/uL (0.2-0.9) 01/22/25 20:54 Eos # (Auto) 0.1 10^3/uL (0.0-0.8) 01/22/25 20:54 Baso # (Auto) 0.0 10^3/uL (0.0-0.1) 01/22/25 20:54 Nucleated RBC % (auto) 0 % 01/22/25 20:54 Nucleated RBCs # 0.0 /100WBC 01/22/25 20:54 Sodium 141 mmol/L (136-145) 01/22/25 20:54 Potassium 3.3 mmol/L (3.5-5.1) L 01/22/25 20:54 Chloride 107 mmol/L (98-107) 01/22/25 20:54 Carbon Dioxide 21 mmol/L (22-29) L 01/22/25 20:54 Anion Gap 16.3 (5-19) 01/22/25 20:54 BUN 8 mg/dL (6-20) 01/22/25 20:54 Creatinine 0.9 mg/dL (0.5-0.9) 01/22/25 20:54 GFR Calculation 76.9 mL/min (90-130) L 01/22/25 20:54 Glucose 87 mg/dL (65-115) 01/22/25 20:54 Calculated Osmolality 290 mOsm/kg (285-295) 01/22/25 20:54 Calcium 9.1 mg/dL (8.5-10.5) 01/22/25 20:54 Troponin T Baseline < 6 ng/L (0-10) 07/22/25 20:54 HCG, Qual Negative (Negative) 01/22/25 20:54 No radiology studies performed this visit Discharge Plan Discharge Patient Disposition: Home Clinical Impression: Tachycardia Condition: Stable Prescriptions: No Action bismuth subsalicylate [Pepto-Bismol] 262 mg tablet,chewable 1 tab PO DAILY PRN (Reason: adominal upset) Rx Instructions: do not exceed 16 tabs per 24 hrs diphenhydramine HCl [Benadryl] 25 mg capsule 25 mg PO Q6H PRN (Reason: allergies) pantoprazole [Protonix] 40 mg tablet,delayed release (DR/EC) 40 mg PO BID 42 Days Qty: 84 1RF Proctofoam HC 1-1 % foam 1 applic MA QID PRN (Reason: hemorrhoids) Qty: 10 5RF Nexplanon 68 mg implant 1 implant subdermal ONCE zonisamide 100 mg capsule See Rx Instructions .ROUTE .COMPLEX Qty: 180 11RF Dose Instruction: TAKE 2 CAPSULES BY MOUTH EVERY MORNING and THREE EVERY EVENING Rx Instructions: TAKE 3 CAPSULES BY MOUTH EVERY MORNING and THREE EVERY EVENING metoprolol tartrate 25 mg tablet PO melatonin 5 mg capsule PO PRN lubiprostone 24 mcg capsule 24 mcg PO BID mecobalamin (vitamin B12) 1,000 mcg tablet,chewable 1,000 mcg PO DAILY Midol 500-25 mg tablet 1 tab PO Q6H PRN (Reason: Cramps) ondansetron HCl 4 mg tablet 4 mg PO Q6H PRN (Reason: nausea) vit-iron fum-folic ac 66 mg iron- 1 mg tablet PO DAILY hydroxyzine pamoate 25 mg capsule 50 mg PO BID quetiapine 400 mg tablet extended release 24 hr See Rx Instructions .ROUTE .COMPLEX Qty: 120 5RF Dose Instruction: TAKE 2 TABLETS BY MOUTH TWICE DAILY Rx Instructions: TAKE 2 TABLETS BY MOUTH TWICE DAILY benztropine 1 mg tablet 1 mg PO BID Qty: 60 3RF Rx Instructions: TAKE ONE TABLET BY MOUTH TWICE DAILY quetiapine 50 mg tablet 50 mg PO DAILY 30 Days Qty: 30 5RF sucralfate 1 gram tablet 1 g PO BID Qty: 14 0RF Linzess 145 mcg capsule 145 mcg PO DAILY Qty: 30 11RF paliperidone 9 mg tablet extended release 24 hr 9 mg PO DAILY 30 Days Qty: 30 2RF brivaracetam 100 mg tablet 100 mg PO BID Qty: 60 5RF lorazepam 1 mg tablet See Rx Instructions .ROUTE .COMPLEX Qty: 45 2RF Rx Instructions: take a half a tab at 6 PM, take a whole tab at bedtime, hold for sedation; lorazepam 2 mg/mL concentrate See Rx Instructions .ROUTE .COMPLEX PRN (Reason: seizure activity) Qty: 30 0RF Rx Instructions: 0.5 ML PO PRN daily fluticasone propionate 50 mcg/actuation [place],Suspension 1 spray INTRANASAL BID Rx Instructions: INTSILL 1 SPRAY INTO EACH NOSTRIL BID atorvastatin 40 mg Tablet 40 mg PO BEDTIME ferrous sulfate [Iron (ferrous sulfate)] 325 mg (65 mg iron) Tablet 325 mg PO DAILY polyethylene glycol 3350 [Miralax] 17 gram powder in packet 17 g PO DAILY PRN (Reason: constipation) Qty: 14 0RF acetaminophen 325 mg Tablet 650 mg PO QID PRN (Reason: Pain) sennosides-docusate sodium [Senokot-S] 8.6-50 mg Tablet 2 tab-cap PO DAILY bisacodyl 10 mg Suppository 10 mg MA DAILY PRN (Reason: Constipation) [place] Cough Drops 7.5 mg Lozenge 7.5 mg MUCOUS MEMBRANE Q2H PRN (Reason: Cough) Discharge Orders: Discharge ED (Routine); Ordered 01/22/25 Ordered By: Derrick Hanley Referrals: Judith Bermudez FNP [Primary Care Provider, Unknown] Patient Instructions: Dehydration (ED), Patient Portal & Carmelo Instructions Print Language: Yakut Coding Level of Care Code ED 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
--- OUTSIDE RECORDS SUMMARY | 2025-01-22 20:35 | XMS_ITS | Encounter Summary ---
Author Organization [facility] Address 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 Gender Identity Not on file Sexual Orientation Not on file documented as of this encounter Plan of Treatment Upcoming Encounters Date Type Department Care Team (Late st Contact Info) Description 08/08/2025 10:45 AM CURVE SAW OPERATOR Office Visit [facility] [address] [place] [phone] Landen Morrison MD [address] [place] [phone] documented as of this encounter Visit Diagnoses Not on filedocumented in this encounter Additional Health Concerns Assessment Noted Time PHQ-9 Depression Total Score: 2 10/05/19 18 7:00 AM CDT documented as of this encounter Care Teams Editor At Large Relationship Specialty Start Date End Date Cyndi Kramer FNP [address] [place] [id number] PCP - General 09/11/20 documented as of this encounter
--- OUTSIDE RECORDS SUMMARY | 2025-01-22 20:35 | XMS_ITS | Data Portability ---
Author Organization ASIA Stewart Suresh [facility], RandiLRandiCRandi, [facility] Address [address] [address] Care Team Providers Care Diabetes Physician Name Role Phone ERROL DUENAS Primary Care Provider Unavailabl e Assessment Encounter Date Assessment Date Assessment LastModified by Organization Details LastModified Time 09/20/2024 09/20/2024 Patient here today with her caregiver following some issues with constipation. [place] [facility] [place] told her she needed to get off of some of her medications. Medications reviewed. Not available 09/25/2024 10:34:34 10/10/2024 10/10/2024 Patient here [place] a [place] [facility] [place] She follows with [facility] for mental health and will check with them regarding her anxiety. No change in her blood pressure/heart medication. Vitals are good today. Will change her melatonin to PRN and increase the dosing as she does not feel like it is strong enough to help her get to sleep. Not available 10/15/2024 16:40:53 Plan of Treatment Reminders Order Date Submit Date Provider Last Modified By Organization Details Last Modified Time Details Appointments SHOT ONLY 2024 01:00P M MANUEL BROOKS Not available Not available Not available ASSESSMEN T 2024 03:00P M ANATOLIY COOMBS LCSW Not available Not available Not available Lab SARS CoV 2 RNA, QL probe, nasophary nx 2024 025 [email or web address] [id number] [facility] ([facility]), [address] [place], [address], 12/31/2024 19:14:19 Referral None recorded. Procedures None recorded. Surgeries None recorded. Imaging None recorded. Medication Orders doxycycli ne hyclate 100 mg capsule 2024 025 [facility], [address], [address], 01/17/2025 05:01:46 Debrox 6.5 % ear drops 2024 025 [facility], [address], [address], 12/13/2024 16:30:34 cetirizin e 10 mg tablet 2024 025 [facility], [address], [address], 12/13/2024 16:30:33 melatonin 5 mg tablet 2024 025 [facility], [address], [address], 10/10/2024 16:24:25 Patient TargetsNo targets recorded. Patient Instructions Encounter Date Encounter Id Patient Instructions Last Modified By Organization Details Last Modified Time 09/20/2024 [id number] Call or return for questions or concerns. Not available 09/25/2024 10:42:05 10/10/2024 [id number] Call or return for questions or concerns. Not available 10/15/2024 16:40:59 Reason for Referral None Reported. Results Created Date Observation Date Name Description Value Unit Range Abnormal Flag Note LastModifiedBy Organization Detail LastModifiedTime 09/05/1909/04/2024 urina lysis , dipst ick Leukocytes Negati ve Not Available [facility]) [address] [place], [address], 09/04/2024 15:21:49 09/05/19 25 09/04/2024 urina lysis , dipst ick Nitrite negati ve Not Available [facility]) [address] [place], [address], 09/04/2024 15:21:49 09/05/19 25 09/04/2024 urina lysis , dipst ick Urobilinogen .2 Not Available [facility] ([facility]) [address] [place], [address], 09/04/2024 15:21:49 09/05/19 25 09/04/2024 urina lysis , dipst ick Protein Trace Not Available [facility] ([facility]) [address] [place], [address], 09/04/2024 15:21:49 09/05/19 25 09/04/2024 urina lysis , dipst ick pH 7.0 Not Available [facility] ([facility]) [address] [place], [address], 09/04/2024 15:21:49 09/05/19 25 09/04/2024 urina lysis , dipst ick Blood Negati ve Not Available [facility] ([facility]) [address] [place], [address], 09/04/2024 15:21:49 09/05/19 25 09/04/2024 urina lysis , dipst ick Specific [place] 1.030 Not Available [facility] ( [facility]) [address] [place], [address], 09/04/2024 15:21:49 09/05/19 25 09/04/2024 urina lysis , dipst ick Ketone Negati ve Not Available [facility] ([facility]) [address] [place], [address], 09/04/2024 15:21:49 09/05/19 25 09/04/2024 urina lysis , dipst ick Bilirubin Negati ve Not Available [facility] ([facility]) [address] [place], [address], 09/04/2024 15:21:49 09/05/19 25 09/04/2024 urina lysis , dipst ick Glucose Negati ve Not Available [facility] ([facility]) [address] [place], [address], 09/04/2024 15:21:49 09/05/19 25 09/04/2024 urina lysis , dipst ick Appearance Slight ly Cloudy Not Available [facility] ([facility]) [address] [place], [address], 09/04/2024 15:21:49 09/05/19 25 09/04/2024 urina lysis , dipst ick Color Dark Yellow Not Available [facility] ([facility]) [address] [place], [address], 09/04/2024 15:21:49 01/01/20 25 12/31/2024 SARS CoV 2 RNA, QL probe , nasop haryn x Covid negati ve Not Available [facility] ([facility]) [address] [place], [address], 12/31/2024 10:24:32 Result Notes None recorded. 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 2022 ANAM escamilla [facility], L.L.CRandi 4 00:33:00 Epilepsy 92469609 Active 2022 ANAM RAJINDER escamilla, [facility], LRandiL.CRandi 4 00:32:44 Lives in [facility] 554912869 Active 2023 [employer] ANAM escamilla, [facility], SwathiLRandiCRandi 4 00:33:43 Insomnia 797101240 Active 2024 ANAM CALVILLO andi, [facility], LRandiL.CRandi 5 16:00:08 Chronic constipat ion 562234604 Active 2024 ERROL DUENAS, [address], [address], [facility], SwathiLRandiCRandi 5 12:02:38 Mixed anxiety and depressiv e disorder 491475175 Active 2024 ERROL DUENAS, [address], [address], [facility], LRandiLRandiCRandi 5 12:02:39 Annual physical examinati on for people with mental illness completed 3615822422 Active 2024 ERROL DUENAS, [address], [address], [facility], SwathiLRandiCRandi 5 12:02:46 Contusion of scalp 76315806 Active 2024 Noah Byers MD [address] [place] [address], [address], [facility], LRandiLRandiCRandi 5 19:04:07 Impacted cerumen in right ear 969818847247 9103 Active 2024 Noah Byers MD [address] [place] [address], [address], [facility], LRandiL.CRandi 5 09:59:37 Seasonal allergic rhinitis 277296315 Active 2024 Noah Byers MD [address] [place], [address], [facility], ImanCRandi 5 09:59:51 Problem Notes None recorded. Procedures Surgical History Date Name Laterality Status Provider Name and Address Organization Details Recorded Time 12/14/19 25 Cerumen Removal-Irrigation completed Noah Byers MD [address] [place], [address], [facility], ImanCRandi 12/13/2024 18:30:23 12/23/19 23 endoscopy completed [place] RAJINDER [facility], [place] 12/31/2022 13:43:41 12/23/19 23 colonoscopy completed ANAM CALVILLO [facility], [place] 12/31/2022 13:44:20 Eye Surgery completed Lexis Maldonado [facility], ImanCRandi 02/23/2024 13:34:34 Cholecystectomy completed ANAM CALVILLO [facility], SwathiLRandiCRandi 03/16/2023 13:27:38 Imaging Results None recorded. Procedure Notes None recorded. Medical Equipment None Reported. Allergies Allergen ID Allergen Name Allergen Category Reaction Reaction Severity Criticality Documentation Date Start Date Code Code System Note Provider Name and Address Organization Details Recorded Time 80021 penicilli n V potassium medicatio n Not available Not available Not available 01/29/202396317 5 [facility] 4 07:36:54 67884 clozapine Not available Not available Not available Not available 01/29/2023 2626 [facility] SwathiLRandiCR[facility] 4 07:36:45 33043 Depakote medicatio n Not available Not available Not available 01/29/2023 16435 9 RxNorm Yessenia escamilla [facility], [place] 4 07:36:47 60458 Topamax medicatio n Not available Not available Not available 01/29/2023 19103 3 RxNorm Yessenia Mckeon [facility], JasonHumairaCRandi 4 07:36:57 21147 Lamictal medicatio n Not available Not available Not available 01/29/2023 13941 2 RxNorm Yessenia Mckeon [facility], JasonHumairaCRandi 4 07:36:50 [address] [place] and/or lithium compound (substanc e) medicatio n Not available Not available Not available 01/29/2023 11897 0005 SNOMED Yessenia Mckeon [facility], ImanCRandi 4 07:36:53 Medications Name Sig Start Date Stop Date Status Note LastModified by Organization Details LastModified Time halls c drp mentho-ly pt bag30 TAKE ONE LOZENGE BY MOUTH EVERY 4 TO 6 HOURS NEEDED FOR COUGH 06/20 completed Not Available Not Available Not Available midol long lasting relief 20ct TAKE ONE TABLET BY MOUTH DIRECTED ON label 01/25 completed Not Available Not Available Not Available vit b-12 tab 1000mcg 21st 110 TAKE 1 TABLET BY MOUTH EVERY DAY 06/11 completed Not Available Not Available Not Available icy hot no mess applic 2.5oz apply TO affected area TWICE DAILY NEEDED 05/17 completed Not Available Not Available Not Available white mntn epsom salt pch 4lb USE ONE-HALF cup in warm bath NEEDED FOR muscle pain 04/13 completed Not Available Not Available Not Available icy hot pain rlf cream 3oz APPLY TWICE DAILY NEEDED 06/13 completed Not Available Not Available Not Available aveeno moist lot pump 12oz APPLY TWO GRAMS TOPICALL Y TWICE DAILY NEEDED for 10 days 03/02 completed Not Available Not Available Not Available quetiapin e 25 mg tablet TAKE 1 TABLET BY MOUTH EVERY DAY between 1230-1pm 05/17 completed Not Available Not Available Not Available atorvasta tin 40 mg tablet TAKE ONE TABLET BY MOUTH AT BEDTIME active Not Available Not Available No t Available promethaz ine-DM 6.25 mg-15 mg/5 mL oral syrup TAKE 5ML EVERY 4 HOURS for 5 days 10/30 completed Not Available Not Available Not Available venlafaxi ne ER 37.5 mg capsule,e xtended release 24 hr Take 1 capsule every day by oral route in the morning for 30 days. 02/22 completed Not Available Not Available Not Available doxycycli ne hyclate 100 mg capsule Take 1 capsule twice a day by oral route for 10 days. 01/17 completed Not Available Not Available Not Available nicotine 14 mg/24 hr daily transderm al patch Apply 1 patch every day by transder mal route for 30 days. 02/22 completed Not Available Not Available Not Available Pain Relief (acetamin ophen) 325 mg tablet TAKE 2 TABLETS BY MOUTH EVERY 6 HOURS NEEDED 2024 active Not Available Not Available Not Avai lable loperamid e 2 mg capsule TAKE 2 CAPSULES AT ONSET OF DIARRHEA THEN ONE WITH EACH LOOSE STOOL MAX OF EIGHT PER DAY 06/20 completed Not Available Not Available Not Available cetirizin e 10 mg tablet TAKE 1 TABLET BY MOUTH ONCE DAILY FOR ALLERGIE S active Not Available Not Available No t Available hydrocort isone 1 % topical ointment apply a thin layer TO THE affected area(s) THREE TIMES DAILY NEEDED FOR SEVEN DAYS THEN transiti on TO NEEDED 04/13 completed Not Available Not Available Not Available sucralfat e 1 gram tablet TAKE 1 TABLET BY MOUTH TWICE DAILY 09/25 completed Non-use Not Available Not Available Not Available ondansetr on HCl 4 mg tablet TAKE 1 TABLET BY MOUTH EVERY 8 HOURS NEEDED 09/25 completed Non-use Not Available Not Available Not Available prednison e 20 mg tablet Take 1 tablet every day by oral route as needed for 5 days. 04/19 completed Not Available Not Available Not Available loperamid e 2 mg tablet 2 tablets on the onset of diarrhea , may take 1 addition al tab with loose stool (no more than 8 tabs in a day) 06/20 completed Not Available Not Available Not Available Debrox 6.5 % ear drops INSTILL 4 DROPS INTO AFFECTED EAR(S) BY OTIC ROUTE 2 TIMES PER DAY as needed for ear wax 2024 active Not Available Not Available Not Avai lable naproxen 250 mg tablet TAKE 1 TABLET BY MOUTH TWICE DAILY NEEDED 15D 09/25 completed Non-use Not Available Not Available Not Available cyanocoba sophia (vit B-12) 1,000 mcg tablet TAKE 1 TABLET BY MOUTH ONCE DAILY active Not Available Not Available No t Available bacitraci n 500 unit/gram topical ointment APPLY TO THE AFFECTED AREA(S) TWICE DAILY 05/30 completed Not Available Not Available Not Available hydroxyzi ne HCl 50 mg tablet TAKE 1 TABLET BY MOUTH TWICE DAILY NEEDED FOR ANXIETY FOR 30 DAYS 01/27 completed Not Available Not Available Not Available melatonin 3 mg tablet TAKE 1 TABLET BY MOUTH AT BEDTIME 2024 active Not Available Not Available Not Avai lable ciproflox acin 500 mg tablet TAKE 1 TABLET BY MOUTH TWICE DAILY 04/19 completed Not Available Not Available Not Available peg-elect rolyte solution 420 gram oral solution TAKE DIRECTED 01/27 completed Not Available Not Available Not Available magnesium sulfate (laxative ) 495 mg/5 gram oral granules USE ONE-HALF cup in warm bath NEEDED FOR muscle pain 06/20 completed Not Available Not Available Not Available zonisamid e 100 mg capsule TAKE 3 CAPSULES BY MOUTH EVERY MORNING and THREE EVERY EVENING active Not Available Not Available No t Available propranol ol 10 mg tablet TAKE ONE TABLET BY MOUTH TWICE DAILY 09/27 completed Not Available Not Available Not Available Fleet Enema 19 gram-7 gram/118 mL 1 enema as needed if no BM in 3 days. 01/27 completed Not Available Not Available Not Available famotidin e 20 mg tablet TAKE ONE TABLET BY MOUTH EVERY TWELVE HOURS as needed for HEARTBUR N 09/25 completed Non-use Not Available Not Available Not Available metoclopr amide 5 mg tablet 09/25 completed Reports she is not taking Not Available Not Available Not Available Triple Antibioti c 3.5 mg-400 unit-5,00 0 unit/gram topical ointment apply NEEDED 04/13 completed Not Available Not Available Not Available Fleet Bisacodyl 10 mg/30 mL enema insert rectally EVERY DAY AT BEDTIME 09/25 completed Non-use Not Available Not Available Not Available Proctozon e-HC 2.5 % topical cream perineal applicato r APPLY TWICE DAILY 05/17 completed Not Available Not Available Not Available doxycycli ne monohydra te 100 mg capsule take 1 capsule BY MOUTH TWICE DAILY 04/19 completed Not Available Not Available Not Available pantopraz ole 40 mg tablet,de layed release TAKE 1 TABLET BY MOUTH TWICE DAILY active Not Available Not Available No t Available ferrous sulfate 325 mg (65 mg iron) tablet Take 1 tablet every day by oral route. active Not Available Not Available No t Available Proctofoa m HC 1 %-1 % Insert 1 applicat ion 4 times a day by rectal route as needed for 30 days, for hemorrho ids or anal pain. active Not Available Not Available No t Available nystatin 100,000 unit/gram topical cream APPLY TOPICALL Y TO AFFECTED AREA TWICE A DAY FOR ONE WEEK THEN NEEDED 2024 active Not Available Not Available Not Avai lable promethaz ine 25 mg/mL injection solution Take 25 mg every day by injectio n route for 1 day. 10/30 completed Not Available Not Available Not Available benztropi ne 1 mg tablet TAKE 1 TABLET BY MOUTH TWICE DAILY active Not Available Not Available No t Available ibuprofen 200 mg tablet Take 2 tablets every 8 hours by oral route as needed, for pain or fever. 2024 active Not Available Not Available Not Avai lable docusate sodium 100 mg capsule take 1 capsule BY MOUTH TWICE DAILY 05/17 completed Not Available Not Available Not Available Lorazepam Intensol 2 mg/mL oral concentra te take 0.5ml BY MOUTH EVERY DAY NEEDED FOR seizure activity active Applegat e Not Available Not Available Not Available Fleet Mineral Oil enema USE ONE ENEMA NEEDED IF NO BOWEL MOVEMENT IN THREE DAYS 01/16 completed Not Available Not Available Not Available bismuth subsalicy late 262 mg chewable tablet CHEW ONE TABLET BY MOUTH EVERY DAY NEEDED 2024 active Not Available Not Available Not Avai lable omeprazol e 20 mg capsule,d elayed release daily 05/17 completed 06420; Recorded 04/20/20 1:02PM by Shellie Barreto LPN (Authori mumtaz through MANUEL Cotter), Office Visit; Refill Quantity : 0; Not Available Not Available Not Available bisacodyl 5 mg tablet,de layed release TAKE DIRECTED FOR colonosc py prep 05/17 completed Not Available Not Available Not Available cyanocoba sophia (vit B-12) 1,000 mcg sublingua l tablet TAKE 1 TABLET BY MOUTH EVERY DAY 09/25 completed Not Available Not Available Not Available metoprolo l succinate ER 25 mg tablet,ex tended release 24 hr TAKE 1 TABLET BY MOUTH EVERY DAY 06/20 completed has not been taking, changing to tartrate Not Available Not Available Not Available lorazepam 1 mg tablet take 1/2 tablet BY MOUTH EVERY DAY AT 6PM AND ONE AT BEDTIME. HOLD FOR SEDATION active Applegat e Not Available Not Available Not Available ibuprofen 600 mg tablet TAKE 1 TABLET BY MOUTH THREE TIMES DAILY NEEDED 06/20 completed Not Available Not Available Not Available benzoyl peroxide 5 % topical cleanser apply thin layer TO affected areas topicall y ONCE daily NEEDED 09/25 completed Non-use Not Available Not Available Not Available propranol ol 20 mg tablet take ONE tablet BY MOUTH THREE TIMES DAILY 06/20 completed Not Available Not Available Not Available ondansetr on 4 mg disintegr ating tablet Place 2 tablets every 8 hours by translin gual route as needed. active Not Available Not Available No t Available fluticaso ne propionat e 50 mcg/actua tion nasal spray,venus pension administ er one SPRAY into each nostril TWICE DAILY active Not Available Not Available No t Available hydroxyzi ne pamoate 25 mg capsule TAKE 2 CAPSULES BY MOUTH TWICE DAILY 2024 active Not Available Not Available Not Avai lable Gentle Laxative (bisacody l) 10 mg rectal supposito ry INSERT ONE SUPPOSIT ORY per rectum EVERY DAY NEEDED FOR CONSTIPA TION active Not Available Not Available No t Available Tums 300 mg (as calcium carbonate 750 mg) chewable tablet CHEW AND SWALLOW TWO TABLETS THREE TIMES DAILY NEEDED 04/13 completed Not Available Not Available Not Available Mucinex 600 mg tablet, extended release TAKE 1 TABLET BY MOUTH EVERY TWELVE HOURS for 7 days 02/22 completed Not Available Not Available Not Available Allergy Relief (diphenhy dramine) 25 mg capsule take one capsule BY MOUTH every six hours NEEDED 2024 active Not Available Not Available Not Avai lable sunscreen lotion Apply 1 applicat ion every 4 hours by topical route as needed. 2024 active Not Available Not Available Not Avai lable zonisamid e 50 mg capsule Take 4 capsules BY MOUTH EVERY MORNING and SIX EVERY EVENING 05/17 completed Not Available Not Available Not Available metoprolo l tartrate 25 mg tablet TAKE 1 TABLET BY MOUTH TWICE DAILY 2024 active Not Available Not Available Not Avai lable lactulose 10 gram/15 mL oral solution TAKE 30ML ONCE 05/17 completed Not Available Not Available Not Available melatonin at bedtime 03/02 completed Recorded 08/17/19 23 3:33PM by Anam Calvillo CMT, Office Visit; Refill Quantity : 90; Tablet; Not Available Not Available Not Available ondansetr on HCl every eight hours, as needed 03/02 completed Recorded 08/31/19 23 9:23AM by Mora Nicole, Office Visit; Refill Quantity : 15; Tablet; Not Available Not Available Not Available Triple Antibioti c twice daily as needed 09/25 completed Non-use Not Available Not Available Not Available Flonase each nare twice daily 03/02 completed dispense 90 day supply.; 80439; Recorded 06/11/20 22 9:38AM by Anam Calvillo CMT (Authori mumtaz through MANUEL Cotter), Refill Request; Refill Quantity : 3; Each; Not Available Not Available Not Available Pepto-Bis mol daily as needed for upset stomach, diarrhea , or heartbur n 03/02 completed Recorded 09/30/19 22 3:38PM by Anam Calvillo CMT, Historic al Summary; Refill Quantity : 30; Tablet; Not Available Not Available Not Available hydroxyzi ne HCl two times daily 03/02 completed 36218; Recorded 04/20/20 21 1:02PM by Shellie Barreto LPN (Authori zed through MANUEL Cotter), Office Visit; Refill Quantity : 0; Not Available Not Available Not Available lorazepam at bedtime 03/02 completed 85741; Recorded 08/31/19 23 9:23AM by Mora Nicole (Authori zed through MANUEL Cotter), Office Visit; Refill Quantity : 0; Not Available Not Available Not Available Benadryl Allergy every six hours, as needed 03/02 completed 84320; Recorded 04/16/20 22 9:14AM by Anam Calvillo CMT (Authori zeobdulio through MANUEL Cotter), Refill Request; Refill Quantity : 30; Capsule; Not Available Not Available Not Available quetiapin e two times daily 03/02 completed 70936; Recorded 04/20/20 21 1:02PM by Shellie Barreto LPN (Authori zeobdulio through MANUEL Cotter), Office Visit; Refill Quantity : 0; Not Available Not Available Not Available naproxen every twelve hours, as needed 03/02 completed Recorded 01/23/20 22 4:23PM by Anam Calvillo CMT, Office Visit; Refill Quantity : 60; Tablet; Not Available Not Available Not Available Loestrin Fe 07/23 (28-Day) daily 03/02 completed DOC CS/smf; 30580; Recorded 07/19/19 23 12:54PM by Abigail Batres RN (Authori zed through Mario Yee DO), Refill Request; Refill Quantity : 0; Not Available Not Available Not Available metoprolo l succinate daily 03/02 completed Recorded 08/17/19 23 3:31PM by Anam Calvillo CMT, Office Visit; Refill Quantity : 90; Tablet; Not Available Not Available Not Available Tums 2 every 6 hours as needed 09/25 completed Non-use Not Available Not Available Not Available Multivita mins daily 03/02 completed Recorded 11/25/19 22 3:58PM by MANUEL Cotter, Office Visit; Refill Quantity : 90; Tablet; Not Available Not Available Not Available Vitamin D3 daily 03/02 completed Recorded 01/23/20 22 4:23PM by Anam Calvillo CMT, Office Visit; Refill Quantity : 30; Capsule; Not Available Not Available Not Available Vitamin daily 03/02 completed Recorded 08/17/19 23 3:30PM by Anam Calvillo CMT, Office Visit; Refill Quantity : 90; Tablet; Not Available Not Available Not Available Midol take as directed on label 03/02 completed Recorded 07/16/19 23 4:10PM by Anam Calvillo CMT, Office Visit; Refill Quantity : 30; Tablet; Not Available Not Available Not Available lubiprost one 24 mcg capsule take 1 capsule BY MOUTH TWICE DAILY active Not Available Not Available No t Available quetiapin e 50 mg tablet TAKE 1 TABLET BY MOUTH EVERY DAY active BHC Not Available Not Available No t Available Amitiza two times daily 03/02 completed 28737; Recorded 08/06/19 23 9:14AM by Anam Calvillo CMT (Authori zed through MANUEL Cotter), Refill Request; Refill Quantity : 60; Capsule; Not Available Not Available Not Available Icy Hot 30 %-10 % topical cream Apply twice daily as needed. 09/25 completed Non-use Not Available Not Available Not Available paliperid one ER 9 mg tablet,ex tended release 24 hr TAKE 1 TABLET BY MOUTH ONCE DAILY NEEDED FOR PSYCHOSI S AND AGITATIO N active Not Available Not Available No t Available paliperid one ER 6 mg tablet,ex tended release 24 hr TAKE 2 TABLETS BY MOUTH EVERY DAY FOR psychosi s or agitatio n 06/20 completed Not Available Not Available Not Available quetiapin e ER 400 mg tablet,ex tended release 24 hr TAKE 2 TABLETS BY MOUTH TWICE DAILY active BHC Not Available Not Available No t Available melatonin 5 mg tablet Take 1 tablet every day by oral route as needed for 30 days, for sleep. 2024 active Not Available Not Available Not Avai lable ClearLax 17 gram/dose oral powder USE 17 GRAMS EVERY DAY AT 6PM AND MAY ALSO USE ONCE DAILY NEEDED active Not Available Not Available No t Available Midol Complete 500 mg-60 mg-15 mg tablet TAKE 2 CAPSULES BY MOUTH EVERY 6 HOURS NEEDED FOR cramps active Not Available Not Available No t Available Tillar Cough Drops 7.6 mg Take 1 lozenge every 4-6 hours by mucous route as needed, for cough. 2023 active Not Available Not Available Not Avai lable Triple Antibioti c 3.5 mg-400 unit-5,00 0 unit topical ointment packet Apply 1 applicat ion as needed by topical route. 01/16 completed Not Available Not Available Not Available Vicks Vaporub 4.7 %-1.2 %-2.6 % topical ointment Apply 1 applicat ion 3 times a day by topical route as needed. 01/16 completed Not Available Not Available Not Available Phenasept ic 1.4 % mucosal spray USE FOUR TIMES A DAY NEEDED 2024 active Not Available Not Available Not Avai lable Neosporin Moisturiz ing 1 % topical cream Apply 2 g twice a day by topical route as needed for 10 days. 01/27 completed Not Available Not Available Not Available Linzess 145 mcg capsule TAKE 1 CAPSULE BY MOUTH ONCE DAILY 2024 active Not Available Not Available Not Avai lable Mucus DM Max ER 60 mg-1,200 mg tablet,ex tended release TAKE 1 TABLET BY MOUTH TWICE A DAY NEEDED FOR CONGESTI ON 2024 active Not Available Not Available Not Avai lable Linzess daily, as needed 03/02 completed 12680; Recorded 04/20/20 1:02PM by Shellie Barreto LPN (Authori mumtaz through MANUEL Cotter), Office Visit; Refill Quantity : 0; Not Available Not Available Not Available Stimulant Laxative Plus 8.6 mg-50 mg tablet TAKE 2 TABLETS BY MOUTH AT BEDTIME active Not Available Not Available No t Available Cough Drops 7.5 mg USE one drop NEEDED FOR cough 01/27 completed Not Available Not Available Not Available Icy Hot (menthol) two times daily, as needed 03/02 completed Recorded 07/16/19 23 4:10PM by Anam Calvillo CMT, Office Visit; Refill Quantity : 1; Applicat or; Not Available Not Available Not Available Vitamins Plus Low Iron 27 mg iron-1 mg tablet TAKE 1 TABLET BY MOUTH EVERY DAY active Not Available Not Available No t Available Vicks Vaporub 4.8 %-1.2 %-2.6 % topical ointment apply THREE TIMES DAILY NEEDED 09/25 completed Non-use Not Available Not Available Not Available Blisovi Fe 07/23 (28) 1 mg-20 mcg (21)/75 mg (7) tablet TAKE 1 TABLET BY MOUTH EVERY DAY 02/22 completed Not Available Not Available Not Available Briviact 100 mg tablet TAKE 1 TABLET BY MOUTH TWICE DAILY active Not Available Not Available No t Available Briviact 50 mg tablet TAKE 2 TABLETS BY MOUTH TWICE DAILY 02/22 completed Not Available Not Available Not Available Briviact 50 mg/5 mL intraveno us solution two times daily 03/16 completed 82148; Recorded 04/20/20 21 1:02PM by Shellie Barreto LPN (Authori zed through MANUEL Cotter), Office Visit; Refill Quantity : 0; Not Available Not Available Not Available Vitals Date Recorded Body height Body mass index (BMI) Body weight Oxygen saturation Oxygen saturation in Arterial blood by Pulse oximetry Heart rate Respiratory rate Systolic And Diastolic Provider Name and Address Organization Details Last Updated DateTime 5 160.02 cm 31.5 kg/m2 55867.4 4 g 99 % 99 % 100 /min 18 /min 114/78 mm[Hg] ANAM CALVILLO [facility] 5 14:22:04 Date Recorded Body height Body mass index (BMI) Body weight Oxygen saturation Oxygen saturation in Arterial blood by Pulse oximetry Heart rate Respiratory rate Systolic And Diastolic Provider Name and Address Organization Details Last Updated DateTime 5 160.02 cm 31.5 kg/m2 38794.4 4 g 98 % 98 % 110 /min 20 /min 122/84 mm[Hg] ANAM CALVILLO [facility] 5 13:53:16 Date Recorded Body height Body mass index (BMI) Body weight Oxygen saturation Oxygen saturation in Arterial blood by Pulse oximetry Heart rate Body temperature Respiratory rate Systolic And Diastolic Provider Name and Address Organization Details Last Updated DateTime 5 160.02 cm 30.5 kg/m2 83505.5 9 g 98 % 98 % 100 /min 97.9 [degF] 18 /min 124/80 mm[Hg] DONA ESCALONA [facility] 5 14:22:51 Date Recorded Body height Body mass index (BMI) Body weight Oxygen saturation Oxygen saturation in Arterial blood by Pulse oximetry Heart rate Body temperature Systolic And Diastolic Provider Name and Address Organization Details Last Updated DateTime 5 160.02 cm 30.3 kg/m2 58410.7 g 98 % 98 % 105 /min 97.7 [degF] 120/80 mm[Hg] [facility] 5 09:38:07 Date Recorded Body height Body mass index (BMI) Body weight Oxygen saturation Oxygen saturation in Arterial blood by Pulse oximetry Heart rate Body temperature Systolic And Diastolic Provider Name and Address Organization Details Last Updated DateTime 5 160.02 cm 30.1 kg/m2 27790.7 g 99 % 99 % 90 /min 98.6 [degF] 100/60 mm[Hg] [facility] 5 10:27:08 Social History Question Answer Notes LastModified by Herzio Details LastModified Time Tobacco Smoking Status Never Smoker [facility] 03/16/2023 13:27:19 What Was The Date Of Your Most Recent Tobacco Screening? 12/31/2024 [email or web address] Information not available 12/31/2024 Sex: Unknown Functional Status Question Answer Note LastModified by Organizat ion Details LastModified Time Do you use any illicit or recreational drugs? No [email or web address] Information not available 03/16/2023 Do you or have you ever used any other forms of tobacco or nicotine? No Information not available 07/12/2024 What is your level of alcohol consumption? None [email or web address] Information not available 03/16/2023 Are you able to care for yourself? No [facility] [email or web address] Information not available 03/16/2023 Do you or have you ever used any nicotine-free cigarettes, vape, or chewing tobacco? No Information not available 07/12/2024 Mental Status None recorded. Family History Relationship Description Onset Age of this Age Resolved Age Notes LastModified by Organization Details LastModified Time Father Myocardial infarction age 54 [email or web address] Not available 03/16/2023 13:28:03 Mother Essential hypertension [email or web address] Not available 13:28:17 Medical History Condition Response Anxiety Disorder Y Anemia Y Seizures/Epilepsy Y Reflux/GERD Y High Cholesterol Y Mental Illness Y Depression Y GI Problems Y Developmental or Behavioral Disorders Y Gynecological HistoryNo gynecological history recorded. Obstetrics History GPAL:G 0 P 0 0 0 0 Immunizations Vaccine Type Date Status Note Provider Nam e and Address Organization Details Recorded Time COVID-19, mRNA, LNP-S, PF, 30 mcg/0.3 mL dose 1 completed Not Available [facility] 12/12/2024 12:29:47 COVID-19, mRNA, LNP-S, PF, 30 mcg/0.3 mL dose 1 completed Not Available [facility] 12/12/2024 12:29:47 meningococcal B, OMV 7 completed ERROL DUENAS, [facility] [address] [place], [address], [facility] 11/30/2022 11:54:58 meningococcal B, OMV 6 completed ERROL DUENAS [facility] [address] [place], [address], [facility] 11/30/2022 11:54:58 IPV 1 completed ERROL DUENAS, [facility] [address] [place], [address], [facility] 11/30/2022 11:54:58 IPV 6 completed ERROL DUENAS, [facility] [address] [place], [address], [facility] 11/30/2022 11:54:58 IPV 0 completed ERROL DUENAS, [facility] [address] [place] [address], [address], [facility] 11/30/2022 11:54:58 IPV 1 completed ERROL DUENAS, [facility] [address] [place] [address], [address], [facility] 11/30/2022 11:54:58 MMR 6 completed ERROL DUENAS, [address], [address], [facility] 11/30/2022 11:54:58 MMR 1 completed ERROL DUENAS, [facility] [address] [place] [address], [address], [facility] 11/30/2022 11:54:58 influenza, unspecified formulation 9 completed ERROL DUENAS, [facility] [address] [place] [address], [address], [facility] 11/30/2022 11:54:58 Tdap 6 completed ERROL DUENAS, [address], [address], [facility] 11/30/2022 11:54:58 Tdap 3 completed ERROL DUENAS, [address], [address], [facility] 11/30/2022 11:54:58 typhoid, unspecified formulation 3 completed ERROL DUENAS, [address], [address], [facility] 11/30/2022 11:54:58 Pneumococcal conjugate PCV 13 1 completed ERROL YULISSA, [address], [address], [facility] 11/30/2022 11:54:58 Pneumococcal conjugate PCV 13 3 completed ERROLAnia MILLSYULISSA, [address], [address], [facility] 11/30/2022 11:54:58 varicella 1 completed ERROLAnia MILLSYULISSA, [address], [address], [facility] 11/30/2022 11:54:58 varicella 6 completed ERROL YULISSA, [address], [address], [facility] 11/30/2022 11:54:58 Hep B, unspecified formulation 1 completed ERROLAnia MILLSYULISSA, [address], [address], [facility] 11/30/2022 11:54:58 Hep B, unspecified formulation 0 completed ERROLAnia MILLSYULISSA, [address], [address], [facility] 11/30/2022 11:54:58 Influenza, split virus, trivalent, PF 7 completed ERROL DUENAS, [facility] [address] [place], [address], [facility] 11/30/2022 11:54:58 Influenza, split virus, trivalent, PF 6 completed ERROL DUENAS, [facility] [address] [place], [address], [facility] 11/30/2022 11:54:58 HPV, quadrivalent 4 completed ERROL DUENAS, [facility] [address] [place], [address], [facility] 11/30/2022 11:54:58 HPV, quadrivalent 5 completed ERROL DUENAS, [facility] [address] [place], [address], [facility] 11/30/2022 11:54:58 HPV, quadrivalent 3 completed ERROL DUENAS, [facility] [address] [place], [address], [facility] 11/30/2022 11:54:58 Hep B, adolescent or pediatric 0 completed ERROL DUENAS, [facility] [address] [place], [address], [facility] 11/30/2022 11:54:58 Hep A, ped/adol, 2 dose 1 completed ERROL DUENAS, [facility] [address] [place], [address], [facility] 11/30/2022 11:54:58 Hep A, ped/adol, 2 dose 3 completed ERROL DUENAS, [address], [address], [facility] 11/30/2022 11:54:58 Hib (PRP-T) 1 completed ERROL DUENAS, [address], [address], [facility] 11/30/2022 11:54:58 Hib (PRP-T) 2 completed ERROLAnia MILLSYULISSA, [place] [address], [facility] 11/30/2022 11:54:59 Hib (PRP-T) 1 completed ERROL MILLSTES, [address], [address], [facility] 11/30/2022 11:54:59 Hib (PRP-T) 0 completed ERROLAnia MILLSYULISSA, [address], [address], [facility] 11/30/2022 11:54:59 Meningococcal MCV4O 8 completed ERROLAnia MILLSYULISSA, [address], [address], [facility] 11/30/2022 11:54:59 meningococcal MCV4P 3 completed ERROL DUENAS, [address], [address], [facility] 11/30/2022 11:54:59 DTaP 1 completed ERROLAnia MILLSYULISSA, [address], [address], [facility] 11/30/2022 11:54:59 DTaP 1 completed ERROL DUENAS, [facility] [address] [place] [address], [address], [facility] 11/30/2022 11:54:59 DTaP 6 completed ERROL DUENAS, [address], [address], [facility] 11/30/2022 11:54:59 DTaP 0 completed ERROL DUENAS, [address], [address], [facility] 11/30/2022 11:54:59 DTaP 3 completed ERROL DUENAS, [address], [address], [facility] 11/30/2022 11:54:59 Influenza, split virus, quadrivalent, PF 9 completed ERROL DUENAS, [address], [address], [facility] 11/30/2022 11:54:59 Influenza, split virus, quadrivalent, PF 5 completed ERROL DUENAS, [address], [address], [facility] 11/30/2022 11:54:59 Influenza, split virus, quadrivalent, PF 0 completed ERROL DUENAS, [address], [address], [facility] 11/30/2022 11:54:59 Hep A, unspecified formulation 3 completed MANUEL BROOKS [address] [place], [address], [facility]3], [place] 11/30/2022 11:54:59 TST-PPD intradermal 2 completed Not Available [facility] 08/24/2023 11:43:02 Past Encounters Encounter ID Performer Location Encounter Start Date Encounter Closed Date Diagnosis/Indication Diagnosis SNOMED-CT Code Diagnosis ICD10 Code Diagnosis Note [id number] MANUEL SOTO [facility] ([facility]) [address] [place] [address] 10/20/2022 13:37:18 10/26/2022 08:35:05 Contact dermatitis 90040168 L25.9 [id number] MANUEL BROOKS [facility] ([facility]) [address] [place] [address] 10/28/2022 16:07:05 10/28/2022 18:42:49 Abdominal pain 46652500 R10.9 Chronic constipation 236 800195 K59.09 Tyler has an extensive history of bowel issues. Will send her to the ER as she has some mild air fluid levels, dilated loops. [id number] MANUEL SOTO [facility] ([facility]) [address] [place] [address] 11/03/2022 10:34:11 11/03/2022 20:17:47 Chronic constipation 802765512 K59.09 [id number] MANUEL BROOKS [facility] ([facility]) [address] [place] [address] 11/30/2022 11:18:50 11/30/2022 17:26:06 Chronic constipation 076714012 K59.09 [id number] KANG MULLEN [facility] ([facility]) [address] [place] [phone] 12/26/2022 14:00:12 12/26/2022 15:11:23 Constipation 36780714 K59.00 Patient was not seen in walk-in. Checked in by error. [id number] Timbo Hurtado DO [facility] ([facility]) [address] [place] [address] 01/12/2023 15:43:03 01/12/2023 17:00:47 Pain in left foot 7079344716 05106 M79.672 Warm today to 2. With my over read. Counseled patient negative findings. Recommend she rest foot with no running for 1 week she can ambulate normally otherwise as tolerated. Ice up to 20 minutes at a time 3 times a day as needed and she can take Tylenol 500 mg p.o. 3 times daily as needed pain. [id number] MANUEL BROOKS [facility] ([facility]) [address] [place] [phone] 03/02/2023 12:46:34 03/02/2023 13:48:52 Chronic constipation 726560847 K59.09 Candidiasis of skin 4988 3006 B37.2 right side of neck and between and under breasts [id number] MANUEL BROOKS [facility] ([facility]) [address] [place] [id number] 03/16/2023 12:51:36 03/16/2023 15:05:52 Pain in left lower limb 508192985 M79.605 Order written for Epsom salts to be used in bath as needed for muscle pain. Candidiasis of skin 4988 3006 B37.2 Resolved. Okay to continue use of PRN medication . [id number] MANUEL BROOKS [facility] ([facility]) [address] [place] [phone] 04/20/2023 09:39:01 04/20/2023 11:11:37 Cough 49846022 R05.9 [id number] KANG MULLEN [facility] ([facility]) [address] [place] [address] 05/02/2023 15:02:11 05/02/2023 18:19:38 Abdominal pain 30218893 R10.9 Constipation 72059135 K5 9.00 KUB shows significan t constipati on. Will re-start Gavilax today. Patient states she has this at home. If still having pain in 1 week after good BMs, need to follow up with PCP for further evaluation . If pain becomes severe, got to ED. Patient verbalized understand ing. [id number] MANUEL BROOKS [facility] ([facility]) [address] [place] [id number] 05/17/2023 15:39:04 05/17/2023 16:49:29 Depressive disorder 29932924 F32.9 Tyler feels like her depression has worsened. She has a psychiatry appt in July. Belching symptom 8430332 08 R14.2 Staff reports the smell is terrible from her burps, patient declines testing for H-pylori at this time. Tachycardia 4864425 R00. 0 Epilepsy 99655548 G40.90 [address]NS in [address], recent evaluation indicated it was good. Needs 1-2 week follow-up with neurology, she is establishe d with Dr. Huizar. [id number] ERROL DUENAS [facility] ([facility]) [address] [place] [id number] 06/24/2023 14:52:36 06/29/2023 15:06:48 Depressive disorder 28302062 F32.9 Tyler feels like her depression has worsened. She has a psychiatry appt in July. Smoker 46850901 F17.200 She has not been smoking for about 2 weeks now. Discussed with her the progress she has made and encouraged her to continue off of the nicotine. [id number] RUKHSANA CAPPS PA-C [facility] ([facility]) [address] [place] [address] 07/26/2023 12:51:32 07/26/2023 16:58:48 Viral gastroenteritis 374729929 A08.4 clear liquids. advance as tolerated to crackers/t oast. Acute low back pain 2788 48275 M54.50 Tia [id number] ERROL DUENAS [employer] [facility] ([facility]) [address] [place] [phone] 07/28/2023 15:06:23 08/09/2023 06:37:14 Adult health examination 432734517 Z00.00 Anemia 640921509 D64.9 Okay to take iron supplement with any juice as long as it has vitamin C in it. Nasal congestion 4920832 0 R09.81 Bipolar disorder 0616129 4 F31.9 Follows with [facility]. Epilepsy 11897637 G40.90 9 [address] a [address]NS in place, recent evaluation indicated it was good. Follows with Dr. Huizar. 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 Insomnia 127460153 G47.0 0 Melatonin at night. [facility] 003638964 Z59.3 [facility]. [facility] [id number] 9505832 Z74.1 Caregiver present with patient today. [id number] MANUEL CEBALLOS [facility] ([facility]) [address] [place] [address] 08/22/2023 13:54:38 08/22/2023 15:40:17 Sore throat 215340135 J02.9 Influenza B virus present 718424858 J10.1 flu B positive. on day 3 of symptoms so no tamiflu ordered. discussed tylenol/mo jesus for fever or aches, push oral fluids, and quarantine . Return if you develop new or worsening s/s. [id number] MANUEL BROOKS [facility] ([facility]) [address] [place] [address] 08/24/2023 11:41:55 08/24/2023 12:37:40 Nasal congestion 36643851 R09.81 Contracept ion care management 573979016 Z30.9 History of IUD placement, unsure which kind. She thinks it was done in 2016. Mood disorder 07849435 F 39 [id number] KANG MULLEN [facility] ([facility]) [address] [place] [id number] 08/30/2023 10:20:09 08/30/2023 11:46:43 Pain of left ankle joint 0637920829 2162480 M25.572 Sprain of lateral ligament of ankle joint 766572950 S93.492A Reassured with negative x-ray. Will send x-ray for over read. Patient given script for ankle brace. Should wear ankle brace for 1 week and weight bear as tolerated. RICE treatment recommende d. Can take tylenol/ib uprofen as needed for pain. If worsening pain or no improvemen t in 1-2 weeks, should be re-evaluat ed for probable repeat x-ray. Patient and caregiver verbalized understand ing. [id number] MANUEL BROOKS [facility] ([facility]) [address] [place] [id number] 09/28/2023 10:27:45 10/13/2023 14:26:06 Chronic constipation 349689669 K59.09 Going well now. [id number] REBECCA GOODEN [facility] ([facility]) [address] [place] [id number] 01/17/2024 13:01:31 01/17/2024 14:23:20 Health condition feared but not present 7291475727 35320 Z71.1 Normal exam of external genitals. [id number] MANUEL BROOKS [facility] ([facility]) [address] [place] [address] 01/31/2024 11:35:40 01/31/2024 12:43:33 Tuberculosis screening 916991608 Z11.1 Familial c ombined hyperlipidemia 226859335 E78.49 Atorvastat in daily. Anemia 593240615 D64.9 Okay to take iron supplement with any juice as long as it has vitamin C in it. Annual phy sical examination for people with mental illness completed 7195972571 Z00.8 Follows with [facility]. Lives in [facility] care 892633008 Z59.3 [facility]. Acne 66358455 L70.9 [id number] Noah Byers MD [facility] ([facility]) [address] [place] [id number] 02/23/2024 13:16:14 02/23/2024 15:48:06 Headache 91987393 R51.9 COVID test was negative Acute maxi llary sinusitis 37483333 J01.00 Concerned about secondary bacterial infection in the sinuses. Start antibiotic s. We will provide prescripti on for Mucinex DM to help manage symptoms. [id number] REBECCA GOODEN [facility] ([facility]) [address] [place] [id number] 03/02/2024 14:38:45 03/04/2024 14:06:22 [id number] ERROL DUENAS [facility] ([facility]) [address] [place] [id number] 5 03/20/2024 10:54:51 03/20/2024 11:47:11 Impacted cerumen in right ear 4329511369 754864 H61.21 [id number] ERROL DUENAS [facility] ([facility]) [address] [place] [address] 04/13/2024 11:55:43 04/13/2024 13:27:03 Upper respiratory infection 16656888 J06.9 Gastroenteritis 18344190 K52.9 Improving. [id number] Noah Byers MD [facility] [address] [place] [id number] 04/19/2024 09:53:33 04/19/2024 17:39:42 Acute gastroenteritis 91312932 K52.9 No evidence of severe diarrheal illness at this time. Recommend treating for as needed loperamide . Continue to push fluids and stay well-hydra venancio. Dissipate that this will resolve over the next few days. Follow-up with PCP continues or severe symptoms do develop. [id number] REBECCA GOODEN [facility]) [address] [place] [address] 05/23/2024 17:35:53 05/25/2024 15:32:17 [id number] ERROL DUENAS [facility] ([facility]) [address] [place] [id number] 05/30/2024 11:28:02 05/30/2024 12:07:24 Superficial burn of finger 459675604 T23.121D Improving, discontinu e Bacitracin . Impacted c erumen in right ear 7753799614 363404 H61.21 Removed with lighted ear spud. [id number] [facility] [address] [place] [address] [place] [address] 06/13/2024 12:40:58 06/13/2024 13:58:53 Mood disorder [id number] F39 Continue on seroquel. Dr. Reynoso is leaving and she is being reassigned to someone at [facility]. Epilepsy 01310923 G40.90 9 Has a [address]NS in place, recent evaluation indicated it was good. Follows with Dr. Huizar, has an appt today. Generalize d anxiety disorder 58051210 F41.1 Stop propranolo l, monitor heart rate at home. Advised caregiver to contact cardiologi st office as well for further instructio ns. [id number] MANUEL BROOKS [facility] ([facility]) [address] [place], [place] [address] 06/20/2024 10:24:42 06/20/2024 11:18:41 Tachycardia 2708372 R00.0 Mixed anxi ety and depressive disorder 278225397 F41.8 Lives in [facility] home 609108412 Z59.3 Stop loperamide . Stop Ibuprofen. [id number] MANUEL BROOKS [facility] ([facility]) [address] [place] [phone] 5 07/12/2024 10:44:11 07/12/2024 11:22:13 Dizziness [id number] R42 Headache 21990081 R51.9 Okay to take Tylenol as needed along with a Benadryl to help with headache. Push fluids. She is going to the eye doctor when she leaves. Bipolar disorder [id number] 4 F31.11 F31.9 Follows with [facility]. Epilepsy 30551103 G40.90 9 Has a VNS in place, recent evaluation indicated it was good. Follows with Dr. Huizar, has an appt today. Anemia 375114720 D64.9 Okay to take iron supplement with any juice as long as it has vitamin C in it. Hyperlipidemia 29356384 E78.49 Continue atorvastat in. Insomnia 266189577 G47.0 0 Melatonin at night. [facility] 793414548 Z59.3 [employer]. [id number] ERROL DUENAS [facility] ([facility]) [address] [place] [address] 5 07/17/2024 11:13:49 07/17/2024 12:19:14 Annual physical examination for people with mental illness completed [id number] Z00.8 Annual Physical: 07/17/2023 ental: 06/05/2024V ision: 11/18/2023T B: 01/31/2024L abs: 01/31/2024W [facility]: 05/28/2024 Adaptive Equipment: Glasses, VNS wand, Knee brace, Ankle brace Familial c ombined hyperlipidemia 404188937 E78.49 Atorvastat in daily. Epilepsy 56745692 G40.90 9 Has a VNS in place, recent evaluation indicated it was good. Follows with Dr. Huizar, has an appt today. Lives in [facility] senior [facility] 333283549 Z59.3 [employer]. Mixed anxi ety and depressive disorder 851788320 F41.8 Follows with [facility] and Counseling . Chronic constipation 236 722556 K59.09 Going well now. [id number] REBECCA GOODEN [facility] ([facility]) [address] [place] [address] 5 07/23/2024 12:25:26 07/23/2024 15:55:18 Acute bacterial bronchitis 121947230 J20.9 Discussed use of otc medication s for symptom management .Push oral fluids and rest.If you develop fever, sob, or start feeling worse then return for re-evaluat ion. [id number] ERROL DUENAS [facility] ([facility]) [address] [place] [phone] 5 08/15/2024 12:31:30 08/15/2024 13:26:02 Abdominal pain 59571881 R10.9 Resolved. Diarrhea 89785663 R19.7 [id number] MINISTERIO COLEMAN [facility] ([facility]) [address] [place] [phone] 5 09/04/2024 14:51:29 09/06/2024 06:24:38 Dysuria 20231672 R30.0 Abdominal pain 83226571 R10.9 No acute findings. Will hold Colace. Patient advised to follow up with GI as scheduled. [id number] MANUEL BROOKS [facility] ([facility]) [address] [place], [place] [phone] 5 09/20/2024 13:50:03 09/20/2024 14:57:10 Chronic constipation 176559714 K59.09 Going well now. At [facility] risk of polypharmacy 499447501 Z91.89 D/C Benzoyl peroxide, cetirizine , chlorasept ic throat spray, debrox, doxycyclin e, famotidine , Fleet enema, icy hot, metoclopra mide, naproxen, ondansetro n, sucralfate , triple antibiotic ointment, and vicks vaporub. [id number] MANUEL BROOKS [facility] ([facility]) [address] [place] [address] 5 10/10/2024 13:37:33 10/10/2024 14:48:36 Insomnia 729669050 G47.00 Melatonin at night. [id number] Noah Byers MD [facility] ([facility]) [address] [place] [address] 5 11/15/2024 14:15:52 11/19/2024 08:38:15 Contusion of scalp 34856840 S00.03XA No concerning findings on today's history or exam. Patient reassured. [id number] Noah Byers MD [facility] ([facility]) [address] [place] [address] 5 12/13/2024 09:31:34 12/14/2024 10:07:11 Impacted cerumen in right ear [id number] 579135 H61.21 Earwax was removed with irrigation . See procedure note. Irritation of the ear canal was noted after removal and small amount of fluid noted behind the eardrum. Seasonal a llergic rhinitis 009385345 J30.2 Patient does have fluid behind the eardrum suggestive of eustachian tube dysfunctio n and likely secondary to allergies. Restart her cetirizine . [id number] Timbo Hurtado DO [facility] ([facility]) [address] [place] [address] 12/31/2024 10:09:15 12/31/2024 11:14:49 Generalized aches and pains 41225001 R52 Infectious disease 93249 004 A93.8 Health Concerns Section Related Observation LastModified by Organization Detai ls LastModified Time None Recorded Concern Status LastModified by Organization Details LastModified Time None Recorded Advance Directives Directive None Recorded Payers Insurance Date Sequence Insurance Name Policy Number Policy Dubois Covered Member ID Dubois Member ID Guarantor Name 04/30/2023 2 UNSPECIFIED REMIT PAYOR Tyler Sinha 01/02/2025 [place] [facility] Tyler Sinha [id number] Tyler Sinha 06/23/2023 2 UNSPECIFIED REMIT PAYOR Tyler Sinha 01/02/2025 2 [place] Tyler Sinha [id number] Tyler Sinha 12/12/2024 1 [place] Tyler Sinha [id number] Tyler Sinha 01/10/2024 2 FOR LIFE ( - MEDICARE SUPPLEMENT) Froilan Hernandes [id number] Tyler Sinha 12/12/2024 [place] - [facility] (MEDICARE) Tyler Sinha [id number] Tyler Sinha Notes Date Note Type Note Provider Name and Address Organization Details Recorded Time 5 text/html DiarrheaReported bypatient.Quality:loose Severity:improving Onset/Timing:intermittent Context:no one else with similar symptoms; has had a colonoscopy Alleviating Factors:bismuth subsalicylates MANUEL BROOKS [address] [place], [address], [place] [facility] 09/25/2024 10:42:39 5 text/html PalpitationsReported bypatient.Location:chest Quality:rapid and sustained Severity:moderate Context:anxiety Aggravating Factors:emotional stress Associated Symptoms:no chest pain/discomfort; no dyspnea MANUEL BROOKS [address] [place], [address], [facility], [place]. 10/15/2024 16:41:16 5 text/html Patient states she was taking a shower last night and hit her head on the shower head. She denies any blurry vision and headache. She states that she did not pass out and she has no lacerations. Noah Byers MD [address] [place] [address], [phone], [facility], [place]. 11/18/2024 19:04:36 5 text/html Walk inPt feels right ear is clogged Noah Byers MD [address] [place] [address], [phone], [facility], [place]. 12/13/2024 18:31:19 5 text/html walk inx4 days muscle aches, nausea, TAYLOR. MIL tested pos for COVID a few days ago.she denies cough, wheezing, headaches, ear pain or throat pain. she admits to tick bite on perineal area. noticed it 1 week ago, present for more than 24 hrs she thinks. had a friend remove it. Timbo Hurtado DO [address] [place] [address], [phone], [facility], [place] 12/31/2024 11:14:21 OBGyn Episode No OBEpisode recorded.
[2025-01-22 20:37] VITALS: BP 117/82; PULSE 102; RESP 16; TEMP 36.4; O2SAT 99; BMI 29.7
[2025-01-22 20:41] VITALS: BP 115/74; PULSE 101; RESP 16; O2SAT 96
--- NOTE | 2025-01-22 20:45 | ECG_ITS ---
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 Measurements Intervals [place] Rate: 97 P: 47 WI: 141 QRS: 79 QRSD: 87 T: 73 QT: 363 QTc: 461 Interpretive Statements SINUS RHYTHM NONSPECIFIC T-WAVE ABNORMALITY Compared to ECG 06/15/2024 18:26:18 No significant changes Electronically Signed On 01-24-2025 09:04:12 CDT by Raghav Munoz M.D. [email or web address]
[2025-01-22 21:02] LABS: Hematocrit 38.1 % (36-47); Hemoglobin 12.60 g/dL (11.27-16.99); Mean Corpuscular HGB Conc 33.1 g/dL (30-55); Mean Corpuscular Hemoglobin 30.0 pg (27-33); Mean Corpuscular Volume 90.7 fl (85-98); Nucleated Red Blood Cells % 0 %; Platelet Count 229 10^3/cmm (157-399); Red Blood Count 4.20 10^6/uL (3.85-5.65); White Blood Count 5.89 10^3/uL (3.29-11.43)
[2025-01-22 21:11] VITALS: BP 107/76; PULSE 84; RESP 15; O2SAT 99
[2025-01-22 21:17] LABS: HCG, Serum Qual Negative (Negative)
[2025-01-22 21:22] LABS: Anion Gap 16.3 (5-19); Blood Urea Nitrogen 8 mg/dL (6-20); Calcium 9.1 mg/dL (8.5-10.5); Carbon Dioxide 21 mmol/L (22-29); Chloride 107 mmol/L (98-107); Creatinine Clr Calc Pharmacy 94.2750; Glucose 87 mg/dL (65-115); Osmolality Calculated 290 mOsm/kg (285-295); Potassium 3.3 mmol/L (3.5-5.1); Sodium 141 mmol/L (136-145)
[2025-01-22 21:23] LABS: Troponin(5th) Baseline < 6 ng/L (0-10)
[2025-01-22 21:49] VITALS: BP 103/74; PULSE 84; RESP 14; O2SAT 100
== END 2025-01-22 21:40 | disposition home or self-care (01) ==
PROVIDERS: Emergency Provider Emergency Medicine; PCP Nurse Practitioner Family
DX: R00.0 Tachycardia, unspecified (principal); Z72.0 Tobacco use; E78.5 Hyperlipidemia, unspecified
CPT/HCPCS: 36415; 80048; 84484; 84703; 85025; 93005; 96360; 99284; J7030

== ENCOUNTER → 2025-01-30 08:26 | Outpatient (BNVA) | payer MEDICARE, MEDICAID, SELFPAY | PROVIDERS: PCP Nurse Practitioner Family; Referring Provider Nurse Practitioner Family; Visit Provider Specialist | DX: Z96.89 Presence of other specified functional implants (principal); G40.309 Generalized idiopathic epilepsy and epileptic syndromes, not intractable, without status epilepticus; G40.209 Localization-related (focal) (partial) symptomatic epilepsy and epileptic syndromes with complex partial seizures, not intractable, without status epilepticus; F91.3 Oppositional defiant disorder; F79 Unspecified intellectual disabilities; G47.10 Hypersomnia, unspecified; R03.0 Elevated blood-pressure reading, without diagnosis of hypertension | CPT/HCPCS: 95970; 99215 ==

== ENCOUNTER 2025-02-02 20:00 | Emergency (ER) | payer MEDICARE, MEDICAID, SELFPAY ==
--- OUTSIDE RECORDS SUMMARY | 2016-03-15 05:40 | XMS_ITS | Continuity of Care Document ---
Author Organization [facility] Address [address] [place] [address] Phone Care Team Providers Care Repair Servicer Name Role Phone Unavailable Unavailable Unavailable Advance Directives Directive Yes / No Effective Date File Name No Information Encounters Encounter Description Practice Location Reason(s) For Visit Diagnoses Date Provider Providers Copied on Encounter [facility], ., [address], [address], [place] tel:[phone] [facility] No Information 6 No Information Referring Provider: JUAN COPPOLA, [address] [place], [address]. tel:[phone] Family History Family Member Type Diagnosis Age At Onset Maternal Grandmother Problem (finding) Hypertension Maternal Grandfather Problem (finding) Diabetes Mellit us Problem (finding) No family hist ory of Congenital Heart Disease Problem (finding) No family hist ory of Cardiomyopathy - dilated Father Problem (finding) Coronary arter y disease, premature Mother Problem (finding) Hypertension Problem (finding) No family history of Patel dden Maternal Grandfather Problem (finding) Hypertension Maternal Grandfather Problem (finding) Arrhythmia Maternal Grandfather Problem (finding) Coronary artery disease, premature Problem (finding) No family hist ory of Cardiomyopathy - hypertrophic Payers Payer name Insurance type Covered constitution party ID Authoriza tion(s) [facility] [id number] [employer] [facility] HMO [place] [id number] Social History Type Description Quantity Date Captured Comments Alcohol Use Details Unknown Caffeine Use Details Unknown Tobacco Use Status No Information Smoking Status Never smoker Sex Female Vital Signs Date / Time: Height Weight BMI Pulse Rate Blood Pressure Temperature Respiratory Rate Body Surface Area Head Circumference BMI percentile Pulse Ox Inhaled Ox 12:33 PM 61.00 in 55.701 kg (122.80 lbs) 23.3 0 kg/m eter (2) 87 /min 20 /min 1.55 meter(2) 77 Chief Complaint And Reason For Visit No Information History Of Present Illness Encounter Date Complaint History Of Prese nt Illness No Information Instructions Date Instruction Additional Infor mation No Information Assessments Type Assessment Date No Information
--- OUTSIDE RECORDS SUMMARY | 2019-02-09 09:45 | XMS_ITS | Continuity of Care Document ---
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 EDR Approval Note Intraoral Periapical First Film Murtaugh Prep Murtaugh Prep EDR Approval Note Self-management Goals Reviewed 16 Oral Hygiene Instructions Nutritional Counseling For Control Of De ntal Disea Caries High Risk Anterior (Excluding Final Lutheran) J Anterior (Excluding Final Lutheran) J Core Buildup, Including Any Pins 2015 [...] Diagnoses Date Provider Providers Copied on Encounter [facility], [id number]- [place], [place], [address], [place] tel:[phone] [facility] Encounter for dental exam and cleaning w/o abnormal findings 9 Modesto Izquierdo. [address] [place], [address], [place]. tel:[phone] Referring Provider: Timbo De La Garza, [address] [place], [address]. tel:[phone] [facility], [id number]- [place], [place], [address], [place] tel:[phone] [facility] No Information No Information [facility], [id number]- [place], [place], [address], [place] tel:[phone] [facility] No Information No Information [facility], [id number]- [place], [place], [id number], [place] tel:[phone] [facility] Anxiety (chief complaint)Bip olar disorder (chief complaint)Att ention deficit disorder (chief complaint) Generalized Anxiety DisorderBipol ar disorder, current episode depressed, moderateADHD predominantly inattentive typeIntention al self-harm by unspecified sharp object, subsequent encounter 8 No Information [facility], [id number] [id number], [address], [place] tel:[phone] [facility] Anxiety (chief complaint)Bip olar disorder (chief complaint)Att ention deficit hyperactivity disorder (chief complaint) Bipolar disorder, current episode depressed, moderateGener alized Anxiety DisorderADHD predominantly inattentive type 8 No Information [facility], [id number], [address], [place] tel:[phone] [facility] No Information 8 No Information [facility], [id number] [place], [address], [place] tel:[phone] [facility] Bipolar disorder (chief complaint)Anx iety (chief complaint)Att ention deficit disorder (chief complaint) Bipolar disorder, current episode depressed, moderateGener alized Anxiety DisorderADHD predominantly inattentive type 8 No Information [facility], [id number], [address], [place] tel:[phone] [facility] No Information 8 No Information [facility], [id number] [place], [address], [place] tel:[phone] [facility] Bipolar disorder (chief complaint)Anx iety (chief complaint)Att ention deficit disorder (chief complaint) Bipolar disorder, current episode depressed, moderateGener alized Anxiety DisorderADHD predominantly inattentive type Oct-0 8 No Information [facility], [id number]- [place], [place], [address], [place] tel:[phone] [facility] Bipolar disorder (chief complaint)Anx iety (chief complaint)Att ention deficit disorder (chief complaint) Bipolar disorder, current episode depressed, moderateADHD predominantly inattentive typeGeneraliz ed Anxiety Disorder Fe 8 No Information [facility], [id number], [address], [place] tel:[phone] [facility] Bipolar disorder (chief complaint)Anx iety (chief complaint)Att ention deficit disorder (chief complaint) Bipolar disorder, current episode depressed, moderateGener alized Anxiety DisorderADHD predominantly inattentive type 7 No Information [facility], [id number], [address], [place] tel:[phone] [facility] Bipolar disorder (chief complaint)Anx iety (chief complaint)Att ention deficit hyperactivity disorder (chief complaint) Bipolar disorder, current episode depressed, moderateGener alized Anxiety DisorderADHD predominantly inattentive type 7 No Information [facility], [id number] [id number]- [place], [place], [address], [place] tel:[phone] [facility] new patient (chief complaint) Bipolar disorder, current episode depressed, moderateADHD predominantly inattentive type 7 No Information [facility], [id number] [place], [address], [place] tel:[phone] [facility] Encounter for dental exam and cleaning w/o abnormal findings 6 Penelope Cavazos. [address] [place], [address], [place]. tel:[phone] Referring Provider: Macy Gomez, [address] [place], [address]. tel:[phone] [facility], [id number]- [facility], [place], [place], [address], [place] tel:[phone] [facility] Encounter for dental exam and cleaning w/o abnormal findings 6 No Information [facility], [id number]- [place], [place], [address], [place] tel:[phone] [facility] No Information 6 No Information [facility], [id number]- [place], [place], [address], [place] tel:[phone] [facility] No Information 6 No Information [facility], [id number]- [place], [place], [address], [place] tel:[phone] [facility] Encounter for dental exam and cleaning w/o abnormal findings 6 No Information [facility], [id number]- [place], [place], [address], [place] tel:[phone] [facility] No Information 5 Modesto Izquierdo. [address] [place], [address], [place]. tel:[phone] Referring Provider: Alirio Squires, [address] [place] [address], [address]. tel:[phone] [facility], [id number]- [place], [place], [address], [place] tel:[phone] [facility] No Information 4 No Information [facility], [id number]- [facility], [place], [place], [address], [place] tel:[phone] [facility] No Information No Information [facility], [id number]- [facility], [place], [place], [address], [place] tel:[phone] [facility] No Information No Information [facility], [id number]- [facility], [place], [place], [address], [place] tel:[phone] [facility] No Information No Information [facility], [id number] [id number]- [facility], [place], [place], [address], [place] tel:[phone] [facility] No Information No Information Family History Family Member Type Diagnosis Age At Onset Problem (finding) Family history of mental health conditions Mother Problem (finding) Alive and well Payers Payer name Insurance type Covered republican ID Authoriza tion(s) No Information Social History [...]
--- OUTSIDE RECORDS SUMMARY | 2025-02-02 20:07 | XMS_ITS | Clinical Summary ---
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 Gender Identity Not on file Sexual Orientation [...] st Contact Info) Description 08/08/2025 10:45 AM 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 Office Visit [facility] [address] [place] [address] Landen Morrison MD [address] [place] [address] Health Maintenance Due Date Last [...] history exists Medical Devices Implanted Type Area [employer] Weigher Device Identifier Shelf Expiration Date Model / Serial / Lot Lead Vns Therapy 2mm 303-20 - [id number] Implanted:Qty: 1 on 03/18/2020 by Dallas Shelley MD Lead N/A: Neck [employer] [place] [id number] 07/16/2023 303-20 / / 2023-07-16 Generator Vns [employer] 1000 - [id number] Implanted:Qty: 1 on 03/18/2020 by Dallas Shelley MD Neuro N/A: Chest [employer] [place] [id number] 1000 / / Insurance MEDICARE PART A AND B [place]ID [place] Advance Directives For more information, please contact: [phone] * Full Code (Latest Code Status on File) Date Activated Date Inactivated Comments 05/06/2023 5:27 AM 05/07/2023 4:19 PM * Full Code Date Activated Date Inactivated Comments 12/23/2021 8:22 AM 12/23/2021 11:57 AM * Full Code Date Activated Date Inactivated Comments 12/22/2021 9:51 AM 12/22/2021 1:38 PM * Full Code Date Activated Date Inactivated Comments 09/16/2021 7:57 AM 09/16/2021 12:49 PM Care Teams Turntable Worker Relationship Specialty Start Date End Date Cyndi Kramer, MANUEL [address] [place] [address] PCP - General 09/11/20
[2025-02-02 20:14] VITALS: BP 118/82; PULSE 106; RESP 17; TEMP 36.8; O2SAT 98; BMI 29.9
--- NOTE | 2025-02-02 20:27 | XRR_ITS ---
PROCEDURE INFORMATION: Exam: XR Lumbosacral Spine Exam date and time: 02/02/2025 8:57 PM Age: 24 years old Clinical indication: Injury or trauma; Fall; Blunt trauma (contusions or hematomas); Prior surgery; Surgery date: 6+ months; Surgery type: Vagal nerve stimulator; Additional info: Fall/ left low back pain TECHNIQUE: Imaging protocol: Radiologic exam of the lumbosacral spine. Views: 2 or 3 views. COMPARISON: CT abdomen pelvis con [id number] 10/28/2022 10:03 PM FINDINGS: Bones/joints: Normal. No acute fracture. Normal alignment. Soft tissues: Unremarkable. XR/XR lumbar spine 2-3V* [id number] IMPRESSION: No acute findings.
--- NOTE | 2025-02-02 20:27 | XRR_ITS ---
PROCEDURE INFORMATION: Exam: XR Left Knee Exam date and time: 02/02/2025 9:05 PM Age: 24 years old Clinical indication: Injury or trauma; Fall; Blunt trauma; Knee; Left; Additional info: Fall/trauma TECHNIQUE: Imaging protocol: Radiologic exam of the left knee. Views: 3 views. COMPARISON: CR XR knee LT 3V* [id number] 09/29/2021 2:48 PM FINDINGS: Bones/joints: No acute fracture or dislocation. Soft tissues: No radiopaque foreign body. XR/XR knee LT 3V* [id number] IMPRESSION: No acute bony findings.
--- NOTE | 2025-02-02 20:55 | W.ED.FALL ---
HPI - Fall General: Chief Complaint: Fall Stated Complaint: fall on stairs left knee injury, back, dizzy Time Seen by Provider: 02/02/25 20:02 Source: patient Mode of arrival: ambulatory Limitations: no limitations History of Present Illness: Patient is a 24-year-old female who presents the emergency department with left knee pain after a fall. She states that she fell down some steps, and while has been able to walk and bear weight she thinks that she fractured her knee. States that she heard a pop. Notes swelling to the left knee. No distal neurovascular symptoms or radiation of the pain. She is also stating that she hit her left lower back and is having pain in this area. Took some Tylenol before coming in, reporting moderate pain at this time. Did not hit her head or lose consciousness, no other injuries. States that the fall was accidental. She does note that the fall occurred about 2 to 3 hours before coming in. MD complaint: fall Onset (ago): hour(s) Fall from: down stairs (#) Fall witnessed: yes, by living facility staff Place fall occurred: home Loss of consciousness: None Symptoms prior to fall: none Context: tripped/slipped Location of injury: back Location of injury - extremities: Left: knee Associated symptoms-after fall: Denies abdominal pain, chest pain, headache(s) or neck pain Related Data Home Medications ?Medication ?Instructions ?Recorded ?Confirmed atorvastatin 40 mg tablet 40 mg PO BEDTIME 09/15/19 01/30/25 fluticasone propionate 50 1 spray intranasal BID 09/15/19 01/30/25 mcg/actuation nasal spray,suspension bismuth subsalicylate 262 mg 1 tab PO DAILY PRN adominal upset 07/21/20 01/30/25 chewable tablet (Pepto-Bismol) diphenhydramine HCl 25 mg capsule 25 mg PO Q6H PRN allergies 11/18/20 01/30/25 (Benadryl) ferrous sulfate 325 mg (65 mg 325 mg PO DAILY 08/12/21 01/30/25 iron) tablet (Iron (ferrous sulfate)) lubiprostone 24 mcg capsule 24 mcg PO BID 08/17/22 01/30/25 mecobalamin (vitamin B12) 1,000 1,000 mcg PO DAILY 08/17/22 01/30/25 mcg chewable tablet acetaminophen-pamabrom 500 mg-25 1 tab PO Q6H PRN Cramps 11/16/22 01/30/25 mg tablet (Midol) ondansetron HCl 4 mg tablet 4 mg PO Q6H PRN nausea 11/24/22 01/30/25 bisacodyl 10 mg rectal suppository 10 mg RI DAILY PRN Constipation 02/27/23 01/30/25 menthol 7.5 mg lozenges (Corona 7.5 mg mucous membrane Q2H PRN 02/27/23 01/30/25 Cough Drops) Cough sennosides 8.6 mg-docusate sodium 2 tab-cap PO DAILY BEDTIME 02/27/23 01/30/25 50 mg tablet (Senokot-S) etonogestrel 68 mg subdermal 1 implant subdermal ONCE 01/24/24 01/30/25 implant (Nexplanon) acetaminophen 325 mg tablet 650 mg PO QID PRN Pain 06/09/24 01/30/25 metoprolol tartrate 25 mg tablet mg PO 06/20/24 01/30/25 hydroxyzine pamoate 25 mg capsule 50 mg PO BID Anxiety 09/14/24 01/30/25 vitamins-iron fumarate 66 tab PO DAILY 09/14/24 01/30/25 mg iron-folic acid 1 mg tablet melatonin 5 mg capsule mg PO PRN 12/14/24 01/30/25 Previous Rx's ?Medication ?Instructions ?Recorded polyethylene glycol 3350 17 gram 17 g PO DAILY PRN constipation #14 10/28/22 oral powder packet (Miralax) ea linaclotide 145 mcg capsule 145 mcg PO DAILY #30 caps 12/24/22 (Linzess) pantoprazole 40 mg tablet,delayed 40 mg PO BID 6 weeks #84 tabs 02/09/23 release (Protonix) hydrocortisone 1 %-pramoxine 1 % 1 applic RI QID PRN hemorrhoids 09/17/23 rectal foam (Proctofoam HC) #10 grams zonisamide 100 mg capsule See Rx Instructions .Route 06/13/24 .COMPLEX #180 caps paliperidone 9 mg tablet,extended 9 mg PO DAILY psychosis, agitation 07/24/24 release 24 hr 30 days #30 tabs brivaracetam 100 mg tablet 100 mg PO BID #60 tabs 08/24/24 benztropine 1 mg tablet 1 mg PO BID #60 tabs 09/14/24 quetiapine 400 mg tablet,extended See Rx Instructions .Route 09/14/24 release 24 hr .COMPLEX #120 tabs quetiapine 50 mg tablet 50 mg PO DAILY 30 days #30 tabs 09/14/24 sucralfate 1 gram tablet 1 g PO BID #14 tabs 09/17/24 lorazepam 1 mg tablet See Rx Instructions .Route 11/29/24 .COMPLEX Agitation #45 tabs lorazepam 2 mg/mL oral concentrate See Rx Instructions .Route 11/30/24 .COMPLEX PRN seizure activity #30 mL Allergies Allergy/AdvReac Type Severity Reaction Status Date / Time clozapine Allergy Unknown Verified 01/30/25 08:36 divalproex sodium (From Allergy Unresponsiv Verified 01/30/25 08:36 Depakote) e escitalopram (From Lexapro) Allergy ALGY-Swell Verified 01/30/25 08:36 Lip/Tongue/Throat lamotrigine (From Lamictal) Allergy Unknown Verified 01/30/25 08:36 lithium Allergy Unknown Verified 01/30/25 08:36 peanut Allergy ADR-Abdominal Verified 01/30/25 08:36 Pain Penicillins Allergy Unknown Verified 01/30/25 08:36 topiramate (From Topamax) Allergy Unknown Verified 01/30/25 08:36 Review of Systems General: Reports: 10 or more systems reviewed and unremarkable except in HPI and below Const: Reports: other (Fall); Denies: fever(s) or chills Card: Denies: chest pain Resp: Denies: dyspnea or productive cough GI: Denies: abdominal pain, nausea, vomiting or diarrhea : Denies: flank pain Musc: Reports: back pain and joint pain (Left knee); Denies: neck pain, extremity pain, extremity swelling, joint swelling, joint redness, joint warmth, limited range of motion or muscle weakness Skin/Breast: Denies: rash Neuro: Denies: headache(s), numbness in extremities or weakness in extremities PFSH ED PFSH: Medical History Psychiatric care Tachycardia Intellectual disability Bipolar disorder Seizures Hyperlipidemia Constipation, chronic Surgical History Status post laparoscopic cholecystectomy (08/13/21) History of colonoscopy Status post placement of VNS (vagus nerve stimulation) device H/O eye surgery Family History Father Heart disease Hypercholesteremia Mother Hypertension Stroke Denies family history of Colon cancer Ovarian cancer Prostate cancer Diabetes Breast cancer Uterine cancer Thyroid disease Social History Smoking and tobacco/nicotine status: former use of tobacco/nicotine (quit 2022) Physical Exam Const: COMMON NORMALS: no acute distress, patient oriented x3, no limitations, healthy appearing, alert and well nourished HENMT: COMMON NORMALS: normocephalic and atraumatic HEAD & SCALP: normocephalic and atraumatic Neck/C-Spine: COMMON NORMALS: full ROM, supple and no meningeal signs Resp: COMMON NORMALS: normal respiratory effort, No use of accessory muscles and clear to auscultation bilaterally AUSCULTATION: clear to auscultation bilaterally Cardio: COMMON NORMALS: regular rate and regular rhythm RATE: regular rate RHYTHM: regular rhythm Extremity: COMMON NORMALS: normal to inspection, full ROM, capillary refill normal, no joint enlargement, no clubbing, cyanosis or edema and no calf tenderness NARRATIVE EXTREMITY EXAM: Tender to palpation left knee diffusely. No swelling or appreciable joint effusion. No joint laxity. Distal neurovascular exam of the left lower extremity is intact. Range of motion is intact, pain however with flexion and extension. Neuro: COMMON NORMALS: patient oriented x3, moves all extremities, no focal motor deficits and no sensory deficits noted SENSORIUM/ORIENTATION: Yes alert MENINGEAL SIGNS: Yes no meningeal signs Skin: COMMON NORMALS: no rashes or lesions noted GENERAL SKIN EXAM: no rashes or lesions noted Course Vital Signs: Vital signs: Vital Signs Temperature 98.2 F 02/02/25 20:14 Pulse Rate 75 02/02/25 23:17 Respiratory Rate 16 02/02/25 23:17 Blood Pressure 92/58 02/02/25 23:17 Pulse Oximetry 99 02/02/25 23:17 Oxygen Delivery Me thod Room Air 02/02/25 22:00 MDM - Fall Medical Decision Making Patient presenting after a fall, injuring her left knee, states that she has had pain with walking and felt a pop. Exam overall was unremarkable, diffusely tender but it was not swollen or bruised. X-ray of her left knee was normal. She also reported some low back pain, x-ray of lumbar spine normal. Suspect a contusion, will treat him conservatively. Lab Data Radiology Impressions Knee X-Ray 02/02/25 20:27 IMPRESSION: No acute bony findings. Lumbar Spine X-Ray 02/02/25 20:27 IMPRESSION: No acute findings. All radiology interpretation(s) finalized by discharge Discharge Plan Discharge Patient Disposition: Home Clinical Impression: Contusion of knee, left Qualifiers: Encounter type: initial encounter Qualified Code(s): S80.02XA - Contusion of left knee, initial encounter Condition: Stable Prescriptions: No Action bismuth subsalicylate [Pepto-Bismol] 262 mg tablet,chewable 1 tab PO DAILY PRN (Reason: adominal upset) Rx Instructions: do not exceed 16 tabs per 24 hrs diphenhydramine HCl [Benadryl] 25 mg capsule 25 mg PO Q6H PRN (Reason: allergies) pantoprazole [Protonix] 40 mg tablet,delayed release (DR/EC) 40 mg PO BID 42 Days Qty: 84 1RF Proctofoam HC 1-1 % foam 1 applic RI QID PRN (Reason: hemorrhoids) Qty: 10 5RF Nexplanon 68 mg implant 1 implant subdermal ONCE zonisamide 100 mg capsule See Rx Instructions .ROUTE .COMPLEX Qty: 180 11RF Dose Instruction: TAKE 2 CAPSULES BY MOUTH EVERY MORNING and THREE EVERY EVENING Rx Instructions: TAKE 3 CAPSULES BY MOUTH EVERY MORNING and THREE EVERY EVENING metoprolol tartrate 25 mg tablet PO melatonin 5 mg capsule PO PRN lubiprostone 24 mcg capsule 24 mcg PO BID mecobalamin (vitamin B12) 1,000 mcg tablet,chewable 1,000 mcg PO DAILY Midol 500-25 mg tablet 1 tab PO Q6H PRN (Reason: Cramps) ondansetron HCl 4 mg tablet 4 mg PO Q6H PRN (Reason: nausea) vit-iron fum-folic ac 66 mg iron- 1 mg tablet PO DAILY hydroxyzine pamoate 25 mg capsule 50 mg PO BID quetiapine 400 mg tablet extended release 24 hr See Rx Instructions .ROUTE .COMPLEX Qty: 120 5RF Dose Instruction: TAKE 2 TABLETS BY MOUTH TWICE DAILY Rx Instructions: TAKE 2 TABLETS BY MOUTH TWICE DAILY benztropine 1 mg tablet 1 mg PO BID Qty: 60 3RF Rx Instructions: TAKE ONE TABLET BY MOUTH TWICE DAILY quetiapine 50 mg tablet 50 mg PO DAILY 30 Days Qty: 30 5RF sucralfate 1 gram tablet 1 g PO BID Qty: 14 0RF Linzess 145 mcg capsule 145 mcg PO DAILY Qty: 30 11RF paliperidone 9 mg tablet extended release 24 hr 9 mg PO DAILY 30 Days Qty: 30 2RF brivaracetam 100 mg tablet 100 mg PO BID Qty: 60 5RF lorazepam 1 mg tablet See Rx Instructions .ROUTE .COMPLEX Qty: 45 2RF Rx Instructions: take a half a tab at 6 PM, take a whole tab at bedtime, hold for sedation; lorazepam 2 mg/mL concentrate See Rx Instructions .ROUTE .COMPLEX PRN (Reason: seizure activity) Qty: 30 0RF Rx Instructions: 0.5 ML PO PRN daily fluticasone propionate 50 mcg/actuation [place],Suspension 1 spray INTRANASAL BID Rx Instructions: INTSILL 1 SPRAY INTO EACH NOSTRIL BID atorvastatin 40 mg Tablet 40 mg PO BEDTIME ferrous sulfate [Iron (ferrous sulfate)] 325 mg (65 mg iron) Tablet 325 mg PO DAILY polyethylene glycol 3350 [Miralax] 17 gram powder in packet 17 g PO DAILY PRN (Reason: constipation) Qty: 14 0RF acetaminophen 325 mg Tablet 650 mg PO QID PRN (Reason: Pain) sennosides-docusate sodium [Senokot-S] 8.6-50 mg Tablet 2 tab-cap PO DAILY bisacodyl 10 mg Suppository 10 mg RI DAILY PRN (Reason: Constipation) Corona Cough Drops 7.5 mg Lozenge 7.5 mg MUCOUS MEMBRANE Q2H PRN (Reason: Cough) Discharge Orders: Discharge ED (Routine); Ordered 02/02/25 Ordered By: Jani Bateman Referrals: Judith Bermudez FNP [Primary Care Provider, Unknown] Patient Instructions: Patient Portal & Carmelo Instructions Activity Restrictions/Additional Instructions: Knee Contusion Discharge Diagnosis: You have a bruise (contusion) of your left knee. Your X-ray did not show any broken bones. What to Expect: A knee contusion is an injury to the soft tissues (like muscle and skin) around your knee, usually from a direct blow or fall. It is common to have pain, swelling, and sometimes bruising. Most people recover fully with simple care at home. Care Instructions: - Rest: Limit activities that cause pain or swelling. Avoid sports or heavy exercise until your knee feels better. - Ice: Apply an ice pack (or a bag of frozen peas wrapped in a towel) to your knee for 15?20 minutes every 2?3 hours for the first 48 hours. This helps reduce pain and swelling. - Compression: Use an elastic bandage (like an YURI wrap) to gently compress your knee. Make sure it is not too tight?your toes should not feel numb or tingly. - Elevation: Keep your leg raised on pillows when sitting or lying down to help reduce swelling. - Pain Relief: You may use acetaminophen (Tylenol) or ibuprofen (Advil, Motrin) as needed for pain, following the instructions on the package unless told otherwise by your doctor. - Movement: Begin gentle movement of your knee as soon as you are able. Try to bend and straighten your knee a few times a day, as long as it does not cause severe pain. Early movement helps prevent stiffness and speeds up recovery. - Walking: You may walk as tolerated. If you have trouble walking or your pain is severe, use crutches if provided. What to Watch For: Call your doctor or return to the emergency department if you notice any of the following: - Severe pain or swelling that does not improve - Inability to move your knee or walk - Numbness, tingling, or weakness in your leg or foot - Your knee looks deformed or you cannot straighten it - Signs of infection (fever, redness, warmth, pus) Follow-Up: Most knee contusions improve within 1?2 weeks. If you are not improving, or if you have ongoing trouble with movement or pain, follow up with your doctor. Sometimes, further tests (like an MRI) are needed if symptoms do not get better as expected. Prevention: Wearing protective gear during sports and being careful to avoid falls can help prevent future injuries. If you have any questions or concerns, please contact your healthcare provider. Print Language: Vietnamese Coding Level of Care Code ED Surface Boss for Jacqueline Meyer
[2025-02-02 22:00] VITALS: BP 90/53; PULSE 85; RESP 17; O2SAT 96
[2025-02-02 23:17] VITALS: BP 92/58; PULSE 75; RESP 16; O2SAT 99
== END 2025-02-02 23:18 | disposition home or self-care (01) ==
PROVIDERS: Emergency Provider Physician Assistant; PCP Nurse Practitioner Family
DX: S80.02XA Contusion of left knee, initial encounter (principal); E78.5 Hyperlipidemia, unspecified; W10.9XXA Fall (on) (from) unspecified stairs and steps, initial encounter
CPT/HCPCS: 72100; 73562; 96372; 99284; J1885

== ENCOUNTER 2025-02-11 12:50 | Outpatient (CLI) | payer MEDICARE, MEDICAID, SELFPAY ==
--- NOTE | 2025-02-11 13:04 | US_ITS ---
WS: [id number] ULTRASOUND BREAST LEFT TECHNIQUE: Ultrasound left breast focused area of concern. CLINICAL INFORMATION: N64.4 - Mastodynia COMPARISON: None. FINDINGS: Complete LEFT breast ultrasound. Normal underlying parenchymal tissue. No cystic or solid lesions. No suspicious findings. No lesions to target for biopsy. Findings are benign. Recommend annual screening mammography age 40 US/US breast LT complete [address]504 IMPRESSION: BI-RADS 2 benign Recommend annual screening mammography age 40
== END 2025-02-11 12:51 | disposition home or self-care (01) ==
LOC: RAD 12:51
PROVIDERS: PCP Nurse Practitioner Family; Visit Provider Nurse Practitioner Women's Health
DX: N64.4 Mastodynia (principal)
CPT/HCPCS: 76641

== ENCOUNTER → 2025-03-01 16:32 | Outpatient (BNVA) | payer MEDICARE, MEDICAID, SELFPAY | PROVIDERS: PCP Nurse Practitioner Family; Visit Provider Emergency Medicine | DX: Z20.822 Contact with and (suspected) exposure to COVID-19 (principal) | CPT/HCPCS: 87426 ==

== ENCOUNTER → 2025-03-09 14:44 | Outpatient (BNVA) | payer MEDICARE, MEDICAID, SELFPAY | PROVIDERS: PCP Nurse Practitioner Family; Visit Provider Family Medicine | DX: Z20.822 Contact with and (suspected) exposure to COVID-19 (principal) | CPT/HCPCS: 87426 ==

== ENCOUNTER 2025-03-22 11:25 | Emergency (ER) | payer MEDICARE, MEDICAID, SELFPAY ==
--- OUTSIDE RECORDS SUMMARY | 2025-03-22 11:32 | XMS_ITS | Encounter Summary ---
Author Organization [facility] Address [address] [place] [address] Care Team Providers Care Distance Learning Program Coordinator Name Role Phone Cyndi KramerRandi BENZP Primary Care Provider + Encounter Details Date Type Department Care Team (Late st Contact Info) Description 03/19/2025 External Device Data [facility]STRACTION Provider, Abstract NO ADDRESS ON FILE Social History Tobacco Use Types Packs/Day Years Used Date Smoking Tobacco: Former Cigarettes Smokeless Tobacco: Never Alcohol Use Standard Drinks/Week Comments No 0 (1 standard drink = 0.6 oz pur e alcohol) Feeling Safe Answer Date Recorded Are you in a relationship wi th someone who hurts you emotionally and/or physically? 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 Gender Identity Not on file Sexual Orientation Not on file documented as of this encounter Plan of Treatment Upcoming Encounters Date Type Department Care Team (Late Contact Info) Description 08/08/2025 10:45 AM CRAFT CENTER DIRECTOR Office Visit [facility] [address] [facility] [address] [place] [address] Landen Morrison MD [address] [address] documented as of this encounter Visit Diagnoses Not on filedocumented in this encounter Additional Health Concerns Assessment Noted Time PHQ-9 Depression Total Score: 2 10/05/19 18 7:00 AM CDT documented as of this encounter Care Teams Distance Learning Program Coordinator Relationship Specialty Start Date End Date Cyndi Kramer FNP [address] [place] [address] PCP - General 09/11/20 documented as of this encounter
--- OUTSIDE RECORDS SUMMARY | 2025-03-22 11:32 | XMS_ITS | Clinical Summary ---
Author Organization [facility] Address [address] [place] [address] Phone Care Team Providers Care Traffic Maintenance Supervisor Name Role Phone Cyndi Kramer Primary Care Provider + Allergies Active Allergy Reactions Criticality Noted Date Comments Amoxicillin Shortness of Breath/Wheezing,Rash High 10/10/2013 Clozapine Rash Low 05/28/2013 Divalproex Other (See Comments) 03/28/2013 lost all motor skills Lamotrigine Lew Arturo Syndrome High 07/02/2009 Wilber Unknown 02/01/2019 Jaw tremors Topiramate Other (See [...] (CMS/HCC) Take 12 mg by mouth daily alley cleaner. 10/10/19 19 Active atorvastatin (LIPITOR) 20 mg [...] Active LORazepam (ATIVAN) 2 mg/mL ConcentrateIndicatio ns:Seizures (CMS/[facility]) GIVE 0.5MG BY MOUTH NEEDED [...] 21 Active fluticasone propionate (FLONASE) 50 mcg/spray [place], Suspension nasal inhaler Administer 2 Sprays in [...] 18 Active fluticasone propionate (FLONASE) 50 mcg/spray [place], Suspension nasal inhaler Administer 2 Sprays in [...] mg 60 Capsule 3 03/24/20 22 Active Pwjsastittgca-Vjoc-V yrilamine 500-60-15 mg Tablet TAKE DIRECTED ON [...] Encounters Date Type Department Care Team Description 03/19/2025 External Device Data [facility] ABSTRACTION Provider, Abstract 03/05/2025 External Device Data [facility] ABSTRACTION Provider, Abstract 02/19/2025 External Device Data [facility] ABSTRACTION Provider, Abstract [...] on file Legal Sex 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 Gender Identity Not on file Sexual Orientation [...] st Contact Info) Description 08/08/2025 10:45 AM PREPAROLE COUNSELING AIDE Office Visit [facility] [address] [facility] [address] [place] [address] Landen Morrison MD [address] [facility] [address] [place] [address] Health Maintenance Due Date Last [...] history exists Medical Devices Implanted Type Area Strawberry Grower Device Identifier Shelf Expiration Date Model / Serial / Lot Lead Vns Therapy 2mm 303-20 - [id number] Implanted:Qty: 1 on 03/18/2020 by Dallas Shelley MD Lead N/A: Neck [employer] [place] [id number] 07/16/2023 303-20 / / 2023-07-16 Generator Vns [employer] 1000 - [id number] Implanted:Qty: 1 on 03/18/2020 by Dallas Shelley MD Neuro N/A: Chest [employer] [place] [id number] 1000 / / Insurance MEDICARE PART A AND B [place]ID [place] Advance Directives For more information, please contact: [phone] * Full Code (Latest Code Status on File) Date Activated Date Inactivated Comments 05/06/2023 5:27 AM 05/07/2023 4:19 PM * Full Code Date Activated Date Inactivated Comments 12/23/2021 8:22 AM 12/23/2021 11:57 AM * Full Code Date Activated Date Inactivated Comments 12/22/2021 9:51 AM 12/22/2021 1:38 PM * Full Code Date Activated Date Inactivated Comments 09/16/2021 7:57 AM 09/16/2021 12:49 PM Care Teams Traffic Maintenance Supervisor Relationship Specialty Start Date End Date Cyndi Kramer, MANUEL [address] [place] [address] PCP - General 09/11/20
[2025-03-22 11:48] VITALS: BP 108/64; PULSE 94; RESP 17; TEMP 36.8; O2SAT 99; BMI 29.2
--- NOTE | 2025-03-22 12:12 | CT_ITS ---
WS: [id number] CT HEAD NONCONTRAST HISTORY: trauma TECHNIQUE: Contiguous axial imaging performed through the brain. Bone and soft tissue windows. Sagittal and coronal reformats reviewed. All CT scans at [facility] use at least one of these dose optimization techniques: automated exposure control; mA and/or kV adjustment per patient size (includes targeted exams where dose is matched to clinical indication); or iterative reconstruction. DLP: 1088.88 mGy.cm COMPARISON: None available. No acute intracranial hemorrhage, midline shift or mass effect. No atrophy or prior infarcts or herniation. Ventricles: Normal size with no hydrocephalus. Paranasal sinuses: As visualized are clear. Mastoid air cells: Well pneumatized. Calvarium and scalp: Skull is intact with no soft tissue edema or swelling. CT/CT head wo con* [id number] IMPRESSION: Negative head CT.
--- NOTE | 2025-03-22 12:25 | W.ED.HEATRA ---
HPI - Head Injury General: Chief complaint: Head Injury Stated complaint: Hit L side head on wall N/tired Time Seen by Provider: 03/22/25 11:49 Source: patient and other (care staff) Mode of arrival: ambulatory Limitations: no limitations History of Present Illness: Patient is a 25-year-old female presents to ED today along with her care staff for evaluation regarding a head injury. Patient states she was making her bed this morning when she accidentally fell and struck the left side of her head against the wall. Patient states she had some dizziness and blurry vision for about 15 seconds but then this subsided. She continues to have a headache. She has also complained of feeling nauseous. Staff reportedly stated her pupils were dilated. She went to urgent care for evaluation and according to staff was given the runaround thus requested more adequate care here in the emergency department. Patient is currently rating her headache at a 4/10. She is alert and oriented and at baseline according to care staff. She has no visual changes currently. She has not had any vomiting. MD Complaint: head injury Onset (ago): hour(s) Mechanism of Injury: fall Place: home Loss of Consciousness: no Location of injury: parietal Severity: mild Severity scale (1-10): 4 Radiation: none Other Injuries: none Associated symptoms: Reports nausea; Deny confusion, neck pain, syncope, vertigo or vomiting Related Data Home Medications ?Medication ?Instructions ?Recorded ?Confirmed atorvastatin 40 mg tablet 40 mg PO BEDTIME 09/15/19 03/15/25 fluticasone propionate 50 1 spray intranasal BID 09/15/19 03/15/25 mcg/actuation nasal spray,suspension bismuth subsalicylate 262 mg 1 tab PO DAILY PRN adominal upset 07/21/20 03/15/25 chewable tablet (Pepto-Bismol) diphenhydramine HCl 25 mg capsule 25 mg PO Q6H PRN allergies 11/18/20 03/15/25 (Benadryl) ferrous sulfate 325 mg (65 mg 325 mg PO DAILY 08/12/21 03/15/25 iron) tablet (Iron (ferrous sulfate)) lubiprostone 24 mcg capsule 24 mcg PO BID 08/17/22 03/15/25 mecobalamin (vitamin B12) 1,000 1,000 mcg PO DAILY 08/17/22 03/15/25 mcg chewable tablet acetaminophen-pamabrom 500 mg-25 1 tab PO Q6H PRN Cramps 11/16/22 03/15/25 mg tablet (Midol) ondansetron HCl 4 mg tablet 4 mg PO Q6H PRN nausea 11/24/22 03/15/25 bisacodyl 10 mg rectal suppository 10 mg FL DAILY PRN Constipation 02/27/23 03/15/25 menthol 7.5 mg lozenges ([place] 7.5 mg mucous membrane Q2H PRN 02/27/23 03/15/25 Cough Drops) Cough sennosides 8.6 mg-docusate sodium 2 tab-cap PO DAILY BEDTIME 02/27/23 03/15/25 50 mg tablet (Senokot-S) etonogestrel 68 mg subdermal 1 implant subdermal ONCE 01/24/24 03/15/25 implant (Nexplanon) acetaminophen 325 mg tablet 650 mg PO QID PRN Pain 06/09/24 03/15/25 metoprolol tartrate 25 mg tablet mg PO 06/20/24 03/15/25 hydroxyzine pamoate 25 mg capsule 50 mg PO BID Anxiety 09/14/24 03/15/25 vitamins-iron fumarate 66 tab PO DAILY 09/14/24 03/15/25 mg iron-folic acid 1 mg tablet melatonin 5 mg capsule mg PO PRN 12/14/24 03/15/25 Previous Rx's ?Medication ?Instructions ?Recorded polyethylene glycol 3350 17 gram 17 g PO DAILY PRN constipation #14 10/28/22 oral powder packet (Miralax) ea linaclotide 145 mcg capsule 145 mcg PO DAILY #30 caps 12/24/22 (Linzess) pantoprazole 40 mg tablet,delayed 40 mg PO BID 6 weeks #84 tabs 02/09/23 release (Protonix) hydrocortisone 1 %-pramoxine 1 % 1 applic FL QID PRN hemorrhoids 09/17/23 rectal foam (Proctofoam HC) #10 grams zonisamide 100 mg capsule See Rx Instructions .Route 06/13/24 .COMPLEX #180 caps paliperidone 9 mg tablet,extended 9 mg PO DAILY psychosis, agitation 07/24/24 release 24 hr 30 days #30 tabs sucralfate 1 gram tablet 1 g PO BID #14 tabs 09/17/24 benzocaine 15 mg lozenges 15 mg mucous membrane Q2H PRN sore 02/11/25 (Chloraseptic [place] Sore Throat) throat #18 ea brivaracetam 100 mg tablet 100 mg PO BID 90 days #180 tabs 02/28/25 lorazepam 2 mg/mL oral concentrate See Rx Instructions .Route 03/11/25 .COMPLEX PRN seizure activity #30 mL benztropine 1 mg tablet 1 mg PO BID #60 tabs 03/15/25 fluoxetine 20 mg capsule (Prozac) 20 mg PO DAILY #30 caps 03/15/25 lorazepam 1 mg tablet See Rx Instructions .Route 03/15/25 .COMPLEX Agitation #45 tabs quetiapine 400 mg tablet,extended See Rx Instructions .Route 03/15/25 release 24 hr .COMPLEX #120 tabs quetiapine 50 mg tablet 50 mg PO DAILY 30 days #30 tabs 03/15/25 Allergies Allergy/AdvReac Type Severity Reaction Status Date / Time clozapine Allergy Unknown Verified 03/15/25 12:53 divalproex sodium (From Allergy Unresponsiv Verified 03/15/25 12:53 Depakote) e escitalopram (From Lexapro) Allergy ALGY-Swell Verified 03/15/25 12:53 Lip/Tongue/Throat lamotrigine (From Lamictal) Allergy Unknown Verified 03/15/25 12:53 lithium Allergy Unknown Verified 03/15/25 12:53 peanut Allergy ADR-Abdominal Verified 03/15/25 12:53 Pain Penicillins Allergy Unknown Verified 03/15/25 12:53 topiramate (From Topamax) Allergy Unknown Verified 03/15/25 12:53 Review of Systems Const: Denies: fever(s), chills, body aches, fatigue or malaise Eyes: Reports: blurry vision (15 seconds afterwards); Denies: change in vision, blind spots, photophobia, eye discharge, floaters or seeing flashes Card: Denies: chest pain, palpitations, syncope or pre-syncope GI: Reports: nausea; Denies: abdominal pain or vomiting Musc: Denies: neck pain, back pain, extremity pain or joint pain Neuro: Reports: headache(s); Denies: numbness in extremities, weakness in extremities, sensory changes, lack of coordination, difficulty walking, frequent falls, dizziness, vertigo, confusion, behavioral changes, Slurred speech present, difficulty communicating thoughts or seizure-like activity PFSH ED PFSH: Medical History Allergic pharyngitis Psychiatric care Tachycardia Intellectual disability Bipolar disorder Seizures Hyperlipidemia Constipation, chronic Surgical History Status post laparoscopic cholecystectomy (08/13/21) History of colonoscopy Status post placement of VNS (vagus nerve stimulation) device H/O eye surgery Family History Father Heart disease Hypercholesteremia Mother Hypertension Stroke Denies family history of Colon cancer Ovarian cancer Prostate cancer Diabetes Breast cancer Uterine cancer Thyroid disease Social History Smoking and tobacco/nicotine status: never used tobacco/nicotine Physical Exam Const: COMMON NORMALS: no acute distress, average body habitus, patient oriented x3, no limitations, healthy appearing, alert and well nourished HENMT: COMMON NORMALS: normocephalic and atraumatic HEAD & SCALP: normal to inspection, normocephalic and atraumatic FACE & SINUS: normal facial exam Eye: COMMON NORMALS: Equal, round and reactive pupils present, EOMs intact bilaterally and conjunctivae normal GENERAL EYE: appearance normal, both eyes and all related structures and normal light reflex CONJUNCTIVA: Yes conjunctivae normal PUPIL: Yes Equal, round and reactive pupils present DIRECT OPHTHALMOSCOPY: Yes normal light reflex Neck/C-Spine: COMMON NORMALS: full ROM GENERAL: Yes normal visual inspection CERVICAL SPINE: No Cervical spine tenderness Extremity: GENERAL: Yes normal exam except as noted Neuro: MARIE COMA SCALE: document GCS findings Marie coma scale eye opening: Spontaneous Marie coma scale verbal response: Orientated [place] coma scale motor response: Obey commands [place] coma scale total score: 15 COMMON NORMALS: patient oriented x3, CN's II-XII intact bilaterally, moves all extremities, no sensory deficits noted and gait normal SENSORIUM/ORIENTATION: Yes alert Course Vital Signs: Vital signs: Vital Signs Temperature 98.3 F 03/22/25 11:48 Pulse Rate 94 03/22/25 11:48 Respiratory Rate 17 03/22/25 11:48 Blood Pressure 108/64 03/22/25 11:48 Pulse Oximetry 99 03/22/25 11:48 Oxygen Delivery Me thod Room Air 03/22/25 11:48 MDM - Head Injury Medcial Decision Making Patient's head CT is unremarkable. She has no acute neurologic deficits on physical exam. Patient will be allowed discharge with conservative treatment. Recommend follow-up with primary care next week if symptoms or not improving. Differential Diagnosis Likely concussion without loss of consciousness, closed head injury, postconcussion syndrome and concussion with loss of consciousness Medical Records I reviewed the patient's medical records. Lab Data Radiology Impressions Head CT 03/22/25 12:12 IMPRESSION: Negative head CT. All radiology interpretation(s) finalized by discharge Discharge Plan Discharge Patient Disposition: Home Clinical Impression: Minor closed head injury Condition: Stable Prescriptions: No Action bismuth subsalicylate [Pepto-Bismol] 262 mg tablet,chewable 1 tab PO DAILY PRN (Reason: adominal upset) Rx Instructions: do not exceed 16 tabs per 24 hrs diphenhydramine HCl [Benadryl] 25 mg capsule 25 mg PO Q6H PRN (Reason: allergies) pantoprazole [Protonix] 40 mg tablet,delayed release (DR/EC) 40 mg PO BID 42 Days Qty: 84 1RF Proctofoam HC 1-1 % foam 1 applic FL QID PRN (Reason: hemorrhoids) Qty: 10 5RF Nexplanon 68 mg implant 1 implant subdermal ONCE zonisamide 100 mg capsule See Rx Instructions .ROUTE .COMPLEX Qty: 180 11RF Dose Instruction: TAKE 2 CAPSULES BY MOUTH EVERY MORNING and THREE EVERY EVENING Rx Instructions: TAKE 3 CAPSULES BY MOUTH EVERY MORNING and THREE EVERY EVENING metoprolol tartrate 25 mg tablet PO melatonin 5 mg capsule PO PRN lorazepam 1 mg tablet See Rx Instructions .ROUTE .COMPLEX Qty: 45 2RF Rx Instructions: take a half a tab at 6 PM, take a whole tab at bedtime, hold for sedation; quetiapine 400 mg tablet extended release 24 hr See Rx Instructions .ROUTE .COMPLEX Qty: 120 5RF Dose Instruction: TAKE 2 TABLETS BY MOUTH TWICE DAILY Rx Instructions: TAKE 2 TABLETS BY MOUTH TWICE DAILY quetiapine 50 mg tablet 50 mg PO DAILY 30 Days Qty: 30 5RF fluoxetine [Prozac] 20 mg capsule 20 mg PO DAILY Qty: 30 2RF benztropine 1 mg tablet 1 mg PO BID Qty: 60 3RF Rx Instructions: TAKE ONE TABLET BY MOUTH TWICE DAILY Chloraseptic [place] 15 mg lozenge 15 mg mucous membrane Q2H PRN (Reason: sore throat) Qty: 18 0RF lubiprostone 24 mcg capsule 24 mcg PO BID mecobalamin (vitamin B12) 1,000 mcg tablet,chewable 1,000 mcg PO DAILY Midol 500-25 mg tablet 1 tab PO Q6H PRN (Reason: Cramps) ondansetron HCl 4 mg tablet 4 mg PO Q6H PRN (Reason: nausea) vit-iron fum-folic ac 66 mg iron- 1 mg tablet PO DAILY hydroxyzine pamoate 25 mg capsule 50 mg PO BID sucralfate 1 gram tablet 1 g PO BID Qty: 14 0RF Linzess 145 mcg capsule 145 mcg PO DAILY Qty: 30 11RF paliperidone 9 mg tablet extended release 24 hr 9 mg PO DAILY 30 Days Qty: 30 2RF brivaracetam 100 mg tablet 100 mg PO BID 90 Days Qty: 180 3RF lorazepam 2 mg/mL concentrate See Rx Instructions .ROUTE .COMPLEX PRN (Reason: seizure activity) Qty: 30 0RF Rx Instructions: 0.5 ML PO PRN daily fluticasone propionate 50 mcg/actuation [place],Suspension 1 spray INTRANASAL BID Rx Instructions: INTSILL 1 SPRAY INTO EACH NOSTRIL BID atorvastatin 40 mg Tablet 40 mg PO BEDTIME ferrous sulfate [Iron (ferrous sulfate)] 325 mg (65 mg iron) Tablet 325 mg PO DAILY polyethylene glycol 3350 [Miralax] 17 gram powder in packet 17 g PO DAILY PRN (Reason: constipation) Qty: 14 0RF acetaminophen 325 mg Tablet 650 mg PO QID PRN (Reason: Pain) sennosides-docusate sodium [Senokot-S] 8.6-50 mg Tablet 2 tab-cap PO DAILY bisacodyl 10 mg Suppository 10 mg FL DAILY PRN (Reason: Constipation) [place] Cough Drops 7.5 mg Lozenge 7.5 mg MUCOUS MEMBRANE Q2H PRN (Reason: Cough) Discharge Orders: Discharge ED (Routine); Ordered 03/22/25 Ordered By: Lynda Perez Referrals: Judith Bermudez FNP [Primary Care Provider, Unknown] Patient Instructions: Patient Portal & Carmelo Instructions Activity Restrictions/Additional Instructions: As we discussed, CT scan today was unremarkable. She can follow-up with primary care next week if symptoms or not improving. Return to the emergency department at anytime for any further concerns you may have. Print Language: Armenian Coding Level of Care Code ED Elevator Erector Helper for Jacqueline Meyer
== END 2025-03-22 13:38 | disposition home or self-care (01) ==
PROVIDERS: Emergency Provider Physician Assistant; PCP Nurse Practitioner Family
DX: S09.8XXA Other specified injuries of head, initial encounter (principal); E78.5 Hyperlipidemia, unspecified; W19.XXXA Unspecified fall, initial encounter
CPT/HCPCS: 70450; 99284; J9999

== ENCOUNTER → 2025-04-10 13:30 | Outpatient (BNVA) | payer MEDICARE, MEDICAID, SELFPAY | PROVIDERS: PCP Nurse Practitioner Family; Visit Provider Nurse Practitioner Women's Health | DX: N92.1 Excessive and frequent menstruation with irregular cycle (principal); Z97.5 Presence of (intrauterine) contraceptive device | CPT/HCPCS: 81025 ==

== ENCOUNTER 2025-04-22 18:55 | Emergency (ER) | payer MEDICARE, MEDICAID, SELFPAY ==
[2025-04-22 19:00] VITALS: BP 113/78; PULSE 108; RESP 18; TEMP 36.6; O2SAT 99; BMI 29.2
--- OUTSIDE RECORDS SUMMARY | 2025-04-22 19:04 | XMS_ITS | Clinical Summary ---
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 10/10/19 19 Active atorvastatin (LIPITOR) 20 mg [...] (ATIVAN) 2 mg/mL ConcentrateIndicatio ns:Seizures (CMS/[facility]) GIVE 0.5MG BY MOUTH NEEDED [...] 21 Active fluticasone propionate (FLONASE) 50 mcg/spray [place], Suspension nasal inhaler Administer 2 Sprays in [...] 18 Active fluticasone propionate (FLONASE) 50 mcg/spray [place], Suspension nasal inhaler Administer 2 Sprays in [...] mg 60 Capsule 3 03/24/20 22 Active Nkcadnybuxssf-Abeb-P yrilamine 500-60-15 mg Tablet TAKE DIRECTED ON [...] on file Legal Sex Female 12:48 AM [employer] Gender Identity Not on file Sexual Orientation [...] st Contact Info) Description 08/08/2025 10:45 AM [employer] Office Visit [facility] [address] [place] [id number] Landen Morrison MD [address] [place] [phone] Health Maintenance Due Date Last Done [...] history exists Medical Devices Implanted Type Area Flight Test Shop Mechanic Device Identifier Shelf Expiration Date Model / Serial / Lot Lead Vns Therapy 2mm 303-20 - [id number] Implanted:Qty: 1 on 03/18/2020 by Dallas Shelley MD Lead N/A: Neck [facility] [id number] 07/16/2023 303-20 / / 2023-07-16 Generator Vns [employer] 1000 - [id number] Implanted:Qty: 1 on 03/18/2020 by Dallas Shelley MD Neuro N/A: Chest [facility] [id number] 1000 / / Insurance MEDICARE PART A AND B [place] Advance Directives For more information, please contact: [phone] * Full Code (Latest Code Status on File) Date Activated Date Inactivated Comments 05/06/2023 5:27 AM 05/07/2023 4:19 PM * Full Code Date Activated Date Inactivated Comments 12/23/2021 8:22 AM 12/23/2021 11:57 AM * Full Code Date Activated Date Inactivated Comments 12/22/2021 9:51 AM 12/22/2021 1:38 PM * Full Code Date Activated Date Inactivated Comments 09/16/2021 7:57 AM 09/16/2021 12:49 PM Care Teams Reed Repairer Relationship Specialty Start Date End Date Cynid Kramer, MACHINED PARTS QUALITY INSPECTOR [address] [place] [id number] PCP - General 09/11/20
[2025-04-22 20:00] LABS: Hematocrit 36.8 % (36-47); Hemoglobin 12.40 g/dL (11.27-16.99); Mean Corpuscular HGB Conc 33.7 g/dL (30-55); Mean Corpuscular Hemoglobin 29.9 pg (27-33); Mean Corpuscular Volume 88.7 fl (85-98); Nucleated Red Blood Cells % 0 %; Platelet Count 260 10^3/cmm (157-399); Red Blood Count 4.15 10^6/uL (3.85-5.65); White Blood Count 6.59 10^3/uL (3.29-11.43)
[2025-04-22 20:09] VITALS: BP 94/75; O2SAT 95
[2025-04-22 20:09] LABS: HCG Qualitative Urine. Negative (Negative)
[2025-04-22 20:24] LABS: Alanine Aminotransferase 17 U/L (0-33); Albumin Level 4.1 g/dL (3.5-5.2); Alkaline Phosphatase 141 U/L (35-105); Anion Gap 13.5 (5-19); Aspartate Amino Transferase 24 U/L (0-32); Blood Urea Nitrogen 10 mg/dL (6-20); Calcium 9.1 mg/dL (8.5-10.5); Carbon Dioxide 23 mmol/L (22-29); Chloride 103 mmol/L (98-107); Creatinine Clr Calc Pharmacy 92.5867; Globulin 2.7 g/dL (1.3-4.6); Glucose 98 mg/dL (65-115); Osmolality Calculated 281 mOsm/kg (285-295); Potassium 3.5 mmol/L (3.5-5.1); Sodium 136 mmol/L (136-145); Total Protein 6.8 g/dL (6.6-8.7)
[2025-04-22 20:30] LABS: Add Urine Microscopic? NO
[2025-04-22 20:31] LABS: Glucose Urine UA Negative (Normal); Nitrate Urine Negative (Negative); Specific Gravity, Urine 1.011 (1.005-1.030)
[2025-04-22 20:53] LABS: Charge for UA Resulting for Rev
[2025-04-22 20:58] LABS: Thyroid Stimulating Hormone 1.34 uIU/mL (0.27-4.20)
--- NOTE | 2025-04-22 21:08 | ED_ITS ---
HPI - General Adult 2 General: Chief complaint: General Medical Stated complaint: Possible Anemia Flare Up Time Seen by Provider: 04/22/25 19:52 History of Present Illness: 25yo F w/cc of several days of runny nos e, sore throat, cough, fatigue, nausea and non bloody diarrhea. She has a h/o anemia and is concerned about a flare up. Patient states she was told she was anemic several years ago but has not ever required a transfusion. Patient states that she has been diagnosed with strep pharyngitis and is taking antibiotics. She denies any chest pain, pain with respirations, shortness of breath or syncope. No abdominal pain or significant vomiting though she does report approximately 5 nonbloody watery BMs per day. No dysuria or hematuria. Related Data Home Medications ?Medication ?Instructions ?Recorded ?Confirmed atorvastatin 40 mg tablet 40 mg PO BEDTIME 09/15/19 fluticasone propionate 50 1 spray intranasal BID 09/1404/18/25 mcg/actuation nasal spray,suspension bismuth subsalicylate 262 mg 1 tab PO DAILY PRN adomin al upset 07/21/20 04/18/25 chewable tablet (Pepto-Bismol) diphenhydramine HCl 25 mg capsule 25 mg PO Q6H PRN all ergies 11/18/20 04/18/25 (Benadryl) ferrous sulfate 325 mg (65 mg 325 mg PO DAILY 08/12/21 04/18/25 iron) tablet (Iron (ferrous sulfate)) mecobalamin (vitamin B12) 1,000 1,000 mcg PO DAILY 04/18/25 mcg chewable tablet acetaminophen-pamabrom 500 mg-25 1 tab PO Q6H PRN Cram ps 11/16/22 04/18/25 mg tablet (Midol) ondansetron HCl 4 mg tablet 4 mg PO Q6H PRN nausea 04/18/25 bisacodyl 10 mg rectal suppository 10 mg DC DAILY PRN Constipation 02/27/23 04/18/25 menthol 7.5 mg lozenges ([place] 7.5 mg mucous membrane Q2H PRN 02/27/23 04/18/25 Cough Drops) Cough sennosides 8.6 mg-docusate sodium 2 tab-cap PO DAILY B EDTIME 02/27/23 04/18/25 50 mg tablet (Senokot-S) etonogestrel 68 mg subdermal 1 implant subdermal ONCE 01/24/24 04/18/25 implant (Nexplanon) acetaminophen 325 mg tablet 650 mg PO QID PRN Pain 01/2404/18/25 metoprolol tartrate 25 mg tablet mg PO 06/20/24 hydroxyzine pamoate 25 mg capsule 50 mg PO BID Anxiety 09/14/24 04/18/25 vitamins-iron fumarate 66 tab PO DAILY 04/18/25 mg iron-folic acid 1 mg tablet melatonin 5 mg capsule mg PO PRN 12/14/24 04/18/25 pantoprazole 40 mg tablet,delayed 40 mg PO DAILY 03/2604/18/25 release (Protonix) Previous Rx's ?Medication ?Instructions ?Recorded polyethylene glycol 3350 17 gram 17 g PO DAILY PRN con stipation #14 10/28/22 oral powder packet (Miralax) ea linaclotide 145 mcg capsule 145 mcg PO DAILY #30 caps 12/24/22 (Linzess) hydrocortisone 1 %-pramoxine 1 % 1 applic DC QID PRN h emorrhoids 09/17/23 rectal foam (Proctofoam HC) #10 grams zonisamide 100 mg capsule See Rx Instructions .Route 1 08/14/23 .COMPLEX #180 caps paliperidone 9 mg tablet,extended 9 mg PO DAILY psycho sis, agitation 07/24/24 release 24 hr 30 days #30 tabs sucralfate 1 gram tablet 1 g PO BID #14 tabs 09/17/24 benzocaine 15 mg lozenges 15 mg mucous membrane Q2H DC N sore 02/11/25 (Chloraseptic Warming Sore Throat) throat #18 ea brivaracetam 100 mg tablet 100 mg PO BID 90 days #180 tabs 02/28/25 lorazepam 2 mg/mL oral concentrate See Rx Instructions .Route 03/11/25 .COMPLEX PRN seizure activity #30 mL benztropine 1 mg tablet 1 mg PO BID #60 tabs 5 fluoxetine 20 mg capsule (Prozac) 20 mg PO DAILY #30 c aps 03/15/25 lorazepam 1 mg tablet See Rx Instructions .Route 0 03/15/25 .COMPLEX Agitation #45 tabs quetiapine 400 mg tablet,extended See Rx Instructions .Route 03/15/25 release 24 hr .COMPLEX #120 tabs quetiapine 50 mg tablet 50 mg PO DAILY 30 days #30 t abs 03/15/25 clindamycin HCl 300 mg capsule 300 mg PO TID 7 days #2 1 caps 03/31/25 (Cleocin HCl) lactobacillus combination no.9 4 4,000 mmu cells PO QD AY #10 caps 03/31/25 billion cell capsule (Adult 50 Plus Probiotic) azithromycin 500 mg tablet 500 mg PO DAILY 5 days #5 t abs 04/18/25 ondansetron HCl 4 mg tablet 4 mg PO TID 3 days #9 tabs 04/22/25 Allergies Allergy/AdvReac Type Severity Reaction Status Date / Time clozapine Allergy Unknown Verified 04/18/25 12:52 divalproex sodium (From Allergy Unresponsiv Verified 04/18/25 12:52 Depakote) e escitalopram (From Lexapro) Allergy ALGY-Swell Verified 04/18/25 12:52 Lip/Tongue/Throat lamotrigine (From Lamictal) Allergy Unknown Verified 04/18/25 12:52 lithium Allergy Unknown Verified 04/18/25 12:52 peanut Allergy ADR-Abdominal Verified 04/18/25 12:52 Pain Penicillins Allergy Unknown Verified 04/18/25 12:52 topiramate (From Topamax) Allergy Unknown Verified 04/18/25 12:52 COUNT INCLUDES THE [facility] ED 2 PFSH: Medical History (Updated 04/22/25 @ 21:09 by Padmini Rosario MD) Allergic pharyngitis Psychiatric care Tachycardia Intellectual disability Bipolar disorder Seizures Hyperlipidemia Constipation, chronic Surgical History Status post laparoscopic cholecystectomy (08/13/21) History of colonoscopy Status post placement of VNS (vagus nerve stimulation) device H/O eye surgery Family History Father Heart disease Hypercholesteremia Mother Hypertension Stroke Denies family history of Colon cancer Ovarian cancer Prostate cancer Diabetes Breast cancer Uterine cancer Thyroid disease Social History Smoking and tobacco/nicotine status: current every day tobacco/nicotine user (vape) Female Reproductive History: Date of last menstrual period: 04/15/25 Physical Exam 2 Narrative: EXAM NARRATIVE: Vital signs were reviewed. Patient is alert and oriented. Patient is breathing comfortably, no increased WOB or accessory muscle use. SpO2 is above 95% on RA. Patient has clear lungs b/l, no rhonchi, wheezing or crackles. No hypotension. + Mild tachycardia. Abdomen is soft, nondistended and nontender. Specifically, negative pierce's sign, no pain over McBurney's point. No CVA tenderness on percussion of her flanks. Patient is moving all extremities, no deformity or gross injury. No lower extremity edema or asymmetry. Course 2 Vital Signs: Vital signs: Vital Signs Temperature 97.8 F 04/22/25 19:00 Pulse Rate 102 H 04/22/25 21:23 Respiratory Rate 17 04/22/25 21:23 Blood Pressure 125/82 04/22/25 21:23 Pulse Oximetry 96 04/22/25 21:23 Oxygen Delivery Me thod Room Air 04/22/25 20:09 MDM - General Adult Medical Decision Making 25yo F w/cc of fatigue, URI sx, diarrhea for several days. She lives in a long-term and other residents have also had some similar symptoms. Differential diagnosis includes but is not limited to, viral upper respiratory infection, bronchitis, pneumonia, gastroenteritis, urinary tract infection, pyelonephritis, , dehydration, anemia, other. On exam, patient is hemodynamically stable, nontoxic-appearing though she has mildly tachycardic. Patient was evaluated with basic lab work including CBC, CMP, TSH, UA, screen. Patient has a normal white blood cell count and is not anemic. Patient does not have any actionable electrolyte abnormalities and has a normal anion gap. She has a normal TSH. Patient does not have evidence of infection or hematuria. She has not been vomiting I do suspect her bile tachycardia is due to frequent diarrhea in the past few days. Her presentation is most consistent with a nonspecific viral syndrome. Patient was given a prescription for Zofran, counseled on supportive care, given return precautions and discharged with recommendation for outpatient follow-up. Lab Data 04/22/25 19:29 04/22/25 19:29 Laboratory Results WBC 6.59 10^3/uL (3.29-11.43) 04/22/25: RBC 4.15 10^6/uL (3.85-5.65) 04/22/25: Hgb 12.40 g/dL (11.27-16.99) 04/22/25: Hct 36.8 % (36-47) 04/22/25: MCV 88.7 fl (85-98) 04/22/25: MCH 29.9 pg (27-33) 04/22/25: MCHC 33.7 g/dL (30-55) 04/22/25 RDW 12.0 % (12.1-15.1) L 04/22/25 Plt Count 260 10^3/cmm (157-399) 04/22/25 MPV 10.9 fL (7.4-10.4) H 04/22/25: Neut % (Auto) 44.8 % 04/22/25: Lymph % (Auto) 42.6 % 04/22/25: [place] % (Auto) 8.3 % 04/22/25 Eos % (Auto) 3.0 % 04/22/25 Baso % (Auto) 0.8 % 04/22/25 Neut # (Auto) 2.95 10^3/uL (1.8-7.7) 04/22/25 Lymph # (Auto) 2.8 10^3/uL (0.8-4.8) 04/22/25: [place] # (Auto) 0.6 10^3/uL (0.2-0.9) 04/22/25: Eos # (Auto) 0.2 10^3/uL (0.0-0.8) 04/22/25 Baso # (Auto) 0.1 10^3/uL (0.0-0.1) 04/22/25 Nucleated RBC % (auto) 0 % 04/22/25 Nucleated RBCs # 0.0 /100WBC 04/22/25 Sodium 136 mmol/L (136-145) 04/22/25: Potassium 3.5 mmol/L (3.5-5.1) 04/22/25: Chloride 103 mmol/L (98-107) 04/22/25: Carbon Dioxide 23 mmol/L (22-29) 04/22/25 Anion Gap 13.5 (5-19) 04/22/25: BUN 10 mg/dL (6-20) 04/22/25: Creatinine 0.9 mg/dL (0.5-0.9) 04/22/25 GFR Calculation 76.3 mL/min (90-130) L 04/22/25 Glucose 98 mg/dL (65-115) 04/22/25 Calculated Osmolality 281 mOsm/kg (285-295) L 04/22/25 Calcium 9.1 mg/dL (8.5-10.5) 04/22/25 Total Bilirubin 0.2 mg/dL (0.15-1.2) 04/22/25: AST 24 U/L (0-32) 04/22/25: ALT 17 U/L (0-33) 04/22/25 Alkaline Phosphatase 141 U/L (35-105) H 04/22/25 Total Protein 6.8 g/dL (6.6-8.7) 04/22/25: Albumin 4.1 g/dL (3.5-5.2) 04/22/25 Globulin 2.7 g/dL (1.3-4.6) 04/22/25: TSH 1.34 uIU/mL (0.27-4.20) 04/22/25: HCG, Qual Negative (Negative) 04/22/25 Urine Color Yellow (Yellow) 04/22/25 Urine Appearance Clear (CLEAR) 04/22/25: Urine pH 6.0 (5-7) 04/22/25 Ur Specific [place] 1.011 (1.005-1.030) 04/22/25 Urine Protein Negative (Negative) 04/22/25 Urine Glucose (UA) Negative (Normal) 10/20/25 19:20 Urine Ketones Negative (Negative) 04/22/25 19:20 Urine Blood Negative (Negative) 04/22/25 19:20 Urine Nitrate Negative (Negative) 04/22/25 19:20 Urine Bilirubin Negative (Negative) 04/22/25 19:20 Urine Urobilinogen 1.0 mg/dL (Negative) 04/22/25 19:20 Ur Leukocyte Esterase Negative (Negative) 04/22/25 19:20 Amorphous Sediment Not Reportable 04/22/25 19:20 No radiology studies performed this visit Discharge Plan Discharge Patient Disposition: Home Clinical Impression: Acute viral syndrome, Dehydration, mild Condition: Stable Prescriptions: New ondansetron HCl 4 mg tablet 4 mg PO TID 3 Days Qty: 9 0RF No Action bismuth subsalicylate [Pepto-Bismol] 262 mg tablet,chewable 1 tab PO DAILY PRN (Reason: adominal upset) Rx Instructions: do not exceed 16 tabs per 24 hrs diphenhydramine HCl [Benadryl] 25 mg capsule 25 mg PO Q6H PRN (Reason: allergies) Proctofoam HC 1-1 % foam 1 applic DC QID PRN (Reason: hemorrhoids) Qty: 10 5RF Nexplanon 68 mg implant 1 implant subdermal ONCE zonisamide 100 mg capsule See Rx Instructions .ROUTE .COMPLEX Qty: 180 11RF Dose Instruction: TAKE 2 CAPSULES BY MOUTH EVERY MORNING and THREE EVERY EVENING Rx Instructions: TAKE 3 CAPSULES BY MOUTH EVERY MORNING and THREE EVERY EVENING metoprolol tartrate 25 mg tablet PO melatonin 5 mg capsule PO PRN lorazepam 1 mg tablet See Rx Instructions .ROUTE .COMPLEX Qty: 45 2RF Rx Instructions: take a half a tab at 6 PM, take a whole tab at bedtime, hold for sedation; quetiapine 400 mg tablet extended release 24 hr See Rx Instructions .ROUTE .COMPLEX Qty: 120 5RF Dose Instruction: TAKE 2 TABLETS BY MOUTH TWICE DAILY Rx Instructions: TAKE 2 TABLETS BY MOUTH TWICE DAILY quetiapine 50 mg tablet 50 mg PO DAILY 30 Days Qty: 30 5RF fluoxetine [Prozac] 20 mg capsule 20 mg PO DAILY Qty: 30 2RF benztropine 1 mg tablet 1 mg PO BID Qty: 60 3RF Rx Instructions: TAKE ONE TABLET BY MOUTH TWICE DAILY Chloraseptic [place] 15 mg lozenge 15 mg mucous membrane Q2H PRN (Reason: sore throat) Qty: 18 0RF clindamycin HCl [Cleocin HCl] 300 mg capsule 300 mg PO TID 7 Days Qty: 21 0RF Adult 50 Plus Probiotic 4 billion cell capsule 4,000 mmu cells PO QDAY Qty: 10 0RF azithromycin 500 mg tablet 500 mg PO DAILY 5 Days Qty: 5 0RF mecobalamin (vitamin B12) 1,000 mcg tablet,chewable 1,000 mcg PO DAILY Midol 500-25 mg tablet 1 tab PO Q6H PRN (Reason: Cramps) ondansetron HCl 4 mg tablet 4 mg PO Q6H PRN (Reason: nausea) vit-iron fum-folic ac 66 mg iron- 1 mg tablet PO DAILY hydroxyzine pamoate 25 mg capsule 50 mg PO BID sucralfate 1 gram tablet 1 g PO BID Qty: 14 0RF pantoprazole [Protonix] 40 mg tablet,delayed release (DR/EC) 40 mg PO DAILY Linzess 145 mcg capsule 145 mcg PO DAILY Qty: 30 11RF paliperidone 9 mg tablet extended release 24 hr 9 mg PO DAILY 30 Days Qty: 30 2RF brivaracetam 100 mg tablet 100 mg PO BID 90 Days Qty: 180 3RF lorazepam 2 mg/mL concentrate See Rx Instructions .ROUTE .COMPLEX PRN (Reason: seizure activity) Qty: 30 0RF Rx Instructions: 0.5 ML PO PRN daily fluticasone propionate 50 mcg/actuation [place],Suspension 1 spray INTRANASAL BID Rx Instructions: INTSILL 1 SPRAY INTO EACH NOSTRIL BID atorvastatin 40 mg Tablet 40 mg PO BEDTIME ferrous sulfate [Iron (ferrous sulfate)] 325 mg (65 mg iron) Tablet 325 mg PO DAILY polyethylene glycol 3350 [Miralax] 17 gram powder in packet 17 g PO DAILY PRN (Reason: constipation) Qty: 14 0RF acetaminophen 325 mg Tablet 650 mg PO QID PRN (Reason: Pain) sennosides-docusate sodium [Senokot-S] 8.6-50 mg Tablet 2 tab-cap PO DAILY bisacodyl 10 mg Suppository 10 mg DC DAILY PRN (Reason: Constipation) [place] Cough Drops 7.5 mg Lozenge 7.5 mg MUCOUS MEMBRANE Q2H PRN (Reason: Cough) Discharge Orders: Discharge ED (Routine); Ordered 04/22/25 Ordered By: Padmini Rosario Referrals: Judith Bermudez FNP [Primary Care Provider, Unknown] Patient Instructions: Dehydration (ED), Opioid Safety, Pain Management, Patient Portal & Carmelo Instructions, Viral Syndrome - Adult Activity Restrictions/Additional Instructions: Please continue to monitor your condition closely at home. Take Ibuprofen 400mg and Tylenol 500-1000mg every six hours for pain and inflammation. For nausea, you may take a Zofran. Continue to stay hydrated with pedialyte, low sugar gatorade or broth. If your condition worsens or additional concerns arise, please return promptly to the emergency department for reassessment. Follow up with your primary care doctor by the end of this week. 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
[2025-04-22 21:23] VITALS: BP 125/82; PULSE 102; RESP 17; O2SAT 96
== END 2025-04-22 21:36 | disposition home or self-care (01) ==
PROVIDERS: Student in an Organized Health Care Education/Training Program; Emergency Provider Emergency Medicine; PCP Nurse Practitioner Family
DX: B34.9 Viral infection, unspecified (principal); E86.0 Dehydration; F17.290 Nicotine dependence, other tobacco product, uncomplicated; E78.5 Hyperlipidemia, unspecified
CPT/HCPCS: 36415; 80053; 81003; 81025; 84443; 85025; 99283

== ENCOUNTER 2025-04-25 07:58 | Outpatient (CLI) | payer MEDICARE, MEDICAID, SELFPAY ==
--- NOTE | 2025-04-25 08:00 | USR_ITS ---
PROCEDURE INFORMATION: Exam: US Pelvis, Complete, Non-Obstetric Exam date and time: 04/25/2025 8:11 AM Age: 25 years old Clinical indication: Device placement; Iud placement/localization; Additional info: Z97.5 - presence of (intrauterine) contraceptive device TECHNIQUE: Imaging protocol: Transabdominal pelvic nonobstetric ultrasound. Complete exam. Real time ultrasound with image documentation. COMPARISON: US pelvic complete* [id number] 09/02/2020 1:28 PM FINDINGS: Uterus: Uterus is normal. Endometrial stripe is normal. The endometrium is 12 mm in thickness. Right ovary/adnexa: Ovary is normal. No mass. Normal blood flow. Left ovary/adnexa: Ovary is normal. No mass. Normal blood flow. Intraperitoneal space: No intraperitoneal fluid. Urinary bladder: Normal. US/US pelv w/transvag [id number] IMPRESSION: 1. The findings are normal. Please note that dictation does not have an intrauterine contraceptive device.
== END 2025-04-25 07:59 | disposition home or self-care (01) ==
LOC: RAD 07:58
PROVIDERS: PCP Nurse Practitioner Family; Visit Provider Nurse Practitioner Women's Health
DX: Z97.5 Presence of (intrauterine) contraceptive device (principal)
CPT/HCPCS: 76830; 76856

== ENCOUNTER 2025-06-05 00:39 | Emergency (ER) | payer MEDICARE, MEDICAID, SELFPAY ==
--- OUTSIDE RECORDS SUMMARY | 2025-06-05 00:47 | XMS_ITS | Encounter Summary ---
Author Organization [facility] Address 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 Gender Identity Not on file Sexual Orientation Not on file documented as of this encounter Plan of Treatment Upcoming Encounters Date Type Department Care Team (Late st Contact Info) Description 08/08/2025 10:45 AM BUSINESS MANAGEMENT CONSULTANT Office Visit [facility] [address] [place] [address] Landen Morrison MD [address] [address] documented as of this encounter Visit Diagnoses Not on filedocumented in this encounter Additional Health Concerns Assessment Noted Time PHQ-9 Depression Total Score: 2 10/05/19 18 7:00 AM CDT documented as of this encounter Care Teams Sales Program Coordinator Relationship Specialty Start Date End Date Cyndi Kramer FNP [address] [place] [phone] PCP - General 09/11/20 documented as of this encounter
--- OUTSIDE RECORDS SUMMARY | 2025-06-05 00:47 | XMS_ITS | Clinical Summary ---
Author Organization [facility] Address [address] [place] [address] Phone Care Team Providers Care Striper Name Role Phone Cyndi Kramer [facility] Primary Care Provider + Allergies Active Allergy Reactions Criticality Noted Date Comments Amoxicillin Shortness of Breath/Wheezing,Rash High 10/10/2013 Clozapine Rash Low 05/28/2013 Divalproex Other (See Comments) 03/28/2013 lost all motor skills Lamotrigine Lew Arturo Syndrome High 07/02/2009 Comobabi Unknown 02/01/2019 Jaw tremors Topiramate Other (See Comments) 11/15/2016 Ineffective Unclassified Drug Other (See Comments) 07/01/20 09 Pertussis in DTAP, siblings have high fever Medications bisacodyL (DULCOLAX) 10 mg Suppository Insert 10 mg by rectum 1 time daily as needed for Constipation. 03/11/20 Active melatonin 3 mg Tablet Take by mouth nightly as needed for Insomnia. 03/11/20 Active LORazepam (ATIVAN) 1 mg tablet Take 1 mg by mouth daily at bedtime. 03/11/20 Active calcium as carbonate (TUMS) 500 mg (200 mg elemental) Tablet, Chewable Take 750 mg by mouth every 4 hours as needed for Dyspepsia or Indigestion. 03/11/20 Active acetaminophen (TYLENOL) 325 mg tablet Take 650 mg by mouth every 6 hours as needed. 03/11/20 Active norethindrone-e.estr adioL-iron (LO LOESTRIN FE) 1 mg-10 mcg (24)/10 mcg (2) Tablet per tablet Take 1 Tablet by mouth daily. 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 10/10/19 Active atorvastatin (LIPITOR) 20 mg tablet 40 mg daily. TAKE 1 TABLET BY MOUTH ONCE A DAY FOR CHOLESTEROL(EQ: LIPITOR) 06/29/20 Active QUEtiapine (SEROquel) 400 mg tablet Take 800 mg by mouth 2 times daily. 1 06/29/20 Active benztropine (COGENTIN) 1 mg tablet Take 1 mg by mouth 2 times daily. 06/29/20 Active Zonisamide (ZONEGRAN) 100 mg capsuleIndications:G eneralized epilepsy (CMS/HCC) Take 3 Capsules (300 mg) by mouth 2 times daily. 180 Capsule 12 09/17/19 Active LORazepam (ATIVAN) 2 mg/mL ConcentrateIndicatio ns:Seizures (CMS/HCC) GIVE 0.5MG BY MOUTH NEEDED FOR WITH [...] 21 Active fluticasone propionate (FLONASE) 50 mcg/spray [place], Suspension nasal inhaler Administer 2 Sprays in [...] 18 Active fluticasone propionate (FLONASE) 50 mcg/spray [place], Suspension nasal inhaler Administer 2 Sprays in [...] mg 60 Capsule 3 03/24/20 22 Active Vjijgpdocjymh-Ysxu-O yrilamine 500-60-15 mg Tablet TAKE DIRECTED ON [...] by mouth daily before breakfast. 30 Capsule 11 10/20/19 25 Active pantoprazole (PROTONIX) 40 mg Tablet, Delayed Release (E.C.)Indications:Ch ronic gastroesophageal reflux disease Take 1 Tablet (40 mg) by mouth 2 times daily. 60 Tablet 11 04/18/20 25 Active lubiprostone (AMITIZA) 24 mcg CapsuleIndications:C [...] Encounters Date Type Department Care Team Description 06/04/2025 External Device Data [facility] ABSTRACTION Provider, Abstract 04/24/2025 External Device Data [facility] ABSTRACTION Provider, Abstract 03/19/2025 External Device Data [facility] ABSTRACTION Provider, [...] on file Legal Sex Female 12:48 AM REMEDY DEVELOPER Gender Identity Not on file Sexual Orientation [...] st Contact Info) Description 08/08/2025 10:45 AM REMEDY DEVELOPER Office Visit [facility] [address] [facility] [address] [place] [phone] Landen Morrison MD [address] [place] [phone] Health Maintenance Due Date Last Done Comments HPV/Cotest (21-29) 02/05/2021 CERVICAL CANCER SCREENING 07/08/2024 PAP SMEAR 07/08/2024 07/08/2021 INFLUENZA VACCINE (#1) 2025 0, 07/10/2018, 06/03/2017, Additional history exists DTAP/TDAP/TD VACCINES (7 - T d or Tdap) 10/06/2025 10/07/2015, 03/28/2013, 03/28/2013, Additional history exists HEPATITIS B VACCINES Completed 2000, 2000, 2000, Additional history exists HPV VACCINES Completed 02/26/2015, 02/02, 10/08/2013, Additional history exists Medical Devices Implanted Type Area Filter Cleaner Device Identifier Shelf Expiration Date Model / Serial / Lot Lead Vns Therapy 2mm 303-20 - [id number] Implanted:Qty: 1 on 03/18/2020 by Dallas Shelley MD Lead N/A: Neck [facility] [id number] 07/16/2023 303-20 / / 2023-07-16 Generator Vns [employer] 1000 - [id number] Implanted:Qty: 1 on 03/18/2020 by Dallas Shelley MD Neuro N/A: Chest [facility] [id number] 1000 / / Insurance MEDICARE PART A AND B [place]ID [place] Advance Directives For more information, please contact: [phone] * Full Code (Latest Code Status on File) Date Activated Date Inactivated Comments 05/06/2023 5:27 AM 05/07/2023 4:19 PM * Full Code Date Activated Date Inactivated Comments 12/23/2021 8:22 AM 12/23/2021 11:57 AM * Full Code Date Activated Date Inactivated Comments 12/22/2021 9:51 AM 12/22/2021 1:38 PM * Full Code Date Activated Date Inactivated Comments 09/16/2021 7:57 AM 09/16/2021 12:49 PM Care Teams Striper Relationship Specialty Start Date End Date Cyndi Kramer, MANUEL [address] [place] [phone] PCP - General 09/11/20
[2025-06-05 00:52] VITALS: BP 101/82; PULSE 123; RESP 18; TEMP 36.6; O2SAT 98; BMI 27.1
--- NOTE | 2025-06-05 01:00 | W.ED.NAVMDI ---
HPI - Nausea/Vomiting/Diarrhea General: Chief complaint: Nausea/Vomiting/Diarrhea Stated complaint: N\V Time Seen by Provider: 06/05/25 00:42 History of Present Illness: 25-year-old female with a past medical history significant for seizures status post vagus nerve stimulator implantation, IUD in place, remote surgical history of cholecystectomy, GERD, bipolar, presenting to the emergency department with onset at 10:30 PM this evening of recurrent vomiting and diarrhea both nonbloody, several episodes of each, unable to tolerate p.o. since symptoms started, no abdominal pain, did have some headache that started after the vomiting, no fevers, no urinary symptoms, last menstrual period 1-1/2 months ago which is not unusual for her given her Nexplanon use. Related Data Home Medications ?Medication ?Instructions ?Recorded ?Confirmed atorvastatin 40 mg tablet 40 mg PO BEDTIME 09/15/19 04/18/25 fluticasone propionate 50 1 spray intranasal BID 09/15/19 04/18/25 mcg/actuation nasal spray,suspension bismuth subsalicylate 262 mg 1 tab PO DAILY PRN adominal upset 07/21/20 04/18/25 chewable tablet (Pepto-Bismol) diphenhydramine HCl 25 mg capsule 25 mg PO Q6H PRN allergies 11/18/20 04/18/25 (Benadryl) ferrous sulfate 325 mg (65 mg 325 mg PO DAILY 08/12/21 04/18/25 iron) tablet (Iron (ferrous sulfate)) mecobalamin (vitamin B12) 1,000 1,000 mcg PO DAILY 08/17/22 04/18/25 mcg chewable tablet acetaminophen-pamabrom 500 mg-25 1 tab PO Q6H PRN Cramps 11/16/22 04/18/25 mg tablet (Midol) ondansetron HCl 4 mg tablet 4 mg PO Q6H PRN nausea 11/24/22 04/18/25 bisacodyl 10 mg rectal suppository 10 mg WI DAILY PRN Constipation 02/27/23 04/18/25 menthol 7.5 mg lozenges (Fossil 7.5 mg mucous membrane Q2H PRN 02/27/23 04/18/25 Cough Drops) Cough sennosides 8.6 mg-docusate sodium 2 tab-cap PO DAILY BEDTIME 02/27/23 04/18/25 50 mg tablet (Senokot-S) etonogestrel 68 mg subdermal 1 implant subdermal ONCE 01/24/24 04/18/25 implant (Nexplanon) acetaminophen 325 mg tablet 650 mg PO QID PRN Pain 06/09/24 04/18/25 metoprolol tartrate 25 mg tablet mg PO 06/20/24 04/18/25 hydroxyzine pamoate 25 mg capsule 50 mg PO BID Anxiety 09/14/24 04/18/25 vitamins-iron fumarate 66 tab PO DAILY 09/14/24 04/18/25 mg iron-folic acid 1 mg tablet melatonin 5 mg capsule mg PO PRN 12/14/24 04/18/25 pantoprazole 40 mg tablet,delayed 40 mg PO DAILY 03/26/25 04/18/25 release (Protonix) Previous Rx's ?Medication ?Instructions ?Recorded polyethylene glycol 3350 17 gram 17 g PO DAILY PRN constipation #14 10/28/22 oral powder packet (Miralax) ea linaclotide 145 mcg capsule 145 mcg PO DAILY #30 caps 12/24/22 (Linzess) hydrocortisone 1 %-pramoxine 1 % 1 applic WI QID PRN hemorrhoids 09/17/23 rectal foam (Proctofoam HC) #10 grams zonisamide 100 mg capsule See Rx Instructions .Route 06/13/24 .COMPLEX #180 caps paliperidone 9 mg tablet,extended 9 mg PO DAILY psychosis, agitation 07/24/24 release 24 hr 30 days #30 tabs sucralfate 1 gram tablet 1 g PO BID #14 tabs 09/17/24 benzocaine 15 mg lozenges 15 mg mucous membrane Q2H PRN sore 02/11/25 (Chloraseptic Warming Sore Throat) throat #18 ea brivaracetam 100 mg tablet 100 mg PO BID 90 days #180 tabs 02/28/25 benztropine 1 mg tablet 1 mg PO BID #60 tabs 03/15/25 fluoxetine 20 mg capsule (Prozac) 20 mg PO DAILY #30 caps 03/15/25 lorazepam 1 mg tablet See Rx Instructions .Route 03/15/25 .COMPLEX Agitation #45 tabs quetiapine 400 mg tablet,extended See Rx Instructions .Route 03/15/25 release 24 hr .COMPLEX #120 tabs quetiapine 50 mg tablet 50 mg PO DAILY 30 days #30 tabs 03/15/25 clindamycin HCl 300 mg capsule 300 mg PO TID 7 days #21 caps 03/31/25 (Cleocin HCl) lactobacillus combination no.9 4 4,000 mmu cells PO QDAY #10 caps 03/31/25 billion cell capsule (Adult 50 Plus Probiotic) azithromycin 500 mg tablet 500 mg PO DAILY 5 days #5 tabs 04/18/25 lorazepam 2 mg/mL oral concentrate See Rx Instructions .Route 05/09/25 .COMPLEX PRN seizure activity #30 mL famotidine 20 mg tablet (Pepcid) 20 mg PO BID 5 days #10 tabs 06/05/25 ondansetron 8 mg disintegrating 8 mg PO Q8H PRN nausea and 06/05/25 tablet vomiting 5 days #14 tabs Allergies Allergy/AdvReac Type Severity Reaction Status Date / Time clozapine Allergy Unknown Verified 04/18/25 12:52 divalproex sodium (From Allergy Unresponsiv Verified 04/18/25 12:52 Depakote) e escitalopram (From Lexapro) Allergy ALGY-Swell Verified 04/18/25 12:52 Lip/Tongue/Throat lamotrigine (From Lamictal) Allergy Unknown Verified 04/18/25 12:52 lithium Allergy Unknown Verified 04/18/25 12:52 peanut Allergy ADR-Abdominal Verified 04/18/25 12:52 Pain Penicillins Allergy Unknown Verified 04/18/25 12:52 topiramate (From Topamax) Allergy Unknown Verified 04/18/25 12:52 PFSH ED PFSH: Medical History Allergic pharyngitis Psychiatric care Tachycardia Intellectual disability Bipolar disorder Seizures Hyperlipidemia Constipation, chronic Surgical History Status post laparoscopic cholecystectomy (08/13/21) History of colonoscopy Status post placement of VNS (vagus nerve stimulation) device H/O eye surgery Family History Father Heart disease Hypercholesteremia Mother Hypertension Stroke Denies family history of Colon cancer Ovarian cancer Prostate cancer Diabetes Breast cancer Uterine cancer Thyroid disease Social History Smoking and tobacco/nicotine status: current every day tobacco/nicotine user (vape) Physical Exam Narrative: EXAM NARRATIVE: Gen: A&Ox4, no acute distress, nontoxic appearing HEENT: Normocephalic, atraumatic, no scleral icterus, external ears normal, dry mucous membranes, pupils equal and reactive to light Neck: Supple, full range of motion, no observable masses, negative Brudzinski, no meningeal irritation Lungs: No Respiratory distress, Lungs clear to auscultation bilaterally no rales, rhonchi, wheezing CV: Regular rate and rhythm, no murmur, no pitting edema to lower extremities bilaterally Abdomen: Soft, nondistended, nontender to palpation MSK: No joint swelling, FROM all 4 extremities Skin: No rashes, petechiae, lesions. Normal color per patient. Neuro: Alert and oriented, no slurred speech, sensation and strength grossly intact all 4 extremities Psych: Appropriate for situation. Course Reevaluation(s): Reevaluation #1: Patient reassessed, symptoms improved Time: 03:23 Vital Signs: Vital signs: Vital Signs Temperature 97.8 F 06/05/25 00:52 Pulse Rate 93 06/05/25 03:00 Respiratory Rate 18 06/05/25 00:52 Blood Pressure 123/67 06/05/25 03:00 Pulse Oximetry 94 06/05/25 03:00 Oxygen Delivery Me thod Room Air 06/05/25 03:00 MDM - Nausea/Vomiting/Diarrhea Medical Decision Making 25-year-old female medical history of seizure disorder, GERD, psych issues, remote surgical history of cholecystectomy, presenting the emergency department with acute onset of nonbloody vomiting and diarrhea since 10:30 PM, no suspicious food intake, no fever, no other associated signs of illness or infection prior to onset of symptoms, does have some mild headache that started after the vomiting without associated neurologic deficits or meningeal irritation, patient is tachycardic but otherwise with a benign physical exam, plan for hydration, supportive care, labs, reassess for disposition. Overall very low concern for acute surgical or infectious intra-abdominal pathology given nontender abdomen and description of symptoms no indication for imaging at this time unless symptoms not improving with treatment. No concern for intracranial pathology leading to vomiting given associated diarrhea and normal neurologic exam Lab Data Workup showing mild leukocytosis 11, normal kidney function, normal electrolytes, normal LFTs, negative 06/05/25 01:20 06/05/25 01:20 Laboratory Results WBC 11.71 10^3/uL (3.29-11.43) H 06/05/25 01:20 RBC 5.05 10^6/uL (3.85-5.65) 06/05/25 01:20 Hgb 14.90 g/dL (11.27-16.99) 06/05/25 01:20 Hct 44.4 % (36-47) 06/05/25 01:20 MCV 87.9 fl (85-98) 06/05/25 01:20 MCH 29.5 pg (27-33) 06/05/25 01:20 MCHC 33.6 g/dL (30-55) 06/05/25 01:20 RDW 11.9 % (12.1-15.1) L 06/05/25 01:20 Plt Count 230 10^3/cmm (157-399) 06/05/25 01:20 MPV 10.5 fL (7.4-10.4) H 06/05/25 01:20 Neut % (Auto) 85.2 % 06/05/25 01:20 Lymph % (Auto) 7.2 % 06/05/25 01:20 [place] % (Auto) 6.3 % 06/05/25 01:20 Eos % (Auto) 0.6 % 06/05/25 01:20 Baso % (Auto) 0.3 % 06/05/25 01:20 Neut # (Auto) 9.97 10^3/uL (1.8-7.7) H 06/05/25 01:20 Lymph # (Auto) 0.8 10^3/uL (0.8-4.8) 06/05/25 01:20 [place] # (Auto) 0.7 10^3/uL (0.2-0.9) 06/05/25 01:20 Eos # (Auto) 0.1 10^3/uL (0.0-0.8) 06/05/25 01:20 Baso # (Auto) 0.0 10^3/uL (0.0-0.1) 06/05/25 01:20 Nucleated RBC % (auto) 0 % 06/05/25 01:20 Nucleated RBCs # 0.0 /100WBC 06/05/25 01:20 Sodium 140 mmol/L (136-145) 06/05/25 01:20 Potassium 3.8 mmol/L (3.5-5.1) 06/05/25 01:20 Chloride 107 mmol/L (98-107) 06/05/25 01:20 Carbon Dioxide 20 mmol/L (22-29) L 06/05/25 01:20 Anion Gap 16.8 (5-19) 06/05/25 01:20 BUN 9 mg/dL (6-20) 06/05/25 01:20 Creatinine 0.8 mg/dL (0.5-0.9) 06/05/25 01:20 GFR Calculation 87.4 mL/min (90-130) L 06/05/25 01:20 Glucose 109 mg/dL (65-115) 06/05/25 01:20 Calculated Osmolality 289 mOsm/kg (285-295) 06/05/25 01:20 Calcium 9.5 mg/dL (8.5-10.5) 06/05/25 01:20 Total Bilirubin 0.5 mg/dL (0.15-1.2) 06/05/25 01:20 AST 26 U/L (0-32) 06/05/25 01:20 ALT 21 U/L (0-33) 06/05/25 01:20 Alkaline Phosphatase 124 U/L (35-105) H 06/05/25 01:20 Total Protein 7.0 g/dL (6.6-8.7) 06/05/25 01:20 Albumin 4.4 g/dL (3.5-5.2) 06/05/25 01:20 Globulin 2.6 g/dL (1.3-4.6) 06/05/25 01:20 Lipase 26 U/L (13-60) 06/05/25 01:20 HCG, Qual Negative (Negative) 06/05/25 01:20 No radiology studies performed this visit Discharge Plan Discharge Patient Disposition: Home Clinical Impression: Gastroenteritis Condition: Stable Prescriptions: New ondansetron 8 mg tablet,disintegrating 8 mg PO Q8H PRN (Reason: nausea and vomiting) 5 Days Qty: 14 0RF famotidine [Pepcid] 20 mg tablet 20 mg PO BID 5 Days Qty: 10 0RF No Action bismuth subsalicylate [Pepto-Bismol] 262 mg tablet,chewable 1 tab PO DAILY PRN (Reason: adominal upset) Rx Instructions: do not exceed 16 tabs per 24 hrs diphenhydramine HCl [Benadryl] 25 mg capsule 25 mg PO Q6H PRN (Reason: allergies) Proctofoam HC 1-1 % foam 1 applic WI QID PRN (Reason: hemorrhoids) Qty: 10 5RF Nexplanon 68 mg implant 1 implant subdermal ONCE zonisamide 100 mg capsule See Rx Instructions .ROUTE .COMPLEX Qty: 180 11RF Dose Instruction: TAKE 2 CAPSULES BY MOUTH EVERY MORNING and THREE EVERY EVENING Rx Instructions: TAKE 3 CAPSULES BY MOUTH EVERY MORNING and THREE EVERY EVENING metoprolol tartrate 25 mg tablet PO melatonin 5 mg capsule PO PRN lorazepam 1 mg tablet See Rx Instructions .ROUTE .COMPLEX Qty: 45 2RF Rx Instructions: take a half a tab at 6 PM, take a whole tab at bedtime, hold for sedation; quetiapine 400 mg tablet extended release 24 hr See Rx Instructions .ROUTE .COMPLEX Qty: 120 5RF Dose Instruction: TAKE 2 TABLETS BY MOUTH TWICE DAILY Rx Instructions: TAKE 2 TABLETS BY MOUTH TWICE DAILY quetiapine 50 mg tablet 50 mg PO DAILY 30 Days Qty: 30 5RF fluoxetine [Prozac] 20 mg capsule 20 mg PO DAILY Qty: 30 2RF benztropine 1 mg tablet 1 mg PO BID Qty: 60 3RF Rx Instructions: TAKE ONE TABLET BY MOUTH TWICE DAILY Chloraseptic Warming 15 mg lozenge 15 mg mucous membrane Q2H PRN (Reason: sore throat) Qty: 18 0RF clindamycin HCl [Cleocin HCl] 300 mg capsule 300 mg PO TID 7 Days Qty: 21 0RF Adult 50 Plus Probiotic 4 billion cell capsule 4,000 mmu cells PO QDAY Qty: 10 0RF azithromycin 500 mg tablet 500 mg PO DAILY 5 Days Qty: 5 0RF mecobalamin (vitamin B12) 1,000 mcg tablet,chewable 1,000 mcg PO DAILY Midol 500-25 mg tablet 1 tab PO Q6H PRN (Reason: Cramps) ondansetron HCl 4 mg tablet 4 mg PO Q6H PRN (Reason: nausea) vit-iron fum-folic ac 66 mg iron- 1 mg tablet PO DAILY hydroxyzine pamoate 25 mg capsule 50 mg PO BID sucralfate 1 gram tablet 1 g PO BID Qty: 14 0RF pantoprazole [Protonix] 40 mg tablet,delayed release (DR/EC) 40 mg PO DAILY Linzess 145 mcg capsule 145 mcg PO DAILY Qty: 30 11RF paliperidone 9 mg tablet extended release 24 hr 9 mg PO DAILY 30 Days Qty: 30 2RF brivaracetam 100 mg tablet 100 mg PO BID 90 Days Qty: 180 3RF lorazepam 2 mg/mL concentrate See Rx Instructions .ROUTE .COMPLEX PRN (Reason: seizure activity) Qty: 30 0RF Rx Instructions: 0.5 ML PO PRN daily fluticasone propionate 50 mcg/actuation [place],Suspension 1 spray INTRANASAL BID Rx Instructions: INTSILL 1 SPRAY INTO EACH NOSTRIL BID atorvastatin 40 mg Tablet 40 mg PO BEDTIME ferrous sulfate [Iron (ferrous sulfate)] 325 mg (65 mg iron) Tablet 325 mg PO DAILY polyethylene glycol 3350 [Miralax] 17 gram powder in packet 17 g PO DAILY PRN (Reason: constipation) Qty: 14 0RF acetaminophen 325 mg Tablet 650 mg PO QID PRN (Reason: Pain) sennosides-docusate sodium [Senokot-S] 8.6-50 mg Tablet 2 tab-cap PO DAILY bisacodyl 10 mg Suppository 10 mg WI DAILY PRN (Reason: Constipation) Fossil Cough Drops 7.5 mg Lozenge 7.5 mg MUCOUS MEMBRANE Q2H PRN (Reason: Cough) Discharge Orders: Discharge ED (Routine); Ordered 06/05/25 Ordered By: Bogdan Cabrera Referrals: Judith Bermudez FNP [Primary Care Provider, Unknown] Patient Instructions: Patient Portal & Carmelo Instructions, Gastroenteritis (DC) Print Language: Hungarian Coding Level of Care Code ED [employer] 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
[2025-06-05] MEDS: ondansetron 2 mg/ML SDV 2 mL 4 MG IVP (01:18)
[2025-06-05 01:31] LABS: Hematocrit 44.4 % (36-47); Hemoglobin 14.90 g/dL (11.27-16.99); Mean Corpuscular HGB Conc 33.6 g/dL (30-55); Mean Corpuscular Hemoglobin 29.5 pg (27-33); Mean Corpuscular Volume 87.9 fl (85-98); Nucleated Red Blood Cells % 0 %; Platelet Count 230 10^3/cmm (157-399); Red Blood Count 5.05 10^6/uL (3.85-5.65); White Blood Count 11.71 10^3/uL (3.29-11.43)
[2025-06-05 01:38] LABS: HCG, Serum Qual Negative (Negative)
[2025-06-05 01:45] LABS: Alanine Aminotransferase 21 U/L (0-33); Albumin Level 4.4 g/dL (3.5-5.2); Alkaline Phosphatase 124 U/L (35-105); Anion Gap 16.8 (5-19); Aspartate Amino Transferase 26 U/L (0-32); Blood Urea Nitrogen 9 mg/dL (6-20); Calcium 9.5 mg/dL (8.5-10.5); Carbon Dioxide 20 mmol/L (22-29); Chloride 107 mmol/L (98-107); Globulin 2.6 g/dL (1.3-4.6); Glucose 109 mg/dL (65-115); Lipase 26 U/L (13-60); Osmolality Calculated 289 mOsm/kg (285-295); Potassium 3.8 mmol/L (3.5-5.1); Sodium 140 mmol/L (136-145); Total Protein 7.0 g/dL (6.6-8.7)
[2025-06-05 02:00] VITALS: BP 143/97; PULSE 98; O2SAT 97
[2025-06-05 03:00] VITALS: BP 123/67; PULSE 93; O2SAT 94
[2025-06-05 04:45] VITALS: BP 98/64; PULSE 111; O2SAT 99
== END 2025-06-05 04:47 | disposition home or self-care (01) ==
PROVIDERS: Emergency Provider Student in an Organized Health Care Education/Training Program; PCP Nurse Practitioner Family
DX: K52.9 Noninfective gastroenteritis and colitis, unspecified (principal); F17.290 Nicotine dependence, other tobacco product, uncomplicated; E78.5 Hyperlipidemia, unspecified
CPT/HCPCS: 36415; 80053; 83690; 84703; 85025; 96361; 96374; 96375; 99284; J1885; J2405; J3490; J7030